=== PATIENT | female | born 1945 | race Caucasian/White ===

== ENCOUNTER 2017-03-11 09:15 | Outpatient (RCR) | payer MEDICARE, SELFPAY ==
[2017-02-09 00:32] VITALS: BP 136/64; BP 156/70
--- NOTE | 2017-03-11 11:23 | PCM.CR.ITP ---
Exercise - Initial Assessment - Stages of Change Stages of Change:: Action - Exercise Prescription Mode:: Treadmill, Biodyne, Airdyne, NuStep Angina with exercise?: No Target Heart Rate:: 105-112 - Hypertension Do any of the following apply?: Yes - Intervention Home Exercise/Activity Goal:: Moderate Exercise 30 min/day x 5 days/wk - Education Goals:: Warm-up, RPE JES Scale, S/S, Safe Exercise, Self-Monitoring - Exercise Program Goals Exercise Program Goals: Aerobic Activity >30 min, B/P <140/90 Exercise - 30-day Assessment - Stages of Change Stages of Change:: Action - Exercise Prescription Mode:: NuStep, Arm Ergometer Frequency (x/week): 3 Duration:: 35 METs - Progression: 0.5-1 MET as tolerated: 4.0 Target Heart Rate:: 105-112 - Intervention Home Exercise/Activity Goal:: Moderate Exercise 30 min/day x 5 days/wk - Education Goals:: Warm-up, RPE JES Scale, S/S, Safe Exercise, Self-Monitoring - Exercise Program Goals Exercise Program Goals: Aerobic Activity >30 min Exercise - 60-Day Assessment - Visit Date of Eval: 05/09/16 - Stages of Change Stages of Change:: Action - Exercise Prescription Mode:: NuStep, Arm Ergometer Frequency (x/week): 3 Duration:: METs: Target Heart Rate:: - Hypertension Medication Changes:: No - Intervention Home Exercise/Activity Goal:: Moderate Exercise 30 min/day x 5 days/wk - Education Goals:: Warm-up, RPE JES Scale, S/S, Safe Exercise, Self-Monitoring - Exercise Program Goals Exercise Program Goals: Aerobic Activity >30 min Exercise - 90-Day Assessment - Visit Date of Eval: 03/11/17 Session #:: 32 - Stages of Change Stages of Change:: Action - Exercise Prescription Mode:: NuStep, Arm Ergometer Frequency (x/week): 3 Duration:: 30 METs: 5.5 Target Heart Rate:: 105-112 max HR 83 - Hypertension Resting Blood Pressure:: 116/48 Peak Exercise Blood Pressure:: 136/52 Medication Changes:: No - Intervention Home Exercise/Activity Goal:: Moderate Exercise 30 min/day x 5 days/wk - Education Goals:: Warm-up, RPE JES Scale, S/S, Safe Exercise, Self-Monitoring - Exercise Program Goals Exercise Program Goals: Aerobic Activity >30 min Exercise - Final/Discharge - Stages of Change Stages of Change:: Action - Exercise Prescription Mode:: NuStep Frequency (x/week): 3 Duration:: 35 METs: 3.6 Target Heart Rate:: 105-112 - Hypertension Do any of the following apply?: Yes - Intervention Home Exercise/Activity Goal:: Moderate Exercise 30 min/day x 5 days/wk - Education Goal Progress: Goal Met - Exercise Program Goals Exercise Program Goals: Aerobic Activity >30 min Nutrition - Initial Assessment - Program Goals Nutrition Program Goals: LDL <70. Total Cholesterol <200. HDL >45. Triglycerides <150. HgbA1C <7%. BMI <25 - Stages of Change Stages of Change:: Action - Lipids HDL Cholesterol (mg/dL) Goal = less than 45 mg/dL: 39 LDL Cholesterol (mg/dL) Goal = less than 70 mg/dL: 78 - Diabetes Diabetes:: Yes Hgb A1C: 7.1 Non-Insulin Dependent?: No Do you monitor your blood sugar at home?: Yes - Weight Management Weight Goal (kg):: 68.039 kg Total Score:: 4 - Intervention Referral to dietitian:: No - declines Referral to Diabetic Clinic:: No - declines Will attend diet classes:: Yes - Education Gave educational materials for:: Signs & symptoms of hypoglycemia, Signs & symptoms of hyperglycemia, Relate diabetes to coronary artery disease, Healthy eating Nutrition - 30-Day Assessment - Program Goals Nutrition Program Goals: LDL <70. Total Cholesterol <200. HDL >45. Triglycerides <150. HgbA1C <7%. BMI <25 - Stages of Change Stages of Change:: Action - Lipids Has the patient seen the dietitian?: No - Diabetes Diabetes:: Yes Hgb A1C: 7.1 Non-Insulin Dependent?: No - Weight Management Weight Goal (kg):: 68.039 kg - Intervention Referral to dietitian:: No - declines Referral to Diabetic Clinic:: No - declines Will attend diet classes:: Yes - Education Attended class for:: Signs & symptoms of hypoglycemia, Signs & symptoms of hyperglycemia, Relate diabetes to coronary artery disease, Healthy eating Nutrition - 60-Day Assessment - Program Goals Nutrition Program Goals: LDL <70. Total Cholesterol <200. HDL >45. Triglycerides <150. HgbA1C <7%. BMI <25 - Visit Date of Eval: 05/09/16 - Stages of Change Stages of Change:: Action - Lipids Has the patient seen the dietitian?: No - Diabetes Diabetes:: Yes Hgb A1C: 7.1 Non-Insulin Dependent?: No Random Blood Glucose:: 222 - Weight Management Weight Goal (kg):: 68.039 kg - Intervention Referral to dietitian:: No - declines Referral to Diabetic Clinic:: No - declines Will attend diet classes:: Yes - Education Attended class for:: Signs & symptoms of hypoglycemia, Signs & symptoms of hyperglycemia, Relate diabetes to coronary artery disease, Healthy eating Nutrition - 90-Day Assessment - Program Goals Nutrition Program Goals: LDL <70. Total Cholesterol <200. HDL >45. Triglycerides <150. HgbA1C <7%. BMI <25 - Visit Date of Eval: 03/11/17 - Stages of Change Stages of Change:: Action - Lipids Has the patient seen the dietitian?: No - Diabetes Diabetes:: Yes Hgb A1C: 7.1 Non-Insulin Dependent?: No Random Blood Glucose:: 222 - 145-250 - Weight Management Weight:: 106.141 kg Weight Goal (kg):: 68.039 kg - Intervention Referral to dietitian:: No - declines Referral to Diabetic Clinic:: No - declines Will attend diet classes:: Yes - Education Attended class for:: Signs & symptoms of hypoglycemia, Signs & symptoms of hyperglycemia, Relate diabetes to coronary artery disease, Healthy eating Nutrition - Final Assessment - Program Goals Nutrition Program Goals: LDL <70. Total Cholesterol <200. HDL >45. Triglycerides <150. HgbA1C <7%. BMI <25 - Stages of Change Stages of Change:: Action - Diabetes Diabetes:: Yes Hgb A1C: 7.1 Non-Insulin Dependent?: No - Weight Management Weight Goal (kg):: 68.039 kg Total Score:: 4 - Intervention Referral to dietitian:: No - declines Referral to Diabetic Clinic:: No - declines Will attend diet classes:: Yes - Education Education Goal Reached?: Yes Tobacco - Initial Assessment - Program Goals Tobacco Program Goals: Complete smoking cessation. Attend education classes. Improve Knowledge Test score - Stage of Change Stages of Change:: Action - Learning Barriers Learning Barriers: Ready to Learn Total Score:: 0 - Family Support Do you have family support?: Yes - Tobacco Use Tobacco Use: Non-smoker How long ago did you quit using tobacco products?: Greater than or equal to 6 months ago Do you use smokeless tobacco?: No - Intervention Smoking Cessation Referral:: No Individual Education/Counseling:: No Education Schedule Given:: Yes - Education Gave educational material for:: Tobacco triggers, Coronary artery disease, Risk factors, Sexuality, Medical compliance, Cardiac A&P, Angina signs & symptoms Tobacco - 30-Day Assessment - Program Goals Tobacco Program Goals: Complete smoking cessation. Attend education classes. Improve Knowledge Test score - Stage of Change Stages of Change:: Action - Learning Barriers Learning Barriers: Participates in education - Family Support Do you have family support?: Yes - Tobacco Use Tobacco Use: Non-smoker Do you use smokeless tobacco?: No - Intervention Smoking Cessation Referral:: No Individual Education/Counseling:: No Education Schedule Given:: Yes - Education Attended class for:: Tobacco triggers, Coronary artery disease, Risk factors, Sexuality, Medical compliance, Cardiac A&P, Angina signs & symptoms Tobacco - 60-Day Assessment - Program Goals Tobacco Program Goals: Complete smoking cessation. Attend education classes. Improve Knowledge Test score - Stage of Change Stages of Change:: Action - Learning Barriers Learning Barriers: Participates in education - Family Support Do you have family support?: Yes - Tobacco Use Tobacco Use: Non-smoker Do you use smokeless tobacco?: No - Intervention Smoking Cessation Referral:: No Individual Education/Counseling:: No Education Schedule Given:: Yes - Education Attended class for:: Tobacco triggers, Coronary artery disease, Risk factors, Sexuality, Medical compliance, Cardiac A&P, Angina signs & symptoms Tobacco - 90-Day Assessment - Program Goals Tobacco Program Goals: Complete smoking cessation. Attend education classes. Improve Knowledge Test score - Stage of Change Stages of Change:: Action - Learning Barriers Learning Barriers: Participates in education - Family Support Do you have family support?: Yes - Tobacco Use Tobacco Use: Non-smoker Do you use smokeless tobacco?: No - Intervention Smoking Cessation Referral:: No Individual Education/Counseling:: No Education Schedule Given:: Yes - Education Attended class for:: Tobacco triggers, Coronary artery disease, Risk factors, Sexuality, Medical compliance, Cardiac A&P, Angina signs & symptoms Tobacco - Final Assessment - Program Goals Tobacco Program Goals: Complete smoking cessation. Attend education classes. Improve Knowledge Test score - Stage of Change Stages of Change:: Action - Learning Barriers Cardiac Knowledge Test Score:: 0 - Family Support Do you have family support?: Yes - Tobacco Use Tobacco Use: Non-smoker Do you use smokeless tobacco?: No - Intervention Smoking Cessation Referral:: No Individual Education/Counseling:: No Education Schedule Given:: Yes - Education Education Goal Reached?: Yes Psychosocial - Initial Assess - Target Goals Target Goals: Assess presence or absence of depression. Using a valid screening tool, maximizes coping skills. Positive support system - Stages of Change Stages of Change:: Action - Psychosocial Test Tool Used:: HANDS Depression Questionnaire Self-reported stress:: no Tests Completed: SF - 36 survey completed, Mood Scale Test Total Mood Screening Score:: 1 Self-Efficacy Score:: 2 - Patient/Program Goal Preventative Medication(s):: Aspirin, STEVE inhibitor, Clopidogrel, Beta rahat, Statin/lipid - Assistive Devices Assistive Devices:: None Fall Risk Assessed:: Yes Psychosocial - 30-Day Assess - Target Goals Target Goals: Assess presence or absence of depression. Using a valid screening tool, maximizes coping skills. Positive support system - Stages of Change Stages of Change:: Action - Psychosocial Test Tool Used:: HANDS Depression Questionnaire Self-reported stress:: None Total Mood Screening Score:: 1 Self-Efficacy Score:: 2 - Patient/Program Goal Preventative Medication(s):: Aspirin, STEVE inhibitor, Clopidogrel, Beta rahat, Statin/lipid - Assistive Devices Assistive Devices:: None Fall Risk Assessed:: Yes Psychosocial - 60-Day Assess - Target Goals Target Goals: Assess presence or absence of depression. Using a valid screening tool, maximizes coping skills. Positive support system - Stages of Change Stages of Change:: Action - Psychosocial Test Tool Used:: HANDS Depression Questionnaire Total Mood Screening Score:: 1 Self-Efficacy Score:: 2 - Patient/Program Goal Preventative Medication(s):: Aspirin, STEVE inhibitor, Clopidogrel, Beta rahat, Statin/lipid - Assistive Devices Assistive Devices:: None Fall Risk Assessed:: Yes Psychosocial - 90-Day Assess - Target Goals Target Goals: Assess presence or absence of depression. Using a valid screening tool, maximizes coping skills. Positive support system - Stages of Change Stages of Change:: Action - Psychosocial Test Tool Used:: HANDS Depression Questionnaire Total Mood Screening Score:: 1 Self-Efficacy Score:: 9 - Patient/Program Goal Preventative Medication(s):: Aspirin, STEVE inhibitor, Clopidogrel, Beta rahat, Statin/lipid - Assistive Devices Assistive Devices:: None Fall Risk Assessed:: Yes Psychosocial - Final Assessmen - Target Goals Target Goals: Assess presence or absence of depression. Using a valid screening tool, maximizes coping skills. Positive support system - Stages of Change Stages of Change:: Action - Psychosocial Test Tool Used:: HANDS Depression Questionnaire Self-reported stress:: none Tests Completed: SF - 36 survey completed, Mood Scale Test Total Mood Screening Score:: 1 Self-Efficacy Score:: 2 - Education Education Goal Reached?: Yes - Patient/Program Goal Preventative Medication(s):: Aspirin, STEVE inhibitor, Clopidogrel, Beta rahat, Statin/lipid - Assistive Devices Assistive Devices:: None Fall Risk Assessed:: Yes Patient Health Questionnaire 90-Day Re-eval Assessment 1. Little interest or pleasure in doing things: Not at all 2. Feeling down, depressed, or hopeless: Not at all 3. Trouble falling or staying asleep, or sleeping too much: Not at all 4. Feeling tired or having little energy: Not at all 5. Poor appetite or overeating: Not at all 6. Feeling bad about yourself -- or that you are a failure or have let yourself or your family down: Not at all 7. Trouble concentrating on things, such as reading the newspaper or watching television: Not at all 8. Moving or speaking so slowly that other people could have noticed. Or the opposite - being so fidgety or restless that you have been moving around a lot more than usual: Not at all 9. Thoughts that you would be better off , or of hurting yourself in some way: Not at all Total Score: 0 Self-Efficacy 90-Day Re-eval Assessment We would like to know how confident you are in doing certain activities. Please select your confidence level for:: Select your confidence level for the following using the scale 1-10 where 1 is not at all confident and 10 is totally confident. Your score is the average of all 6 responses. Fatigue: How confident are you that you can keep the fatigue caused by your disease from interfering with the things you want to do? Select Number: 9 Physical Discomfort or Pain: How confident are you that you can keep the physical discomfort or pain of your disease from interfering with the things you want to do? Select Number: 10 Emotional Distress: How confident are you that you can keep the emotional distress caused by your disease from interfering with the things you want to do? Select Number: 10 Other Symptoms or Health Problems: How confident are you that you can keep other symptoms or health problems from interfering with the things you want to do? Select Number: 10 Different Tasks and Activities: How confident are you that you can do the different tasks and activities needed to manage your health condition so as to reduce your need to see a doctor? Select Number: 10 Medication: How confident are you that you can do things other than just taking medication to reduce how much your illness affects your everyday life? Select Number: 10 Total Score:: 9 Cardiac Rehabilitation Goals - Cardiac Rehab Goals Cardiac Rehabilitation Goals: 1. Maintain the individual as the primary focus of care. 2. To improve the patient's quality of life. 3. Identification of cardiac risk factors and provide cardiac risk factor management. 4. Enhance the psychosocial status of the patient. 5. Reconditioning enough to allow the patient to resume customary activities. 6. Control symptoms of cardiac disease - Scale Scale for measuring improvement of personal goals: Enter appropriate number in Comments. 2 = Unchanged. 3 = Slightly Better. 4 = Moderate Improvement. 5 = Met my Goal 90-Day Re-eval Assessment Personal Goals: 60-day Re-assessment: Improve energy level - goal met., Get back to work, or to resume activities faster - goal met., Improve muscle strength and endurance - goal met.
[2017-03-11 11:27] VITALS: BP 116/48; BP 136/52
== END 2017-03-11 23:59 ==
LOC: CR 09:15
PROVIDERS: Family Provider Family Medicine; PCP Family Medicine; Visit Provider Internal Medicine Cardiovascular Disease
DX: Z95.5 Presence of coronary angioplasty implant and graft (principal); I25.118 Atherosclerotic heart disease of native coronary artery with other forms of angina pectoris; I35.0 Nonrheumatic aortic (valve) stenosis; E11.9 Type 2 diabetes mellitus without complications; I10 Essential (primary) hypertension; E78.5 Hyperlipidemia, unspecified; R07.9 Chest pain, unspecified; Z79.01 Long term (current) use of anticoagulants; Z79.899 Other long term (current) drug therapy; Z95.1 Presence of aortocoronary bypass graft
CPT/HCPCS: 93798

== ENCOUNTER 2017-03-20 09:15 | Outpatient (RCR) | payer MEDICARE, SELFPAY ==
[2017-03-12 00:31] VITALS: BP 116/48; BP 136/52
== END 2017-04-08 23:59 ==
LOC: CR 09:15
PROVIDERS: Family Provider Family Medicine; PCP Family Medicine; Visit Provider Internal Medicine Cardiovascular Disease
DX: Z95.5 Presence of coronary angioplasty implant and graft (principal); I25.118 Atherosclerotic heart disease of native coronary artery with other forms of angina pectoris; I35.0 Nonrheumatic aortic (valve) stenosis; E11.9 Type 2 diabetes mellitus without complications; I10 Essential (primary) hypertension; E78.5 Hyperlipidemia, unspecified; R07.9 Chest pain, unspecified; Z79.01 Long term (current) use of anticoagulants; Z79.899 Other long term (current) drug therapy; Z95.1 Presence of aortocoronary bypass graft
CPT/HCPCS: 36415; 80076; 82565; 82728; 83540; 83550; 85025; 85610; 93798

== ENCOUNTER → 2017-03-20 09:54 | Outpatient (CLI) | payer MEDICARE, SELFPAY ==
[2017-03-20 10:17] LABS: Absolute Lymphocyte Count 0.95 X10^3/ul (0.83-4.51); Absolute Neutrophil Count 1.8 X10^3/uL (2.0-7.7); Basophil# 0.01 X10^3/uL; Basophil% 0.3 % (0-1); Eosinophil# 0.07 X10^3/uL; Eosinophils% 2.3 % (0-5); Hematocrit 35.5 % (37-47); Hemoglobin 10.9 g/dl (12.0-15.0); Lymphocyte # 0.95 X10^3/ul (4.0); Lymphocyte % 30.7 % (19-41); Mean Corp Hgb Conc 30.7 g/gl (32-36); Mean Corpuscular Hgb 26.7 pg (27.0-32.0); Mean Corpuscular Volume 86.8 fL (81-99); Mean Platelet Vol. 12.3 fl (6.2-12.0); Monocyte# 0.29 X10^3/uL; Monocyte% 9.4 % (0-10); Neutrophil # 1.77 X10^3/uL (2.7-7.7); Neutrophil % 57.3 % (47-70); Platelet Count 111 K/mm3 (150-450); RBC Distribution Width CV 15.6 % (11.6-14.6); RBC Distribution Width SD 49.2 fl (35.1-43.9); Red Blood Count 4.09 M/mm3 (4.2-5.4); White Blood Count 3.1 K/mm3 (4.4-11.0)
[2017-03-20 10:18] LABS: POSITIVE COUNT NO; POSITIVE DIFFERENTIAL NO; POSITIVE MORPHOLOGY NO
[2017-03-20 10:35] LABS: International Normalized Ratio 2.6; Prothrombin Time (Protime)PT. 26.9 SECONDS (11.7-14.9)
[2017-03-20 10:56] LABS: AST(SGOT) 28 U/L (15-37); Alanine Aminotransfer ALT/SGPT 27 U/L (13-56); Albumin, Serum 3.3 g/dL (3.2-5.0); Alkaline Phosphatase 140 U/L (45-117); Bilirubin, Direct 0.36 mg/dL (0.00-0.30); Creatinine, Serum 1.05 mg/dL (0.55-1.02); EST Glomerular Filtration Rate 55 mL/min (>60); Est Glom Filt Rate - Afr Amer 66 mL/min (>60); Ferritin 15 ng/mL (8-252); Globulin 3.8 g/dL (2.2-4.2); Iron 39 ug/dL (50-170); Iron Binding Capacity,Total 375 ug/dL (250-450); Protein, Total 7.1 g/dL (6.4-8.2)
== END ==
PROVIDERS: Family Provider Family Medicine; PCP Family Medicine
DX: I63.9 Cerebral infarction, unspecified (principal); M05.79 Rheumatoid arthritis with rheumatoid factor of multiple sites without organ or systems involvement; Z79.899 Other long term (current) drug therapy; D64.9 Anemia, unspecified
CPT/HCPCS: 36415; 80076; 82565; 82728; 83540; 83550; 85025; 85610

== ENCOUNTER → 2017-04-22 16:12 | Outpatient (CLI) | payer MEDICARE, SELFPAY ==
[2017-04-22 17:56] LABS: International Normalized Ratio 3.1; Prothrombin Time (Protime)PT. 31.9 SECONDS (11.7-14.9)
== END ==
PROVIDERS: Family Provider Family Medicine; PCP Family Medicine; Visit Provider Family Medicine
DX: E11.9 Type 2 diabetes mellitus without complications (principal); Z86.73 Personal history of transient ischemic attack (TIA), and cerebral infarction without residual deficits
CPT/HCPCS: 36415; 83036; 85610

== ENCOUNTER → 2017-04-27 15:42 | Outpatient (CLI) | payer MEDICARE, SELFPAY ==
--- NOTE | 2017-04-27 16:00 | RAD_ITS ---
STUDY: X-RAY CHEST REASON FOR EXAM: Female, 72 years old. Coronary artery stent. Pre heart catheter. TECHNIQUE: Frontal and lateral views of the chest. COMPARISON: 11/19/2016. FINDINGS: The lungs are clear and expanded. There is no demonstrated pleural abnormality. Sternal cerclage wires and vascular clips are present from a prior sternotomy and coronary artery bypass graft procedure (CABG). Normal mediastinum and fidelina. Normal visualized pulmonary arteries. Normal visualized aortic arch and descending thoracic aorta. There are diffuse degenerative changes of the visualized thoracic spine. Normal visualized ribs, clavicles, and shoulders. There is no demonstrated abnormality of the visualized soft tissue structures of the upper abdomen. RAD/Chest PA and Lateral IMPRESSION: No definite acute chest disease. Electronically Signed: Reinaldo Oglesby MD at 9:47 EDT , Service support ,
[2017-04-27 17:28] LABS: Absolute Lymphocyte Count 2.12 X10^3/ul (0.83-4.51); Absolute Neutrophil Count 2.1 X10^3/uL (2.0-7.7); Basophil# 0.01 X10^3/uL; Basophil% 0.2 % (0-1); Eosinophil# 0.07 X10^3/uL; Eosinophils% 1.5 % (0-5); Hematocrit 37.3 % (37-47); Hemoglobin 11.3 g/dl (12.0-15.0); Lymphocyte # 2.12 X10^3/ul (4.0); Mean Corp Hgb Conc 30.3 g/gl (32-36); Mean Corpuscular Hgb 26.7 pg (27.0-32.0); Mean Corpuscular Volume 88.2 fL (81-99); Monocyte# 0.42 X10^3/uL; Monocyte% 8.9 % (0-10); Neutrophil # 2.09 X10^3/uL (2.7-7.7); Neutrophil % 44.4 % (47-70); Platelet Count 150 K/mm3 (150-450); RBC Distribution Width SD 51.3 fl (35.1-43.9); Red Blood Count 4.23 M/mm3 (4.2-5.4); White Blood Count 4.7 K/mm3 (4.4-11.0)
[2017-04-27 17:33] LABS: Prothrombin Time (Protime)PT. 31.7 SECONDS (11.7-14.9)
[2017-04-27 17:43] LABS: POSITIVE COUNT NO; POSITIVE DIFFERENTIAL NO; POSITIVE MORPHOLOGY NO
[2017-04-27 18:07] LABS: Anion Gap 9 (5-15); BUN 22 mg/dL (7-18); BUN/Creat Ratio 17.3 RATIO (10-20); Calcium,Total 9.3 mg/dL (8.5-10.1); Chloride 108 mmol/L (98-107); Creatinine, Serum 1.27 mg/dL (0.55-1.02); EST Glomerular Filtration Rate 44 mL/min (>60); Est Glom Filt Rate - Afr Amer 53 mL/min (>60); Glucose 187 mg/dL (74-106); Potassium 4.3 mmol/L (3.5-5.1); Sodium Level 141 mmol/L (136-145)
== END ==
PROVIDERS: Family Provider Family Medicine; PCP Family Medicine; Visit Provider Internal Medicine Cardiovascular Disease
DX: I63.9 Cerebral infarction, unspecified (principal); I25.10 Atherosclerotic heart disease of native coronary artery without angina pectoris; E78.5 Hyperlipidemia, unspecified; I25.798 Atherosclerosis of other coronary artery bypass graft(s) with other forms of angina pectoris; Z95.5 Presence of coronary angioplasty implant and graft
CPT/HCPCS: 36415; 71046; 80048; 85025; 85610; 85730

== ENCOUNTER 2017-05-13 07:53 | Day surgery (SDC) | payer MEDICARE, SELFPAY ==
[2017-05-12 11:45] VITALS: BMI 38.2
[2017-05-13] VITALS (36 sets, daily range): BP systolic 103–175; BP diastolic 42–143; PULSE 57–74; RESP 13–21; TEMP 36–36.9; O2SAT 94–100; BMI 39.4
[2017-05-13 08:06] LABS: Prothrombin Time Fingerstick 12.2 SEC (11.9-14.4)
[2017-05-13 08:21] LABS: Bedside Glucose 101 mg/dL (70-110)
--- NOTE | 2017-05-13 10:45 | CL.I_ITS ---
Patient Name: BEN DE JESUS Study Date: 05/13/2017 Performing: Jim Liu MD Ht: 65 inches 165 cm : 1945 Wt: 229.6 lbs 104 kg Age: 72 Gender: female BSA: 2.1 PROCEDURE(S) PERFORMED LP43-FFV/COR/LV/CABG [id number], SINGLE CORONARY ARTERY CLINICAL PROFILE AND CO-MORBIDITIES Indications: New Onset Angina <= 2 months Heart Failure: None Stress/Imaging Stress/Image Study Performed: No Angina Classification Anginal Classification w/in 2 Weeks: CCS IV CAD Presentations: Unstable angina. 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 Successful PCI with PTCA to the Angiosculpt to ISR of mid RCA. RECOMMENDATIONS Referred for immediate PCI Highly recommend quitting all tobacco products Follow up with primary street inspector Risk factor modification ASA Indefinitley Plavix for at least 12 months Routine post interventional care Refer for Outpatient Cardiac Rehab Manual sheath removal per protocol Pt had no anginal symptoms with balloon inflation x 2. Would consider other sources of chest pain. DESCRIPTION OF PROCEDURE The patient arrived to the procedure lab. The risks and benefits of the procedure as well as a full d escription of our services here and lack of surgical backup were fully explained to the patient and/o r their significant other prior to the catheterization. The Timeout was completed, verifying the arnie ect patient and procedure. The patient's procedural site was prepped and draped in the usual fashion. Local anesthetic was given subcutaneously to left groin region with Lidocaine 2%. Using a modified S eldinger technique, arterial access was obtained via the left femoral artery, a 4Fr sheath was insert ed. Left Coronary Artery selective angiography was performed in multiple views using a 4 Fr. JL5 cat heter. Right Coronary Artery selective angiography was then performed in multiple views using a 4 Fr. 3DRC catheter. Saphenous Vein graft to the OM 1 selective angiography was performed in multiple view s using a 4 Fr. 3DRC catheter. Left internal mammary artery graft to the LAD selective angiography wa s performed in multiple views using a 4 Fr. AR MOD 2 catheter. Left Ventriculography was performed in ZAPATA projection using a 4 Fr. Pigtail catheter. LV to AO pullback pressures were then recorded Arterial sheath was exchanged for a 6 Fr Sheath hs II SH Guide catheter was inserted and engaged into the RCA. BMW Cuddy Guide wire was advanced to the RCA. 2.0 by 10 angiosculpt Balloon catheter wa s advanced across lesion in the right coronary, mid. Angiogram performed post balloon dilatation.. . The arterial sheath was sutured in place and capped. CORONARY ANGIOGRAPHY DOMINANCE: Left Dominant LEFT HEART ASSESSMENT Left Ventricular Ejection Fraction: by LV Gram 65 % Normal Left Ventricular systolic function Normal LV wall motion LEFT MAIN: Moderate calcification LEFT ANTERIOR DECENDING ARTERY: OSTIAL LAD: is occluded CIRCUMFLEX ARTERY: Mild luminal irregularities less than 30% RIGHT CORONARY ARTERY: MID RCA: Instent restenosis 75 % GRAFTS: KRISHNAMURTHY graft to the LAD is patent Saphenous Vein graft to the 1st OM is patent INTERVENTION INFORMATION LESION SITE: RCA (Mid) Lesion Complexity: Non-High/Non-C, lesion at bifurcation: No, lesion length: 10 mm, culprit lesion: Y es, In-stent restenosis: Yes Pre Stenosis: 75 % Pre intervention JESSE flow: 3 PROCEDURE: Cutting Balloon Angioplasty Post Stenosis: 0 % Post intervention JESSE flow: 3 Lesion Devices: Memoir 6 Fr HSII SH 100cm Guide Catheter Corley .014 BMW Cuddy Straight 190cm [employer] Angiosculpt RX 2.0x10 Scoring Balloon COMPLICATIONS No Complications PROCEDURE MEDICATIONS Oxygen: 2 L/min via nasal cannula Heparin 6000 unit(s) IV 05/13/2017 10:05:34 Nitro 200 mcg IC 05/13/2017 10:14:58 IV Fluids: .9 NaCl increased to open ml/hr 05/13/2017 10:09:51 SUMMARY OF HEMODYNAMIC DATA Time AIR REST ECG 08:31:48 ECG 09:31:53 AO 130/68 (96) SA 09:51:50 LV 167/-19, 18 10:02:55 LV 169/-19, 18 10:03:02 LVp 172/-18, 12 10:03:21 AOp 163/59 (99) 10:03:26 Signed By Jim Liu MD On 05/13/2017 10:48:41 Signed By Jim Liu MD On 05/13/2017 10:44:46 Jim Liu MD
--- NOTE | 2017-05-13 10:53 | EKG12_ITS ---
Test Reason : CHEST PAIN Blood Pressure : / mmHG Vent. Rate : 064 BPM Atrial Rate : 064 BPM P-R Int : 160 ms QRS Dur : 082 ms QT Int : 428 ms P-R-T Axes : 034 -36 083 degrees QTc Int : 441 ms Normal sinus rhythm Left axis deviation Septal infarct , age undetermined Abnormal ECG When compared with ECG of 13-MAY-2017 11:07, MANUAL COMPARISON REQUIRED, DATA IS UNCONFIRMED Confirmed by ANA BURTON, MINA ([id number]), loan expeditor AJAY SERRANO ([id number]) on 05/19/2017 9:24:54 AM Referred By: Jim Liu Confirmed By:MINA PEREZ MD
[2017-05-13] MEDS: 0.9% Normal Saline 1,000 ML 150 ML IV (11:00)
[2017-05-13 11:42] LABS: Hematocrit 32.4 % (37-47); Mean Corp Hgb Conc 30.9 g/gl (32-36); Mean Corpuscular Volume 87.6 fL (81-99); Mean Platelet Vol. 11.8 fl (6.2-12.0); Platelet Count 85 K/mm3 (150-450); RBC Distribution Width CV 17.7 % (11.6-14.6); Scan Indicated on CBC? Y/N YES- FLAGS NOTED; White Blood Count 3.3 K/mm3 (4.4-11.0)
[2017-05-13 11:51] LABS: CPK Total, Creatine Kinase 70 U/L (26-192)
--- NOTE | 2017-05-13 12:02 | CRPHASE1 ---
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 Reason Not Completed:: Patient was just seen status post PCI/coronary stent on 11/25/2016 and participated in cardiac rehab phase II for 36 visits/12-weeks. Risk Factors/Lifestyle Family History: Family History (Last Reviewed 04/27/17 @ 14:51 by Diana Penaloza) Grandmother Myocardial infarction CVA (cerebral vascular accident) Mother Myocardial infarction Father Diabetes Arthritis
--- NOTE | 2017-05-13 12:05 | CRPH1.INSTRU ---
General Education CAD and cardiac anatomy and function:: Patient communicates acknowledgment Explanation of diagnoses and procedures:: Patient communicates acknowledgment Sign/Symptoms of NE:: Patient communicates acknowledgment Antiplatelet therapy: Patient communicates acknowledgment Emergency procedures and activation of EMS: Patient communicates acknowledgment Compliance of all prescribed medications: Patient communicates acknowledgment - Patient seen status post coronary stent 11/25/2016. Participated in [facility] follwoing for 36 visits/12 weeks.
[2017-05-13 12:08] LABS: Differential Comment SCANNED
[2017-05-13 13:03] LABS: M R Staph aureus DNA By PCR Negative (Negative); Probe Check PASS; Specimen Processing Control PASS
[2017-05-13 13:11] LABS: ACT Activated Clotting Time 147 sec (74-137)
[2017-05-13 14:06] LABS: Bedside Glucose 58 mg/dL (70-110)
[2017-05-13 14:06] LABS: ACT Activated Clotting Time 197 sec (74-137)
[2017-05-13 14:50] LABS: Bedside Glucose 76 mg/dL (70-110)
[2017-05-13 17:55] LABS: Bedside Glucose 109 mg/dL (70-110)
[2017-05-13 18:03] LABS: Hematocrit 32.9 % (37-47); Hemoglobin 10.2 g/dl (12.0-15.0); Mean Corpuscular Hgb 27.2 pg (27.0-32.0); Mean Corpuscular Volume 87.7 fL (81-99); Platelet Count 88 K/mm3 (150-450); RBC Distribution Width CV 17.7 % (11.6-14.6); RBC Distribution Width SD 55.3 fl (35.1-43.9); Red Blood Count 3.75 M/mm3 (4.2-5.4); White Blood Count 3.5 K/mm3 (4.4-11.0)
[2017-05-13 18:11] LABS: CPK Total, Creatine Kinase 65 U/L (26-192); Scan Indicated on CBC? Y/N YES- FLAGS NOTED
[2017-05-13 18:29] LABS: Differential Comment SCANNED
[2017-05-13 18:30] LABS: Bedside Glucose 135 mg/dL (70-110)
[2017-05-13] MEDS: Atorvastatin Calcium 40 MG Tablet PO (21:46)
[2017-05-13] MEDS: Topiramate 50 MG Tablet PO (21:47)
[2017-05-13] MEDS: Gabapentin 300 MG Capsule PO (21:47)
[2017-05-13 22:01] LABS: Bedside Glucose 149 mg/dL (70-110)
[2017-05-13 23:03] LABS: Hematocrit 31.3 % (37-47); Hemoglobin 9.8 g/dl (12.0-15.0); Mean Corp Hgb Conc 31.3 g/gl (32-36); Mean Corpuscular Hgb 27.8 pg (27.0-32.0); Mean Corpuscular Volume 88.7 fL (81-99); Mean Platelet Vol. 12.2 fl (6.2-12.0); Platelet Count 100 K/mm3 (150-450); RBC Distribution Width CV 17.8 % (11.6-14.6); Red Blood Count 3.53 M/mm3 (4.2-5.4); Scan Indicated on CBC? Y/N NO; White Blood Count 3.5 K/mm3 (4.4-11.0)
[2017-05-13 23:14] LABS: CPK Total, Creatine Kinase 64 U/L (26-192)
[2017-05-13] MEDS: traMADol 50 MG Tablet PO (23:22)
[2017-05-14] VITALS (23 sets, daily range): BP systolic 104–210; BP diastolic 41–94; PULSE 57–85; RESP 8–22; TEMP 36.6–37.2; O2SAT 92–98
[2017-05-14 02:16] LABS: Bedside Glucose 127 mg/dL (70-110)
[2017-05-14 05:36] LABS: Hematocrit 32.7 % (37-47); Hemoglobin 10.2 g/dl (12.0-15.0); Mean Corp Hgb Conc 31.2 g/gl (32-36); Mean Corpuscular Hgb 27.7 pg (27.0-32.0); Mean Corpuscular Volume 88.9 fL (81-99); Mean Platelet Vol. 11.4 fl (6.2-12.0); Platelet Count 92 K/mm3 (150-450); RBC Distribution Width CV 17.9 % (11.6-14.6); RBC Distribution Width SD 54.2 fl (35.1-43.9); Red Blood Count 3.68 M/mm3 (4.2-5.4); White Blood Count 3.4 K/mm3 (4.4-11.0)
[2017-05-14 05:38] LABS: Scan Indicated on CBC? Y/N NO
--- NOTE | 2017-05-14 05:55 | EKG12_ITS ---
Test Reason : POST CATH Blood Pressure : / mmHG Vent. Rate : 062 BPM Atrial Rate : 062 BPM P-R Int : 170 ms QRS Dur : 082 ms QT Int : 438 ms P-R-T Axes : 026 -35 089 degrees QTc Int : 444 ms Normal sinus rhythm Left axis deviation Septal infarct (cited on or before 20-NOV-2016) Abnormal ECG When compared with ECG of 22-NOV-2016 05:33, Questionable change in initial forces of Septal leads Confirmed by ANA BURTON, MINA ([id number]), editor [employer] AJAY SERRANO ([id number]) on 05/19/2017 9:25:52 AM Referred By: Jim Liu Confirmed By:MINA PEREZ MD
[2017-05-14 06:02] LABS: Anion Gap 9 (5-15); BUN 17 mg/dL (7-18); BUN/Creat Ratio 21.7 RATIO (10-20); Calcium,Total 8.6 mg/dL (8.5-10.1); Chloride 114 mmol/L (98-107); Cholesterol 122 mg/dL (200); Creatinine, Serum 0.78 mg/dL (0.55-1.02); EST Glomerular Filtration Rate 77 mL/min (>60); Est Glom Filt Rate - Afr Amer 93 mL/min (>60); Estimated Creatinine Clearance 44.56 ml/min; Glucose 108 mg/dL (74-106); High Density Lipoprotein 36 mg/dL; Potassium 3.7 mmol/L (3.5-5.1); Sodium Level 145 mmol/L (136-145); Triglycerides 118 mg/dL; Very Low Density Lipoprotein 24 mg/dL (5-40)
[2017-05-14] MEDS: diazePAM 5 MG Tablet PO (06:27)
[2017-05-14 06:40] LABS: Bedside Glucose 105 mg/dL (70-110)
[2017-05-14] MEDS: Metoprolol(XL)Succ 50 MG Tablet PO (07:54)
[2017-05-14] MEDS: Losartan Potassium 100 MG Tablet PO (07:54)
[2017-05-14] MEDS: Aspirin E.C. 81 MG Tablet PO (07:55)
[2017-05-14] MEDS: Isosorbide Mononitrate 60 MG Tablet PO (08:05)
[2017-05-14 08:25] LABS: Bedside Glucose 143 mg/dL (70-110)
--- NOTE | 2017-05-14 08:43 | PCM.DC.CCA ---
Discharge Diet: Low fat/ Low Cholesterol Discharge Activity: Return to Normal Activity, May Take a Tub Bath - after 5 days, - - Do not lift anything greater than 10 lbs for 3 days May shower in (days): 1 Lifting Restrictions: 10 pounds and also avoid any pushing or pulling for 3 days after your test. Call your doctor if your incision/area has: Continuous Slow Oozing, Sudden Increased Bleeding, Increased Pain/ Swelling, Increased Redness, Foul Smelling Discharge, Swelling at the incision site Call your doctor if you observe: Fever of 101 or Higher, Shortness of breath, Chest pain Remove Dressing in (days):: 1 Cleanse incision/area with: Soap & Water Additional Dressing/Incision Instructions:: Keep the dressing (bandage) on until the next morning. You may then shower, but do not take a tub bath for 5 days after your test. It is normal to have some tenderness and discomfort at the puncture site. Sometimes bruising also occurs. However, if pain, numbness, or coldness occurs below the puncture site (in your leg, toes, arms or fingers) call your doctor at once. You may have a small, marble sized knot at the puncture site. This is normal. Do not rub it. It will go away in 4-6 weeks. Bleeding can occur from the area where the puncture was done. Blood may spurt or drip from the site. If blood spurts, apply pressure right away to stop bleeding and call 911. Although rare, bleeding into the tissue (hematoma) can also occur. If this happens, a large, firm area goose egg under the skin will appear. If any of these occur, lie down as flat as you can and have someone apply firm pressure to the cath site with a gauze pad or a clean washcloth for 10-15 minutes. Call 911 or go to the Emergency Department. Additional Instructions: You will need to stay on you plavix for at least one year before it can be stopped. You will need to stay on ASA. At your next visit we will talk more about cardiac rehab. Resume your coumadin tomorrow, have your INR done in one week. Allergies/Adverse Reactions: Allergies No Known Allergies Allergy (Verified 04/27/17 14:51) Medications to take at Discharge Omeprazole [Prilosec] 40 mg PO DAILY 08/19/13 Topiramate [Topamax] 50 mg PO QHS 08/19/13 Insulin Aspart [Novolog Flexpen] 14 units SC TIDCM 06/15/14 Aspirin E.C. [Ecotrin] 81 mg PO DAILY@0800 11/20/15 Clopidogrel Bisulfate [Plavix] 75 mg PO DAILY #30 tab 11/22/16 Isosorbide Mononitrate [Imdur] 30 mg PO DAILY #30 tab 11/22/16 Losartan Potassium [Cozaar] 100 mg PO DAILY 11/27/16 atorvastatin 40 mg tablet 40 mg PO DAILY #90 tab 04/22/17 gabapentin 300 mg capsule 300 mg PO QHS #90 cap 04/22/17 insulin glargine (U-100) 100 unit/mL subcutaneous solution 70 unit SC QHS #90 ml 04/22/17 nitroglycerin 0.4 mg sublingual tablet 0.4 mg SUBLINGUAL Q5M PRN 04/22/17 tramadol 50 mg tablet 50 mg PO Q8H PRN #90 tab 04/22/17 warfarin 5 mg tablet 5 mg PO MOTH 04/22/17 warfarin 5 mg tablet 5 mg PO SUTUWEFR #90 tab 04/22/17 leflunomide 20 mg tablet 20 mg PO QDAY 04/27/17 metoprolol succinate ER 50 mg tablet,extended release 24 hr 50 mg PO QDAY tab 04/27/17 tofacitinib ER 11 mg tablet,extended release 24 hr 11 mg PO QDAY 04/27/17 Aspirin E.C. [Ecotrin] 81 mg PO DAILY@0800 tablet 05/14/17 Primary Care Physician: Malik Bang DO [Primary Care Provider] - Please follow up with your Primary Care Physician in: 2-4 weeks Please Follow Up With: Holly Rankin PA When: 05/27/2017 at 0900 Cardiac Rehabilitation Info Cardiac Rehabilitation Program Information: Cardiac Rehabilitation is important for patients like you who are recovering from a heart problem. Cardiac rehabilitation programs are recognized as integral to the continued care of the patient with coronary heart disease. The cardiac rehabilitation program is designed to optimize a patient's physical, psychological, and social functioning. Health health care law specialist work in cardiac rehabilitation programs and assist you with getting the treatments you need to get stronger and healthier - like exercise, healthy eating habits, and medications. Cardiac rehabilitation has been show to help people with heart problems live longer and have better life enjoyment than people who do not go to cardiac rehabilitation. Please contact the Cardiac Rehabilitation Program at [facility] at in two weeks if you have not heard from them.
[2017-05-14] MEDS: Pantoprazole Sodium 40 MG Tablet PO (09:47)
[2017-05-14] MEDS: Clopidogrel Bisulfate 75 MG Tablet PO (09:47)
[2017-05-14] MEDS: Leflunomide 10 MG TABLET 20 MG PO (09:49)
--- NOTE | 2017-05-14 10:53 | EKG12_ITS ---
Test Reason : AM EKG Blood Pressure : / mmHG Vent. Rate : 065 BPM Atrial Rate : 065 BPM P-R Int : 160 ms QRS Dur : 078 ms QT Int : 420 ms P-R-T Axes : 028 -34 090 degrees QTc Int : 436 ms Normal sinus rhythm Left axis deviation Septal infarct , age undetermined Abnormal ECG When compared with ECG of 13-MAY-2017 11:07, MANUAL COMPARISON REQUIRED, DATA IS UNCONFIRMED Confirmed by ANA BURTON, MINA ([id number]), map editor AJAY SERRANO ([id number]) on 05/19/2017 9:23:12 AM Referred By: Jim Liu Confirmed By:MINA PEREZ MD
--- NOTE | 2017-05-14 13:14 | PN.CARD_ITS ---
Subjectve: Patient doing very well, no 24 hour events. Telemetry negative. groin is clean /dry/intact, no evidence of thrills, bruits. Hemoglobin and creatinine within nominal limits. CKs negative. Patient did have an episode of chest pain with severe hypertension last evening which responded well to nitroglycerin. Nitroglycerin drip was started with an excellent result. No further chest pain and blood pressure is been improved. Objective: Vital Signs Temp Pulse Resp BP Pulse Ox 97.8 F 62 22 H 121/45 H 98 05/14/17 10:36 05/14/17 10:36 05/14/17 10:36 05/14/17 10:36 05/14/17 10:36 Oxygen Delivery Method Room Air Weight: 227 lb 15.327 oz Body Mass Index (BMI) 39.4 Finger Stick Blood Glucose 61 Intake and Output for Last 24 Hours 05/12/17 05/13/17 05/14/17 23:59 23:59 23:59 Intake Total 1661 / 1661 289 / 289 Output Total 700 / 700 Balance 961 / 961 289 / 289 General: Awake, Alert, Oriented x 3 HEENT: PERRL, EOMI, Sclera Non Icteric Neck: Supple, Good ROM, No Lymph Node Enlargement Lungs: Clear to auscultation Cardiovascular: Regular Rhythm, Normal S1, Normal S2, No Murmurs, No Rubs, No Gallops Vascular: No Carotid Bruits, Normal Femoral Pulses, Normal Radial Pulses, Normal Dorsalis Pedal Pulse, Normal Posterior Tibial Pulses Abdomen: Bowel Sounds Present, Soft, Non Tender, No HSM, No Organomegaly Extremities: No Cyanosis, No Clubbing, No edema Neurological: No Focal Motor or Sensory Deficit 05/13/17 17:47: WBC 3.5 L, RBC 3.75 L, Hgb 10.2 L, Hct 32.9 L, MCV 87.7, MCH 27.2, MCHC 31.0 L, RDW 17.7 H, RDW Differential 55.3 H, Plt Count 88 L, MPV 12.0 05/13/17 22:50: WBC 3.5 L, RBC 3.53 L, Hgb 9.8 L, Hct 31.3 L, MCV 88.7, MCH 27.8 , MCHC 31.3 L, RDW 17.8 H, RDW Differential 54.0 H, Plt Count 100 L, MPV 12.2 H 05/14/17 05:30: WBC 3.4 L, RBC 3.68 L, Hgb 10.2 L, Hct 32.7 L, MCV 88.9, MCH 27.7, MCHC 31.2 L, RDW 17.9 H, RDW Differential 54.2 H, Plt Count 92 L, MPV 11.4 05/14/17 05:30: Sodium 145, Potassium 3.7, Chloride 114 H, Carbon Dioxide 22.0, Anion Gap 9, BUN 17, Creatinine 0.78, Est GFR (MDRD) Af Amer 93, Est GFR (MDRD) Non-Af 77, BUN/Creatinine Ratio 21.7 H, Glucose 108 H, Calcium 8.6, Triglycerides 118, Cholesterol 122, LDL Cholesterol 62, VLDL Cholesterol 24, HDL Cholesterol 36 L Rhythm: EKG: ECHO: Stress Test: Cardiac Cath: PCI: CT Surgery: Holter monitor: EPS: PPM: CXR: Chest CT Scan: Medical Necessity - Tobacco Use Smoking Status: Former smoker Assessment/Plan 1. Coronary artery disease: Status post angioscope angioplasty to the in-stent restenosis of the right coronary artery. No further intervention recommended at this time. Recommend continuing baby aspirin, Plavix, and arrangements will be made for cardiac rehab. Patient had significant hypertension last evening with concomitant pain, responding well to nitroglycerin and nitroglycerin drip. We will increase her Imdur to 60 mg p.o. daily and continue her other antihypertensive medications. 2. Patient will be discharged home. Code Visit Inpatient E&M: 54581 Subs Hosp L2
== END 2017-05-14 11:30 | disposition home or self-care (01) ==
LOC: CLSP 07:55 → ICU 10:47
PROVIDERS: Family Provider Family Medicine; PCP Family Medicine; Visit Provider Internal Medicine Cardiovascular Disease
DX: I25.10 Atherosclerotic heart disease of native coronary artery without angina pectoris (principal); T82.858A Stenosis of other vascular prosthetic devices, implants and grafts, initial encounter; E66.01 Morbid (severe) obesity due to excess calories; I10 Essential (primary) hypertension; E78.00 Pure hypercholesterolemia, unspecified; Z86.73 Personal history of transient ischemic attack (TIA), and cerebral infarction without residual deficits; E11.9 Type 2 diabetes mellitus without complications; Z79.4 Long term (current) use of insulin; Z87.891 Personal history of nicotine dependence; Z95.5 Presence of coronary angioplasty implant and graft; Z68.39 Body mass index [BMI] 39.0-39.9, adult
CPT/HCPCS: 36416; 80048; 80061; 82550; 82962; 85027; 85347; 85610; 87641; 92920; 93005; 93459; J7030; J7040; C1725; C1769; C1887; C1894; Q9967

== ENCOUNTER → 2017-05-22 11:43 | Outpatient (CLI) | payer MEDICARE, SELFPAY ==
[2017-05-22 12:37] LABS: Absolute Lymphocyte Count 1.02 X10^3/ul (0.83-4.51); Absolute Neutrophil Count 1.6 X10^3/uL (2.0-7.7); Basophil# 0.01 X10^3/uL; Basophil% 0.3 % (0-1); Eosinophil# 0.04 X10^3/uL; Eosinophils% 1.3 % (0-5); Hemoglobin 10.4 g/dl (12.0-15.0); Lymphocyte # 1.02 X10^3/ul (4.0); Mean Corp Hgb Conc 30.6 g/gl (32-36); Mean Corpuscular Hgb 27.4 pg (27.0-32.0); Mean Corpuscular Volume 89.5 fL (81-99); Mean Platelet Vol. 12.3 fl (6.2-12.0); Monocyte# 0.38 X10^3/uL; Monocyte% 12.3 % (0-10); Neutrophil # 1.63 X10^3/uL (2.7-7.7); Neutrophil % 52.8 % (47-70); Platelet Count 142 K/mm3 (150-450); RBC Distribution Width CV 18.5 % (11.6-14.6); RBC Distribution Width SD 58.4 fl (35.1-43.9); White Blood Count 3.1 K/mm3 (4.4-11.0)
[2017-05-22 12:38] LABS: POSITIVE COUNT NO; POSITIVE DIFFERENTIAL NO; POSITIVE MORPHOLOGY NO
[2017-05-22 12:42] LABS: International Normalized Ratio 2.1; Prothrombin Time (Protime)PT. 23.9 SECONDS (11.7-14.9)
[2017-05-22 12:51] LABS: Hemoglobin A1c 9.1 % (4.2-6.3)
[2017-05-22 13:29] LABS: AST(SGOT) 30 U/L (15-37); Alanine Aminotransfer ALT/SGPT 17 U/L (13-56); Albumin, Serum 3.1 g/dL (3.2-5.0); Alkaline Phosphatase 148 U/L (45-117); Bilirubin, Direct 0.57 mg/dL (0.00-0.30); Cholesterol 138 mg/dL (200); Globulin 3.8 g/dL (2.2-4.2); High Density Lipoprotein 39 mg/dL; Protein, Total 6.9 g/dL (6.4-8.2); Triglycerides 143 mg/dL; Very Low Density Lipoprotein 29 mg/dL (5-40)
== END ==
PROVIDERS: Internal Medicine Cardiovascular Disease; Family Provider Family Medicine; PCP Family Medicine; Visit Provider Internal Medicine Rheumatology
DX: Z79.899 Other long term (current) drug therapy (principal); Z95.5 Presence of coronary angioplasty implant and graft; E78.5 Hyperlipidemia, unspecified
CPT/HCPCS: 80061; 80076; 83036; 85025; 85610

== ENCOUNTER → 2017-06-29 10:55 | Outpatient (CLI) | payer MEDICARE, SELFPAY ==
[2017-06-29 11:21] LABS: Prothrombin Time Fingerstick 37.2 SEC (11.9-14.4)
== END ==
PROVIDERS: Family Provider Family Medicine; PCP Family Medicine; Visit Provider Internal Medicine Rheumatology
DX: Z79.899 Other long term (current) drug therapy (principal); Z95.5 Presence of coronary angioplasty implant and graft; Z98.891 History of uterine scar from previous surgery
CPT/HCPCS: 36416; 85610

== ENCOUNTER → 2017-07-27 15:31 | Outpatient (CLI) | payer MEDICARE, SELFPAY ==
[2017-07-27 16:38] LABS: Hemoglobin A1c 8.8 % (4.2-6.3)
[2017-07-27 16:41] LABS: Prothrombin Time (Protime)PT. 30.9 SECONDS (11.7-14.9)
== END ==
PROVIDERS: Family Provider Family Medicine; PCP Family Medicine; Visit Provider Family Medicine
DX: E11.9 Type 2 diabetes mellitus without complications (principal); Z95.5 Presence of coronary angioplasty implant and graft
CPT/HCPCS: 36415; 83036; 85610

== ENCOUNTER 2017-08-26 16:22 | Outpatient (RCR) | payer MEDICARE, SELFPAY ==
[2017-08-26 17:10] LABS: International Normalized Ratio 2.5; Prothrombin Time (Protime)PT. 26.8 SECONDS (11.7-14.9)
[2017-08-26 17:50] LABS: Absolute Lymphocyte Count 1.44 X10^3/ul (0.83-4.51); Absolute Neutrophil Count 1.6 X10^3/uL (2.0-7.7); Basophil# 0.01 X10^3/uL; Basophil% 0.3 % (0-1); Eosinophil# 0.09 X10^3/uL; Eosinophils% 2.6 % (0-5); Hematocrit 33.2 % (37-47); Hemoglobin 9.8 g/dl (12.0-15.0); Lymphocyte # 1.44 X10^3/ul (4.0); Lymphocyte % 41.1 % (19-41); Mean Corp Hgb Conc 29.5 g/gl (32-36); Mean Corpuscular Hgb 26.1 pg (27.0-32.0); Mean Corpuscular Volume 88.5 fL (81-99); Monocyte# 0.33 X10^3/uL; Monocyte% 9.4 % (0-10); Neutrophil # 1.63 X10^3/uL (2.7-7.7); Neutrophil % 46.6 % (47-70); Platelet Count 112 K/mm3 (150-450); RBC Distribution Width CV 17.9 % (11.6-14.6); RBC Distribution Width SD 57.8 fl (35.1-43.9); Red Blood Count 3.75 M/mm3 (4.2-5.4); White Blood Count 3.5 K/mm3 (4.4-11.0)
[2017-08-26 17:52] LABS: Differential Indicated SCAN CRITERIA MET; POSITIVE COUNT NO; POSITIVE DIFFERENTIAL NO; POSITIVE MORPHOLOGY YES
[2017-08-26 18:24] LABS: Anisocytosis 1+; Differential Comment SCANNED; Platelet Estimate SLT DEC (ADEQ)
[2017-08-26 18:25] LABS: Erythrocyte Sedimentation Rate 62 mm/hr (0-30)
[2017-08-26 18:42] LABS: AST(SGOT) 39 U/L (15-37); Alanine Aminotransfer ALT/SGPT 23 U/L (13-56); Alkaline Phosphatase 178 U/L (45-117); Bilirubin, Direct 0.61 mg/dL (0.00-0.30); CRP 7.02 mg/L (0.0-3.0); Creatinine, Serum 1.05 mg/dL (0.55-1.02); EST Glomerular Filtration Rate 55 mL/min (>60); Est Glom Filt Rate - Afr Amer 66 mL/min (>60); Globulin 3.9 g/dL (2.2-4.2); Protein, Total 6.9 g/dL (6.4-8.2)
== END 2017-08-26 17:00 | disposition home or self-care (01) ==
LOC: LAB 16:22
PROVIDERS: Family Provider Family Medicine; PCP Family Medicine
DX: Z79.899 Other long term (current) drug therapy (principal); Z86.73 Personal history of transient ischemic attack (TIA), and cerebral infarction without residual deficits
CPT/HCPCS: 36415; 80076; 82565; 85025; 85610; 85652; 86140

== ENCOUNTER 2017-08-31 12:39 | Emergency (ER) | payer MEDICARE, SELFPAY ==
[2017-08-31 12:40] VITALS: BP 120/55; PULSE 64; RESP 18; TEMP 37.2; O2SAT 98; BMI 38.6
--- NOTE | 2017-08-31 13:12 | RAD_ITS ---
STUDY: X-RAY - LEFT TIBIA AND FIBULA REASON FOR EXAM: Female, 72 years old. Trauma. Pain TECHNIQUE: 2 view(s) of the tibia and fibula were obtained. COMPARISON: None. FINDINGS: Nondisplaced fractures are seen in the distal diaphyseal metaphyseal junction of the fibula and the tibia. The soft tissue structures are unremarkable. RAD/Tibia & Fibula 2 Views IMPRESSION: Nondisplaced fractures are seen in the distal diaphyseal metaphyseal junction of the fibula and the tibia. Electronically Signed: Hector Duran MD at 15:29 EDT Tel , Service support ,
--- NOTE | 2017-08-31 13:12 | RAD_ITS ---
STUDY: X-RAY - LEFT KNEE REASON FOR EXAM: Female, 72 years old. Fall. Left knee pain TECHNIQUE: 2 view(s) of the knee. COMPARISON: None. FINDINGS: Left knee arthroplasty is seen in good alignment. There is no fracture. There is a small joint effusion. There is demineralization of the osseous structures suggesting osteopenia. The soft tissue structures are unremarkable. RAD/Knee 1 or 2 Views IMPRESSION: There is a small joint effusion. There is demineralization of the osseous structures suggesting osteopenia. Electronically Signed: Hector Duran MD at 15:28 EDT Tel , Service support ,
[2017-08-31] MEDS: oxyCODONE 5 MG Tablet 10 MG PO ×2 (14:09→17:32)
--- NOTE | 2017-08-31 14:10 | RAD_ITS ---
STUDY: X-RAY - LEFT ANKLE REASON FOR EXAM: Female, 72 years old. FALL, PAIN, LATERAL ANKLE SWELLING TECHNIQUE: 3 view(s) of the ankle. COMPARISON: None. FINDINGS: Nondisplaced fractures are seen in the distal diaphyseal metaphyseal junction of the fibula and the tibia. Degenerative changes in the tibiotalar articulation and ankle mortise. Demineralization of the talus and calcaneus. The visualized subtalar, talonavicular, calcaneocuboid and tarsal articulations are normal. The soft tissue structures are unremarkable. RAD/Ankle min 3 Views IMPRESSION: Nondisplaced fractures are seen in the distal diaphyseal metaphyseal junction of the fibula and the tibia. Electronically Signed: Hector Duran MD at 15:12 EDT Tel , Service support ,
[2017-08-31 14:26] LABS: Bedside Glucose 244 mg/dL (70-110)
--- NOTE | 2017-08-31 15:15 | ED.VISSUMM ---
- ER Visit Summary Date of Service: 08/31/17 Chief Complaint: Left leg injury History of Present Illness: The patient is a 72 F who states that she slipped on a wet floor today at restaurant. She landed awkwardly on the left leg and now notes pain by her ankle. She has seen Dr. Lui locally for a left knee replacement. She is on aspirin Plavix and Coumadin for stroke and coronary artery disease with CABG and stent. Physical Examination: Afebrile vital signs are stable There is deformity above the ankle joint. There is swelling. Neurovascularly intact distally. The injury is closed Test Results: X-rays revealed a distal tibial shaft and fibular fracture with mild displacement. Emergency Department Course and Treatment: Patient refused IV. She did not wish to have blood drawn unless it was by one specific person in the lab. That person is currently on the floor and the patient will have to wait to have her blood drawn. Patient wants only p.o. medication. She was given OxyIR patient was placed in a posterior stirrup splint by this physician. It was well-padded. The patient was discussed with her orthopedic surgeon Dr. Lui. Because of her multiple core morbidities he recommends transfer to tertiary care center. Patient has [facility] and requested transfer to [facility]. They were contacted and we are pending acceptance at this time. Impression: 1. Left tibial and fibular fracture 2. Splint by physician 3. Coumadin coagulopathy This note was generated with [employer] dictation software. It may contain incorrect words, spelling, and punctuation that were not noted in review of the chart prior to signing ED Disposition - Plan for ED Patient: Chief Complaint: Lower Extremity Injury Referrals: Malik Bang DO [Primary Care Provider] -
--- NOTE | 2017-08-31 15:18 | ED.DCSUM_ITS ---
- ER Visit Summary Date of Service: 08/31/17 Chief Complaint: Left leg injury History of Present Illness: The patient is a 72 F who states that she slipped on a wet floor today at restaurant. She landed awkwardly on the left leg and now notes pain by her ankle. She has seen Dr. Lui locally for a left knee replacement. She is on aspirin Plavix and Coumadin for stroke and coronary artery disease with CABG and stent. Physical Examination: Afebrile vital signs are stable There is deformity above the ankle joint. There is swelling. Neurovascularly intact distally. The injury is closed Test Results: X-rays revealed a distal tibial shaft and fibular fracture with mild displacement. Emergency Department Course and Treatment: Patient refused IV. She did not wish to have blood drawn unless it was by one specific person in the lab. That person is currently on the floor and the patient will have to wait to have her blood drawn. Patient wants only p.o. medication. She was given OxyIR patient was placed in a posterior stirrup splint by this physician. It was well- padded. The patient was discussed with her orthopedic surgeon Dr. Lui. Because of her multiple core morbidities he recommends transfer to tertiary care center. Patient has [facility] and requested transfer to [facility]. They were contacted and we are pending acceptance at this time. Impression: 1. Left tibial and fibular fracture 2. Splint by physician 3. Coumadin coagulopathy This note was generated with [employer] dictation software. It may contain incorrect words, spelling, and punctuation that were not noted in review of the chart prior to signing ED Disposition - Plan for ED Patient: Chief Complaint: Lower Extremity Injury Referrals: Malik Bang DO [Primary Care Provider] -
[2017-08-31 17:36] LABS: ALB/GLOB Ratio 0.7 RATIO (0.9-2.4); AST(SGOT) 39 U/L (15-37); Alanine Aminotransfer ALT/SGPT 20 U/L (13-56); Albumin, Serum 2.9 g/dL (3.2-5.0); Alkaline Phosphatase 186 U/L (45-117); Anion Gap 6 (5-15); BUN 20 mg/dL (7-18); Calcium,Total 9.3 mg/dL (8.5-10.1); Chloride 111 mmol/L (98-107); EST Glomerular Filtration Rate 58 mL/min (>60); Est Glom Filt Rate - Afr Amer 70 mL/min (>60); Estimated Creatinine Clearance 44.56 ml/min; Globulin 4.1 g/dL (2.2-4.2); Glucose 165 mg/dL (74-106); Potassium 4.5 mmol/L (3.5-5.1); Sodium Level 141 mmol/L (136-145)
[2017-08-31 18:02] LABS: Partial Thromboplast Time 46.9 Seconds (24.1-36.2); Prothrombin Time (Protime)PT. 31.4 SECONDS (11.7-14.9)
[2017-08-31 18:28] LABS: Absolute Lymphocyte Count 1.18 X10^3/ul (0.83-4.51); Absolute Neutrophil Count 1.5 X10^3/uL (2.0-7.7); Basophil# 0.01 X10^3/uL; Basophil% 0.3 % (0-1); Eosinophil# 0.04 X10^3/uL; Eosinophils% 1.3 % (0-5); Hemoglobin 9.7 g/dl (12.0-15.0); Lymphocyte # 1.18 X10^3/ul (4.0); Lymphocyte % 39.1 % (19-41); Mean Corp Hgb Conc 29.4 g/gl (32-36); Mean Corpuscular Volume 88.5 fL (81-99); Monocyte# 0.31 X10^3/uL; Monocyte% 10.3 % (0-10); Neutrophil # 1.48 X10^3/uL (2.7-7.7); RBC Distribution Width SD 58.5 fl (35.1-43.9); Red Blood Count 3.73 M/mm3 (4.2-5.4)
[2017-08-31 18:31] LABS: Differential Indicated SCAN CRITERIA MET; POSITIVE COUNT NO; POSITIVE DIFFERENTIAL NO; POSITIVE MORPHOLOGY YES
[2017-08-31 19:17] LABS: Platelet Estimate ADEQUATE (ADEQ)
== END 2017-08-31 18:20 | disposition short-term general hospital (02) ==
PROVIDERS: Emergency Provider Emergency Medicine; Family Provider Family Medicine; PCP Family Medicine
DX: E03.9 Hypothyroidism, unspecified (principal); I10 Essential (primary) hypertension; I25.10 Atherosclerotic heart disease of native coronary artery without angina pectoris; M25.473 Effusion, unspecified ankle; M25.562 Pain in left knee
CPT/HCPCS: 36415; 73560; 73590; 73610; 80053; 82962; 85025; 85610; 85730; 99283; J2405

== ENCOUNTER 2017-10-19 15:24 | Outpatient (RCR) | payer MEDICARE, SELFPAY ==
[2017-10-20 07:27] LABS: Prothrombin Time Fingerstick 13.6 SEC (11.9-14.4)
== END 2017-10-19 17:00 | disposition home or self-care (01) ==
LOC: LAB 15:24
PROVIDERS: Family Provider Family Medicine; PCP Family Medicine
DX: Z86.73 Personal history of transient ischemic attack (TIA), and cerebral infarction without residual deficits (principal); Z79.899 Other long term (current) drug therapy
CPT/HCPCS: 36415; 36416; 85610

== ENCOUNTER → 2017-10-23 13:16 | Outpatient (CLI) | payer MEDICARE, SELFPAY ==
[2017-10-23 15:36] LABS: Hemoglobin A1c 6.5 % (4.2-6.3)
== END ==
PROVIDERS: Family Provider Family Medicine; PCP Family Medicine; Visit Provider Family Medicine
DX: E11.9 Type 2 diabetes mellitus without complications (principal)
CPT/HCPCS: 36415; 83036

== ENCOUNTER → 2017-11-16 15:30 | Outpatient (CLI) | payer MEDICARE, SELFPAY ==
[2017-11-16 17:34] LABS: Absolute Lymphocyte Count 1.04 X10^3/ul (0.83-4.51); Absolute Neutrophil Count 2.6 X10^3/uL (2.0-7.7); Basophil# 0.01 X10^3/uL; Basophil% 0.2 % (0-1); Eosinophil# 0.08 X10^3/uL; Hematocrit 32.1 % (37-47); Hemoglobin 9.4 g/dl (12.0-15.0); Lymphocyte # 1.04 X10^3/ul (4.0); Lymphocyte % 25.7 % (19-41); Mean Corp Hgb Conc 29.3 g/gl (32-36); Mean Corpuscular Volume 85.4 fL (81-99); Monocyte# 0.35 X10^3/uL; Monocyte% 8.7 % (0-10); Neutrophil # 2.56 X10^3/uL (2.7-7.7); Neutrophil % 63.4 % (47-70); Platelet Count 108 K/mm3 (150-450); RBC Distribution Width CV 18.3 % (11.6-14.6); Red Blood Count 3.76 M/mm3 (4.2-5.4)
[2017-11-16 17:37] LABS: Differential Indicated SCAN CRITERIA MET; POSITIVE COUNT NO; POSITIVE DIFFERENTIAL NO; POSITIVE MORPHOLOGY YES
[2017-11-16 18:14] LABS: Red Cell Morphology NORM C+C NORMAL (NORM C&C)
== END ==
PROVIDERS: Family Provider Family Medicine; PCP Family Medicine; Referring Provider Internal Medicine Rheumatology; Visit Provider Internal Medicine Rheumatology
DX: D64.9 Anemia, unspecified (principal)
CPT/HCPCS: 36415; 85025

== ENCOUNTER → 2017-12-09 10:27 | Outpatient (CLI) | payer MEDICARE, SELFPAY ==
--- NOTE | 2017-12-09 10:29 | STE_ITS ---
Reason For Study: CAD/ASHD Stress Results Protocol: Dobutamine Stress Echocardiogram Maximum Predicted HR: 149 bpm Target HR: 127 bpm % Maximum Predicted HR: 95 % Heart Stage Duration Rate BP Dose Comment (mm:ss) (bpm) BASELINE 61 131/67 DSE- 10 MCG 3:08 64 134/6610.00 DSE- 20 MCG 3:09 83 138/6220.00 DSE- 30 MCG 3:14 94 128/5430.00 ATROPINE 0.25 MG GIVEN @ 1120. ATROPINE 0.25 MG GIVEN @ DSE- 40 MCG 4:22 141 [id number] RECOVERY 91 108/60 Stress Duration: 13:53 mm:ss Maximum Stress HR: 141 bpm Baseline Echocardiogram Findings The estimated ejection fraction is 65 %. Stress Echo Wall motion Data Resting WM Intermediate WM Stress WM Resting Wall Motion No regional wall motion abnormalities noted. EKG Data Normal intervals are noted. The patient was titrated from 10 mcg to a maximum of 40 mcg of dobutamine during the stress. The maximum heart rate attained was 141 beats per minute. This was 94% of maximum predicted heart rate. During dobutamine infusion, there were no ST or T wave changes noted to suggest ischemia. No clinical angina was noted. No arrhythmias noted. Interpretation Summary The estimated ejection fraction is 65 %. Normal, adequate, dobutamine echocardiogram. Negative for ischemia by EKG and echocardiographic criteria. No anginal symptoms noted. No arrhythmias noted. Test terminated due to attainment of target heart rate. Final LVEF is 75%. No aortic valve gradients noted at peak infusion. Ordering Physician: Jmi Liu Referring Physician: Jim Liu Performed By: Whitley Monae, ARVINDCS, RVT
== END ==
PROVIDERS: Family Provider Family Medicine; PCP Family Medicine; Referring Provider Internal Medicine Cardiovascular Disease; Visit Provider Internal Medicine Cardiovascular Disease
DX: I25.10 Atherosclerotic heart disease of native coronary artery without angina pectoris (principal); M12.811 Other specific arthropathies, not elsewhere classified, right shoulder
CPT/HCPCS: 93017; 93350; J7030; A4216

== ENCOUNTER → 2017-12-10 09:47 | Outpatient (CLI) | payer MEDICARE, SELFPAY ==
--- NOTE | 2017-12-10 09:49 | VDLE_ITS ---
Reason For Study: LLEswelling RIGHT LEFT CFV is compressible, spontaneous, phasic, GSV is normal. competent and demonstrates normal CFV is compressible, spontaneous, phasic, augmentation. competent, and demonstrates normal Procedure augmentation. Exam performed in department. FV is compressible, spontaneous, phasic, A preliminary report was called and/or faxed competent and demonstrates normal to Dr. Liu. augmentation. POP V is compressible, spontaneous, phasic, competent and demonstrates normal augmentation. T/P Trunk is compressible. PTV is compressible. LT PerV is compressible. <> Interpretation Summary There is no evidence of left lower extremity deep vein thrombosis. Left greater saphenous vein appears patent and compressible segmentally. Normal flow pattern right common femoral vein Ordering Physician: Jim Liu Referring Physician: Niko Bang M.D. Performed By: Wanda Marc RVT and Student
== END ==
PROVIDERS: Family Provider Family Medicine; PCP Family Medicine; Referring Provider Internal Medicine Cardiovascular Disease; Visit Provider Internal Medicine Cardiovascular Disease
DX: M12.811 Other specific arthropathies, not elsewhere classified, right shoulder (principal); M79.89 Other specified soft tissue disorders
CPT/HCPCS: 93971

== ENCOUNTER → 2017-12-30 10:36 | Outpatient (CLI) | payer MEDICARE, SELFPAY ==
[2017-12-30 17:05] LABS: Hemoglobin A1c 8.7 % (4.2-6.3)
[2017-12-30 17:28] LABS: Anion Gap 8 (5-15); BUN 14 mg/dL (7-18); BUN/Creat Ratio 14.9 RATIO (10-20); Calcium,Total 8.5 mg/dL (8.5-10.1); Chloride 113 mmol/L (98-107); Creatinine, Serum 0.94 mg/dL (0.55-1.02); EST Glomerular Filtration Rate 62 mL/min (>60); Est Glom Filt Rate - Afr Amer 75 mL/min (>60); Glucose 220 mg/dL (74-106); Potassium 4.1 mmol/L (3.5-5.1); Sodium Level 143 mmol/L (136-145)
[2017-12-30 18:07] LABS: Hematocrit 29.8 % (37-47); Hemoglobin 8.6 g/dl (12.0-15.0); Mean Corp Hgb Conc 28.9 g/gl (32-36); Mean Corpuscular Volume 86.6 fL (81-99); Platelet Count 97 K/mm3 (150-450); RBC Distribution Width CV 18.7 % (11.6-14.6); RBC Distribution Width SD 59.4 fl (35.1-43.9); Red Blood Count 3.44 M/mm3 (4.2-5.4); White Blood Count 3.3 K/mm3 (4.4-11.0)
[2017-12-30 18:08] LABS: Scan Indicated on CBC? Y/N YES- FLAGS NOTED
== END ==
PROVIDERS: Family Provider Family Medicine; PCP Family Medicine; Referring Provider Orthopaedic Surgery; Visit Provider Orthopaedic Surgery
DX: Z01.818 Encounter for other preprocedural examination (principal); E11.9 Type 2 diabetes mellitus without complications
CPT/HCPCS: 36415; 80048; 83036; 85027

== ENCOUNTER → 2018-02-25 13:17 | Outpatient (CLI) | payer MEDICARE, SELFPAY ==
[2018-02-11 13:23] VITALS: BMI 36.5
== END ==
PROVIDERS: Family Provider Family Medicine; PCP Family Medicine; Referring Provider Orthopaedic Surgery; Visit Provider Orthopaedic Surgery
DX: Z01.812 Encounter for preprocedural laboratory examination (principal)

== ENCOUNTER → 2018-03-05 13:50 | Outpatient (CLI) | payer MEDICARE, SELFPAY ==
[2018-02-11 13:23] VITALS: BMI 36.5
[2018-03-05 14:59] LABS: Erythrocyte Sedimentation Rate 21 mm/hr (0-30)
[2018-03-05 15:07] LABS: Absolute Lymphocyte Count 1.23 X10^3/ul (0.83-4.51); Absolute Neutrophil Count 2.6 X10^3/uL (2.0-7.7); Basophil# 0.01 X10^3/uL; Basophil% 0.2 % (0-1); Eosinophils% 2.3 % (0-5); Hematocrit 41.2 % (37-47); Hemoglobin 12.5 g/dl (12.0-15.0); Lymphocyte # 1.23 X10^3/ul (4.0); Lymphocyte % 28.7 % (19-41); Mean Corp Hgb Conc 30.3 g/gl (32-36); Mean Corpuscular Volume 95.6 fL (81-99); Monocyte# 0.33 X10^3/uL; Monocyte% 7.7 % (0-10); Neutrophil % 60.9 % (47-70); Platelet Count 130 K/mm3 (150-450); RBC Distribution Width CV 19.4 % (11.6-14.6); RBC Distribution Width SD 68.6 fl (35.1-43.9); Red Blood Count 4.31 M/mm3 (4.2-5.4); White Blood Count 4.3 K/mm3 (4.4-11.0)
[2018-03-05 15:08] LABS: Differential Indicated SCAN CRITERIA MET; POSITIVE COUNT NO; POSITIVE DIFFERENTIAL NO; POSITIVE MORPHOLOGY YES
[2018-03-05 15:40] LABS: Vitamin D,25 Hydroxy 16.8 ng/mL (29.95-100.01)
[2018-03-05 15:54] LABS: Anisocytosis 1+
[2018-03-05 15:55] LABS: Differential Comment SCANNED
== END ==
PROVIDERS: Family Provider Family Medicine; PCP Family Medicine
DX: S82.202A Unspecified fracture of shaft of left tibia, initial encounter for closed fracture (principal); S82.402A Unspecified fracture of shaft of left fibula, initial encounter for closed fracture
CPT/HCPCS: 36415; 82306; 82330; 85025; 85652; 86140

== ENCOUNTER → 2018-03-30 08:49 | Outpatient (CLI) | payer MEDICARE, SELFPAY ==
[2018-02-11 13:23] VITALS: BMI 36.5
--- NOTE | 2018-03-05 11:24 | EKG12_ITS ---
Test Reason : PRE OP Blood Pressure : / mmHG Vent. Rate : 069 BPM Atrial Rate : 069 BPM P-R Int : 148 ms QRS Dur : 078 ms QT Int : 394 ms P-R-T Axes : 043 -44 050 degrees QTc Int : 422 ms Normal sinus rhythm Left axis deviation Septal infarct , age undetermined Abnormal ECG Confirmed by JUANITA BURTON, JOE ([id number]), book editor AJAY SERRANO ([id number]) on 03/09/2018 3:06:29 PM Referred By: Lev Lui Confirmed By:JOE GRANT MD
[2018-03-05 12:34] LABS: Anion Gap 6 (5-15); BUN 17 mg/dL (7-18); Calcium,Total 8.7 mg/dL (8.5-10.1); Chloride 110 mmol/L (98-107); EST Glomerular Filtration Rate 66 mL/min (>60); Est Glom Filt Rate - Afr Amer 80 mL/min (>60); Glucose 246 mg/dL (74-106); Potassium 4.2 mmol/L (3.5-5.1); Sodium Level 140 mmol/L (136-145)
[2018-03-05 13:02] LABS: Hemoglobin A1c 8.2 % (4.2-6.3)
== END ==
PROVIDERS: Family Provider Family Medicine; PCP Family Medicine; Referring Provider Orthopaedic Surgery; Visit Provider Orthopaedic Surgery
DX: R94.31 Abnormal electrocardiogram [ECG] [EKG] (principal); Z53.9 Procedure and treatment not carried out, unspecified reason; Z01.810 Encounter for preprocedural cardiovascular examination; Z01.818 Encounter for other preprocedural examination; Z79.899 Other long term (current) drug therapy
CPT/HCPCS: 36415; 80048; 83036; 93005

== ENCOUNTER → 2018-05-27 15:40 | Outpatient (CLI) | payer MEDICARE, SELFPAY ==
[2018-05-27 14:21] VITALS: BMI 35.4
[2018-05-27 17:19] LABS: Absolute Neutrophil Count 2.2 X10^3/uL (2.0-7.7); Basophil# 0.01 X10^3/uL; Basophil% 0.3 % (0-1); Eosinophil# 0.09 X10^3/uL; Eosinophils% 2.4 % (0-5); Hematocrit 39.3 % (37-47); Hemoglobin 12.5 g/dl (12.0-15.0); Lymphocyte % 31.4 % (19-41); Mean Corp Hgb Conc 31.8 g/gl (32-36); Mean Corpuscular Volume 100.5 fL (81-99); Mean Platelet Vol. 12.5 fl (6.2-12.0); Monocyte# 0.36 X10^3/uL; Monocyte% 9.4 % (0-10); Neutrophil # 2.15 X10^3/uL (2.7-7.7); Neutrophil % 56.2 % (47-70); Platelet Count 104 K/mm3 (150-450); RBC Distribution Width CV 14.6 % (11.6-14.6); RBC Distribution Width SD 52.3 fl (35.1-43.9); Red Blood Count 3.91 M/mm3 (4.2-5.4); White Blood Count 3.8 K/mm3 (4.4-11.0)
[2018-05-27 17:24] LABS: POSITIVE COUNT NO; POSITIVE DIFFERENTIAL NO; POSITIVE MORPHOLOGY NO
[2018-05-27 17:31] LABS: International Normalized Ratio 1.2; Prothrombin Time (Protime)PT. 14.7 SECONDS (11.7-14.9)
[2018-05-27 17:34] LABS: Anion Gap 6 (5-15); BUN 19 mg/dL (7-18); BUN/Creat Ratio 20.1 RATIO (10-20); Calcium,Total 9.2 mg/dL (8.5-10.1); Chloride 112 mmol/L (98-107); Creatinine, Serum 0.95 mg/dL (0.55-1.02); EST Glomerular Filtration Rate 62 mL/min (>60); Est Glom Filt Rate - Afr Amer 75 mL/min (>60); Glucose 90 mg/dL (74-106); Sodium Level 145 mmol/L (136-145)
== END ==
PROVIDERS: Family Provider Family Medicine; PCP Family Medicine; Referring Provider Internal Medicine Cardiovascular Disease; Visit Provider Internal Medicine Cardiovascular Disease
DX: E78.00 Pure hypercholesterolemia, unspecified (principal); I25.10 Atherosclerotic heart disease of native coronary artery without angina pectoris
CPT/HCPCS: 36415; 80048; 85025; 85610

== ENCOUNTER → 2018-05-28 13:34 | Outpatient (CLI) | payer MEDICARE, SELFPAY ==
[2018-05-27 14:21] VITALS: BMI 35.4
--- NOTE | 2018-05-28 13:36 | RAD_ITS ---
STUDY: X-RAY CHEST REASON FOR EXAM: Female, 73 years old. Chest pain. TECHNIQUE: PA and lateral views of the chest. COMPARISON: April 27, 2017. FINDINGS: The lungs are clear and expanded. There is no demonstrated pleural abnormality. Sternal cerclage wires are present from a prior sternotomy. The heart is normal in size. Normal mediastinum and fidelina. Normal visualized pulmonary arteries. Normal visualized aortic arch and descending thoracic aorta. There are diffuse degenerative changes of the visualized thoracic spine. There is degenerative osteoarthritis of the bilateral shoulders. There is no demonstrated abnormality of the visualized soft tissue structures of the upper abdomen. RAD/Chest PA and Lateral IMPRESSION: No acute cardiopulmonary disease or interval change. Electronically Signed: Caleb Rangel DO at 10:18 EDT Tel [phone], Service support ,
== END ==
PROVIDERS: Family Provider Family Medicine; PCP Family Medicine; Referring Provider Internal Medicine Cardiovascular Disease; Visit Provider Internal Medicine Cardiovascular Disease
DX: R07.9 Chest pain, unspecified (principal); I25.10 Atherosclerotic heart disease of native coronary artery without angina pectoris
CPT/HCPCS: 71046

== ENCOUNTER 2018-06-04 06:58 | Day surgery (SDC) | payer MEDICARE, SELFPAY ==
[2018-05-27 14:21] VITALS: BMI 35.4
--- NOTE | 2018-05-27 15:00 | HP_ITS ---
HPI HPI Surgical H&P: No Details: Chief Complaint: Routine f/u Details: Referring physician: Dr. Malik Bang/Dr. Neno Ferrer Mrs. Brennan is a very pleasant 73-year-old morbidly obese diabetic female with a history of hypertension, hypercholesterolemia, migraine headaches, status post CVA in 2012 affecting her right side, and CAD s/p CABG KRISHNAMURTHY to the LAD and saphenous vein graft to the OM #1 (11/28/15). She quit smoking around 40 years ago after a [id number] smoking history. Nuclear stress test which was performed on 10/29/15 which was negative for inducible ischemia. Echocardiogram dated 11/08/15 showed an EF of 65%, and mild aortic stenosis. Left heart catheterization (prior to her CABG) by md on 11/28/15 demonstrated distal left main of 40%, ostial 80% stenosis of the LAD and diffuse 60-70% stenosis in the proximal LAD, patient also had a diffuse 80% long stenosis in her mid right coronary artery which was codominant. Her EF was normal at that time. She requested transfer to [facility] where she underwent two- vessel bypass surgery with Dr. Hernandez on 11/28/15. That time she received a KRISHNAMURTHY to the LAD, and a saphenous vein graft to the OM #1. Patient was subsequently discharged home. Prior to several visits ago, the patient developed repeat recurrent substernal chest pain which was somewhat atypical. Nonetheless she underwent stress echocardiogram which was negative for inducible ischemia however her symptoms persisted. She underwent repeat catheterization on 11/20/16 which demonstrated critical lesion in her mid RCA. She underwent successful drug-eluting stent receiving a 2.25X 38 Promus energy, postdilated with a 2.25 mm noncompliant balloon. At that time we found her [place] LAD to be occluded and her circumflex to be nonobstructive. Her KRISHNAMURTHY to the mid LAD was patent. Patient did well initially, but was unable to participate fully in cardiac rehab due to her degenerative joint history. Most recently she has developed both exertional and nonexertional substernal chest pain, lasting between 5 and 15 minutes with associated shortness of breath and dyspnea. This is similar to her symptoms that she had prior to her stenting in November 2016. Patient underwent repeat debridement echocardiogram on 12/09/17 which was negative for inducible ischemia. No additional catheterization has been performed since then. She is compliant with her medications including her aspirin, Plavix, Imdur, losartan, and warfarin. Patient reports back today complaining of similar chest pressure that she had prior to her angioplasty and stenting in November 2016. She has had several surgeries on her left foot, and now again requires preoperative stratification for right rotator cuff surgery. Her symptoms appear to be atypical and nonexertional although she does not mobilize very well given her plastic cast since August 2017. In our office today her blood pressure is 140/60 and pulse is 60 and regular. Her physical exam is as below. Her lipids as of 11/06/15 so an LDL of 78 and HDL 39. Her lipids as of 11/20/16 showed LDL of 83 and an HDL of 51. lipids as of 05/22/17 show an LDL of 70 and HDL 39. Intake Vital Signs 05/27/18 Height 5 ft 5 in 05/27/18 Weight: 213 lb 05/27/18 Body Mass Index (BMI) 35.4 05/27/18 Blood Pressure 140/60 H 05/27/18 Blood Pressure Location Lt brachial 05/27/18 Blood Pressure Position Sitting 05/27/18 Respiratory Rate 20 H 05/27/18 Pulse Rate 60 05/27/18 Pulse Source Auscultation Intake Visit Reasons: 6 M FU Allergies oxycodone Allergy (Verified 05/20/18 08:51) Other environemental Allergy (Uncoded 03/03/18 09:17) dry cough Medications Aspirin E.C. [Ecotrin] 81 mg PO DAILY@0800 08/31/17 [History Confirmed 03/03/18] losartan 100 mg tablet 100 mg PO DAILY #90 tab 10/19/17 [Rx Confirmed 03/03/18] atorvastatin 40 mg tablet 40 mg PO DAILY #90 tab 11/17/17 [Rx Confirmed 03/03/18] clopidogrel 75 mg tablet 75 mg PO DAILY #90 tab 11/30/17 [Rx Confirmed 03/03/18] insulin glargine (U- 100) 100 unit/mL subcutaneous solution 65 unit SUBCUT QHS ml 11/30/17 [History Confirmed 03/03/18] alprazolam 0.25 mg tablet 0.25 mg PO TID PRN PRN #60 tab 12/10/17 [Rx Confirmed 03/03/18] isosorbide mononitrate ER 60 mg tablet,extended release 24 hr 60 mg PO DAILY #30 tab 01/11/18 [Rx Confirmed 03/03/18] topiramate 50 mg tablet 50 mg PO QHS #90 tab 02/22/18 [Rx Confirmed 03/03/18] Hydrocodone/Acetaminophen [[place] 5-325 Tablet] 1 ea PO Q6H PRN 03/03/18 [History Confirmed 03/03/18] Insulin Aspart [Novolog Flexpen] 14 unit SUBCUT TIDCM 03/03/18 [History Confirmed 03/03/18] Metoprolol Succinate [Toprol Xl] 100 mg PO DAILY 03/03/18 [History Confirmed 03/03/18] gabapentin 300 mg capsule 300 mg PO .COMPLEX #150 cap 03/19/18 [Rx] tramadol 50 mg tablet 50 mg PO Q6H #90 tab 04/13/18 [Rx] nystatin 100,000 unit/gram topical cream 1 applic TOPICAL BID #30 g 04/22/18 [Rx] ciprofloxacin 0.2 %-hydrocortisone 1 % ear drops,suspension 3 drp OTIC Q12H #10 ml 04/28/18 [Rx Confirmed 04/28/18] lroaqnyx-scjkmuasf-rqwdjrjeb 3.5 mg/mL-10,000 unit/mL-1 % ear solution 4 drp OTIC TID #10 ml 04/29/18 [Rx] omeprazole 40 mg capsule,delayed release 40 mg PO DAILY #90 cap 05/24/18 [Rx] nitroglycerin 0.4 mg sublingual tablet 0.4 mg SUBLINGUAL Q5M PRN #25 tab 05/27/18 [Rx Confirmed 05/27/18] PFSH Medical History Atherosclerosis of coronary artery of [place] heart without angina pectoris (Chronic) Anemia (Resolved) Hyperlipemia (Chronic) Hypertension (Chronic) Type 2 diabetes mellitus (Chronic) Rheumatic fever (Chronic) CVA (cerebral vascular accident) (Chronic ~2010) Rheumatoid arthritis (Chronic) Surgical History H/O section (Resolved) History of carpal tunnel surgery (Resolved) History of coronary artery stent placement (Chronic 11/20/16) H/O coronary artery bypass surgery (Chronic 11/30/15) History of arthroscopy (Chronic) History of heart artery stent (Chronic) History of left knee replacement (Chronic) History of open reduction and internal fixation (ORIF) procedure (Chronic ~08/2017) History of partial hysterectomy (Chronic) History of right hip replacement (Chronic) History of tonsillectomy (Chronic) history of partial right knee replacement (Chronic) history of total foot reconstruction (Chronic) Family History Grandmother Myocardial infarction CVA (cerebral vascular accident) Mother , Age 42 Myocardial infarction Father Diabetes Arthritis Social History Smoking Status: Former smoker how long ago did patient quit smokin alcohol intake: never substance use type: does not use diet: diabetic caffeine: Yes Type: tea Number of servings: 1 what type of physical activity do you participate in: none seatbelt use: always do you feel safe at home: Yes ROS Const Const: Positive for other (Had ankle surgery Mar 22.); negative for fatigue, weakness, body ache, fever(s), headache(s), chills, frequent falls, night sweats, daytime sleepiness, difficulty sleeping, excessive sweating, weight gain, weight loss, increased appetite, poor appetite or anorexia Eyes Eyes: Negative for blind spots, loss of peripheral vision, transient loss of vision, blurry vision, change in vision, double vision, floaters, tunnel vision or other ENT ENT: Negative for headache(s), dizziness, hearing loss, tinnitus, Nosebleed/epistaxis, balance problems, post nasal drip, lip swelling, tongue swelling, bleeding gums, hoarseness, neck pain, dry mouth or other Cardio Chest Pain: Yes (has had in past month: pt stressShe had surgery, passed out) Frequency: weekly Onset: at rest Location: mid sternal Resp Respiratory: Negative for SOB with activity, SOB at rest, SOB orthopnea\SOB lying down, Coughing up blood/hemoptysis, chest congestion, pain on inspiration, snoring, stridor, wheezing, crackles, paroxysmal nocturnal dyspnea or other GI GI: Negative nausea, vomiting, heartburn, constipation, belching, bloating, cramping, vomiting blood/hematemesis, bright, red blood in stools, black,tarry stools, loose stools, Difficulty Swallowing or other : Negative for hematuria, frequent nighttime urination/ nocturia, erectile dysfunction or abnormal vaginal bleeding Musc Musc: Negative for muscle aches/ myalgia, muscle weakness, joint pain or balance problems Skin Skin: Negative redness, non-healing lesions, rash, unusual bruising, skin ulcer, wounds, jaundice or other Neuro Neuro: Negative for dizziness, lightheadedness, near syncope, syncope, orthostatic symptoms, frequent falls, headache(s), weakness, confusion, memory loss, restless legs, blurry vision, double vision, vertigo, seizures, lack of coordination or other [place] Hematologic/Lymphatic: Negative for easy bleeding, easy bruising, enlarged lymph nodes or other Endo Endo: Negative for fatigue, cold intolerance, heat intolerance, excessive sweating, flushing, increased thirst/drinking, increased hunger, hair loss, hair growth or other Psych Psych: Negative for anxiety, depression, thoughts of harming anyone, thoughts of harming yourself, visual hallucinations, panic attacks or audible hallucinations Allergy Allergy/Immunology: Negative for throat swelling, Negative for tongue swelling, Negative for hives, Negative for rash, Negative for lip swelling Cardiology Exam Const Appearance: cooperative, healthy appearing and no acute distress Nutritional Appearance: well nourished Orientation: alert, oriented x3 and oriented to person Head Head: normal to inspection, normocephalic and atraumatic Nose: external nose normal Face and Sinus: face symmetric Mouth: oral mucosae normal Eyes General: appearance normal, both eyes and all related structures Eyelids: eyelids normal Conjunctivae: conjunctivae normal Pupils: PERRL and normal by confrontation EOM: EOM intact bilaterally Neck Neck: normal visual inspection and full ROM Carotids: normal carotid upstroke Chest Chest inspection: normal inspection of the chest Auscultation: Bilateral: Clear to Auscultation Cardio Palpation: normal PMI Rate: regular rate Rhythm: regular rhythm Heart sounds: S1 normal and S2 normal GI GI: normal to inspection, no hepatosplenomegaly and bowel sounds present Neuro General: alert, awake, oriented x3, CN's II-XI intact bilaterally and moves all extremities Skin Skin: no rashes or lesions noted Extremities Pulses: Normal: Right Femoral Pulse, Left Femoral Pulse, Right Dorsalis Pedis Pulse, Left Dorsalis Pedis Pulse, Right Posterior Tibial Pulse, Left Posterior Tibial Pulse, Right Radial Pulse, Left Radial Pulse Lower Extremity Edema: None: Bilateral Psych Psychological: normal affect Assessment & Plan 1. Atherosclerosis of [place] coronary artery of [place] heart without angina pectoris I25.10 PCI-[place]-Mid RCA 2.25 x 38 mm Promus Synergy 11/20/16 CABG x 2 KRISHNAMURTHY-LAD, SVG-Om1 11/30/15 @ [facility], PTCA to mid RCA 05/13/2017 Plan 1. Coronary artery disease: Although the patient does not have exertional chest pain, she does have chest discomfort similar to her symptoms prior to her stenting and bypass surgery. These appear to be at rest but not with exertion however she is very limited due to her left ankle and her plastic cast. She does require upcoming right rotator cuff surgery, and an attempt to make sure that she is at low risk for noncardiac surgery I recommended that she undergo a repeat left heart catheterization with graft angiography. She will continue on baby aspirin and Plavix going forward should she require additional stenting. The meantime she will continue baby aspirin, Plavix, losartan, metoprolol. Orders Orders: Basic Metabolic Profile (BMP) Today Prothrombin Time w/INR Today CBC W/Diff, Automated Today Left Heart Cath w/Grafts 6 Days 2. Pure hypercholesterolemia E78.00 Plan 2. Hyperlipidemia: Her LDL and HDL cholesterol are at goal. Continue Lipitor. 3. Return office in 6 months. This note was generated using a voice recognition system and there may be incorrect words, spelling or punctuation that were not noted when reviewing the office note prior to saving. Orders Orders: Basic Metabolic Profile (BMP) Today Prothrombin Time w/INR Today CBC W/Diff, Automated Today Left Heart Cath w/Grafts 6 Days Plan Detail Other Orders Orders: 12 Lead EKG performed by [facility] Today R07.9, Z95.5 Other Medications New: nitroglycerin (Nitrostat) 0.4 mg sublingual Q5M PRN 25 tabs 3RF chest pain Follow Up +6M (Liu) Coding Level of Care Code Off vis,est,level 3 Diagnoses Atherosclerosis of [place] coronary artery of [place] heart without angina pectoris I25.10 ??Coronary Disease-Associated Artery/Lesion type: [place] artery Pure hypercholesterolemia E78.00 ??Hyperlipidemia type: pure hypercholesterolemia Coding Level of Care Code Off vis,est,level 3 Diagnoses Atherosclerosis of [place] coronary artery of [place] heart without angina pectoris I25.10 ??Coronary Disease-Associated Artery/Lesion type: [place] artery Pure hypercholesterolemia E78.00 ??Hyperlipidemia type: pure hypercholesterolemia Supplemental Info Supplemental Information Labs LDL Cholesterol 70 mg/dL (0-130) 05/22/17 HDL Cholesterol 39 mg/dL (40-) L 05/22/17 Triglycerides 143 mg/dL (-199) 05/22/17 VLDL Cholesterol 29 mg/dL (5-40) 05/22/17 Diagnostics Electrocardiogram 03/05/18 Stress Echocardiogram 12/09/17 Stress Test Nuclear Medicine 10/29/15 Cardiac Catheterization 11/28/15 Chest X-Ray 04/27/17 Venous Doppler Study 12/10/17
[2018-06-02 10:23] VITALS: BMI 35.4
--- NOTE | 2018-06-04 09:14 | CL.D_ITS ---
Patient Name: BEN DE JESUS Study Date: 06/04/2018 Performing: Jim Liu MD Ht: 64.96 inches 165 cm : 1945 Wt: 213.85 lbs 97 kg Age: 73 Gender: female BSA: 2.03 PROCEDURE(S) PERFORMED [id number]/COR/LV/CABG CLINICAL PROFILE AND INDICATIONS Indications: New Onset Angina <= 2 months, Stable Known CAD, Other Heart Failure: None Stress/Imaging Date: 12/09/2017Stress Echocardiogram: Negative Angina Classification Anginal Classification w/in 2 Weeks: CCS IV CAD Presentations: Symptom unlikely to be ischemic. Comorbidities/Risk Factors: Hypertension Dyslipidemia Prior PCI Prior CABG Diabetes Mellitus: Diabetes Therapy: Insulin CONCLUSIONS Perserved Left Ventricular systolic function with normal EDP Double vessel CAD of the LAD and OM Widely patent SVG to OM Widely patent KRISHNAMURTHY to LAD Widely patent RCA stent. RECOMMENDATIONS Risk factor modification Management as per referring Technical Services Librarian Will medically manage chest wall pain. DESCRIPTION OF PROCEDURE The patient arrived to the procedure lab. The risks and benefits of the procedure as well as a full d escription of our services here and current unavailability of surgical backup were fully explained to the patient and/or their significant other prior to the catheterization. The Timeout was completed, verifying the correct patient and procedure. The patient's procedural site was prepped and draped in the usual fashion. Local anesthetic was given subcutaneously to left groin region with Lidocaine 2%. Using a modified Seldinger technique, arterial access was obtained via the left femoral artery, a 4Fr sheath was inserted Left Coronary Artery selective angiography was performed in multiple views usin g a 4 Fr. JL5 catheter. Right Coronary Artery selective angiography was then performed in multiple vi ews using a 4 Fr. 3DRC catheter. Saphenous Vein graft to the OM 1 selective angiography was performed in multiple views using a 4 Fr. 3DRC catheter. Left internal mammary artery graft to the LAD selective angiography was performed in multiple views using a 4 Fr. 3DRC catheter. Left Ventricul ography was performed in ZAPATA projection using a 4 Fr. Pigtail catheter. LV to AO pullback pressures w ere then recorded.The arterial sheath was pulled and manual compression applied until hemostasis is a chieved. CORONARY ANGIOGRAPHY DOMINANCE: Left Dominant LEFT HEART ASSESSMENT Left Ventricular Ejection Fraction: by LV Gram 65 % Normal LV wall motion Normal Left Ventricular systolic function LEFT MAIN: Mild calcification LEFT ANTERIOR DECENDING ARTERY: is occluded CIRCUMFLEX ARTERY: MID CIRC: 50 % Stenosis OM 1: Proximal - 90 % Stenosis RIGHT CORONARY ARTERY: MID RCA: Previously placed stent is patent GRAFTS: KRISHNAMURTHY graft to the LAD is patent Saphenous Vein graft to the 1st OM is patent COMPLICATIONS No Complications PROCEDURE MEDICATIONS Oxygen: 2 L/min via nasal cannula Plavix 75 mg PO 06/04/2018 07:27:11 SUMMARY OF HEMODYNAMIC DATA Time AIR REST ECG 07:32:05 AO 149/64 (93) SA 08:55:10 LV 147/-18, 9 09:04:19 LV 158/-21, 12 09:04:26 LVp 151/-19, 10 09:04:30 AOp 142/55 (87) 09:04:35 Signed By Jim Liu MD On 06/04/2018 9:13:22 AM Jim Liu MD
== END 2018-06-04 13:45 | disposition home or self-care (01) ==
PROVIDERS: Family Provider Family Medicine; PCP Family Medicine; Referring Provider Internal Medicine Cardiovascular Disease; Visit Provider Internal Medicine Cardiovascular Disease
DX: I25.10 Atherosclerotic heart disease of native coronary artery without angina pectoris (principal); E66.01 Morbid (severe) obesity due to excess calories; E11.9 Type 2 diabetes mellitus without complications; I10 Essential (primary) hypertension; E78.00 Pure hypercholesterolemia, unspecified; Z86.73 Personal history of transient ischemic attack (TIA), and cerebral infarction without residual deficits; Z87.891 Personal history of nicotine dependence; Z95.1 Presence of aortocoronary bypass graft; Z79.82 Long term (current) use of aspirin; M06.9 Rheumatoid arthritis, unspecified
CPT/HCPCS: 93459; J7040; C1769; C1894; Q9967

== ENCOUNTER → 2018-11-29 16:36 | Outpatient (CLI) | payer MEDICARE, SELFPAY ==
[2018-10-28 14:36] VITALS: BMI 35.4
[2018-11-29 17:50] LABS: Vitamin D,25 Hydroxy 33.6 ng/mL (29.95-100.01)
== END ==
PROVIDERS: Family Provider Family Medicine; PCP Family Medicine; Referring Provider Podiatrist; Visit Provider Podiatrist
DX: E55.9 Vitamin D deficiency, unspecified (principal)
CPT/HCPCS: 36415; 82306

== ENCOUNTER → 2018-12-23 12:59 | Outpatient (CLI) | payer MEDICARE, SELFPAY ==
[2018-12-20 14:59] VITALS: BMI 36.6
[2018-12-23 14:05] LABS: AST(SGOT) 46 U/L (15-37); Alanine Aminotransfer ALT/SGPT 26 U/L (13-56); Albumin, Serum 2.8 g/dL (3.2-5.0); Alkaline Phosphatase 239 U/L (45-117); Bilirubin, Direct 1.13 mg/dL (0.00-0.30); Cholesterol 114 mg/dL (200); Globulin 3.8 g/dL (2.2-4.2); High Density Lipoprotein 29 mg/dL; Protein, Total 6.6 g/dL (6.4-8.2); Triglycerides 102 mg/dL; Very Low Density Lipoprotein 20 mg/dL (5-40)
== END ==
PROVIDERS: Family Provider Family Medicine; PCP Family Medicine; Referring Provider Internal Medicine Cardiovascular Disease; Visit Provider Internal Medicine Cardiovascular Disease
DX: E78.5 Hyperlipidemia, unspecified (principal); I25.10 Atherosclerotic heart disease of native coronary artery without angina pectoris
CPT/HCPCS: 36415; 80061; 80076

== ENCOUNTER 2019-02-07 11:26 | Emergency (ER) | payer MEDICARE, SELFPAY ==
[2019-01-26 14:47] VITALS: BMI 36.6
[2019-02-07 11:27] VITALS: BP 131/93; PULSE 54; RESP 17; TEMP 36.2; O2SAT 99; BMI 37.8
--- NOTE | 2019-02-07 11:55 | RAD_ITS ---
STUDY: X-RAY - RIGHT SHOULDER REASON FOR EXAM: Female, 74 years old. Fall one week ago. Pain. TECHNIQUE: 2 view(s) of the shoulder on 4 images. COMPARISON: Chest x-ray dated November 19, 2015 showing proximal right humerus. FINDINGS: Generalized osteopenia. Moderate arthrosis of the glenohumeral joint. Arthrosis of the acromioclavicular joint. Normal acromion. Chondroid matrix in the proximal humerus which was also seen on the chest x-ray dated 2015. The lesion is most compatible with an enchondroma. A bone infarct could have a similar appearance. No aggressive features are associated with this lesion at this time. The soft tissue structures are unremarkable. Normal visualized pulmonary apex. RAD/Shoulder min 2 Views IMPRESSION: Osteopenia with osteoarthrosis of the glenohumeral and acromioclavicular joints. Chondroid matrix and proximal right humerus compatible with enchondroma. Differential includes bone infarct, although less likely. No aggressive features associated with this lesion at this time. The patient continues to have pain associated with trauma, a CT study to look for cortical disruption or an MR study to look for aggressive features could be performed. Electronically Signed: Matheus Reddy MD at 13:09 EST , Service support ,
--- NOTE | 2019-02-07 11:55 | RAD_ITS ---
STUDY: X-RAY - LUMBAR SPINE REASON FOR EXAM: Female, 74 years old. Follow-up 1 week ago. Pain. TECHNIQUE: 3 view(s) of the lumbar spine were obtained. COMPARISON: None FINDINGS: Mild generalized osteopenia. Normal lumbar lordosis. There is no substantial scoliosis. There is a normal alignment of the vertebrae. Normal vertebral bodies and endplates. Diffuse intervertebral disc space narrowing with osteophyte formation most marked at L3-4. Vacuum phenomenon at multiple levels. Diffuse facet sclerosis. Phleboliths and vascular calcifications. RAD/Lumbar Spine 2 or 3 Views IMPRESSION: Osteopenia with moderate lumbar spondylosis. No acute finding. Electronically Signed: Matheus Reddy MD at 13:03 EST , Service support ,
--- NOTE | 2019-02-07 11:57 | ED.VIS.GEN ---
History of Present Illness Chief Complaint: Back Detail of Chief Complaint: Fall Informant: Patient Onset: Weeks - 1 week Context: Gradual Onset Current Severity: Moderate Maximum Severity: Moderate Narrative: Patient presents with back, right hip, right shoulder pain after fall 1 week ago. She states that she had let go with a countertop in her kitchen and slipped on the hardwood floor. She landed on her right side. Her left foot is already in a walking boot and needing an additional surgery. Patient states she thought she was just bruised so she waited a week. Pain has not been improving. She is been taking Excedrin, but did take a tramadol early this morning for pain. - Past Medical History (1) Dupuytren's contracture of left hand Status: Chronic (2) Rotator cuff arthropathy of right shoulder Status: Chronic (3) H/O section Status: Resolved (4) History of carpal tunnel surgery Status: Resolved Comment: bilateral (5) History of coronary artery stent placement Status: Chronic Comment: PCI-[place]-Mid RCA 2.25 x 38 mm Promus Synergy (6) Atherosclerosis of coronary artery of [place] heart without angina pectoris Status: Chronic Comment: PCI-[place]-Mid RCA 2.25 x 38 mm Promus Synergy 11/20/16 CABG x 2 KRISHNAMURTHY-LAD, SVG-Om1 11/30/15 @ [facility], PTCA to mid RCA 05/13/2017 (7) Anemia Status: Resolved (8) Hyperlipemia Status: Chronic (9) Hypertension Status: Chronic (10) Type 2 diabetes mellitus Status: Chronic (11) Rheumatic fever Status: Chronic (12) CVA (cerebral vascular accident) Status: Chronic Comment: Ischemic: residual is just occasional speech problems (13) H/O coronary artery bypass surgery Status: Chronic Comment: CABG x 2 KRISHNAMURTHY-LAD, SVG-Om1 11/30/15 @ [facility] Past Medical History - Allergies and Home Meds Allergies/Adverse Reactions: Allergies oxycodone Allergy (Verified 01/26/19 14:43) Other UNABLE TO TAKE MAKES EXCITED AND UNABLE TO SLEEP environemental Allergy (Uncoded 01/26/19 14:43) dry cough Primary Care Physician: Malik Bang DO [Primary Care Provider] - Prior records reviewed: Yes Surgical History: arthroscopy, knee, coronary bypass surgery, total hip arthroplasty, - - foot surgery. Lives: Spouse/ Significant Other Smoking Status: Former smoker - Family History Maternal Family History: Family History (Last Reviewed 01/26/19 @ 15:53 by Malik Bang DO) Grandmother Myocardial infarction CVA (cerebral vascular accident) Mother Myocardial infarction Father Diabetes Arthritis Family History: Reports: Heart Disease Paternal Family History: Family History (Last Reviewed 01/26/19 @ 15:53 by Malik Bang DO) Grandmother Myocardial infarction CVA (cerebral vascular accident) Mother Myocardial infarction Father Diabetes Arthritis Family History: Reports: Diabetes, Heart Disease Review of Systems General: Denies: Chills, Fever Eyes: Denies: Visual changes - bilaterally ENT: Denies: Bilateral ear pain Cardiovascular: Denies: Chest pain Respiratory: Denies: Dyspnea, Cough Gastrointestinal: Denies: Abdominal pain, Nausea, Vomiting, Diarrhea Musculoskeletal: Reports: Back pain, Extremity Pain Skin: Denies: Rash Neurological: Denies: Headache Allergy: Denies: Uticaria Physical Exam Vital Signs/Narrative: Vital Signs Temp Pulse Resp BP Pulse Ox 02/07/19 11:27 97.2 F L 54 L 17 131/93 H 99 Inital Vital Signs reviewed: Yes General: Well nourished, Well developed Head: Normocephalic ENT: Moist mucous membranes Neck: Supple Cardiovascular: Regular rate, Regular rhythm Respiratory: No distress, CTA bilaterally Abdomen: Soft, Nontender Back: - - Tenderness throughout the lumbar midline and paraspinal muscle region bilaterally. Extremities: - - Mild tenderness location proximal lateral right hip. No tenderness over the knee or lower leg. Mild tenderness over the right shoulder. Good range of motion. Left lower extremity is in a walking boot. Neurological: Alert, Oriented x3 Psychological: Normal affect Diagnostic/Tx/Re-eval Impressions Lumbar Spine X-Ray 02/07/19 11:55 IMPRESSION: Osteopenia with moderate lumbar spondylosis. No acute finding. Electronically Signed: Matheus Reddy MD at 13:03 EST , Service support , Shoulder X-Ray 02/07/19 11:55 IMPRESSION: Osteopenia with osteoarthrosis of the glenohumeral and acromioclavicular joints. Chondroid matrix and proximal right humerus compatible with enchondroma. Differential includes bone infarct, although less likely. No aggressive features associated with this lesion at this time. The patient continues to have pain associated with trauma, a CT study to look for cortical disruption or an MR study to look for aggressive features could be performed. Electronically Signed: Matheus Reddy MD at 13:09 EST , Service support , Hip/Pelvis X-Ray 02/07/19 12:06 IMPRESSION: Osteopenia with mild arthrosis of the left hip and uncomplicated right total hip arthroplasty. No acute finding. Electronically Signed: Matheus Reddy MD at 13:10 EST , Service support , 02/07/19 11:55 Shoulder min 2 Views [RAD] Stat Xray Lumbar [Lumbar Spine 2 or 3 Views] [RAD] Stat 02/07/19 12:06 HIP, UNI W/ Pelvis 2-3 Views [RAD] Stat - Medical Decision Making She was given 1 tab of [place] here. On repeat evaluation she is resting comfortably. Test results discussed with her. We will write her a short course of [place] and Flexeril which she can use to help her symptoms. She will follow-up with her orthopedic physician. ED Disposition - Plan for ED Patient: Disposition: Home or Assisted Living Diagnosis: Fall, Shoulder contusion, Contusion, hip, Lumbar paraspinal muscle spasm Instructions: BACK PAIN (Acute or Chronic) Prescriptions: cycloBENZAPRine HCl [Flexeril] 10 mg PO TID PRN #20 tablet PRN Reason: Muscle Spasm Hydrocodone Bitart/Apap 5-325 [[place] 5MG-325MG] 1 tablet PO Q6H PRN PRN 3 Days #10 tablet PRN Reason: Pain Referrals: Malik Bang DO [Primary Care Provider] -
[2019-02-07] MEDS: HYDROcodone Bitartrate/Apap 5/325 Tablet PO (12:05)
--- NOTE | 2019-02-07 12:06 | RAD_ITS ---
STUDY: X-RAY - PELVIS AND RIGHT HIP REASON FOR EXAM: Female, 74 years old. Fall one week ago. Pain. TECHNIQUE: 3 views of the pelvis and hip on 4 images. COMPARISON: None. FINDINGS: There is a non-specific bowel gas pattern. Soft tissue ossification adjacent to the arthroplasty. Generalized osteopenia. Normal bilateral iliac wings, sacroiliac joints and visualized sacrum. Normal bilateral superior and inferior pubic rami. Postsurgical changes at the symphysis pubis. Normal bilateral ischial tuberosities. Mild arthrosis of the left hip. Uncomplicated right total hip arthroplasty. RAD/HIP, UNI W/ Pelvis 2-3 Views IMPRESSION: Osteopenia with mild arthrosis of the left hip and uncomplicated right total hip arthroplasty. No acute finding. Electronically Signed: Matheus Reddy MD at 13:10 EST , Service support ,
[2019-02-07 13:28] VITALS: BP 142/73; PULSE 63; RESP 16
== END 2019-02-07 13:30 | disposition home or self-care (01) ==
PROVIDERS: Emergency Provider Emergency Medicine; Family Provider Family Medicine; PCP Family Medicine
DX: M62.830 Muscle spasm of back (principal); S70.01XA Contusion of right hip, initial encounter; S40.011A Contusion of right shoulder, initial encounter; I25.10 Atherosclerotic heart disease of native coronary artery without angina pectoris; E78.5 Hyperlipidemia, unspecified; I10 Essential (primary) hypertension; E11.9 Type 2 diabetes mellitus without complications; Z86.73 Personal history of transient ischemic attack (TIA), and cerebral infarction without residual deficits; Z95.5 Presence of coronary angioplasty implant and graft; Z95.1 Presence of aortocoronary bypass graft; Z79.4 Long term (current) use of insulin; Z79.82 Long term (current) use of aspirin; Z79.899 Other long term (current) drug therapy; Z87.891 Personal history of nicotine dependence; W01.0XXA Fall on same level from slipping, tripping and stumbling without subsequent striking against object, initial encounter; Y93.01 Activity, walking, marching and hiking; Y92.000 Kitchen of unspecified non-institutional (private) residence as the place of occurrence of the external cause; Y99.8 Other external cause status
CPT/HCPCS: 72100; 73030; 73502; 99282

== ENCOUNTER → 2019-02-25 10:45 | Outpatient (CLI) | payer MEDICARE, SELFPAY ==
[2019-02-15 15:08] VITALS: BMI 37.8
--- NOTE | 2019-02-25 10:46 | MRI_ITS ---
STUDY: MRI LUMBAR SPINE WITH AND WITHOUT CONTRAST REASON FOR EXAM: Female, 74 years old. Severe pain with sneezing and coughing, fall 3 weeks ago, severe low back pain and RIGHT hip pain TECHNIQUE: Standardized fat and water weighted pulse sequences were obtained in the sagittal and axial planes. Pt received 20ml Dotarem via IV was administered for the contrast portion of the examination. COMPARISON: X-ray 02/07/2019. FINDINGS: Acute to early subacute compression fracture of the L1 vertebral body with mild loss of vertebral body height. Linear hypointense fracture line parallels the superior endplate. T12-L1: Disc dehydration. Disruption of the superior L1 endplate consistent with compression fracture. Normal central canal. Normal bilateral intervertebral neural foramina. Normal lumbar lordosis. There is no substantial scoliosis. Normal conus medullaris that terminates at the L1 level. L1-2: Normal endplates. Normal disc height, hydration and morphology. Normal bilateral facet joints. Normal central canal and bilateral lateral recesses. Normal bilateral intervertebral neural foramina. L2-3: Disc dehydration and mild disc space narrowing. Small Schmorl''s nodes. Mild spondylotic bar. Mild concentric canal stenosis due to spondylosis, mild facet and ligamentous hypertrophy. Mild inferior foraminal encroachment due to spurring. L3-4: Marked disc space narrowing. L4 Schmorl''s node. Mild spondylotic bar. Mild canal stenosis due to spondylosis, mild facet and ligamentous hypertrophy. Foraminal stenosis is mild on the right and severe on the left due to spurring. Normal bilateral facet joints. Normal central canal and bilateral lateral recesses. Normal bilateral intervertebral neural foramina. L4-5: Disc dehydration and moderate disc space narrowing. Mild, noncompressive spondylotic bar. Moderate facet hypertrophy. No canal stenosis. Foraminal stenosis is mild on the left and moderate on the right due to spurring and facet hypertrophy. L5-S1: Disc dehydration. Small, central, noncompressive disc protrusion. No canal stenosis. Mild facet hypertrophy. Mild right foraminal encroachment due to spurring. There is enhancement of the L1 vertebral body consistent with hyperemia. There is otherwise no abnormal contrast enhancement. Normal visualized sacral ala. Normal visualized paraspinous soft tissue structures. 3.9 cm right renal cyst, partially imaged. MRI/Spine Lumbar W/WO Contrast IMPRESSION: 1. Acute L1 compression fracture. 2. Mild canal stenosis at L2-3 and L3-4. 3. Multilevel foraminal encroachment, greatest at L3-4 and L4-5. 4. Additional degenerative changes are detailed above. 5. Right renal cyst. Electronically Signed: Hannah Cedeno MD at 16:57 EST Tel , Service support ,
[2019-02-25 11:30] LABS: CREATININE FINGERSTICK 1.1 mg/dL (0.55-1.02)
== END ==
PROVIDERS: Family Provider Family Medicine; PCP Family Medicine; Referring Provider Family Medicine; Visit Provider Family Medicine
DX: M54.5 Low back pain (principal)
CPT/HCPCS: 72158; A9575

== ENCOUNTER 2019-04-27 22:07 | Inpatient (IN) | payer MEDICARE, SELFPAY ==
[2019-04-04 11:19] VITALS: BMI 37.8
[2019-04-27 22:08] VITALS: BP 147/72; PULSE 84; RESP 14; TEMP 38.1; O2SAT 96; BMI 40.4
[2019-04-27 22:13] VITALS: BP 147/72; PULSE 84; RESP 14; TEMP 38.1; O2SAT 96
--- NOTE | 2019-04-27 22:21 | ED.DCSUM_ITS ---
- ER Visit Summary Date of Service: 04/27/19 Chief Complaint: Fever History of Present Illness: The patient is a 74 F who presents with fever that began today. Temperature at home was up to 102. Patient did not take any Tylenol or ibuprofen prior to arrival. Patient denies any shortness of breath or cough. Patient denies any sore throat or rhinorrhea. Patient admits to nausea but denies any vomiting. Patient denies any dysuria or hematuria. Patient denies any rashes or abscesses. Physical Examination: Vital signs are stable. Patient is febrile here with a temperature of 100.6. Patient is in no acute distress. Neck is supple. Trachea is midline. There is no JVD. Heart was regular rate and rhythm. Lungs are clear and equal bilateral. There is adequate respiratory effort noted. Abdomen is soft. Bowel sounds are normal. There is no tenderness. Extremities are intact. There is no calf tenderness or edema. Test Results: CBC shows mild thrombocytopenia of 92. Comprehensive metabolic profile showed a elevated bilirubin of 3.7 and a slightly elevated alk phos of 237. INR was normal at 1.3. Lactate was elevated 2.2. Urinalysis showed positive nitrates and 4+ bacteria. Leukocyte esterase was 25 but there were 0-5 white blood cells. Portable chest x-ray was obtained. There is no acute cardiopulmonary process. This was interpreted by the radiologist and reviewed by myself. EKG showed normal sinus rhythm with a rate of 77. There are no acute ST or T wave changes. Emergency Department Course and Treatment: Patient was given IV fluids and Tylenol initially. Patient was started on Zosyn and vancomycin. Blood and urine cultures were obtained. Patient was feeling somewhat anxious and normally takes alprazolam at home. Patient was given a small dose of Ativan here. Case was discussed with the hospitalist. He will admit the patient to his service to the intensive care unit. Patient and family understood and were agreeable with the plan. All questions were answered. Disposition: Admit to hospital Impression: 1. Severe sepsis 2. Urinary tract infection This note was generated with [employer] software. It may contain incorrect words, spelling, and punctuation that were not noted in review of the chart prior to signing ED Disposition - Plan for ED Patient: Disposition: Acute Care Hospital [facility] Diagnosis: Severe sepsis, Urinary tract infection Referrals: Malik Bang DO [Primary Care Provider] -
--- NOTE | 2019-04-27 22:22 | EKG12_ITS ---
Test Reason : FEVER Blood Pressure : / mmHG Vent. Rate : 077 BPM Atrial Rate : 077 BPM P-R Int : 156 ms QRS Dur : 082 ms QT Int : 376 ms P-R-T Axes : 029 -37 039 degrees QTc Int : 425 ms Normal sinus rhythm Left axis deviation Septal infarct (cited on or before 20-NOV-2016) Abnormal ECG Confirmed by LUIS A BURTON, MARY ([id number]), editorial specialist OPAL SAUER ([id number]) on 05/02/2019 11:26:46 AM Referred By: VARGHESE Confirmed By:DEION GUNN MD
[2019-04-27 22:30] VITALS: PULSE 82; RESP 22; O2SAT 97
--- NOTE | 2019-04-27 22:30 | RAD_ITS ---
STUDY: X-RAY CHEST REASON FOR EXAM: Female, 74 years old. fever, nausea, ALT LOC, patient unable to follow breathing instructions TECHNIQUE: Frontal view COMPARISON: May 28, 2018 FINDINGS: Stable sternotomy wires. The lungs are not fully expanded. There is no demonstrated pleural abnormality. Normal size heart. Normal mediastinum and fidelina. Normal visualized pulmonary arteries. Normal visualized aortic arch and descending thoracic aorta. Degenerative changes of the thoracic spine. Probable focal bone infarct of the right humerus. Normal visualized ribs, clavicles, and shoulders. There is no demonstrated abnormality of the visualized soft tissue structures of the upper abdomen. RAD/Chest 1 View (Portable) IMPRESSION: No acute pulmonary pathology of the chest. Electronically Signed: Hans Greco DO at 22:42 EDT Tel [phone], Service support ,
[2019-04-27 22:33] LABS: Absolute Lymphocyte Count 0.89 X10^3/uL (0.83-4.51); Absolute Neutrophil Count 7.8 X10^3/uL (2.0-7.7); Basophil# 0.01 X10^3/uL; Basophil% 0.1 % (0-1); Eosinophil# 0.05 X10^3/uL; Eosinophils% 0.5 % (0-5); Hematocrit 38.4 % (37-47); Hemoglobin 12.6 g/dL (12.0-15.0); Lymphocyte # 0.89 X10^3/ul (4.0); Lymphocyte % 9.6 % (19-41); Mean Corp Hgb Conc 32.8 g/dL (32-36); Mean Corpuscular Hgb 33.2 pg (27.0-32.0); Mean Corpuscular Volume 101.3 fL (81-99); Mean Platelet Vol. 12.7 fl (6.2-12.0); Monocyte# 0.46 X10^3/uL; NRBC Flagged by Analyzer 0 % (0-5); Neutrophil # 7.79 X10^3/uL (2.7-7.7); Neutrophil % 84.3 % (47-70); POSITIVE COUNT YES; Platelet Count 92 K/mm3 (150-450); RBC Distribution Width CV 16.3 % (11.6-14.6); Red Blood Count 3.79 M/mm3 (4.2-5.4); White Blood Count 9.3 K/mm3 (4.4-11.0)
[2019-04-27] MEDS: 0.9% Normal Saline 1,000 ML 999 ML IV (22:34)
[2019-04-27] MEDS: Acetaminophen 500 MG Tablet 1000 MG PO (22:35)
[2019-04-27 22:39] LABS: International Normalized Ratio 1.3; Prothrombin Time (Protime)PT. 16.4 SECONDS (11.7-14.9)
[2019-04-27 22:41] LABS: Partial Thromboplast Time 38.7 Seconds (24.1-36.2)
[2019-04-27 22:52] LABS: Mucous, Urine 0 SEEN /hpf (<or=2+); Squamous Epithelial Cells - UA 0 SEEN /hpf (5-10)
[2019-04-27 22:53] LABS: Differential Indicated SCAN CRITERIA MET
[2019-04-27 23:05] LABS: ALB/GLOB Ratio 0.6 RATIO (0.9-2.4); AST(SGOT) 67 U/L (15-37); Alanine Aminotransfer ALT/SGPT 35 U/L (13-56); Albumin, Serum 2.5 g/dL (3.2-5.0); Alkaline Phosphatase 237 U/L (45-117); Anion Gap 7 (5-15); BUN 16 mg/dL (7-18); BUN/Creat Ratio 13.7 RATIO (10-20); Calcium,Total 8.8 mg/dL (8.5-10.1); Chloride 113 mmol/L (98-107); Creatinine, Serum 1.17 mg/dL (0.55-1.02); EST Glomerular Filtration Rate 48 mL/min (>60); Est Glom Filt Rate - Afr Amer 58 mL/min (>60); Estimated Creatinine Clearance 38.53 ml/min; Glucose 237 mg/dL (74-106); Potassium 3.6 mmol/L (3.5-5.1); Protein, Total 6.5 g/dL (6.4-8.2); Sodium Level 143 mmol/L (136-145)
[2019-04-27 23:12] LABS: Differential Comment SCANNED
[2019-04-27 23:13] LABS: Platelet Estimate MOD DEC (ADEQ)
[2019-04-27 23:18] LABS: Lactic Acid 2.2 mmol/L (0.4-1.9)
[2019-04-27 23:19] LABS: Color, Urine Amber (Yellow); Glucose, Dipstick Normal (Normal); Ketone-Dipstick Negative (Negative); Leukocyte Esterase-Dipstick 25 /ul (Negative); Nitrite-Dipstick Positive (Negative); Occult Blood-Urine 10 /ul (Negative); Protein-Dipstick 30 mg/dl (Negative); Urine Clarity Clear (Clear); Urine Urobilinogen 8 mg/dl (Normal)
[2019-04-27 23:41] LABS: Urine Bilirubin Dipstick 1 mg/dL (Negative)
[2019-04-27 23:42] VITALS: BP 145/65; PULSE 78; RESP 22; TEMP 38; O2SAT 99
[2019-04-27 23:45] LABS: Bacteria 4+ /hpf (None Seen); Red Blood Cells-Urine 0-5 SEEN /hpf (0-5); White Blood Cells 0-5 SEEN /hpf (0-5)
--- NOTE | 2019-04-27 23:52 | HP.PCM_ITS ---
Problem List (1) Acute encephalopathy Status: Acute (2) Severe sepsis Status: Acute (3) Urinary tract infection Status: Acute (4) Compression fracture of L1 vertebra Status: Chronic Qualifiers: Encounter type: subsequent encounter Comment: I had a discussion on compression fractures and the fact that it takes 12 weeks to heal. Basically especially with her problem with her left foot she really cannot go through physical therapy as she is having too much trouble getting in and out of the house. I told her nonsteroidals for the pain rest as much as possible but continue to be active in the upper body. I told her that kyphoplasty is a rarely done procedure and I did not think she would benefit enough to assume the risk of that procedure. (5) Non-union of fracture Status: Chronic Comment: Left foot. 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 (DJN @ [facility]) (8) Dupuytren's contracture of left hand Status: Chronic (9) Rotator cuff arthropathy of right shoulder Status: Chronic (10) History of coronary artery stent placement Status: Chronic Comment: PCI-HALEIGH-Mid RCA 2.25 x 38 mm Promus Synergy (11) Atherosclerosis of coronary artery of [place] heart without angina pectoris Status: Chronic Qualifiers: Coronary Disease-Associated Artery/Lesion type: [place] artery Qualified Code(s): I25.10 - Atherosclerotic heart disease of [place] coronary artery without angina pectoris Comment: PCI-HALEIGH-Mid RCA 2.25 x 38 mm Promus Synergy 11/20/16 CABG x 2 KRISHNAMURTHY-LAD, SVG-Om1 11/30/15 @ [facility], PTCA to mid RCA 05/13/2017 (12) Hyperlipemia Status: Chronic Qualifiers: Hyperlipidemia type: pure hypercholesterolemia Qualified Code(s): E78.00 - Pure hypercholesterolemia, unspecified; E78.0 - Pure hypercholesterolemia (13) Hypertension Status: Chronic Qualifiers: Hypertension type: essential hypertension Qualified Code(s): I10 - Essential (primary) hypertension (14) Type 2 diabetes mellitus Status: Chronic Qualifiers: Diabetes mellitus [facility] insulin use: without [facility] use Diabetes mellitus complication status: without complication Qualified Code(s): E11.9 - Type 2 diabetes mellitus without complications (15) Rheumatic fever Status: Chronic (16) CVA (cerebral vascular accident) Status: Chronic Qualifiers: CVA mechanism: unspecified Qualified Code(s): I63.9 - Cerebral infarction, unspecified Comment: Ischemic: residual is just occasional speech problems (17) H/O coronary artery bypass surgery Status: Chronic Comment: CABG x 2 KRISHNAMURTHY-LAD, SVG-Om1 11/30/15 @ [facility] History of Present Illness Date of Admission: 04/27/19 Chief Complaint: altered mental status The patient is a 74 year old F with a significant history of CVA; hypertension; Rheumatic fever; Rheumatoid arthritis; and type 2 diabetes who presents at the emergency department with altered mental status that started few hours before presentation. Associated with symptoms is chills; rigors and poor appetite. Patient had temperature of 102.9 Fahrenheit at home. At the emergency department patient was found to have a T-max of 100.6F. She had tachypnea. Lactic acid was 2.2. Bilirubin was elevated at 3.7 and her urinalysis was abnormal. Past Medical History Past Medical History (Chronic Problems): Chronic Problems (Last Reviewed 04/28/19 @ 02:[address] Xander Becker MD) Compression fracture of L1 vertebra (Chronic) I had a discussion on compression fractures and the fact that it takes 12 weeks to heal. Basically especially with her problem with her left foot she really cannot go through physical therapy as she is having too much trouble getting in and out of the house. I told her nonsteroidals for the pain rest as much as possible but continue to be active in the upper body. I told her that kyphoplasty is a rarely done procedure and I did not think she would benefit enough to assume the risk of that procedure. Non-union of fracture (Chronic) Left foot. 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 (DJN @ [facility]) Dupuytren's contracture of left hand (Chronic) Rotator cuff arthropathy of right shoulder (Chronic) History of coronary artery stent placement (Chronic 11/20/16) PCI-HALEIGH-Mid RCA 2.25 x 38 mm Promus Synergy Atherosclerosis of coronary artery of [place] heart without angina pectoris (Chronic) PCI-HALEIGH-Mid RCA 2.25 x 38 mm Promus Synergy 11/20/16 CABG x 2 KRISHNAMURTHY-LAD, SVG-Om1 11/30/15 @ [facility], PTCA to mid RCA 05/13/2017 Hyperlipemia (Chronic) Hypertension (Chronic) Type 2 diabetes mellitus (Chronic) Rheumatic fever (Chronic) CVA (cerebral vascular accident) (Chronic ~2010) Ischemic: residual is just occasional speech problems H/O coronary artery bypass surgery (Chronic 11/30/15) CABG x 2 KRISHNAMURTHY-LAD, SVG-Om1 11/30/15 @ [facility] Medical History: Medical History (Last Reviewed 04/28/19 @ 06:[address] Xander Becker MD) Chest pain (Inactive) R07.9 Atherosclerosis of coronary artery of [place] heart without angina pectoris (Chronic) I25.10 PCI-HALEIGH-Mid RCA 2.25 x 38 mm Promus Synergy 11/20/16 CABG x 2 KRISHNAMURTHY-LAD, SVG-Om1 11/30/15 @ [facility], PTCA to mid RCA 05/13/2017 Anemia (Resolved) D64.9 Hyperlipemia (Chronic) E78.5 Hypertension (Chronic) I10 Type 2 diabetes mellitus (Chronic) E11.9 Rheumatic fever (Chronic) I00 CVA (cerebral vascular accident) (Chronic) Onset Date: ~2010 I63.9 Ischemic: residual is just occasional speech problems Rheumatoid arthritis M06.9 Allergies oxycodone Allergy (Verified 04/27/19 22:13) Other UNABLE TO TAKE, MAKES EXCITED AND UNABLE TO SLEEP environemental Allergy (Uncoded 03/02/19 11:36) dry cough Home Medications: Ambulatory Orders Medication Instructions Recorded Aspirin E.C. [Ecotrin] 81 mg PO DAILY 08/31/17 tramadol 50 mg tablet 50 mg PO Q6H #90 tab 04/13/18 omeprazole 40 mg capsule,delayed 40 mg PO DAILY #90 cap 05/24/18 release nitroglycerin 0.4 mg sublingual 0.4 mg SUBLINGUAL Q5M PRN #25 tab 05/27/18 tablet topiramate 50 mg tablet 50 mg PO QHS #90 tab 11/20/18 atorvastatin 40 mg tablet 40 mg PO DAILY #90 tab 12/20/18 clopidogrel 75 mg tablet 75 mg PO DAILY #90 tab 12/20/18 isosorbide mononitrate 60 mg 60 mg PO DAILY #90 tab 12/20/18 tablet,extended release 24 hr losartan 100 mg tablet 100 mg PO DAILY #90 tab 12/20/18 metoprolol succinate 100 mg 100 mg PO DAILY #90 tab 12/20/18 tablet,extended release 24 hr nystatin 100,000 unit/gram topical 1 applic TOPICAL BID #30 g 01/01/19 cream insulin aspart U-100 100 unit/mL 14 unit SUBCUT TIDCM #15 ml 01/17/19 (3 mL) subcutaneous pen gabapentin 300 mg capsule 300 mg PO .COMPLEX #150 cap 01/26/19 insulin glargine 100 unit/mL 65 unit SUBCUT DAILY ml 01/26/19 subcutaneous solution hydrocodone 5 mg-acetaminophen 325 1 tab PO Q6H PRN #12 tab 03/29/19 mg tablet Alprazolam [Xanax] 0.25 mg PO TID PRN PRN 04/27/19 Surgical History: Surgical History (Last Reviewed 04/28/19 @ 06:[address] 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 (DJN @ [facility]) H/O section (Resolved) Z98.891 History of carpal tunnel surgery (Resolved) Z92.89 bilateral History of coronary artery stent placement (Chronic) Onset Date: 11/20/16 Z95.5 PCI-HALEIGH-Mid RCA 2.25 x 38 mm Promus Synergy H/O coronary artery bypass surgery (Chronic) Onset Date: 11/30/15 CABG x 2 KRISHNAMURTHY-LAD, SVG-Om1 11/30/15 @ [facility] Status post left foot surgery Z98.890 07/2018 History of arthroscopy Z98.890 right knee History of heart artery stent Z95.5 11/2016 History of left knee replacement Z96.652 History of open reduction and internal fixation (ORIF) procedure Onset Date: ~08/2017 Z98.890 Insertion of nicolás into left lower leg after fracture History of partial hysterectomy Z90.711 History of right hip replacement Z96.641 History of tonsillectomy Z90.89 history of partial right knee replacement followed by a full replacement the following year history of total foot reconstruction Surgical History: arthroscopy, knee, coronary bypass surgery, total hip arthr oplasty, - - foot surgery. Smoking Status: Former smoker - *Family History Maternal Family History: Family History (Last Reviewed 04/28/19 @ 06:[address] Xander Becker MD) Grandmother Myocardial infarction CVA (cerebral vascular accident) Mother Myocardial infarction Father Diabetes Arthritis History Items: Heart Disease Paternal Family History: Family History (Last Reviewed 04/28/19 @ 06:[address] Xander Becker MD) Grandmother Myocardial infarction CVA (cerebral vascular accident) Mother Myocardial infarction Father Diabetes Arthritis History Items: Diabetes, Heart Disease Review of Systems Constitutional: Reports: Anorexia, Chills. Denies: Fever, Weight Change HEENT: Denies: Head Aches, Sinus Congestion, Sinus Drainage Cardiovascular: Denies: Chest Pain, Palpitations Respiratory: Denies: Cough, Shortness of breath at rest, Sputum production Gastrointestinal: Denies: Abdominal Pain, Nausea, Vomiting Genitourinary: Denies: Dysuria Musculoskeletal: Denies: Joint Pain, Joint Tenderness Skin: Denies: Rash, Wounds Neurological: Reports: Confusion. Denies: Focal weakness, Numbness, Tingling Psychiatric: Reports: Anxiety. Denies: Depression, Homicidal Ideations, Suicidal Ideations Hematologic/ Lymphatic: Denies: Easy Bruising, Easy Bleeding VTE Information - Inpt Only VTE Present on Admission: No VTE Mechan Device Prophylaxis: None VTE Pharm Prophylaxis ordered?: Yes Patient Problems: Active and Suspected Problems (Last Reviewed 04/28/19 @ 02:[address] Xander Becker MD) Severe sepsis (Acute) Urinary tract infection (Acute) Acute encephalopathy (Acute) - Physical Exam Vitals/I&O's: Vital Signs Temp Pulse Resp BP Pulse Ox 100.4 F H 78 22 H 145/65 H 99 04/27/19 23:42 04/27/19 23:42 04/27/19 23:42 04/27/19 23:42 04/27/19 23:42 Oxygen Delivery Method Room Air Weight: 110.2 kg Body Mass Index (BMI) 40.4 Finger Stick Blood Glucose 61 General: Cooperative, Confused, Lethargic HEENT: Atraumatic, PERRLA, EOMI, Normocephalic Neck: Supple, Trachea Midline Lungs: Clear to auscultation, Normal air movement Cardiovascular: Regular rate, Normal S1, Normal S2, No murmurs Abdomen: Bowel Sounds Present, Soft, Non Tender Extremities: Capillary Refill Less than 3 Seconds, Edema - Left leg, Tenderness - Left leg Skin: No rashes, No breakdown Musculoskeletal: No Tenderness to Palpation of Joints or Extremities Neurological: Cranial nerves II-XII grossly intact Psych/Mental Status: Normal Affect Laboratory Results 04/27/19 22:20: WBC 9.3, RBC 3.79 L, Hgb 12.6, Hct 38.4, MCV 101.3 H, MCH 33.2 H , MCHC 32.8, RDW Std Deviation 60.0 H, RDW Coeff of Henry 16.3 H, Plt Count 92 L, MPV 12.7 H, Immature Gran % (Auto) 0.500, Neut % (Auto) 84.3 H, Lymph % (Auto) 9.6 L, [place] % (Auto) 5.0, Eos % (Auto) 0.5, Baso % (Auto) 0.1, Absolute Neuts (auto) 7.8 H, Absolute Lymphs (auto) 0.89, Nucleated RBC % 0, Differential Comment SCANNED, Platelet Estimate MOD 04/27/19 22:20: PT 16.4 H, INR 1.3, APTT 38.7 H 04/27/19 22:20: Sodium 143, Potassium 3.6, Chloride 113 H, Carbon Dioxide 23.0, Anion Gap 7, BUN 16, Creatinine 1.17 H, Estim Creat Clear Calc 38.53, Est GFR (MDRD) Af Amer 58 L, Est GFR (MDRD) Non-Af 48 L, BUN/Creatinine Ratio 13.7, Glucose 237 H, Calcium 8.8, Total Bilirubin 3.70 H, AST 67 H, ALT 35, Alkaline Phosphatase 237 H, Total Protein 6.5, Albumin 2.5 L, Globulin 4.0, Albumin/Globulin Ratio 0.6 L 04/27/19 22:20: Lactic Acid 2.2 H* 04/27/19 22:45: Urine Color Adrianne, Urine Clarity Clear, Urine pH 7.0, Ur Specific Sasser 1.010, Urine Protein 30 H, Urine Glucose (UA) Normal, Urine Ketones Negative, Urine Occult Blood 10 H, Urine Nitrite Positive H, Urine Bilirubin 1 H, Urine Urobilinogen 8 H, Ur Leukocyte Esterase 25 H, Urine RBC 0-5 SEEN, Urine WBC 0-5 SEEN, Ur Squamous Epith Cells 0 SEEN, Urine Bacteria 4+, Urine Mucus 0 SEEN Current Medications Piperacillin Sod/Tazobactam (Sod 4.5 gm/ Sodium Chloride) 100 mls @ 200 mls/hr IV X1 ONE Stop: 04/28/19 00:14 Vancomycin HCl (Vancomycin Hcl) 1,000 mg IV X1 ONE Stop: 04/27/19 23:46 Assessment/Plan All Active Problems (Last Reviewed 04/28/19 @ 02:[address] Xander Becker MD) Severe sepsis (Acute) Urinary tract infection (Acute) Acute encephalopathy (Acute) H/O section (Resolved) History of carpal tunnel surgery (Resolved) Anemia (Resolved) Chest pain (Resolved) Chest pressure (Resolved) The patient is a 74 year old F with a significant history of CVA; hypertension; rheumatic fever; rheumatoid arthritis; type 2 diabetes who presents to the emergency department with altered mental status; chills; rigors; poor appetite; and fever and found to have tachypnea; elevated lactic acid and elevated bilirubin consistent with severe sepsis secondary to probable UTI. Acute encephalopathy likely secondary to severe sepsis from UTI. Lactic acid: 2.2 RR: Highest of 22 T-max of 100.6 Fahrenheit at the hospital and 102.9 at home. Blood culture ?2 is pending; follow. Urine culture is pending; follow Impression of chest x-ray: No acute pulmonary pathology of the chest. Chest x- ray was independently reviewed. I agree with radiology interpretation. Patient with abnormal urinalysis. Antibiotics: Received vancomycin and Zosyn in the emergency department. Start patient on scheduled ceftriaxone. IV hydration: Received 1 L bolus normal saline at the emergency department. Continue patient on gentle IV hydration 75 mL's per hour for 1 L. Get TSH and vitamin B12. On home prescribed tramadol and [place]. Patient's report that patient does not typically take [place]. Last time that she took tramadol was about 4 days ago. Also patient is on home Xanax. Last time patient took Xanax was about 2 days ago. At the emergency department patient was given Ativan for anxiety. Hold all narcotics and anxiolytics at this time. At home Neurontin. Hold home Imdur and metoprolol for now. CKD stage III Creatinine is within baseline. Stable. CKD likely secondary to hypertensive nephrosclerosis and diabetes mellitus. Diabetes mellitus with nephropathy Patient with CKD stage III. Blood glucose was elevated on presentation. Adjust home basal and prandial insulin. Add correction scale insulin. CAD s/p stent Aspirin and Plavix continued. Lipitor continued. Morbid Obesity: BMI: 39.8. Complicates care. Lifestyle modification recommended. DVT Prophylaxis Subcutaneous Lovenox Inpatient E&M: 49280 Init Hosp L3
[2019-04-28] VITALS (36 sets, daily range): BP systolic 99–149; BP diastolic 47–96; PULSE 60–86; RESP 13–22; TEMP 36.6–38.1; O2SAT 95–100; BMI 39.8
[2019-04-28] MEDS: LORazepam 0.5 MG Tablet PO (00:32)
[2019-04-28] MEDS: 0.9% Normal Saline 1,000 ML 75 ML IV (01:23)
[2019-04-28 02:25] LABS: Reflex Lactate? Y
[2019-04-28 03:00] LABS: Thyroid Stim Hormone (TSH) 1.68 uIU/mL (0.358-3.74)
[2019-04-28 03:12] LABS: Absolute Lymphocyte Count 1.39 X10^3/uL (0.83-4.51); Absolute Neutrophil Count 6.3 X10^3/uL (2.0-7.7); Basophil# 0.02 X10^3/uL; Basophil% 0.2 % (0-1); Eosinophil# 0.04 X10^3/uL; Eosinophils% 0.5 % (0-5); Hematocrit 34.5 % (37-47); Hemoglobin 11.1 g/dL (12.0-15.0); Lymphocyte # 1.39 X10^3/ul (4.0); Lymphocyte % 16.5 % (19-41); Mean Corp Hgb Conc 32.2 g/dL (32-36); Mean Corpuscular Hgb 32.6 pg (27.0-32.0); Mean Corpuscular Volume 101.2 fL (81-99); Mean Platelet Vol. 12.8 fl (6.2-12.0); Monocyte% 7.1 % (0-10); NRBC Flagged by Analyzer 0 % (0-5); Neutrophil # 6.33 X10^3/uL (2.7-7.7); Neutrophil % 75.2 % (47-70); POSITIVE COUNT YES; Platelet Count 76 K/mm3 (150-450); RBC Distribution Width CV 16.3 % (11.6-14.6); RBC Distribution Width SD 61.2 fl (35.1-43.9); Red Blood Count 3.41 M/mm3 (4.2-5.4); White Blood Count 8.4 K/mm3 (4.4-11.0)
[2019-04-28 03:16] LABS: Differential Indicated SCAN CRITERIA MET
[2019-04-28 03:26] LABS: ALB/GLOB Ratio 0.6 RATIO (0.9-2.4); AST(SGOT) 54 U/L (15-37); Alanine Aminotransfer ALT/SGPT 29 U/L (13-56); Albumin, Serum 2.1 g/dL (3.2-5.0); Alkaline Phosphatase 191 U/L (45-117); Anion Gap 7 (5-15); BUN 16 mg/dL (7-18); BUN/Creat Ratio 14.2 RATIO (10-20); Calcium,Total 8.2 mg/dL (8.5-10.1); Chloride 115 mmol/L (98-107); Creatinine, Serum 1.13 mg/dL (0.55-1.02); EST Glomerular Filtration Rate 50 mL/min (>60); Est Glom Filt Rate - Afr Amer 61 mL/min (>60); Globulin 3.5 g/dL (2.2-4.2); Glucose 160 mg/dL (74-106); Potassium 3.1 mmol/L (3.5-5.1); Protein, Total 5.6 g/dL (6.4-8.2); Sodium Level 143 mmol/L (136-145)
[2019-04-28 03:39] LABS: Lactic Acid 1.4 mmol/L (0.4-1.9)
[2019-04-28 04:27] LABS: Hypochromasia RARE; Macrocytosis 1+; Platelet Estimate MOD DEC (ADEQ)
[2019-04-28 04:40] LABS: Vitamin B12 483 pg/mL (211-911)
[2019-04-28 06:56] LABS: Bedside Glucose 102 mg/dL (70-110)
--- NOTE | 2019-04-28 07:23 | CON.PCM_ITS ---
Problem List (1) Severe sepsis Status: Acute (2) Urinary tract infection Status: Acute Qualifiers: Urinary tract infection type: acute pyelonephritis Qualified Code(s): N10 - Acute pyelonephritis (3) Acute encephalopathy Status: Acute (4) Trochanteric bursitis of right hip Status: Inactive (5) Compression fracture of L1 vertebra Status: Chronic Qualifiers: Encounter type: subsequent encounter Comment: I had a discussion on compression fractures and the fact that it takes 12 weeks to heal. Basically especially with her problem with her left foot she really cannot go through physical therapy as she is having too much trouble getting in and out of the house. I told her nonsteroidals for the pain rest as much as possible but continue to be active in the upper body. I told her that kyphoplasty is a rarely done procedure and I did not think she would benefit enough to assume the risk of that procedure. 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 without angina pectoris Status: Chronic Qualifiers: Coronary Disease-Associated Artery/Lesion type: resighini artery Qualified Code(s): I25.10 - Atherosclerotic heart disease of resighini coronary artery without angina pectoris Comment: PCI-HALEIGH-Mid RCA 2.25 x 38 mm Promus Synergy 11/20/16 CABG x 2 KRISHNAMURTHY-LAD, SVG-Om1 11/30/15 @ [facility], PTCA to mid RCA 05/13/2017 (12) Anemia Status: Resolved Qualifiers: Anemia type: iron deficiency (13) Hyperlipemia Status: Chronic Qualifiers: Hyperlipidemia type: pure hypercholesterolemia Qualified Code(s): E78.00 - Pure hypercholesterolemia, unspecified; E78.0 - Pure hypercholesterolemia (14) Hypertension Status: Chronic Qualifiers: Hypertension type: essential hypertension Qualified Code(s): I10 - Essential (primary) hypertension (15) Type 2 diabetes mellitus Status: Chronic Qualifiers: Diabetes mellitus chcf insulin use: without chcf use Diabetes mellitus complication status: without complication Qualified Code(s): E11.9 - Type 2 diabetes mellitus without complications (16) Rheumatic fever Status: Chronic (17) H/O coronary artery bypass surgery Status: Chronic Comment: CABG x 2 KRISHNAMURTHY-LAD, SVG-Om1 11/30/15 @ [facility] Reason for Consult Date of Consultation: 04/28/19 Reason for Consultation: Severe sepsis History of Present Illness: The patient is a 74 year old F, with past medical history listed below, who presented to [facility] on 04/27/2019 secondary to fever. Patient reportedly had a temperature up to 102 ?F, but denied any shortness of breath or cough. Patient had not had any sore throat, rhinorrhea or rashes. Patient did admit to some nausea, but no vomiting. Patient reportedly had been confused initially and this was also concern. In the ER, patient was noted to be febrile, but in no acute distress. Patient had a mild thrombocytopenia at 92 with an elevated bilirubin at 3.7 and lactate of 2.2. Urinalysis was suggestive of UTI. Portable chest x-ray was unremarkable, along with EKG. Patient was given Zosyn, vancomycin, 1 L of IV fluids and admitted to the intensive care unit for further evaluation. Since being in the intensive care unit, patient has done okay. Patient reportedly is non-weightbearing secondary to back and ankle fracture. Patient reports subjective improvement in overall condition, but is having some nausea this morning. Patient was given 60 mEq p.o. of potassium before my evaluation. Patient has had some intermittent lower blood pressures, but has not required any significant pressor therapy or other interventions. Patient denies any history of resistant organisms. Patient has had some UTIs in the past, but never enough to go in the hospital. Patient denies any respiratory symptoms. Patient does believe that she is going to try to eat this morning. Review of systems otherwise negative from a constitutional, HEENT, respiratory, cardiovascular, GI, genitourinary, musculoskeletal, skin, neurologic, psychiatric and hematologic system unless stated above. Past Medical History Past Medical History (Chronic Problems): Chronic Problems (Last Reviewed 04/28/19 @ 06:[address] Xander Becker MD) Compression fracture of L1 vertebra (Chronic) I had a discussion on compression fractures and the fact that it takes 12 weeks to heal. Basically especially with her problem with her left foot she really cannot go through physical therapy as she is having too much trouble getting in and out of the house. I told her nonsteroidals for the pain rest as much as possible but continue to be active in the upper body. I told her that kyphoplasty is a rarely done procedure and I did not think she would benefit enough to assume the risk of that procedure. Non-union of fracture (Chronic) Left foot. 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 (JOSEPH @ [facility]) Dupuytren's contracture of left hand (Chronic) Rotator cuff arthropathy of right shoulder (Chronic) History of coronary artery stent placement (Chronic 11/20/16) PCI-HALEIGH-Mid RCA 2.25 x 38 mm Promus Synergy Atherosclerosis of coronary artery of resighini heart without angina pectoris (Chronic) PCI-HALEIGH-Mid RCA 2.25 x 38 mm Promus Synergy 11/20/16 CABG x 2 KRISHNAMURTHY-LAD, SVG-Om1 11/30/15 @ [facility], PTCA to mid RCA 05/13/2017 Hyperlipemia (Chronic) Hypertension (Chronic) Type 2 diabetes mellitus (Chronic) Rheumatic fever (Chronic) CVA (cerebral vascular accident) (Chronic ~2010) Ischemic: residual is just occasional speech problems H/O coronary artery bypass surgery (Chronic 11/30/15) CABG x 2 KRISHNAMURTHY-LAD, SVG-Om1 11/30/15 @ [facility] Medical History: Medical History (Last Reviewed 04/28/19 @ 06:[address] Xander Becker MD) Chest pain (Inactive) R07.9 Atherosclerosis of coronary artery of resighini heart without angina pectoris (Chronic) I25.10 PCI-HALEIGH-Mid RCA 2.25 x 38 mm Promus Synergy 11/20/16 CABG x 2 KRISHNAMURTHY-LAD, SVG-Om1 11/30/15 @ [facility], PTCA to mid RCA 05/13/2017 Anemia (Resolved) D64.9 Hyperlipemia (Chronic) E78.5 Hypertension (Chronic) I10 Type 2 diabetes mellitus (Chronic) E11.9 Rheumatic fever (Chronic) I00 CVA (cerebral vascular accident) (Chronic) Onset Date: ~2010 I63.9 Ischemic: residual is just occasional speech problems Rheumatoid arthritis M06.9 Allergies oxycodone Allergy (Verified 04/27/19 22:13) Other UNABLE TO TAKE, MAKES EXCITED AND UNABLE TO SLEEP environemental Allergy (Uncoded 03/02/19 11:36) dry cough Home Medications: Ambulatory Orders Medication Instructions Recorded Aspirin E.C. [Ecotrin] 81 mg PO DAILY 08/31/17 tramadol 50 mg tablet 50 mg PO Q6H #90 tab 04/13/18 omeprazole 40 mg capsule,delayed 40 mg PO DAILY #90 cap 05/24/18 release nitroglycerin 0.4 mg sublingual 0.4 mg SUBLINGUAL Q5M PRN #25 tab 05/27/18 tablet topiramate 50 mg tablet 50 mg PO QHS #90 tab 11/20/18 atorvastatin 40 mg tablet 40 mg PO DAILY #90 tab 12/20/18 clopidogrel 75 mg tablet 75 mg PO DAILY #90 tab 12/20/18 isosorbide mononitrate 60 mg 60 mg PO DAILY #90 tab 12/20/18 tablet,extended release 24 hr losartan 100 mg tablet 100 mg PO DAILY #90 tab 12/20/18 metoprolol succinate 100 mg 100 mg PO DAILY #90 tab 12/20/18 tablet,extended release 24 hr nystatin 100,000 unit/gram topical 1 applic TOPICAL BID #30 g 01/01/19 cream insulin aspart U-100 100 unit/mL 14 unit SUBCUT TIDCM #15 ml 01/17/19 (3 mL) subcutaneous pen gabapentin 300 mg capsule 300 mg PO .COMPLEX #150 cap 01/26/19 insulin glargine 100 unit/mL 65 unit SUBCUT DAILY ml 01/26/19 subcutaneous solution hydrocodone 5 mg-acetaminophen 325 1 tab PO Q6H PRN #12 tab 03/29/19 mg tablet Alprazolam [Xanax] 0.25 mg PO TID PRN PRN 04/27/19 Surgical History: Surgical History (Last Reviewed 04/28/19 @ 06:[address] 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 (DJN @ [facility]) H/O section (Resolved) Z98.891 History of carpal tunnel surgery (Resolved) Z92.89 bilateral History of coronary artery stent placement (Chronic) Onset Date: 11/20/16 Z95.5 PCI-HALEIGH-Mid RCA 2.25 x 38 mm Promus Synergy H/O coronary artery bypass surgery (Chronic) Onset Date: 11/30/15 CABG x 2 KRISHNAMURTHY-LAD, SVG-Om1 11/30/15 @ [facility] Status post left foot surgery Z98.890 07/2018 History of arthroscopy Z98.890 right knee History of heart artery stent Z95.5 11/2016 History of left knee replacement Z96.652 History of open reduction and internal fixation (ORIF) procedure Onset Date: ~08/2017 Z98.890 Insertion of nicolás into left lower leg after fracture History of partial hysterectomy Z90.711 History of right hip replacement Z96.641 History of tonsillectomy Z90.89 history of partial right knee replacement followed by a full replacement the following year history of total foot reconstruction Surgical History: arthroscopy, knee, coronary bypass surgery, total hip arthroplasty, - - foot surgery. Smoking Status: Former smoker - *Family History Maternal Family History: Family History (Last Reviewed 04/28/19 @ 06:[address] Xander Becker MD) Grandmother Myocardial infarction CVA (cerebral vascular accident) Mother Myocardial infarction Father Diabetes Arthritis History Items: Heart Disease Paternal Family History: Family History (Last Reviewed 04/28/19 @ 06:[address] Xander Becker MD) Grandmother Myocardial infarction CVA (cerebral vascular accident) Mother Myocardial infarction Father Diabetes Arthritis History Items: Diabetes, Heart Disease Review of Systems Comment: See HPI Patient Problems: Active and Suspected Problems (Last Reviewed 04/28/19 @ 06:[address] Xander Becker MD) Severe sepsis (Acute) Urinary tract infection (Acute) Acute encephalopathy (Acute) Objective: Chest x-ray was personally reviewed and does not show any acute infiltrates. Patient did have a heart catheterization in May 2018 showing preserved ejection fraction and widely patent bypass grafts. - Physical Exam Vitals/I&O's: Vital Signs Temp Pulse Resp BP Pulse Ox 37.7 C H 68 15 116/53 L 98 04/28/19 01:30 04/28/19 07:00 04/28/19 07:00 04/28/19 07:00 04/28/19 07:00 Oxygen Delivery Method Room Air Weight: 108.6 kg Body Mass Index (BMI) 39.8 Finger Stick Blood Glucose 61 Intake and Output for Last 24 Hours 04/26/19 04/27/19 04/28/19 23:59 23:59 23:59 Intake Total 2755.00 / 2755.00 Output Total 650 / 650 Balance 2105.00 / 2105.00 General: Alert, Oriented x3, Cooperative, No apparent distress, Well developed, Well nourished, - - Morbidly obese. Speaking in full sentences. HEENT: Atraumatic, PERRLA, EOMI, Normocephalic, - - No scleral icterus or injection noted Oral: Moist Mucosa, No Gingival or Mucosal Lesions/ Ulcerations Neck: Supple, No JVD, No Nodes, Trachea Midline Lungs: Clear to auscultation, No rhonchi, No wheeze, No rales, - - Symmetric expansion. No dullness to percussion. Cardiovascular: Regular rate, Regular Rhythm, Normal S1, Normal S2, No murmurs, No rub noted, No Gallop Abdomen: Bowel Sounds Present, Soft, Non Tender, Non-Distended, Obese Extremities: No clubbing, No cyanosis, Edema - Trace anasarca Skin: No rashes, No breakdown Musculoskeletal: No Tenderness to Palpation of Joints or Extremities Lymphatic: No Cervical, Supraclavicular, or Inguinal Adenopathy Neurological: Cranial nerves II-XII grossly intact, Neuro grossly intact, Motor Exam 5/5 strength throughout Psych/Mental Status: Alert and oriented to time, place, person, mood and affect Laboratory Results 04/27/19 22:20: WBC 9.3, RBC 3.79 L, Hgb 12.6, Hct 38.4, MCV 101.3 H, MCH 33.2 H , MCHC 32.8, RDW Std Deviation 60.0 H, RDW Coeff of Henry 16.3 H, Plt Count 92 L, MPV 12.7 H, Immature Gran % (Auto) 0.500, Neut % (Auto) 84.3 H, Lymph % (Auto) 9.6 L, Boone % (Auto) 5.0, Eos % (Auto) 0.5, Baso % (Auto) 0.1, Absolute Neuts (auto) 7.8 H, Absolute Lymphs (auto) 0.89, Nucleated RBC % 0, Differential Comment SCANNED, Platelet Estimate MOD 04/27/19 22:20: PT 16.4 H, INR 1.3, APTT 38.7 H 04/27/19 22:20: Sodium 143, Potassium 3.6, Chloride 113 H, Carbon Dioxide 23.0, Anion Gap 7, BUN 16, Creatinine 1.17 H, Estim Creat Clear Calc 38.53, Est GFR (MDRD) Af Amer 58 L, Est GFR (MDRD) Non-Af 48 L, BUN/Creatinine Ratio 13.7, Glucose 237 H, Calcium 8.8, Total Bilirubin 3.70 H, AST 67 H, ALT 35, Alkaline Phosphatase 237 H, Total Protein 6.5, Albumin 2.5 L, Globulin 4.0, Albumin/Globulin Ratio 0.6 L 04/27/19 22:20: Lactic Acid 2.2 H* 04/27/19 22:20: TSH 1.68 04/27/19 22:45: Urine Color Adrianne, Urine Clarity Clear, Urine pH 7.0, Ur Specific Alto 1.010, Urine Protein 30 H, Urine Glucose (UA) Normal, Urine Ketones Negative, Urine Occult Blood 10 H, Urine Nitrite Positive H, Urine Bilirubin 1 H, Urine Urobilinogen 8 H, Ur Leukocyte Esterase 25 H, Urine RBC 0-5 SEEN, Urine WBC 0-5 SEEN, Ur Squamous Epith Cells 0 SEEN, Urine Bacteria 4+, Urine Mucus 0 SEEN 04/28/19 02:55: WBC 8.4, RBC 3.41 L, Hgb 11.1 L, Hct 34.5 L, MCV 101.2 H, MCH 32.6 H, MCHC 32.2, RDW Std Deviation 61.2 H, RDW Coeff of Henry 16.3 H, Plt Count 76 L, MPV 12.8 H, Immature Gran % (Auto) 0.500, Neut % (Auto) 75.2 H, Lymph % (Auto) 16.5 L, Boone % (Auto) 7.1, Eos % (Auto) 0.5, Baso % (Auto) 0.2, Absolute Neuts (auto) 6.3, Absolute Lymphs (auto) 1.39, Nucleated RBC % 0, Platelet Estimate MOD DEC, Hypochromasia RARE, Macrocytosis 1+ 04/28/19 02:55: Sodium 143, Potassium 3.1 L, Chloride 115 H, Carbon Dioxide 21.0, Anion Gap 7, BUN 16, Creatinine 1.13 H, Estim Creat Clear Calc 39.90, Est GFR (MDRD) Af Amer 61, Est GFR (MDRD) Non-Af 50 L, BUN/Creatinine Ratio 14.2, Glucose 160 H, Calcium 8.2 L, Total Bilirubin 3.30 H, AST 54 H, ALT 29, Alkaline Phosphatase 191 H, Total Protein 5.6 L, Albumin 2.1 L, Globulin 3.5, Albumin/Globulin Ratio 0.6 L 04/28/19 02:55: Lactic Acid 1.4 04/28/19 03:45: Vitamin B12 483 04/28/19 06:50: POC Glucose 102 Current Medications Acetaminophen (Tylenol) 650 mg PO Q6H PRN PRN PRN Reason: Pain Score 1-10/Temp > 100.7 F Aspirin (Ecotrin) 81 mg PO DAILYCM [facility] Atorvastatin Calcium (Lipitor) 40 mg PO DAILY@2200 [facility] Clopidogrel Bisulfate (Plavix) 75 mg PO DAILY [facility] Glucagon () 1 mg IM .X1 PRN PRN Reason: Hypoglycemia Ceftriaxone Sodium 2 gm/ (Sodium Chloride) 50 mls @ 100 mls/hr IV Q24 [facility] Dextrose (Dextrose 10%-Water) 250 mls @ 999 mls/hr IV .Q16M PRN; Protocol PRN Reason: HYPOGLYCEMIA Sodium Chloride () 250 mls @ 15 mls/hr IV .[id number] PRN PRN Reason: Saline Flush Sodium Chloride () 250 mls @ 15 mls/hr IV .[id number] PRN PRN Reason: Additional IVPB Infusion Insulin Glargine (Lantus ([facility])) 60 units SC DAILY [facility] Insulin Human Lispro (Humalog Kwikpen ([facility])) 0 unit SC ACHS KAYCE; Protocol Insulin Human Lispro (Humalog Kwikpen ([facility])) 10 unit SC TIDAC KAYCE Nystatin (Mycostatin) 1 applic TOPICAL BID KAYCE Ondansetron HCl (Zofran) 4 mg IV Q8H PRN PRN PRN Reason: NAUSEA/VOMITING Pantoprazole Sodium (Protonix) 40 mg PO DAILY KAYCE Sodium Chloride () 10 - 40 ml IV UD PRN PRN Reason: SALINE FLUSH Clinical Impression(s) from Imaging Studies Chest X-Ray 04/27/19 22:30 IMPRESSION: No acute pulmonary pathology of the chest. Electronically Signed: Hans Greco DO at 22:42 EDT Tel [phone], Service support , Assessment/Plan Active and Suspected Problems (Last Reviewed 04/28/19 @ 06:[address] Xander Becker MD) Severe sepsis (Acute) Urinary tract infection (Acute) Acute encephalopathy (Acute) RECOMMENDATIONS: 1. Give fluid bolus this morning 2. Continue empiric antibiotics 3. Consult PT/OT given fracture history 4. Symptomatic therapy for fever 5. Okay to leave the intensive care unit from my perspective IMPRESSIONS: 1. Severe sepsis secondary to UTI with pyelonephritis Patient's urine is suggestive of a urinary tract infection. Patient does not have any history of resistant organisms in the past, so ceftriaxone is likely appropriate. Patient has had good response to antibiotic therapy. Creatinine is slightly elevated patient did have some delirium on presentation, but this appears to have resolved with improvement in hemodynamics. Antihypertensives are on hold. 2. CKD stage III Patient's creatinine is slightly elevated compared to previous. Clinical suspicion for hypertension nephrosclerosis versus diabetes as an etiology. We will continue to support blood pressure and anticipate improvement in the next 24 to 48 hours. 3. Insulin-dependent diabetes mellitus/chronic pain syndrome/morbid obesity/coronary artery disease/limited mobility Complicates care, management, recovery and prognosis. Antihypertensives should be held for the next 24 hours given borderline blood pressures. Would also hold narcotics if possible given delirium on presentation. Coronary artery grafts were widely patent 1 year ago. Okay to continue with baseline medicatio ns. Patient may benefit from outpatient evaluation for obstructive sleep apnea given obesity, narcotics and benzodiazepines. Inpatient E&M: 06310 Init Hosp L3
[2019-04-28] MEDS: 0.9% Saline Lock 10 ML Syringe IV (08:31)
--- NOTE | 2019-04-28 09:22 | PN_ITS ---
Patient Problems: Active and Suspected Problems (Last Reviewed 04/28/19 @ 06:[address] Xander Becker MD) Severe sepsis (Acute) Urinary tract infection (Acute) Acute encephalopathy (Acute) Reason for Visit: Follow-up on acute metabolic encephalopathy/severe sepsis Subjective: Patient was seen and examined. She feels much improved. Still has chills, but no fevers Objective: Physical exam: General: Cooperative, Slightly lethargic HEENT: Atraumatic, PERRLA, EOMI, Normocephalic Neck: Supple, Trachea Midline Lungs: Clear to auscultation, Normal air movement Cardiovascular: Regular rate, Normal S1, Normal S2, No murmurs Abdomen: Bowel Sounds Present, Soft, Non Tender Extremities: Capillary Refill Less than 3 Seconds, trace bilateral edema Skin: No rashes, No breakdown Musculoskeletal: No Tenderness to Palpation of Joints or Extremities Neurological: Cranial nerves II-XII grossly intact Psych/Mental Status: Normal Affect Vitals/I&O's: Vital Signs Temp Pulse Resp BP Pulse Ox 99.9 F H 68 15 116/53 L 98 04/28/19 01:30 04/28/19 07:00 04/28/19 07:00 04/28/19 07:00 04/28/19 07:00 Oxygen Delivery Method Room Air Weight: 108.6 kg Body Mass Index (BMI) 39.8 Finger Stick Blood Glucose 61 Intake and Output for Last 24 Hours 04/26/19 04/27/19 04/28/19 23:59 23:59 23:59 Intake Total 2755.75 / 2755.75 Output Total 650 / 650 Balance 2105.75 / 2105.75 Laboratory Results 04/27/19 22:20: WBC 9.3, RBC 3.79 L, Hgb 12.6, Hct 38.4, MCV 101.3 H, MCH 33.2 H , MCHC 32.8, RDW Std Deviation 60.0 H, RDW Coeff of Henry 16.3 H, Plt Count 92 L, MPV 12.7 H, Immature Gran % (Auto) 0.500, Neut % (Auto) 84.3 H, Lymph % (Auto) 9.6 L, [place] % (Auto) 5.0, Eos % (Auto) 0.5, Baso % (Auto) 0.1, Absolute Neuts (auto) 7.8 H, Absolute Lymphs (auto) 0.89, Nucleated RBC % 0, Differential Comment SCANNED, Platelet Estimate MOD DEC 04/27/19 22:20: PT 16.4 H, INR 1.3, APTT 38.7 H 04/27/19 22:20: Sodium 143, Potassium 3.6, Chloride 113 H, Carbon Dioxide 23.0, Anion Gap 7, BUN 16, Creatinine 1.17 H, Estim Creat Clear Calc 38.53, Est GFR (MDRD) Af Amer 58 L, Est GFR (MDRD) Non-Af 48 L, BUN/Creatinine Ratio 13.7, Glucose 237 H, Calcium 8.8, Total Bilirubin 3.70 H, AST 67 H, ALT 35, Alkaline Phosphatase 237 H, Total Protein 6.5, Albumin 2.5 L, Globulin 4.0, Albumin/Globulin Ratio 0.6 L 04/27/19 22:20: Lactic Acid 2.2 H* 04/27/19 22:20: TSH 1.68 04/27/19 22:45: Urine Color Adrianne, Urine Clarity Clear, Urine pH 7.0, Ur Specific [place] 1.010, Urine Protein 30 H, Urine Glucose (UA) Normal, Urine Ketones Negative, Urine Occult Blood 10 H, Urine Nitrite Positive H, Urine Bilirubin 1 H, Urine Urobilinogen 8 H, Ur Leukocyte Esterase 25 H, Urine RBC 0-5 SEEN, Urine WBC 0-5 SEEN, Ur Squamous Epith Cells 0 SEEN, Urine Bacteria 4+, Urine Mucus 0 SEEN 04/28/19 02:55: WBC 8.4, RBC 3.41 L, Hgb 11.1 L, Hct 34.5 L, MCV 101.2 H, MCH 32.6 H, MCHC 32.2, RDW Std Deviation 61.2 H, RDW Coeff of Henry 16.3 H, Plt Count 76 L, MPV 12.8 H, Immature Gran % (Auto) 0.500, Neut % (Auto) 75.2 H, Lymph % (Auto) 16.5 L, [place] % (Auto) 7.1, Eos % (Auto) 0.5, Baso % (Auto) 0.2, Absolute Neuts (auto) 6.3, Absolute Lymphs (auto) 1.39, Nucleated RBC % 0, Platelet Estimate MOD JAN, Hypochromasia RARE, Macrocytosis 1+ 04/28/19 02:55: Sodium 143, Potassium 3.1 L, Chloride 115 H, Carbon Dioxide 21.0, Anion Gap 7, BUN 16, Creatinine 1.13 H, Estim Creat Clear Calc 39.90, Est GFR (MDRD) Af Amer 61, Est GFR (MDRD) Non-Af 50 L, BUN/Creatinine Ratio 14.2, Glucose 160 H, Calcium 8.2 L, Total Bilirubin 3.30 H, AST 54 H, ALT 29, Alkaline Phosphatase 191 H, Total Protein 5.6 L, Albumin 2.1 L, Globulin 3.5, Albumin/Globulin Ratio 0.6 L 04/28/19 02:55: Lactic Acid 1.4 04/28/19 03:45: Vitamin B12 483 04/28/19 06:50: POC Glucose 102 Current Medications Acetaminophen (Tylenol) 650 mg PO Q6H PRN PRN PRN Reason: Pain Score 1-10/Temp > 100.7 F Aspirin (Ecotrin) 81 mg PO DAILYCM [facility] Atorvastatin Calcium (Lipitor) 40 mg PO DAILY@2200 [facility] Clopidogrel Bisulfate (Plavix) 75 mg PO DAILY [facility] Glucagon () 1 mg IM .X1 PRN PRN Reason: Hypoglycemia Ceftriaxone Sodium 2 gm/ (Sodium Chloride) 50 mls @ 100 mls/hr IV Q24 [facility] Last Admin: 04/28/19 08:34 Dose: 100 mls/hr Documented by: Dextrose (Dextrose 10%-Water) 250 mls @ 999 mls/hr IV .Q16M PRN; Protocol PRN Reason: HYPOGLYCEMIA Sodium Chloride () 250 mls @ 15 mls/hr IV .[id number] PRN PRN Reason: Saline Flush Last Infusion: 04/28/19 08:34 Dose: 0 mls/hr Documented by: Sodium Chloride () 250 mls @ 15 mls/hr IV .[id number] PRN PRN Reason: Additional IVPB Infusion Insulin Glargine (Lantus (Bkc)) 60 units SC DAILY [facility] Insulin Human Lispro (Humalog Kwikpen (Bkc)) 0 unit SC ACHS [facility]; Protocol Last Admin: 04/28/19 08:02 Dose: Not Given Documented by: Insulin Human Lispro (Humalog Kwikpen (Bkc)) 10 unit SC TIDAC [facility] Last Admin: 04/28/19 08:35 Dose: Not Given Documented by: Nystatin (Mycostatin) 1 applic TOPICAL BID KAYCE Ondansetron HCl (Zofran) 4 mg IV Q8H PRN PRN PRN Reason: NAUSEA/VOMITING Pantoprazole Sodium (Protonix) 40 mg PO DAILY [facility] Sodium Chloride () 10 - 40 ml IV UD PRN PRN Reason: SALINE FLUSH Last Admin: 04/28/19 08:31 Dose: 10 ml Documented by: STROKE Vital Signs/Narrative: Vital Signs Pulse Resp BP Pulse Ox 04/28/19 07:00 68 15 116/53 L 98 04/28/19 06:00 63 15 100/53 L 95 Medical Necessity - Tobacco Use Smoking Status: Former smoker Assessment/Plan All Active Problems (Last Reviewed 04/28/19 @ 06:[address] Xander Becker MD) Severe sepsis (Acute) Urinary tract infection (Acute) Acute encephalopathy (Acute) H/O section (Resolved) History of carpal tunnel surgery (Resolved) Anemia (Resolved) Chest pain (Resolved) Chest pressure (Resolved) 1. Acute metabolic phlebitis secondary to severe sepsis from UTI, improving 2. Severe Sepsis secondary to UTI, improving, continue on IV ceftriaxone 3. Hypokalemia, potassium 3.1, replace, recheck in a.m. 4. Type II DM complicated with nephropathy/CKD stage III, continue on Lantus with insulin sliding scale 5. CAD s/p stent, continue on aspirin, statinb, Plavix, 6. Morbid obesity, BMI 39.8, lifestyle modification recommended 7. DVT PPx- Lovenox Inpatient E&M: 23070 Subs Hosp L2
[2019-04-28] MEDS: Aspirin E.C. 81 MG Tablet PO (10:45)
[2019-04-28] MEDS: Clopidogrel Bisulfate 75 MG Tablet PO (10:45)
[2019-04-28] MEDS: Pantoprazole Sodium 40 MG Tablet PO (10:45)
[2019-04-28] MEDS: Nystatin Ointment 1 APPLIC TOPICAL ×2 (10:50→21:21)
[2019-04-28 10:56] LABS: Bedside Glucose 77 mg/dL (70-110)
--- NOTE | 2019-04-28 11:04 | CASEMGMT ---
SW let pt and know that LW/POA not on file. SW asked them to bring in the forms as able. Pt and state understanding. LISSY Carroll
--- NOTE | 2019-04-28 11:07 | CASEMGMT ---
RN CM Assessment Note Presentation: Sepsis, UTI Intro role of CM and purpose of RN CM assessment to patient and her hsuband. Demographics, PCP and Pharmacy verified. Per patient she has had more difficulty at home due to ankle fracture of L foot and compression fracture of L1. Pt is living @ home with her . Reported in chart pt having difficulty going to Outpt therapy as she can not get in and out of house. Will review PT/OT evals when completed and assess for home PT/OT need. PCP: Dr Malik Bang Specialists: Dr. Orlando Cárdenas, [place] ortho surgeon; Dr. Liu, cardiology Preferred Pharmacy: [facility] Insurance: Virtual DBS Prescription Benefit: yes LNOK : Matheus Brennan Living Arrangements: Lives in one story home with 3 steps in to home, and ramp for front door. Pt states she is improving with independence for ADL, however still assists if needed. Transportation: drives DME: walker, wheelchair, raised toilet seat, shower chair. HHC: none Patient DC goals: home DC PLAN: anticipate home. PT/OT pending, will need evaluated. RN CM advised to contact cm for any concerns/needs that may arise. Gauri SILVEIRA RN ACM
[2019-04-28 17:51] LABS: Bedside Glucose 175 mg/dL (70-110)
[2019-04-28] MEDS: Insulin Lispro 100 UNIT/ML INSULN.PEN SC ×2 (18:11→21:22)
[2019-04-28] MEDS: Insulin Lispro 100 UNIT/ML INSULN.PEN 10 UNIT SC (18:11)
[2019-04-28] MEDS: Atorvastatin Calcium 40 MG Tablet PO (21:21)
[2019-04-28 21:31] LABS: Bedside Glucose 172 mg/dL (70-110)
[2019-04-29] VITALS (14 sets, daily range): BP systolic 112–160; BP diastolic 49–89; PULSE 74–86; RESP 18–22; TEMP 36.6–36.9; O2SAT 97–100
[2019-04-29 05:51] LABS: Absolute Lymphocyte Count 1.29 X10^3/uL (0.83-4.51); Absolute Neutrophil Count 2.5 X10^3/uL (2.0-7.7); Basophil# 0.01 X10^3/uL; Basophil% 0.2 % (0-1); Eosinophil# 0.08 X10^3/uL; Eosinophils% 1.9 % (0-5); Hematocrit 33.8 % (37-47); Hemoglobin 10.8 g/dL (12.0-15.0); Lymphocyte # 1.29 X10^3/ul (4.0); Lymphocyte % 30.8 % (19-41); Mean Corpuscular Hgb 32.9 pg (27.0-32.0); Mean Platelet Vol. 12.7 fl (6.2-12.0); Monocyte# 0.26 X10^3/uL; Monocyte% 6.2 % (0-10); NRBC Flagged by Analyzer 0 % (0-5); Neutrophil # 2.54 X10^3/uL (2.7-7.7); Neutrophil % 60.7 % (47-70); POSITIVE COUNT YES; Platelet Count 67 K/mm3 (150-450); RBC Distribution Width CV 16.3 % (11.6-14.6); RBC Distribution Width SD 62.6 fl (35.1-43.9); Red Blood Count 3.28 M/mm3 (4.2-5.4); White Blood Count 4.2 K/mm3 (4.4-11.0)
[2019-04-29 06:18] LABS: Anion Gap 5 (5-15); BUN 19 mg/dL (7-18); Chloride 119 mmol/L (98-107); Creatinine, Serum 0.95 mg/dL (0.55-1.02); EST Glomerular Filtration Rate 61 mL/min (>60); Est Glom Filt Rate - Afr Amer 74 mL/min (>60); Estimated Creatinine Clearance 47.46 ml/min; Glucose 225 mg/dL (74-106); Potassium 3.8 mmol/L (3.5-5.1); Sodium Level 139 mmol/L (136-145)
[2019-04-29 06:56] LABS: Anisocytosis 1+; Differential Indicated SCAN CRITERIA MET
[2019-04-29 06:57] LABS: Macrocytosis 1+; Platelet Estimate MOD DEC (ADEQ)
--- NOTE | 2019-04-29 07:10 | PCM.PN.INT ---
Subjective: Patient did well overnight. Patient states she feels back to her baseline at this time. Patient is saturating well on room air and has been noted to have an adequate blood pressure throughout the evening. Patient is currently asking to go home because it is my 's birthday. General: Alert, Oriented x3, Cooperative, No apparent distress, Well developed, Well nourished, - - Obese. Speaking in full sentences. HEENT: Atraumatic, PERRLA, EOMI, Normocephalic, - - No scleral icterus or injection noted Oral: Moist Mucosa, No Gingival or Mucosal Lesions/ Ulcerations Neck: Supple, No JVD, No Nodes, Trachea Midline Lungs: Clear to auscultation, Normal air movement, No rhonchi, No wheeze, No rales Cardiovascular: Regular rate, Regular Rhythm, Normal S1, Normal S2, No murmurs, No rub noted, No Gallop Abdomen: Bowel Sounds Present, Soft, Non Tender, Non-Distended, Obese Extremities: No clubbing, No cyanosis, Edema - Trace Skin: No rashes, No breakdown Musculoskeletal: No Tenderness to Palpation of Joints or Extremities Lymphatic: No Cervical, Supraclavicular, or Inguinal Adenopathy Neurological: Cranial nerves II-XII grossly intact, Neuro grossly intact, Motor Exam 5/5 strength throughout Psych/Mental Status: Alert and oriented to time, place, person, mood and affect Vital Signs Temp Pulse Resp BP Pulse Ox 36.7 C 77 21 H 145/67 H 98 04/29/19 06:00 04/29/19 06:00 04/29/19 06:00 04/29/19 06:00 04/29/19 06:00 Oxygen Flow Rate (L/min) 98 Oxygen Delivery Method Room Air Weight: 108.6 kg Body Mass Index (BMI) 39.8 Finger Stick Blood Glucose 61 Intake and Output for Last 24 Hours 04/27/19 04/28/19 04/29/19 23:59 23:59 23:59 Intake Total 3789.50 / 3789.50 240 / 240 Output Total 1650 / 1650 400 / 400 Balance 2139.50 / 2139.50 -160 / -160 Labs (Last 48 Hours) 04/27/19 04/27/19 04/27/19 22:20 22:20 22:20 WBC 9.3 RBC 3.79 L Hgb 12.6 Hct 38.4 MCV 101.3 H MCH 33.2 H MCHC 32.8 RDW Std Deviation 60.0 H RDW Coeff of Henry 16.3 H Plt Count 92 L MPV 12.7 H Immature Gran % (Auto) 0.500 Neut % (Auto) 84.3 H Lymph % (Auto) 9.6 L [place] % (Auto) 5.0 Eos % (Auto) 0.5 Baso % (Auto) 0.1 Absolute Neuts (auto) 7.8 H Absolute Lymphs (auto) 0.89 Nucleated RBC % 0 Differential Comment SCANNED Platelet Estimate MOD DEC Hypochromasia Anisocytosis Macrocytosis PT 16.4 H INR 1.3 APTT 38.7 H Sodium 143 Potassium 3.6 Chloride 113 H Carbon Dioxide 23.0 Anion Gap 7 BUN 16 Creatinine 1.17 H Estim Creat Clear Calc 38.53 Est GFR (MDRD) Af Amer 58 L Est GFR (MDRD) Non-Af 48 L BUN/Creatinine Ratio 13.7 Glucose 237 H Lactic Acid Calcium 8.8 Total Bilirubin 3.70 H AST 67 H ALT 35 Alkaline Phosphatase 237 H Total Protein 6.5 Albumin 2.5 L Globulin 4.0 Albumin/Globulin Ratio 0.6 L Vitamin B12 TSH Urine Color Urine Clarity Urine pH Ur Specific [place] Urine Protein Urine Glucose (UA) Urine Ketones Urine Occult Blood Urine Nitrite Urine Bilirubin Urine Urobilinogen Ur Leukocyte Esterase Urine RBC Urine WBC Ur Squamous Epith Cells Urine Bacteria Urine Mucus POC Glucose 04/27/19 04/27/19 04/27/19 22:20 22:20 22:45 WBC RBC Hgb Hct MCV MCH MCHC RDW Std Deviation RDW Coeff of Henry Plt Count MPV Immature Gran % (Auto) Neut % (Auto) Lymph % (Auto) [place] % (Auto) Eos % (Auto) Baso % (Auto) Absolute Neuts (auto) Absolute Lymphs (auto) Nucleated RBC % Differential Comment Platelet Estimate Hypochromasia Anisocytosis Macrocytosis PT INR APTT Sodium Potassium Chloride Carbon Dioxide Anion Gap BUN Creatinine Estim Creat Clear Calc Est GFR (MDRD) Af Amer Est GFR (MDRD) Non-Af BUN/Creatinine Ratio Glucose Lactic Acid 2.2 H* Calcium Total Bilirubin AST ALT Alkaline Phosphatase Total Protein Albumin Globulin Albumin/Globulin Ratio Vitamin B12 TSH 1.68 Urine Color Adrianne Urine Clarity Clear Urine pH 7.0 Ur Specific [place] 1.010 Urine Protein 30 H Urine Glucose (UA) Normal Urine Ketones Negative Urine Occult Blood 10 H Urine Nitrite Positive H Urine Bilirubin 1 H Urine Urobilinogen 8 H Ur Leukocyte Esterase 25 H Urine RBC 0-5 SEEN Urine WBC 0-5 SEEN Ur Squamous Epith Cells 0 SEEN Urine Bacteria 4+ Urine Mucus 0 SEEN POC Glucose 04/28/19 04/28/19 04/28/19 02:55 02:55 02:55 WBC 8.4 RBC 3.41 L Hgb 11.1 L Hct 34.5 L MCV 101.2 H MCH 32.6 H MCHC 32.2 RDW Std Deviation 61.2 H RDW Coeff of Henry 16.3 H Plt Count 76 L MPV 12.8 H Immature Gran % (Auto) 0.500 Neut % (Auto) 75.2 H Lymph % (Auto) 16.5 L [place] % (Auto) 7.1 Eos % (Auto) 0.5 Baso % (Auto) 0.2 Absolute Neuts (auto) 6.3 Absolute Lymphs (auto) 1.39 Nucleated RBC % 0 Differential Comment Platelet Estimate MOD DEC Hypochromasia RARE Anisocytosis Macrocytosis 1+ PT INR APTT Sodium 143 Potassium 3.1 L Chloride 115 H Carbon Dioxide 21.0 Anion Gap 7 BUN 16 Creatinine 1.13 H Estim Creat Clear Calc 39.90 Est GFR (MDRD) Af Amer 61 Est GFR (MDRD) Non-Af 50 L BUN/Creatinine Ratio 14.2 Glucose 160 H Lactic Acid 1.4 Calcium 8.2 L Total Bilirubin 3.30 H AST 54 H ALT 29 Alkaline Phosphatase 191 H Total Protein 5.6 L Albumin 2.1 L Globulin 3.5 Albumin/Globulin Ratio 0.6 L Vitamin B12 TSH Urine Color Urine Clarity Urine pH Ur Specific [place] Urine Protein Urine Glucose (UA) Urine Ketones Urine Occult Blood Urine Nitrite Urine Bilirubin Urine Urobilinogen Ur Leukocyte Esterase Urine RBC Urine WBC Ur Squamous Epith Cells Urine Bacteria Urine Mucus POC Glucose 04/28/19 04/28/19 04/28/19 03:45 06:50 10:42 WBC RBC Hgb Hct MCV MCH MCHC RDW Std Deviation RDW Coeff of Henry Plt Count MPV Immature Gran % (Auto) Neut % (Auto) Lymph % (Auto) [place] % (Auto) Eos % (Auto) Baso % (Auto) Absolute Neuts (auto) Absolute Lymphs (auto) Nucleated RBC % Differential Comment Platelet Estimate Hypochromasia Anisocytosis Macrocytosis PT INR APTT Sodium Potassium Chloride Carbon Dioxide Anion Gap BUN Creatinine Estim Creat Clear Calc Est GFR (MDRD) Af Amer Est GFR (MDRD) Non-Af BUN/Creatinine Ratio Glucose Lactic Acid Calcium Total Bilirubin AST ALT Alkaline Phosphatase Total Protein Albumin Globulin Albumin/Globulin Ratio Vitamin B12 483 TSH Urine Color Urine Clarity Urine pH Ur Specific [place] Urine Protein Urine Glucose (UA) Urine Ketones Urine Occult Blood Urine Nitrite Urine Bilirubin Urine Urobilinogen Ur Leukocyte Esterase Urine RBC Urine WBC Ur Squamous Epith Cells Urine Bacteria Urine Mucus POC Glucose 102 77 04/28/19 04/28/19 04/28/19 14:40 17:45 21:18 WBC RBC Hgb Hct MCV MCH MCHC RDW Std Deviation RDW Coeff of Henry Plt Count MPV Immature Gran % (Auto) Neut % (Auto) Lymph % (Auto) [place] % (Auto) Eos % (Auto) Baso % (Auto) Absolute Neuts (auto) Absolute Lymphs (auto) Nucleated RBC % Differential Comment Platelet Estimate Hypochromasia Anisocytosis Macrocytosis PT INR APTT Sodium Potassium Cancelled Chloride Carbon Dioxide Anion Gap BUN Creatinine Estim Creat Clear Calc Est GFR (MDRD) Af Amer Est GFR (MDRD) Non-Af BUN/Creatinine Ratio Glucose Lactic Acid Calcium Total Bilirubin AST ALT Alkaline Phosphatase Total Protein Albumin Globulin Albumin/Globulin Ratio Vitamin B12 TSH Urine Color Urine Clarity Urine pH Ur Specific [place] Urine Protein Urine Glucose (UA) Urine Ketones Urine Occult Blood Urine Nitrite Urine Bilirubin Urine Urobilinogen Ur Leukocyte Esterase Urine RBC Urine WBC Ur Squamous Epith Cells Urine Bacteria Urine Mucus POC Glucose 175 H 172 H 04/29/19 04/29/19 05:42 05:42 WBC 4.2 L RBC 3.28 L Hgb 10.8 L Hct 33.8 L MCV 103.0 H MCH 32.9 H MCHC 32.0 RDW Std Deviation 62.6 H RDW Coeff of Henry 16.3 H Plt Count 67 L MPV 12.7 H Immature Gran % (Auto) 0.200 Neut % (Auto) 60.7 Lymph % (Auto) 30.8 [place] % (Auto) 6.2 Eos % (Auto) 1.9 Baso % (Auto) 0.2 Absolute Neuts (auto) 2.5 Absolute Lymphs (auto) 1.29 Nucleated RBC % 0 Differential Comment Platelet Estimate MOD DEC Hypochromasia Anisocytosis 1+ Macrocytosis 1+ PT INR APTT Sodium 139 Potassium 3.8 Chloride 119 H Carbon Dioxide 15.0 L Anion Gap 5 BUN 19 H Creatinine 0.95 Estim Creat Clear Calc 47.46 Est GFR (MDRD) Af Amer 74 Est GFR (MDRD) Non-Af 61 BUN/Creatinine Ratio 20.0 Glucose 225 H Lactic Acid Calcium 8.0 L Total Bilirubin AST ALT Alkaline Phosphatase Total Protein Albumin Globulin Albumin/Globulin Ratio Vitamin B12 TSH Urine Color Urine Clarity Urine pH Ur Specific [place] Urine Protein Urine Glucose (UA) Urine Ketones Urine Occult Blood Urine Nitrite Urine Bilirubin Urine Urobilinogen Ur Leukocyte Esterase Urine RBC Urine WBC Ur Squamous Epith Cells Urine Bacteria Urine Mucus POC Glucose Microbiology 04/27/19 22:45 Urine, Catheterized Urine Culture - Preliminary Gram negative nicolás Medical Necessity - Tobacco Use Smoking Status: Former smoker Assessment/Plan All Active Problems (Last Reviewed 04/28/19 @ 06:[address] Xander Becker MD) Severe sepsis (Acute) Urinary tract infection (Acute) Acute encephalopathy (Acute) H/O section (Resolved) History of carpal tunnel surgery (Resolved) Anemia (Resolved) Chest pain (Resolved) Chest pressure (Resolved) RECOMMENDATIONS: 1. Give ceftriaxone this morning to complete 48 hours of IV antibiotics 2. Potential addition to p.o. antibiotics 3. Consult PT/OT given fracture history 4. Symptomatic therapy for fever 5. Defer to hospitalist, but may be able to be discharged on p.o. antibiotics to complete a 10-day course IMPRESSIONS: 1. Severe sepsis secondary to UTI with pyelonephritis Patient's urine is suggestive of a urinary tract infection and gram-negative organism is currently growing in the urine. Patient does not have any history of resistant organisms in the past, so ceftriaxone is likely appropriate. Patient has had good response to antibiotic therapy. Creatinine is back to baseline. Antihypertensives can be reinitiated in a stepwise fashion 2. CKD stage III Patient's creatinine is slightly elevated compared to previous. Clinical suspicion for hypertension nephrosclerosis versus diabetes as an etiology. Resolved. 3. Insulin-dependent diabetes mellitus/chronic pain syndrome/morbid obesity/coronary artery disease/limited mobility Complicates care, management, recovery and prognosis. Antihypertensives should be held for the next 24 hours given borderline blood pressures. Would also hold narcotics if possible given delirium on presentation. Coronary artery grafts were widely patent 1 year ago. Okay to continue with baseline medications. Patient may benefit from outpatient evaluation for obstructive sleep apnea given obesity, narcotics and benzodiazepines. Inpatient E&M: 09090 Subs Hosp L2
[2019-04-29] MEDS: Aspirin E.C. 81 MG Tablet PO (08:27)
[2019-04-29] MEDS: Pantoprazole Sodium 40 MG Tablet PO (08:27)
[2019-04-29] MEDS: Clopidogrel Bisulfate 75 MG Tablet PO (08:27)
[2019-04-29] MEDS: Insulin Lispro 100 UNIT/ML INSULN.PEN SC (08:27)
[2019-04-29] MEDS: Insulin Lispro 100 UNIT/ML INSULN.PEN 10 UNIT SC (08:28)
[2019-04-29 08:36] LABS: Bedside Glucose 182 mg/dL (70-110)
--- NOTE | 2019-04-29 08:53 | DCINST_ITS ---
- Discharge Diagnoses Current Active Problems: Current Active and Chronic Problems (Last Reviewed 04/28/19 @ 06:[address] Xander Becker MD) Severe sepsis (Acute) Urinary tract infection (Acute) Acute encephalopathy (Acute) Reason(s) for Visit for Discharge Instructions: Altered mental status You will use the following diet at home:: Calorie/Carbohydrate Controlled (specify 1200, 1400, etc), Cardiac Your food should be the consistency of: Regular Your liquids should be the consistency of: Regular/Thin Discharge Activity: Return to Normal Activity Additional Instructions: Complete your antibiotics as prescribed. Continue to take your blood sugars as previous. Follow-up with your primary care doctor within 1-2 weeks. Allergies/Adverse Reactions: Allergies oxycodone Allergy (Verified 04/27/19 22:13) Other UNABLE TO TAKE, MAKES EXCITED AND UNABLE TO SLEEP environemental Allergy (Uncoded 03/02/19 11:36) dry cough Medications to take at Discharge Aspirin E.C. [Ecotrin] 81 mg PO DAILY 08/31/17 tramadol 50 mg tablet 50 mg PO Q6H #90 tab 04/13/18 omeprazole 40 mg capsule,delayed release 40 mg PO DAILY #90 cap 05/24/18 nitroglycerin 0.4 mg sublingual tablet 0.4 mg SUBLINGUAL Q5M PRN #25 tab 05/27/18 topiramate 50 mg tablet 50 mg PO QHS #90 tab 11/20/18 atorvastatin 40 mg tablet 40 mg PO DAILY #90 tab 12/20/18 clopidogrel 75 mg tablet 75 mg PO DAILY #90 tab 12/20/18 isosorbide mononitrate 60 mg tablet,extended release 24 hr 60 mg PO DAILY #90 tab 12/20/18 losartan 100 mg tablet 100 mg PO DAILY #90 tab 12/20/18 metoprolol succinate 100 mg tablet,extended release 24 hr 100 mg PO DAILY #90 tab 12/20/18 nystatin 100,000 unit/gram topical cream 1 applic TOPICAL BID #30 g 01/01/19 gabapentin 300 mg capsule 300 mg PO .COMPLEX #150 cap 01/26/19 insulin glargine 100 unit/mL subcutaneous solution 75 unit SUBCUT DAILY ml 01/26/19 Alprazolam [Xanax] 0.25 mg PO TID PRN PRN 04/27/19 Insulin Aspart [Novolog Flexpen] 14 units SUBCUT BIDCM 04/28/19 Amoxicillin/Potassium Clav [Augmentin 875-125 Tablet] 1 each PO BID 5 Days #10 tablet 04/29/19 The following prescriptions were given: Amoxicillin/Potassium Clav [Augmentin 875-125 Tablet] 1 each PO BID 5 Days #10 tablet Primary Care Physician: Malik Bang DO [Primary Care Provider] - Please follow up with your Primary Care Physician in: within 1-2 weeks Test Results: Test results from this visit will be discussed in further detail at your follow- up appointment, if applicable. Proposed Discharge Date: 04/29/19
--- NOTE | 2019-04-29 08:56 | CASEMGMT ---
SW spoke w/pt and , confirmed that they are agreeable to go home from here. They are, pt states she is moving the same as she has been at home, prior to hospitalization. They declined a home health referral at this time. Pt states has been dealing with this for two years(the ankle fx and non vs partial weight bearing). states he is taking care of pt. No further needs anticipated, SW/CM available should any needs arise. LISSY Carroll
--- NOTE | 2019-04-29 09:10 | DS.PCM_ITS ---
Discharge Date and Diagnosis Date of Admission: 04/27/19 Date of Discharge: 04/29/19 - Primary Discharge Diagnosis Active and Suspected Problems (Last Reviewed 04/28/19 @ 06:[address] Xander Becker MD) Acute metabolic encephalopathy severe sepsis (Acute) Acute Klebsiella UTI Acute kidney injury, prerenal secondary to dehydration, present on admission - Secondary Discharge Diagnosis Chronic Problems (Last Reviewed 04/28/19 @ 06:[address] Xander Becker MD) Compression fracture of L1 vertebra (Chronic) I had a discussion on compression fractures and the fact that it takes 12 weeks to heal. Basically especially with her problem with her left foot she really cannot go through physical therapy as she is having too much trouble getting in and out of the house. I told her nonsteroidals for the pain rest as much as possible but continue to be active in the upper body. I told her that kyphoplasty is a rarely done procedure and I did not think she would benefit enough to assume the risk of that procedure. Non-union of fracture (Chronic) Left foot. 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 (JOSEPH @ [facility]) Dupuytren's contracture of left hand (Chronic) Rotator cuff arthropathy of right shoulder (Chronic) History of coronary artery stent placement (Chronic 11/20/16) PCI-[place]-Mid RCA 2.25 x 38 mm Promus Synergy Atherosclerosis of coronary artery of [place] heart without angina pectoris (Chronic) PCI-[place]IGH-Mid RCA 2.25 x 38 mm Promus Synergy 11/20/16 CABG x 2 KRISHNAMURTHY-LAD, SVG-Om1 11/30/[address] [facility], PTCA to mid RCA 05/13/2017 Hyperlipemia (Chronic) Hypertension (Chronic) Type 2 diabetes mellitus (Chronic) Rheumatic fever (Chronic) CVA (cerebral vascular accident) (Chronic ~2010) Ischemic: residual is just occasional speech problems H/O coronary artery bypass surgery (Chronic 11/30/15) CABG x 2 KRISHNAMURTHY-LAD, SVG-Om1 11/30/[address] [facility] Hospital Course and Treatment Imaging Results: Clinical Impression(s) from Imaging Studies Chest X-Ray 04/27/19 22:30 IMPRESSION: No acute pulmonary pathology of the chest. Electronically Signed: Hans Greco DO at 22:42 EDT Tel [phone], Service support , None Operations: None Procedures: None Summary of Care Provided: The patient is a 74 year old F with multiple comorbidities including type II DM, CVA, hypertension who presented with confusion noted hours before admission. This was associated with chills. Patient was noted to be febrile in the ED with temperature 102.9F. Her lactic acid was elevated at 2.2. Her UA was abnormal. She was managed as acute metabolic encephalopathy secondary to severe sepsis secondary to UTI. She was managed in the ICU on IV fluids and started on IV ceftriaxone. Urine cultures were positive for Klebsiella pneumoniae, pansensitive. Patient continued to improve and was discharged on Augmentin. She will follow-up with her primary care doctor within 1 to 2 weeks. She also had evidence of acute kidney injury secondary to dehydration that improved with IV fluids. Subjective: On the day of discharge, patient was seen and examined. Denied any new complaints. She was awake and alert. Objective: Physical exam: General: Cooperative, awake, alert, oriented x3 HEENT: Atraumatic, PERRLA, EOMI, Normocephalic Neck: Supple, Trachea Midline Lungs: Clear to auscultation, Normal air movement Cardiovascular: Regular rate, Normal S1, Normal S2, No murmurs Abdomen: Bowel Sounds Present, Soft, Non Tender Extremities: Capillary Refill Less than 3 Seconds, trace bilateral edema Skin: No rashes, No breakdown Musculoskeletal: No Tenderness to Palpation of Joints or Extremities Neurological: Cranial nerves II-XII grossly intact Psych/Mental Status: Normal Affect - Physical Exam Vitals/I&O's: Vital Signs Temp Pulse Resp BP Pulse Ox 98.1 F 75 21 H 145/67 H 98 04/29/19 06:00 04/29/19 08:00 04/29/19 06:00 04/29/19 06:00 04/29/19 06:00 Oxygen Flow Rate (L/min) 98 Oxygen Delivery Method Room Air Weight: 109.7 kg Body Mass Index (BMI) 39.8 Finger Stick Blood Glucose 61 Intake and Output for Last 24 Hours 04/27/19 04/28/19 04/29/19 23:59 23:59 23:59 Intake Total 3789.50 / 3789.50 240 / 240 Output Total 1650 / 1650 400 / 400 Balance 2139.50 / 2139.50 -160 / -160 Microbiology Past 72 Hours 04/27/19 22:45 Urine, Catheterized Urine Culture - Final Klebsiella pneumoniae sp pneum Laboratory Results 04/28/19 10:42: POC Glucose 77 04/28/19 14:40: Potassium Cancelled 04/28/19 17:45: POC Glucose 175 H 04/28/19 21:18: POC Glucose 172 H 04/29/19 05:42: WBC 4.2 L, RBC 3.28 L, Hgb 10.8 L, Hct 33.8 L, MCV 103.0 H, MCH 32.9 H, MCHC 32.0, RDW Std Deviation 62.6 H, RDW Coeff of Henry 16.3 H, Plt Count 67 L, MPV 12.7 H, Immature Gran % (Auto) 0.200, Neut % (Auto) 60.7, Lymph % (Auto) 30.8, [place] % (Auto) 6.2, Eos % (Auto) 1.9, Baso % (Auto) 0.2, Absolute Neuts (auto) 2.5, Absolute Lymphs (auto) 1.29, Nucleated RBC % 0, Platelet Estimate MOD DEC, Anisocytosis 1+, Macrocytosis 1+ 04/29/19 05:42: Sodium 139, Potassium 3.8, Chloride 119 H, Carbon Dioxide 15.0 L , Anion Gap 5, BUN 19 H, Creatinine 0.95, Estim Creat Clear Calc 47.46, Est GFR (MDRD) Af Amer 74, Est GFR (MDRD) Non-Af 61, BUN/Creatinine Ratio 20.0, Glucose 225 H, Calcium 8.0 L 04/29/19 08:25: POC Glucose 182 H Current Medications Acetaminophen (Tylenol) 650 mg PO Q6H PRN PRN PRN Reason: Pain Score 1-10/Temp > 100.7 F Hydrocodone Bitart/Acetaminophen ([place] 5mg-325mg) tablet PO Q6H PRN PRN Reason: pain Aspirin (Ecotrin) 81 mg PO DAILYCM KAYCE Last Admin: 04/29/19 08:27 Dose: 81 mg Documented by: Atorvastatin Calcium (Lipitor) 40 mg PO DAILY@2200 [facility] Last Admin: 04/28/19 21:21 Dose: 40 mg Documented by: Clopidogrel Bisulfate (Plavix) 75 mg PO DAILY [facility] Last Admin: 04/29/19 08:27 Dose: 75 mg Documented by: Glucagon () 1 mg IM .X1 PRN PRN Reason: Hypoglycemia Ceftriaxone Sodium 2 gm/ (Sodium Chloride) 50 mls @ 100 mls/hr IV Q24 [facility] Last Infusion: 04/28/19 09:04 Dose: Infused Documented by: Dextrose (Dextrose 10%-Water) 250 mls @ 999 mls/hr IV .Q16M PRN; Protocol PRN Reason: HYPOGLYCEMIA Sodium Chloride () 250 mls @ 15 mls/hr IV .[id number] PRN PRN Reason: Saline Flush Last Infusion: 04/28/19 10:39 Dose: 0 mls/hr Documented by: Sodium Chloride () 250 mls @ 15 mls/hr IV .[id number] PRN PRN Reason: Additional IVPB Infusion Insulin Glargine (Lantus (Bkc)) 60 units SC DAILY [facility] Last Admin: 04/29/19 08:28 Dose: 60 u Documented by: Insulin Human Lispro (Humalog Kwikpen (Bkc)) 0 unit SC ACHS [facility]; Protocol Last Admin: 04/29/19 08:27 Dose: 2 u Documented by: Insulin Human Lispro (Humalog Kwikpen (Bkc)) 10 unit SC TIDAC [facility] Last Admin: 04/29/19 08:28 Dose: 10 u Documented by: Insulin Human Lispro (Humalog Kwikpen (Bkc)) [facility] Losartan Potassium (Cozaar) 100 mg PO DAILY [facility] Metoprolol Succinate (Toprol Xl (Beta Ngoc)) 100 mg PO DAILY [facility] Nystatin (Mycostatin) 1 applic TOPICAL BID [facility] Last Admin: 04/28/19 21:21 Dose: 1 applicatio Documented by: Ondansetron HCl (Zofran) 4 mg IV Q8H PRN PRN PRN Reason: NAUSEA/VOMITING Pantoprazole Sodium (Protonix) 40 mg PO DAILY [facility] Last Admin: 03/20/20 08:27 Dose: 40 mg Documented by: Sodium Chloride () 10 - 40 ml IV UD PRN PRN Reason: SALINE FLUSH Last Admin: 04/28/19 08:31 Dose: 10 ml Documented by: Topiramate (Topamax) 50 mg PO QHS KAYCE Discharge Diet: Low fat/ Low Cholesterol, 2000 mg Sodium Diet Discharge Activity: Return to Normal Activity Home Medications: Medications to take at Discharge Aspirin E.C. [Ecotrin] 81 mg PO DAILY 08/31/17 tramadol 50 mg tablet 50 mg PO Q6H #90 tab 04/13/18 omeprazole 40 mg capsule,delayed release 40 mg PO DAILY #90 cap 05/24/18 nitroglycerin 0.4 mg sublingual tablet 0.4 mg SUBLINGUAL Q5M PRN #25 tab 05/27/18 topiramate 50 mg tablet 50 mg PO QHS #90 tab 11/20/18 atorvastatin 40 mg tablet 40 mg PO DAILY #90 tab 12/20/18 clopidogrel 75 mg tablet 75 mg PO DAILY #90 tab 12/20/18 isosorbide mononitrate 60 mg tablet,extended release 24 hr 60 mg PO DAILY #90 tab 12/20/18 losartan 100 mg tablet 100 mg PO DAILY #90 tab 12/20/18 metoprolol succinate 100 mg tablet,extended release 24 hr 100 mg PO DAILY #90 tab 12/20/18 nystatin 100,000 unit/gram topical cream 1 applic TOPICAL BID #30 g 01/01/19 gabapentin 300 mg capsule 300 mg PO .COMPLEX #150 cap 01/26/19 insulin glargine 100 unit/mL subcutaneous solution 75 unit SUBCUT DAILY ml 01/26/19 Alprazolam [Xanax] 0.25 mg PO TID PRN PRN 04/27/19 Insulin Aspart [Novolog Flexpen] 14 units SUBCUT BIDCM 04/28/19 Amoxicillin/Potassium Clav [Augmentin 875-125 Tablet] 1 ea PO BID 5 Days #10 tab 04/29/19 Following Prescrptions Were Given to Patient: Amoxicillin/Potassium Clav [Augmentin 875-125 Tablet] 1 ea PO BID 5 Days #10 tab Transmission Status: Received by [id number] Primary Care Physician: Malik Bang DO [Primary Care Provider] - Please follow up with your Primary Care Physician in: within 1-2 weeks Disposition: Home Minutes spent on discharge:: 40 Patient Condition:: Stable Medical Necessity - Tobacco Use Smoking Status: Former smoker Tobacco Use: Non-smoker Meaningful Use Info Meaningful Use Diagnoses (Choose all that apply): None applicable Inpatient E&M: 08002 Disch Hosp
[2019-04-29] MEDS: Nystatin Ointment 1 APPLIC TOPICAL (09:55)
[2019-04-29] MEDS: Metoprolol(XL)Succ 100 MG Tablet PO (09:55)
[2019-04-29] MEDS: Losartan Potassium 100 MG Tablet PO (09:55)
--- NOTE | 2019-05-02 16:08 | CASEMGMT ---
KRYSTA HOFF Discharge Follow-up Phone Call: LAYLA: Debby Strata: 3 Call Date: 05/02/19 Discharge Date: 04/29/19 Time of Call: 1610 Duration: 1 min Admitting Diagnosis: Severe Sepsis RN LUIS EDUARDO attempted to complete follow-up phone call after recent hospitalization. No answer, voice message left with return contact information.
== END 2019-04-29 12:05 | disposition home or self-care (01) | DRG 871 ==
LOC: ED 04-28 00:13 → ICU 04-28 00:24
PROVIDERS: Internal Medicine Critical Care Medicine; Admitting Provider Hospitalist; Emergency Provider Emergency Medicine; PCP Family Medicine; Visit Provider Internal Medicine
DX: A41.9 Sepsis, unspecified organism (principal); G93.41 Metabolic encephalopathy; N17.9 Acute kidney failure, unspecified; M48.56XA Collapsed vertebra, not elsewhere classified, lumbar region, initial encounter for fracture; R65.20 Severe sepsis without septic shock; I25.10 Atherosclerotic heart disease of native coronary artery without angina pectoris; E66.01 Morbid (severe) obesity due to excess calories; I10 Essential (primary) hypertension; E87.6 Hypokalemia; E11.9 Type 2 diabetes mellitus without complications; B96.1 Klebsiella pneumoniae [K. pneumoniae] as the cause of diseases classified elsewhere; E78.5 Hyperlipidemia, unspecified; I69.328 Other speech and language deficits following cerebral infarction; Z95.5 Presence of coronary angioplasty implant and graft; Z95.1 Presence of aortocoronary bypass graft; Z79.4 Long term (current) use of insulin; Z68.39 Body mass index [BMI] 39.0-39.9, adult; Z87.891 Personal history of nicotine dependence; Z79.82 Long term (current) use of aspirin; Z79.02 Long term (current) use of antithrombotics/antiplatelets
CPT/HCPCS: 36415; 71045; 80048; 80053; 81001; 82607; 82962; 83605; 84443; 85025; 85610; 85730; 87040; 87077; 87086; 87088; 87186; 93005; 97163; 97167; 97802; 99285; J7030; J7040; J7050; A4216; J0696

== ENCOUNTER → 2019-05-11 14:28 | Outpatient (CLI) | payer MEDICARE, SELFPAY ==
[2019-05-11 13:46] VITALS: BMI 39.8
--- NOTE | 2019-05-11 14:50 | RAD_ITS ---
STUDY: X-RAY CHEST REASON FOR EXAM: Female, 74 years old. Patient complains of constant shortness of breath TECHNIQUE: PA and lateral views of the chest. COMPARISON: Comparison is made with prior study dated April 27, 2019. FINDINGS: EKG electrodes are seen. Elevation of the right hemidiaphragm with a small right pleural effusion and right basilar atelectasis. Sternal cerclage wires and vascular clips are present from a prior sternotomy and coronary artery bypass graft procedure (CABG). Normal mediastinum and fidelina. Normal visualized pulmonary arteries. There is atherosclerotic calcification of the aortic arch with tortuosity. There are diffuse degenerative changes of the visualized thoracic spine. There is degenerative osteoarthritis of the bilateral shoulders. 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 There is no demonstrated abnormality of the visualized soft tissue structures of the upper abdomen. RAD/Chest PA and Lateral IMPRESSION: Right basilar infiltrate with a small right pleural effusion. Electronically Signed: Dany Roblero, at 15:23 EDT , Service support ,
== END ==
PROVIDERS: PCP Family Medicine; Referring Provider Family Medicine; Visit Provider Family Medicine
DX: R06.02 Shortness of breath (principal)
CPT/HCPCS: 71046

== ENCOUNTER → 2019-05-19 08:30 | Outpatient (CLI) | payer MEDICARE, SELFPAY ==
[2019-05-18 14:44] VITALS: BMI 39.8
[2019-05-19 10:17] LABS: BNP,B-Type NATRIURETIC PEPTIDE 70.2 pg/mL (0-100)
--- NOTE | 2019-05-19 16:46 | RAD_ITS ---
STUDY: X-RAY CHEST REASON FOR EXAM: Female, 74 years old. DYSPNEA TECHNIQUE: PA and lateral views of the chest. COMPARISON: May 11, 2019 FINDINGS: There is worsening opacification in the right mid and lower chest with airspace consolidation and moderately large pleural effusion . Left lung is clear. Sternal cerclage wires are present from a prior sternotomy. Normal mediastinum and fidelina. Normal visualized pulmonary arteries. There is atherosclerotic calcification of the aortic arch with tortuosity. There are diffuse degenerative changes of the visualized thoracic spine. Normal visualized ribs, clavicles, and shoulders. There is no demonstrated abnormality of the visualized soft tissue structures of the upper abdomen. RAD/Chest PA and Lateral IMPRESSION: Worsening right-sided infiltrate and effusion. Electronically Signed: Sudhir Grider MD at 17:05 EDT , Service support ,
[2019-05-19 17:15] LABS: Mucous, Urine 0 SEEN /hpf (<or=2+); Red Blood Cells-Urine 0 SEEN /hpf (0-5); White Blood Cells 0 SEEN /hpf (0-5)
[2019-05-19 17:29] LABS: Absolute Lymphocyte Count 1.58 X10^3/uL (0.83-4.51); Basophil# 0.01 X10^3/uL; Basophil% 0.2 % (0-1); Eosinophil# 0.11 X10^3/uL; Eosinophils% 2.7 % (0-5); Hematocrit 39.5 % (37-47); Hemoglobin 12.3 g/dL (12.0-15.0); Lymphocyte # 1.58 X10^3/ul (4.0); Lymphocyte % 38.9 % (19-41); Mean Corp Hgb Conc 31.1 g/dL (32-36); Mean Corpuscular Hgb 32.5 pg (27.0-32.0); Mean Corpuscular Volume 104.5 fL (81-99); Mean Platelet Vol. 12.9 fl (6.2-12.0); Monocyte# 0.33 X10^3/uL; Monocyte% 8.1 % (0-10); NRBC Flagged by Analyzer 0 % (0-5); Neutrophil # 2.02 X10^3/uL (2.7-7.7); Neutrophil % 49.9 % (47-70); POSITIVE COUNT YES; Platelet Count 95 K/mm3 (150-450); RBC Distribution Width CV 15.2 % (11.6-14.6); RBC Distribution Width SD 58.5 fl (35.1-43.9); Red Blood Count 3.78 M/mm3 (4.2-5.4); White Blood Count 4.1 K/mm3 (4.4-11.0)
[2019-05-19 17:45] LABS: Color, Urine Yellow (Yellow); Glucose, Dipstick Normal (Normal); Ketone-Dipstick Negative (Negative); Leukocyte Esterase-Dipstick Negative /ul (Negative); Nitrite-Dipstick Negative (Negative); Occult Blood-Urine Negative /ul (Negative); Protein-Dipstick Negative (Negative); Urine Bilirubin Dipstick Negative (Negative); Urine Clarity Sl. Cloudy (Clear); Urine Urobilinogen Normal (Normal)
[2019-05-19 17:47] LABS: ALB/GLOB Ratio 0.7 RATIO (0.9-2.4); AST(SGOT) 57 U/L (15-37); Alanine Aminotransfer ALT/SGPT 25 U/L (13-56); Albumin, Serum 2.5 g/dL (3.2-5.0); Alkaline Phosphatase 219 U/L (45-117); Anion Gap 4 (5-15); BUN 26 mg/dL (7-18); BUN/Creat Ratio 19.4 RATIO (10-20); Chloride 107 mmol/L (98-107); Creatinine, Serum 1.34 mg/dL (0.55-1.02); EST Glomerular Filtration Rate 41 mL/min (>60); Est Glom Filt Rate - Afr Amer 50 mL/min (>60); Globulin 3.8 g/dL (2.2-4.2); Glucose 217 mg/dL (74-106); Potassium 3.8 mmol/L (3.5-5.1); Protein, Total 6.3 g/dL (6.4-8.2); Sodium Level 142 mmol/L (136-145)
[2019-05-19 18:12] LABS: Differential Indicated SCAN CRITERIA MET
[2019-05-19 18:16] LABS: Differential Comment SCANNED; Platelet Estimate MOD DEC (ADEQ)
[2019-05-19 19:13] LABS: Squamous Epithelial Cells - UA 0-5 SEEN /hpf (5-10)
[2019-05-19 19:15] LABS: Bacteria 1+ /hpf (None Seen); Hyaline Cast 0-5 SEEN /lpf (0-5)
== END ==
PROVIDERS: Nurse Practitioner Family; PCP Family Medicine; Referring Provider Family Medicine; Visit Provider Family Medicine
DX: J18.9 Pneumonia, unspecified organism (principal); Y95 Nosocomial condition
CPT/HCPCS: 36415; 71046; 80053; 81001; 83880; 85025; 87086

== ENCOUNTER 2019-05-19 19:33 | Inpatient (IN) | payer MEDICARE, SELFPAY ==
[2019-05-18 14:44] VITALS: BMI 39.8
[2019-05-19] VITALS (7 sets, daily range): BP systolic 107–141; BP diastolic 46–84; PULSE 56–87; RESP 14–20; TEMP 36.7–36.9; O2SAT 95–98; BMI 38.2
--- NOTE | 2019-05-19 19:58 | EKG12_ITS ---
Test Reason : SOB Blood Pressure : / mmHG Vent. Rate : 056 BPM Atrial Rate : 056 BPM P-R Int : 162 ms QRS Dur : 084 ms QT Int : 438 ms P-R-T Axes : 005 -27 021 degrees QTc Int : 422 ms Sinus bradycardia Septal infarct , age undetermined Abnormal ECG Confirmed by ANA BURTON, MINA ([id number]), fan mail editor AJAY SERRANO ([id number]) on 05/23/2019 8:33:04 AM Referred By: SARIKA Confirmed By:MINA PEREZ MD
[2019-05-19 20:15] LABS: Absolute Lymphocyte Count 1.76 X10^3/uL (0.83-4.51); Absolute Neutrophil Count 2.3 X10^3/uL (2.0-7.7); Basophil# 0.02 X10^3/uL; Basophil% 0.4 % (0-1); Eosinophil# 0.12 X10^3/uL; Eosinophils% 2.6 % (0-5); Hematocrit 40.6 % (37-47); Hemoglobin 12.8 g/dL (12.0-15.0); Lymphocyte # 1.76 X10^3/ul (4.0); Lymphocyte % 38.5 % (19-41); Mean Corp Hgb Conc 31.5 g/dL (32-36); Mean Corpuscular Hgb 32.4 pg (27.0-32.0); Mean Corpuscular Volume 102.8 fL (81-99); Mean Platelet Vol. 12.9 fl (6.2-12.0); Monocyte# 0.38 X10^3/uL; Monocyte% 8.3 % (0-10); NRBC Flagged by Analyzer 0 % (0-5); Neutrophil # 2.28 X10^3/uL (2.7-7.7); Platelet Count 103 K/mm3 (150-450); RBC Distribution Width SD 57.8 fl (35.1-43.9); Red Blood Count 3.95 M/mm3 (4.2-5.4); White Blood Count 4.6 K/mm3 (4.4-11.0)
[2019-05-19 20:36] LABS: Lactic Acid 1.2 mmol/L (0.4-1.9)
--- NOTE | 2019-05-19 20:36 | ED.VISSUMM ---
- ER Visit Summary Date of Service: 05/19/19 Chief Complaint: Shortness of breath History of Present Illness: The patient is a 74 F presenting with shortness of breath and cough. Patient states this has been ongoing for the past 1.5 weeks. She had an x-ray last week which showed pneumonia. She finished her antibiotics, azithromycin. She had a repeat x-ray today which showed worsening pneumonia. She was also admitted in April for a UTI. She was on Augmentin following her UTI. She denies fever or chills. Denies chest pain. She has cough and dyspnea. She states with any type of exertion, she is very short of breath. Denies abdominal pain, nausea, vomiting, diarrhea. She has an Ortho boot on her left lower extremity that she states she has been wearing for the past 2 years. No history of blood clot. Denies leg pain. Physical Examination: Vitals are stable. Patient is afebrile. Alert no acute distress. HEENT exam is unremarkable. Neck is supple. Lungs are clear and equal bilaterally. Heart is regular rate and rhythm. Abdomen is soft nontender nondistended. Extremities are unremarkable. No calf tenderness. Skin is warm and dry. No focal neurologic deficit. Remainder of exam is unremarkable. Emergency Department Course and Treatment: EKG is sinus bradycardia rate of 56 with no acute ischemic changes. Chest x-ray shows worsening right-sided infiltrate and effusion. Blood cultures were sent. CBC normal except platelet 103. Chemistries normal except for BUN 24, creatinine 1.37, previous creatinine 0.95. Troponin is negative. Respiratory panel was sent. Influenza negative. She was given Zosyn and Vancomycin. Discussed with the hospitalist for admission. Disposition: Admission Impression: HCAP This note was generated with [employer] dictation software. It may contain incorrect words, spelling, and punctuation that were not noted in review of the chart prior to signing ED Disposition - Plan for ED Patient: Referrals: Malik Bang, [Primary Care Provider] -
[2019-05-19 20:37] LABS: Anion Gap 3 (5-15); BUN 24 mg/dL (7-18); BUN/Creat Ratio 17.5 RATIO (10-20); Calcium,Total 9.3 mg/dL (8.5-10.1); Chloride 111 mmol/L (98-107); Creatinine, Serum 1.37 mg/dL (0.55-1.02); EST Glomerular Filtration Rate 40 mL/min (>60); Est Glom Filt Rate - Afr Amer 49 mL/min (>60); Estimated Creatinine Clearance 32.91 ml/min; Glucose 159 mg/dL (74-106); Potassium 4.2 mmol/L (3.5-5.1); Sodium Level 143 mmol/L (136-145)
[2019-05-19 21:37] LABS: Color, Urine Yellow (Yellow); Glucose, Dipstick Normal (Normal); Ketone-Dipstick Negative (Negative); Leukocyte Esterase-Dipstick Negative /ul (Negative); Mucous, Urine 0 SEEN /hpf (<or=2+); Nitrite-Dipstick Negative (Negative); Occult Blood-Urine Negative /ul (Negative); Protein-Dipstick Negative (Negative); Red Blood Cells-Urine 0 SEEN /hpf (0-5); Urine Bilirubin Dipstick Negative (Negative); Urine Clarity Sl. Cloudy (Clear); Urine Urobilinogen 1 mg/dl (Normal)
[2019-05-19 21:44] LABS: Squamous Epithelial Cells - UA 0-5 SEEN /hpf (5-10)
[2019-05-19 21:46] LABS: Bacteria RARE /hpf (None Seen); White Blood Cells 0-5 SEEN /hpf (0-5)
--- NOTE | 2019-05-19 22:47 | HP.PCM_ITS ---
Problem List (1) Pneumonia Status: Acute Qualifiers: Pneumonia type: due to unspecified organism Laterality: right Lung location: unspecified part of lung Qualified Code(s): J18.9 - Pneumonia, unspecified organism (2) Atherosclerosis of coronary artery of [place] heart without angina pectoris Status: Chronic Qualifiers: Coronary Disease-Associated Artery/Lesion type: [place] artery Qualified Code(s): I25.10 - Atherosclerotic heart disease of [place] coronary artery without angina pectoris Comment: PCI-HALEIGH-Mid RCA 2.25 x 38 mm Promus Synergy 11/20/16 CABG x 2 KRISHNAMURTHY-LAD, SVG-Om1 11/30/15 @ [facility], PTCA to mid RCA 05/13/2017 (3) Anemia Status: Resolved Qualifiers: Anemia type: iron deficiency (4) Hyperlipemia Status: Chronic Qualifiers: Hyperlipidemia type: pure hypercholesterolemia Qualified Code(s): E78.00 - Pure hypercholesterolemia, unspecified; E78.0 - Pure hypercholesterolemia (5) Hypertension Status: Chronic Qualifiers: Hypertension type: essential hypertension Qualified Code(s): I10 - Essential (primary) hypertension (6) Type 2 diabetes mellitus Status: Chronic Qualifiers: 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 insulin use: with [facility] use Diabetes mellitus complication status: with other specified complication Qualified Code(s): E11.69 - Type 2 diabetes mellitus with other specified complication; 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.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 (7) CVA (cerebral vascular accident) Status: Chronic Qualifiers: CVA mechanism: unspecified Qualified Code(s): I63.9 - Cerebral infarction, unspecified Comment: Ischemic: residual is just occasional speech problems (8) H/O coronary artery bypass surgery Status: Chronic Comment: CABG x 2 KRISHNAMURTHY-LAD, SVG-Om1 11/30/15 @ [facility] History of Present Illness Date of Admission: 05/19/19 Chief Complaint: Mild cough, dyspnea The patient is a 74 y/o F w/ PMHx: CKD stage III, Chronic thrombocytopenia, Hx CVA with occasional dysarthria, CAD s/p PCI and CABG x 2, HTN, HLD, Rheumatoid Arthritis, Diabetes mellitus type II, Obesity who presents to the [facility] ED on 05/19/19 with history of recent admission 04/27/19-04/29/19 with treatment severe sepsis, encephalopathy, PADMA secondary to acute Klebsiella UTI noting onset approximately 1.5 weeks later mild cough, non-productive with dyspnea, worse with exertion without fever, chills, nausea, emesis, abdominal pain, diarrhea, headache, loss of sense of smell/taste, body aches with PCP evaluation with treatment of course of azithromycin without marked improvement prompting repeat evaluation with repeat CXR on day of ED presentation, noting worsening R sided infiltrates therefore patient referred to the ED. Work-up in the ED included T 98.4, heart rate 58, BP 107/46, respiratory rate 20, 95% on room air, CBC with WC 4.6, hemoglobin 12.8, platelet 103 without market shift and no evidence of lymphopenia, BMP with chloride 111, BUN/creatinine 24/1.37, glucose 159, lactic acid 1.2, urinalysis unremarkable, blood culture x2 pending per ED, get a respiratory viral panel, recent outpatient chest x-ray on day of ED presentation with worsening right side infiltrates and effusion with noted worsening opacification in the right mid and lower chest with airspace consolidation and moderately large pleural effusion with a clear left lung. 1. Dyspnea, Cough secondary to Worsening pneumonia, Failed outpatient Antibiotics with recent Admission, Possible GN/GP Organism and Right Sided Pleural Effusion: Will admit to MS, maintain on oxygen with wean as tolerated to room air, continue ATC duonebs, PRN albuterol, maintained on IV Zosyn and Vancomycin with pending MRSA screen and de-escalation off as appropriate, HOB, IS parameters w/ pending sputum cultures and urine antigens. Bld cx x 2 obtained in the ED and pending. Although lower suspicion, given recent admission and exposure potential, will obtain procalcitonin, CRP, CPK, Ferritin, LDH, Alk phos/AST/ALT, to be cautious. Will defer placing patient in COVID precautions at this time as current markers and history low suspicion. Given size of pleural effusions may need to consider thoracentesis however patient is on aspirin and Plavix therefore these items would need to be held. 2. CAD: Status post PCI and CABG x2, continue home aspirin, Plavix however may need to be held for thoracentesis, statin, metoprolol, losartan regimen. 3. Hypertension: Continue home regimen including metoprolol, losartan, isosorbide, Lasix, PRN hydralazine. 4. Hyperlipidemia: Continue home statin regimen. 5. Chronic Kidney Disease Stage III: Admission BUN/Cr 24/1.37, only mildly increased from baseline, baseline renal function 0.9-1.2, repeat BMP in AM. 6. Chronic Thrombocytopenia: Admission platelets 103, baseline appears 60s to 90s, stable, trend. 7. History of CVA: We will continue patient on home aspirin, Plavix however may need to be held for thoracentesis, statin, hypertensive and diabetic regimens. 8. Diabetes mellitus type II: Hold oral home regimen, continue home insulin regimen, ADA diet, accu checks w/ ISS. 9. Obesity: Weight loss and lifestyle changes encouraged. 10. Rheumatoid arthritis: From review of current list not on regimen, encourage continued outpatient follow-up, will continue PRN tramadol regimen for pain associated. 11. Anxiety and depression: We will continue patient home Xanax regimen, would benefit from consideration of SSRI versus SNRI. 12. DVT prophylaxis: SCDs, Lovenox. 13. CODE status: Patient RAFA is her and living will is currently in place. Discussed CODE status at length including difference between FULL code, DNR-CCA and DNR-CC status. Following discussions about the differences in these status, requested DNR CCA, no intubation status. Advanced Care Planning Face to Face Time: 16 minutes. Past Medical History Past Medical History (Chronic Problems): Chronic Problems (Last Reviewed 05/11/19 @ 14:[address] Malik Bang, DO) Compression fracture of L1 vertebra (Chronic) I had a discussion on compression fractures and the fact that it takes 12 weeks to heal. Basically especially with her problem with her left foot she really cannot go through physical therapy as she is having too much trouble getting in and out of the house. I told her nonsteroidals for the pain rest as much as possible but continue to be active in the upper body. I told her that kyphoplasty is a rarely done procedure and I did not think she would benefit enough to assume the risk of that procedure. Non-union of fracture (Chronic) Left foot. 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 (JOSEPH @ [facility]) Dupuytren's contracture of left hand (Chronic) Rotator cuff arthropathy of right shoulder (Chronic) History of coronary artery stent placement (Chronic 11/20/16) PCI-HALEIGH-Mid RCA 2.25 x 38 mm Promus Synergy Atherosclerosis of coronary artery of [place] heart without angina pectoris (Chronic) PCI-HALEIGH-Mid RCA 2.25 x 38 mm Promus Synergy 11/20/16 CABG x 2 KRISHNAMURTHY-LAD, SVG-Om1 11/30/15 @ [facility], PTCA to mid RCA 05/13/2017 Hyperlipemia (Chronic) Hypertension (Chronic) Type 2 diabetes mellitus (Chronic) Rheumatic fever (Chronic) CVA (cerebral vascular accident) (Chronic ~2010) Ischemic: residual is just occasional speech problems H/O coronary artery bypass surgery (Chronic 11/30/15) CABG x 2 KRISHNAMURTHY-LAD, SVG-Om1 11/30/15 @ [facility] Medical History: Medical History (Last Reviewed 05/11/19 @ 14:[address] Malik Bang, DO) Chest pain (Inactive) R07.9 Atherosclerosis of coronary artery of [place] heart without angina pectoris (Chronic) I25.10 PCI-HALEIGH-Mid RCA 2.25 x 38 mm Promus Synergy 11/20/16 CABG x 2 KRISHNAMURTHY-LAD, SVG-Om1 11/30/15 @ [facility], PTCA to mid RCA 05/13/2017 Anemia (Resolved) D64.9 Hyperlipemia (Chronic) E78.5 Hypertension (Chronic) I10 Type 2 diabetes mellitus (Chronic) E11.9 Rheumatic fever (Chronic) I00 CVA (cerebral vascular accident) (Chronic) Onset Date: ~2010 I63.9 Ischemic: residual is just occasional speech problems Rheumatoid arthritis M06.9 Allergies oxycodone Allergy (Verified 05/11/19 13:39) Other UNABLE TO TAKE, MAKES EXCITED AND UNABLE TO SLEEP environemental Allergy (Uncoded 05/11/19 13:39) dry cough Home Medications: Ambulatory Orders Medication Instructions Recorded Aspirin E.C. [Ecotrin] 81 mg PO DAILY 08/31/17 tramadol 50 mg tablet 50 mg PO Q6H #90 tab 04/13/18 omeprazole 40 mg capsule,delayed 40 mg PO DAILY #90 cap 05/24/18 release nitroglycerin 0.4 mg sublingual 0.4 mg SUBLINGUAL Q5M PRN #25 tab 05/27/18 tablet topiramate 50 mg tablet 50 mg PO QHS #90 tab 11/20/18 atorvastatin 40 mg tablet 40 mg PO DAILY #90 tab 12/20/18 clopidogrel 75 mg tablet 75 mg PO DAILY #90 tab 12/20/18 isosorbide mononitrate 60 mg 60 mg PO DAILY #90 tab 12/20/18 tablet,extended release 24 hr metoprolol succinate 100 mg 100 mg PO DAILY #90 tab 12/20/18 tablet,extended release 24 hr nystatin 100,000 unit/gram topical 1 applic TOPICAL BID #30 g 01/01/19 cream insulin glargine 100 unit/mL 75 unit SUBCUT DAILY ml 01/26/19 subcutaneous solution Alprazolam [Xanax] 0.25 mg PO TID PRN PRN 04/27/19 Insulin Aspart [Novolog Flexpen] 14 units SUBCUT BIDCM 04/28/19 losartan 100 mg tablet 100 mg PO DAILY #90 tab 05/05/19 gabapentin 300 mg capsule 300 mg PO .COMPLEX #450 cap 05/06/19 furosemide 40 mg tablet 40 mg PO DAILY #30 tab 05/11/19 levofloxacin 750 mg tablet 750 mg PO DAILY #7 tab 05/19/19 Surgical History: Surgical History (Last Reviewed 05/11/19 @ 14:[address] Malik Bang, DO) History of left heart catheterization (Chronic) Onset Date: 06/04/18 Z98.890 Perserved Left Ventricular systolic function with normal EDP; Double vessel CAD of the LAD and OM Widely patent SVG to OM; Widely patent KRISHNAMURTHY to LAD; Widely patent RCA stent.; RECOMMENDATIONS Risk factor modification,Will medically manage chest wall pain. (DJN @ [facility]) H/O section (Resolved) Z98.891 History of carpal tunnel surgery (Resolved) Z92.89 bilateral History of coronary artery stent placement (Chronic) Onset Date: 11/20/16 Z95.5 PCI-HALEIGH-Mid RCA 2.25 x 38 mm Promus Synergy H/O coronary artery bypass surgery (Chronic) Onset Date: 11/30/15 CABG x 2 KRISHNAMURTHY-LAD, SVG-Om1 11/30/15 @ [facility] Status post left foot surgery Z98.890 07/2018 History of arthroscopy Z98.890 right knee History of heart artery stent Z95.5 11/2016 History of left knee replacement Z96.652 History of open reduction and internal fixation (ORIF) procedure Onset Date: ~08/2017 Z98.890 Insertion of nicolás into left lower leg after fracture History of partial hysterectomy Z90.711 History of right hip replacement Z96.641 History of tonsillectomy Z90.89 history of partial right knee replacement followed by a full replacement the following year history of total foot reconstruction Surgical History: arthroscopy, knee, coronary bypass surgery, total hip arthroplasty, - - Bilateral cataract surgery, tonsillectomy, hysterectomy, bladder suspension surgery, left elbow surgery, right foot complete reconstructive surgery, right total knee replacement x1, right partial knee replacement x1, right knee arthroscopic surgery, left knee total replacement, right total hip replacement, left ankle surgery x3. 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 Tobacco Use: Non-smoker Alcohol: None Drugs: None - *Family History Maternal Family History: Family History (Last Reviewed 05/11/19 @ 14:[address] Malik Bang DO) Grandmother Myocardial infarction CVA (cerebral vascular accident) Mother Myocardial infarction Father Diabetes Arthritis History Items: Diabetes, High Cholesterol, Heart Disease, Hypertension Paternal Family History: Family History (Last Reviewed 05/11/19 @ 14:[address] Malik Bang DO) Grandmother Myocardial infarction CVA (cerebral vascular accident) Mother Myocardial infarction Father Diabetes Arthritis History Items: Diabetes, High Cholesterol, Heart Disease, Hypertension Review of Systems Constitutional: Reports: Malaise, Weakness, Fatigue. Denies: Anorexia, Chills, Fever, Weight Change HEENT: Denies: Head Aches, Nasal Congestion, Post Nasal Drip, Sinus Congestion, Sinus Drainage, Sore Throat Cardiovascular: Denies: Chest Pain, Palpitations Respiratory: Reports: Cough, Shortness of Breath, Shortness of breath at rest, Shortness of breath upon exertion. Denies: Sputum production, Wheezing Gastrointestinal: Denies: Abdominal Pain, Nausea, Vomiting Genitourinary: Denies: Dysuria Musculoskeletal: Reports: Joint Pain, Leg Pain. Denies: Joint Tenderness Skin: Denies: Rash, Wounds Neurological: Denies: Numbness, Tingling, Focal weakness Psychiatric: Reports: Anxiety, Depression. Denies: Homicidal Ideations, Suicidal Ideations Hematologic/ Lymphatic: Reports: Anemia, Easy Bruising, Easy Bleeding VTE Information - Inpt Only VTE Present on Admission: No VTE Mechan Device Prophylaxis: SCD's VTE Pharm Prophylaxis ordered?: Yes Patient Problems: Active and Suspected Problems (Last Reviewed 05/11/19 @ 14:[address] Malik Bang, DO) Pneumonia (Acute) Subjective: Seated upright in the ED bed, no acute distress, non-significantly ill appearing. Objective: Physical Examination: General: awake, alert, oriented x 3 and cooperative, seated upright in the ED bed, no acute distress. Skin: normal color, turgor, no icterus, cyanosis. HEENT: AT/NC, EOMI, PERRLA, facemask in place, no carotid bruits or JVD noted. Lungs: Diminished breath sounds, greater bilateral bases, mild rales at the right base but not severe, no obvious rhonchi or wheezing and no evidence of increased work of breathing. Heart: Mildly bradycardic with regular rhythm; no gallop, rub audible. Abdomen: soft, obese, NTTP, ND, normal BS, no HSM. Extremities: no cyanosis, clubbing, bilateral lower extremity ankle to distal west 2+ edema. Neurological: patient awake, alert, oriented x 3; cognitive function intact; pupils equally reactive to light and accomodation; cranial nerves II-XII grossly normal, moving all 4 extremities, no focal deficits, strength moderately global decrease secondary to acute presentation. Psychiatric: affect appears fatigued otherwise normal, no acute evidence of depressive or anxiety feelings. - Physical Exam Vitals/I&O's: Vital Signs Temp Pulse Resp BP Pulse Ox 98.1 F 64 15 136/61 H 97 05/19/19 22:46 05/19/19 22:46 05/19/19 22:46 05/19/19 22:46 05/19/19 22:46 Oxygen Delivery Method Room Air Weight: 230 lb Body Mass Index (BMI) 38.2 Finger Stick Blood Glucose 61 Intake and Output for Last 24 Hours 05/17/19 05/18/19 05/19/19 23:59 23:59 23:59 Intake Total 50 / 50 Balance 50 / 50 Microbiology Past 72 Hours 05/19/19 20:20 Mucosa - Nasopharyngeal Influenza Types A,B Direct FA (DINA) - Final Laboratory Results 05/19/19 20:00: WBC 4.6, RBC 3.95 L, Hgb 12.8, Hct 40.6, MCV 102.8 H, MCH 32.4 H , MCHC 31.5 L, RDW Std Deviation 57.8 H, RDW Coeff of Henry 15.0 H, Plt Count 103 L, MPV 12.9 H, Immature Gran % (Auto) 0.200, Neut % (Auto) 50.0, Lymph % (Auto) 38.5, [place] % (Auto) 8.3, Eos % (Auto) 2.6, Baso % (Auto) 0.4, Absolute Neuts (auto) 2.3, Absolute Lymphs (auto) 1.76, Nucleated RBC % 0 05/19/19 20:00: Sodium 143, Potassium 4.2, Chloride 111 H, Carbon Dioxide 29.0, Anion Gap 3 L, BUN 24 H, Creatinine 1.37 H, Estim Creat Clear Calc 32.91, Est GFR (MDRD) Af Amer 49 L, Est GFR (MDRD) Non-Af 40 L, BUN/Creatinine Ratio 17.5, Glucose 159 H, Calcium 9.3, Troponin I < 0.015 05/19/19 20:00: Lactic Acid 1.2 05/19/19 21:31: Urine Color Yellow, Urine Clarity Sl. Cloudy, Urine pH 7.0, Ur Specific [place] 1.010, Urine Protein Negative, Urine Glucose (UA) Normal, Urine Ketones Negative, Urine Occult Blood Negative, Urine Nitrite Negative, Urine Bilirubin Negative, Urine Urobilinogen 1 H, Ur Leukocyte Esterase Negative, Urine RBC 0 SEEN, Urine WBC 0-5 SEEN, Ur Squamous Epith Cells 0-5 SEEN, Other Crystals COMMENT, Urine Bacteria RARE, Urine Mucus 0 SEEN Current Medications Vancomycin HCl 1,500 mg/ (Sodium Chloride) 530 mls @ 265 mls/hr IV X1 ONE Stop: 05/19/19 23:04 Last Admin: 05/19/19 22:40 Dose: 265 mls/hr Documented by: Assessment/Plan All Active Problems (Last Reviewed 05/11/19 @ 14:[address] Malik Bang, DO) Severe sepsis (Acute) Urinary tract infection (Acute) Acute encephalopathy (Acute) Pneumonia (Acute) H/O section (Resolved) History of carpal tunnel surgery (Resolved) Anemia (Resolved) Chest pain (Resolved) Chest pressure (Resolved) The patient is a 74 y/o F w/ PMHx: CKD stage III, Chronic thrombocytopenia, Hx CVA with occasional dysarthria, CAD s/p PCI and CABG x 2, HTN, HLD, Rheumatoid A rthritis, Diabetes mellitus type II, Obesity who presents to the [facility] ED on 05/19/19 with history of recent admission 04/27/19-04/29/19 with treatment severe sepsis, encephalopathy, PADMA secondary to acute Klebsiella UTI noting onset approximately 1.5 weeks later mild cough, non-productive with dyspnea, worse with exertion without fever, chills, nausea, emesis, abdominal pain, diarrhea, headache, loss of sense of smell/taste, body aches with PCP evaluation with treatment of course of azithromycin without marked improvement prompting repeat evaluation with repeat CXR on day of ED presentation, noting worsening R sided infiltrates. 1. Dyspnea, Cough secondary to Worsening pneumonia, Failed outpatient Antibiotics with recent Admission, Possible GN/GP Organism and Right Sided Pleural Effusion: Will admit to MS, maintain on oxygen with wean as tolerated to room air, continue ATC duonebs, PRN albuterol, maintained on IV Zosyn and Vancomycin with pending MRSA screen and de-escalation off as appropriate, HOB, IS parameters w/ pending sputum cultures and urine antigens. Bld cx x 2 obtained in the ED and pending. Although lower suspicion, given recent admission and exposure potential, will obtain procalcitonin, CRP, CPK, Ferritin, LDH, Alk phos/AST/ALT, to be cautious. Will defer placing patient in COVID precautions at this time as current markers and history low suspicion. Given size of pleural effusions may need to consider thoracentesis however patient is on aspirin and Plavix therefore these items would need to be held. 2. CAD: Status post PCI and CABG x2, continue home aspirin, Plavix however may need to be held for thoracentesis, statin, metoprolol, losartan regimen. 3. Hypertension: Continue home regimen including metoprolol, losartan, isosorbide, Lasix, PRN hydralazine. 4. Hyperlipidemia: Continue home statin regimen. 5. Chronic Kidney Disease Stage III: Admission BUN/Cr 24/1.37, only mildly increased from baseline, baseline renal function 0.9-1.2, repeat BMP in AM. 6. Chronic Thrombocytopenia: Admission platelets 103, baseline appears 60s to 90s, stable, trend. 7. History of CVA: We will continue patient on home aspirin, Plavix however may need to be held for thoracentesis, statin, hypertensive and diabetic regimens. 8. Diabetes mellitus type II: Hold oral home regimen, continue home insulin regimen, ADA diet, accu checks w/ ISS. 9. Obesity: Weight loss and lifestyle changes encouraged. 10. Rheumatoid arthritis: From review of current list not on regimen, encourage continued outpatient follow-up, will continue PRN tramadol regimen for pain associated. 11. Anxiety and depression: We will continue patient home Xanax regimen, would benefit from consideration of SSRI versus SNRI. 12. DVT prophylaxis: SCDs, Lovenox. 13. CODE status: Patient RAFA is her and living will is currently in place. Discussed CODE status at length including difference between FULL code, DNR-CCA and DNR-CC status. Following discussions about the differences in these status, requested DNR CCA, no intubation status. Advanced Care Planning Face to Face Time: 16 minutes. Inpatient E&M: 54851 Init Hosp L3 Procedures: 85692 Advncd Care Plan 30 Min
[2019-05-20] VITALS (10 sets, daily range): BP systolic 104–127; BP diastolic 54–75; PULSE 69–82; RESP 14–20; TEMP 36.3–36.9; O2SAT 94–98; BMI 38.2
[2019-05-20 00:15] LABS: AST(SGOT) 69 U/L (15-37); Alanine Aminotransfer ALT/SGPT 26 U/L (13-56); Albumin, Serum 2.7 g/dL (3.2-5.0); Alkaline Phosphatase 238 U/L (45-117); Bilirubin, Direct 1.69 mg/dL (0.00-0.30); Ferritin 38 ng/mL (8-252); Globulin 4.1 g/dL (2.2-4.2); LDH 300 U/L (84-246); Magnesium 1.8 mg/dL (1.6-2.6); Protein, Total 6.8 g/dL (6.4-8.2)
--- NOTE | 2019-05-20 01:01 | PCM.RX.CS ---
Consult Pharmacy has been consulted to manage selected antiobiotic: Vancomycin Type of Consult: New start Suspected Infection: Pneumonia Labs: Sodium 143 mmol/L (136-145) 05/19/19 20:00 Potassium 4.2 mmol/L (3.5-5.1) 05/19/19 20:00 Chloride 111 mmol/L (98-107) H 05/19/19 20:00 Carbon Dioxide 29.0 mmol/L (21.0-32.0) 05/19/19 20:00 Anion Gap 3 (5-15) L 05/19/19 20:00 BUN 24 mg/dL (7-18) H 05/19/19 20:00 Creatinine 1.37 mg/dL (0.55-1.02) H 05/19/19 20:00 Est GFR (MDRD) Af Amer 49 mL/min (>60) L 05/19/19 20:00 Est GFR (MDRD) Non-Af 40 mL/min (>60) L 05/19/19 20:00 BUN/Creatinine Ratio 17.5 RATIO (10-20) 05/19/19 20:00 Glucose 159 mg/dL (74-106) H 05/19/19 20:00 Microbiology: Microbiology 05/19/19 20:20 Mucosa - Nasopharyngeal Respiratory Panel (PCR) - Final 05/19/19 20:20 Mucosa - Nasopharyngeal Influenza Types A,B Direct FA (DINA) - Final Weight used for dosin kg Estimated Creatinine Clearance: 43.76 Goal Trough: 15-20 mcg/mL Pharmacy Plan for Drug Dosing: Pharmacy Service will continue to monitor and adjust dosing as required. Medications Vancomycin HCl 750 mg/ Sodium (Chloride) 265 mls @ 250 mls/hr IV Q12H KAYCE Discontinued Medications Vancomycin HCl 1,500 mg/ (Sodium Chloride) 530 mls @ 265 mls/hr IV X1 ONE Stop: 05/19/19 23:04 Last Admin: 05/19/19 22:40 Dose: 265 mls/hr Documented by: Follow-Up Labs: Trough Vancomycin Labs to be done on [date and time ordered]: 05/20 @ [id number]
[2019-05-20] MEDS: 0.9% Saline Lock 10 ML Syringe IV ×2 (01:08→05:24)
[2019-05-20] MEDS: Furosemide 40 MG/4 ML Vial IV ×2 (01:08→10:07)
--- NOTE | 2019-05-20 04:59 | NURSING ---
Blood glucose assessed per request. BGT: 71. Pt given Yuko Doones and 240 mL orange juice.
--- NOTE | 2019-05-20 05:00 | RAD_ITS ---
STUDY: X-RAY CHEST REASON FOR EXAM: Female, 74 years old. dyspnea, cough TECHNIQUE: Single AP portable view of the chest. COMPARISON: May 19, 2019 FINDINGS: Continued worsening opacification of the right chest with airspace consolidation and large pleural effusion . Left lung is clear. Sternal cerclage wires are present from a prior sternotomy. Normal mediastinum and fidelina. Normal visualized pulmonary arteries. There is atherosclerotic calcification of the aortic arch with tortuosity. There are diffuse degenerative changes of the visualized thoracic spine. Normal visualized ribs, clavicles, and shoulders. There is no demonstrated abnormality of the visualized soft tissue structures of the upper abdomen. RAD/Chest 1 View (Portable) IMPRESSION: Worsening right-sided infiltrate and effusion. Electronically Signed: Sudhir Grider MD at 8:25 EDT , Service support ,
[2019-05-20 06:01] LABS: Bedside Glucose 71 mg/dL (70-110)
[2019-05-20] MEDS: Ipratropium/Albuterol Sulfate 3 ML AMPUL.NEB INHALATION (06:55)
[2019-05-20 07:02] LABS: Absolute Lymphocyte Count 1.02 X10^3/uL (0.83-4.51); Absolute Neutrophil Count 2.3 X10^3/uL (2.0-7.7); Basophil# 0.01 X10^3/uL; Basophil% 0.3 % (0-1); Eosinophils% 2.6 % (0-5); Hemoglobin 11.7 g/dL (12.0-15.0); Lymphocyte # 1.02 X10^3/ul (4.0); Lymphocyte % 26.4 % (19-41); Mean Corp Hgb Conc 32.5 g/dL (32-36); Mean Corpuscular Hgb 33.1 pg (27.0-32.0); Mean Platelet Vol. 13.4 fl (6.2-12.0); Monocyte# 0.42 X10^3/uL; Monocyte% 10.9 % (0-10); NRBC Flagged by Analyzer 0 % (0-5); Neutrophil # 2.31 X10^3/uL (2.7-7.7); Neutrophil % 59.5 % (47-70); POSITIVE COUNT YES; Platelet Count 75 K/mm3 (150-450); RBC Distribution Width SD 56.2 fl (35.1-43.9); Red Blood Count 3.53 M/mm3 (4.2-5.4); White Blood Count 3.9 K/mm3 (4.4-11.0)
[2019-05-20 07:05] LABS: M R Staph aureus DNA By PCR Negative (Negative); Probe Check PASS; Specimen Processing Control PASS
[2019-05-20 07:29] LABS: ALB/GLOB Ratio 0.7 RATIO (0.9-2.4); AST(SGOT) 54 U/L (15-37); Alanine Aminotransfer ALT/SGPT 22 U/L (13-56); Albumin, Serum 2.3 g/dL (3.2-5.0); Alkaline Phosphatase 202 U/L (45-117); Anion Gap 7 (5-15); BUN 23 mg/dL (7-18); BUN/Creat Ratio 19.5 RATIO (10-20); Calcium,Total 8.9 mg/dL (8.5-10.1); Chloride 110 mmol/L (98-107); Creatinine, Serum 1.18 mg/dL (0.55-1.02); EST Glomerular Filtration Rate 48 mL/min (>60); Est Glom Filt Rate - Afr Amer 58 mL/min (>60); Estimated Creatinine Clearance 38.21 ml/min; Globulin 3.5 g/dL (2.2-4.2); Glucose 153 mg/dL (74-106); Potassium 3.5 mmol/L (3.5-5.1); Protein, Total 5.8 g/dL (6.4-8.2); Sodium Level 143 mmol/L (136-145)
[2019-05-20 07:48] LABS: ALB/GLOB Ratio 0.7 RATIO (0.9-2.4); Globulin 3.5 g/dL (2.2-4.2); LDH 226 U/L (84-246); Protein, Total 5.8 g/dL (6.4-8.2)
--- NOTE | 2019-05-20 08:00 | PN_ITS ---
Patient Problems: Active and Suspected Problems (Last Reviewed 05/11/19 @ 14:[address] Malik Bang, DO) Pneumonia (Acute) Reason for Visit: Right large pleural effusion with pneumonia possible parapneumonic effusion Objective: The patient is admitted with progressive worsening of shortness of breath for more than 10 days. She was recently discharged from ICU after admission from 04/26 to 05/02 severe sepsis secondary to UTI and then she got short of breath after 1 week at home. She completed 1 week of Zithromax at home by PCP after chest x-ray shows pneumonia but her shortness of breath continued to get worsened. Denies fever or chills. 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 She also has significant cardiac history including two-vessel CABG in 2015 and PCI in November 2016, history of rheumatic heart disease as a childhood but no valve replacement, and CVA . No fever or chills. Blood pressure 111/54, respiratory 16 to 20/min pulse ox 94% on room air. Vitals/I&O's: Vital Signs Temp Pulse Resp BP Pulse Ox 97.9 F 73 20 H 111/54 L 94 05/20/19 05:27 05/20/19 06:56 05/20/19 06:56 05/20/19 05:27 05/20/19 06:56 Oxygen Delivery Method Room Air Weight: 229 lb 8.019 oz Body Mass Index (BMI) 38.2 Finger Stick Blood Glucose 61 Intake and Output for Last 24 Hours 05/18/19 05/19/19 05/20/19 23:59 23:59 23:59 Intake Total 50 / 50 660 / 660 Output Total 1400 / 1400 Balance 50 / 50 -740 / -740 General: Alert, Oriented x3, Cooperative HEENT: Atraumatic, PERRLA, EOMI, Normocephalic Neck: Supple, No JVD, Negative Carotid Bruits Lungs: No rhonchi, No wheeze, No rales, Diminished - Air entry severely diminished on right posterior half of chest. Stony dullness on percussion., Short of Breath - On supine position Cardiovascular: Regular rate, Regular Rhythm, Normal S1, Normal S2, Murmur - Systolic murmur present over left lower sternal border. Abdomen: Bowel Sounds Present, Soft, Non Tender, Non-Distended Extremities: Capillary Refill Less than 3 Seconds, Edema Skin: No rashes, No breakdown Musculoskeletal: No Tenderness to Palpation of Joints or Extremities, Arthritic Changes, - - Bilateral knee surgeries and ankle surgery the scar present. Patient mobilizes on wheelchair. Neurological: Cranial nerves II-XII grossly intact, Deep Tendon Reflexes 2+/4 and Symmetrical Psych/Mental Status: Normal Affect, Appropriate Microbiology Past 72 Hours 05/19/19 21:31 Interface Orders Legionella Antigen - Final 05/19/19 21:31 Interface Orders Streptococcus pneumoniae Antigen (M - Final 05/19/19 20:20 Mucosa - Nasopharyngeal Respiratory Panel (PCR) - Final 05/19/19 20:20 Mucosa - Nasopharyngeal Influenza Types A,B Direct FA (DINA) - Final Laboratory Results 05/19/19 20:00: WBC 4.6, RBC 3.95 L, Hgb 12.8, Hct 40.6, MCV 102.8 H, MCH 32.4 H , MCHC 31.5 L, RDW Std Deviation 57.8 H, RDW Coeff of Henry 15.0 H, Plt Count 103 L, MPV 12.9 H, Immature Gran % (Auto) 0.200, Neut % (Auto) 50.0, Lymph % (Auto) 38.5, Norton % (Auto) 8.3, Eos % (Auto) 2.6, Baso % (Auto) 0.4, Absolute Neuts (au to) 2.3, Absolute Lymphs (auto) 1.76, Nucleated RBC % 0 05/19/19 20:00: Sodium 143, Potassium 4.2, Chloride 111 H, Carbon Dioxide 29.0, Anion Gap 3 L, BUN 24 H, Creatinine 1.37 H, Estim Creat Clear Calc 32.91, Est GFR (MDRD) Af Amer 49 L, Est GFR (MDRD) Non-Af 40 L, BUN/Creatinine Ratio 17.5, Glucose 159 H, Calcium 9.3, Troponin I < 0.015 05/19/19 20:00: Lactic Acid 1.2 05/19/19 20:00: Magnesium 1.8, Ferritin 38, Total Bilirubin 2.30 H, Direct Bilirubin 1.69 H, AST 69 H, ALT 26, Alkaline Phosphatase 238 H, Lactate Dehydrogenase 300 H, C-React Prot Ext Range 19.70 H, Total Protein 6.8, Albumin 2.7 L, Globulin 4.1 05/19/19 20:00: Procalcitonin 0.40 H 05/19/19 21:31: Urine Color Yellow, Urine Clarity Sl. Cloudy, Urine pH 7.0, Ur Specific Grant 1.010, Urine Protein Negative, Urine Glucose (UA) Normal, Urine Ketones Negative, Urine Occult Blood Negative, Urine Nitrite Negative, Urine Bilirubin Negative, Urine Urobilinogen 1 H, Ur Leukocyte Esterase Negative, Urine RBC 0 SEEN, Urine WBC 0-5 SEEN, Ur Squamous Epith Cells 0-5 SEEN, Other Crystals COMMENT, Urine Bacteria RARE, Urine Mucus 0 SEEN 05/20/19 04:55: POC Glucose 71 05/20/19 05:35: MRSA (PCR) Negative 05/20/19 06:18: WBC 3.9 L, RBC 3.53 L, Hgb 11.7 L, Hct 36.0 L, MCV 102.0 H, MCH 33.1 H, MCHC 32.5, RDW Std Deviation 56.2 H, RDW Coeff of Henry 15.0 H, Plt Count 75 L, MPV 13.4 H, Immature Gran % (Auto) 0.300, Neut % (Auto) 59.5, Lymph % (Auto) 26.4, Norton % (Auto) 10.9 H, Eos % (Auto) 2.6, Baso % (Auto) 0.3, Absolute Neuts (auto) 2.3, Absolute Lymphs (auto) 1.02, Nucleated RBC % 0 05/20/19 06:18: Sodium 143, Potassium 3.5, Chloride 110 H, Carbon Dioxide 26.0, Anion Gap 7, BUN 23 H, Creatinine 1.18 H, Estim Creat Clear Calc 38.21, Est GFR (MDRD) Af Amer 58 L, Est GFR (MDRD) Non-Af 48 L, BUN/Creatinine Ratio 19.5, Glucose 153 H, Calcium 8.9, Total Bilirubin 2.40 H, AST 54 H, ALT 22, Alkaline Phosphatase 202 H, Total Protein 5.8 L, Albumin 2.3 L, Globulin 3.5, Albumin/Globulin Ratio 0.7 L 05/20/19 06:18: Lactate Dehydrogenase 226, Total Protein 5.8 L, Globulin 3.5, Albumin/Globulin Ratio 0.7 L Current Medications Acetaminophen (Tylenol) 650 mg PO Q6H PRN PRN PRN Reason: Pain Score 1-10/Temp > 100.7 F Al Hydroxide/Mg Hydroxide (Mylanta Ii) 30 ml PO Q6H PRN PRN PRN Reason: Gastric Burning Albuterol Sulfate (Ventolin Aerosols) 2.5 mg INHALATION Q2H PRN PRN PRN Reason: Dyspnea, wheezing Albuterol/Ipratropium (Duoneb) 3 ml INHALATION Q4HWA.RT ON LICENSE OF [facility] Last Admin: 05/20/19 06:55 Dose: 3 ml Documented by: Alprazolam (Xanax) 0.25 mg PO TID PRN PRN PRN Reason: anxiety Atorvastatin Calcium (Lipitor) 40 mg PO QHS ON LICENSE OF [facility] Dextrose (D50w Syringe) 0 gm IV X1 PRN; Protocol PRN Reason: Hypoglycemia Enoxaparin Sodium (Lovenox) 30 mg SC DAILY ON LICENSE OF [facility] Furosemide (Lasix) 40 mg PO DAILY ON LICENSE OF [facility] Gabapentin (Neurontin) 300 mg PO DAILY@0800,1200 KAYCE Gabapentin (Neurontin) 900 mg PO QHS ON LICENSE OF [facility] Glucagon () 1 mg IM .X1 PRN PRN Reason: Hypoglycemia Guaifenesin (Robitussin) 20 ml PO Q4H PRN PRN PRN Reason: COUGH Hydralazine HCl (Apresoline Iv) 10 mg IV Q4H PRN PRN PRN Reason: SBP > 160 Vancomycin IV Pharmacy to Dose (1 ea/ Sodium Chloride) 500 mls @ 250 mls/hr IV X1 PRN; Protocol PRN Reason: Rx to Dose Piperacillin Sod/Tazobactam (Sod 3.375 gm/ Sodium Chloride) 50 mls @ 12.5 mls/hr IV Q8 ON LICENSE OF [facility] Last Admin: 05/20/19 05:27 Dose: 12.5 mls/hr Documented by: Sodium Chloride () 250 mls @ 15 mls/hr IV .[id number] PRN PRN Reason: Saline Flush Sodium Chloride () 250 mls @ 15 mls/hr IV .[id number] PRN PRN Reason: Additional IVPB Infusion Vancomycin HCl 750 mg/ Sodium (Chloride) 265 mls @ 250 mls/hr IV Q12H ON LICENSE OF [facility] Insulin Glargine (Lantus (Bk)) 75 units SC DAILY ON LICENSE OF [facility] Insulin Human Lispro (Humalog Kwikpen (Bkc)) 14 unit SC BIDCM KAYCE Insulin Human Lispro (Humalog Kwikpen (Bkc)) 0 unit SC ACHS KAYCE; Protocol Isosorbide Mononitrate (Imdur) 60 mg PO DAILY ON LICENSE OF [facility] Losartan Potassium (Cozaar) 100 mg PO DAILY ON LICENSE OF [facility] Magnesium Hydroxide (Milk Of Magnesia) 30 ml PO DAILY PRN PRN PRN Reason: Constipation Melatonin (Melatonin) 3 mg PO QHS PRN PRN PRN Reason: INSOMNIA Metoprolol Succinate (Toprol Xl (Beta Ngoc)) 100 mg PO DAILY ON LICENSE OF [facility] Morphine Sulfate () 2 mg IV Q3H PRN PRN PRN Reason: Pain Score 6-10/10 Nitroglycerin (Nitrostat) 0.4 mg SUBLINGUAL Q5M PRN PRN Reason: CARDIAC/CHEST PAIN Nystatin (Mycostatin) 1 applic TOPICAL BID ON LICENSE OF [facility] Ondansetron HCl (Zofran) 4 mg IV Q8H PRN PRN PRN Reason: NAUSEA/VOMITING Oxycodone HCl (Oxyir) 5 mg PO Q4H PRN PRN PRN Reason: Pain Score 4-5/10 Pantoprazole Sodium (Protonix) 40 mg PO DAILY ON LICENSE OF [facility] Prochlorperazine Edisylate (Compazine Iv) 5 mg IV Q4H PRN PRN PRN Reason: Breakthrough nausea/vomiting Psyllium Hydrophilic Mucilloid (Metamucil) 1 packet PO DAILY PRN PRN PRN Reason: Constipation Senna/Docusate Sodium (Senokot-S, Alicia-Colace) 2 tablet PO BID PRN PRN PRN Reason: Constipation Sodium Chloride () 10 - 40 ml IV UD PRN PRN Reason: SALINE FLUSH Last Admin: 05/20/19 05:24 Dose: 10 ml Documented by: Throat Lozenges (Cepacol Sore Throat Lozenge) 1 lozenge MUCOUS MEM Q2H PRN PRN PRN Reason: SORE THROAT Topiramate (Topamax) 50 mg PO QHS ON LICENSE OF [facility] Tramadol HCl (Ultram) 50 mg PO Q6 KAYCE Last Admin: 05/20/19 04:59 Dose: Not Given Documented by: STROKE Vital Signs/Narrative: Vital Signs Temp Pulse Resp BP Pulse Ox 05/20/19 06:56 73 20 H 94 05/20/19 05:27 97.9 F 72 16 111/54 L 95 Medical Necessity - Tobacco Use Smoking Status: Former smoker Tobacco Use: Non-smoker Assessment/Plan All Active Problems (Last Reviewed 05/11/19 @ 14:[address] Malik Bang, DO) Severe sepsis (Acute) Urinary tract infection (Acute) Acute encephalopathy (Acute) Pneumonia (Acute) H/O section (Resolved) History of carpal tunnel surgery (Resolved) Anemia (Resolved) Chest pain (Resolved) Chest pressure (Resolved) The patient is a 74 y/o F with multiple comorbidities as listed above including coronary artery status post two-vessel CABG and PCI with recent admission for severe sepsis secondary to UTI from 04/26 to 04/28 in ICU is being admitted for progressive worsening of shortness of breath for about 10 days. Chest x-ray independently reviewed and shows moderately large right-sided pleural effusion with underlying atelectasis and infiltrate with significant elevation of right hemidiaphragm. 1. Right lower HCAP with moderate to large pleural effusion and underlying atelectasis most probably parapneumonic effusion: Patient is admitted in PCU on vancomycin and Zosyn. Mild leukopenia 3.9 thousand with chronic thrombocytopenia, platelet count 75,000. Pneumonia work-up until now shows urinary antigens, respiratory panel are negative. Blood cultures are pending. MRSA nasal screen negative. UA is negative. Discussed with storeroom supervisor and we agreed for thoracocentesis. I talked to and he wants to be off for aspirin Plavix for at least 3 days therefore will not be until Thursday. BNP done is normal. 2. CAD and stage I diastolic dysfunction/chronic HFpEF: Status post PCI and CABG x2: Patient is on statin, metoprolol, losartan regimen. Aspirin Plavix held as mentioned above. BNP ordered. Started on the Lasix 40 mg IV twice daily with monitoring of intake/output/electrolyte and kidney function monitoring and titrate accordingly. Echo in October 2015 shows EF 65% with stage I diastolic function, left atrium moderately enlarged. Stress echo in November 2017 reported EF 65%, negative for ischemia by EKG and echocardiographic criteria. Patient further had cardiac cath in May 2018 which showed patent grafts. 3. Hypertension: On antihypertensive medication as mentioned above. PRN IV hydralazine 4. Hyperlipidemia: Continue home statin regimen. 5. Chronic Kidney Disease Stage III: Admission BUN/Cr 24/1.37, only mildly increased from baseline, baseline renal function 0.9-1.2. Follow-up kidney function and urine output. 6. Chronic Thrombocytopenia etiology unclear possible secondary to antiplatelet agent: Admission platelets 103, baseline appears 60s to 90s, stable. 7. History of CVA: On statin. Aspirin and Plavix held. 8. Diabetes mellitus type II: Hold oral hypoglycemic agent, continue home insulin regimen, ADA diet, accu checks with Humalog sliding scale insulin. 9. Obesity: Weight loss and lifestyle changes encouraged. 10. Rheumatoid arthritis: From review of current list not on regimen, encourage continued outpatient follow-up, will continue PRN tramadol regimen for pain associated. 11. Anxiety and depression: continue patient home Xanax regimen, would benefit from consideration of SSRI versus SNRI. 12. DVT prophylaxis: On Lovenox and SCDs. Discontinue if platelet count drops less than 50,000 or hemoglobin less than 8 g% 13. CODE status: DNR CC arrest with no intubation patient healthcare power of graphic production artist is her . Has living will. Total time of the visit including total time spent in counseling or coordination of care, (more than 50% of the total time, spent in obtaining medical information from nurses and other ancillary care providers), discussion with storage management consultant and radiologist, review of labs and imaging is 30 minutes Inpatient E&M: [id number] Init Hosp L3
[2019-05-20 08:11] LABS: Bedside Glucose 150 mg/dL (70-110)
[2019-05-20] MEDS: Insulin Lispro 100 UNIT/ML INSULN.PEN SC ×2 (08:33→12:09)
[2019-05-20] MEDS: Insulin Lispro 100 UNIT/ML INSULN.PEN 14 UNIT SC (08:34)
[2019-05-20] MEDS: Gabapentin 300 MG Capsule PO ×2 (08:35→12:11)
[2019-05-20 08:41] LABS: BNP,B-Type NATRIURETIC PEPTIDE 35.5 pg/mL (0-100)
--- NOTE | 2019-05-20 09:25 | CASEMGMT ---
RN CM Face to Face with patient for initial transition planning/care coordination assessment. RN CM introduced self and role at [facility]. Patient lying in bed, alert and oriented. Patient willing to participate in assessment and is able to answer all questions appropriately. Care providers, pharmacy, and demographics verified. Patient wishes to discharge home, denies need for home health at this time. Patient states she has no further needs or concerns at this time. CM to follow for discharge planning needs that may arise. PCP: Malik Bang Specialists: [facility]le surgeon in [place]; [facility] Preferred Pharmacy: [email or web address] Insurance: [employer] [facility] Prescription Benefit: yes Living Will/HPOA: yes, Matheus Brennan LNOK: , son Living Arrangements: Patient lives with in 1 story home, patient states she is independent at home. Transportation: self/ DME/HHC: Patient states that she has shower chair, walker, raised toilet, lift chair, and wheelchair at home. [facility]. Disposition Plan: Patient to discharge home with family support and follow-up plans in place. Susie SILVEIRA, RN, CM
[2019-05-20] MEDS: Losartan Potassium 50 MG Tablet PO (10:07)
[2019-05-20] MEDS: Metoprolol(XL)Succ 100 MG Tablet PO (10:13)
[2019-05-20] MEDS: Pantoprazole Sodium 40 MG Tablet PO (10:14)
[2019-05-20] MEDS: Isosorbide Mononitrate 60 MG Tablet PO (10:14)
[2019-05-20] MEDS: Nystatin Ointment 1 APPLIC TOPICAL (10:17)
[2019-05-20] MEDS: Enoxaparin 30 MG/0.3 ML Syringe SC (12:12)
[2019-05-20 12:21] LABS: Bedside Glucose 165 mg/dL (70-110)
--- NOTE | 2019-05-20 13:53 | CON.PCM_ITS ---
Reason for Consult Date of Consultation: 05/20/19 Reason for Consultation: Parapneumonic effusion History of Present Illness: The patient is a 74-year-old female, with a history as outlined below, who presented to the emergency department on May 18 with complaints of shortness of breath and cough. The patient was recently admitted to the hospital April 26 with severe sepsis secondary to UTI with pyelonephritis. The patient has a known history of coronary artery disease status post CABG. She is followed by Dr. Liu in the cardiology clinic. The patient was just recently treated with antimicrobials by her primary care provider over concerns for pneumonia. However, the patient failed to respond symptomatically to the aforementioned therapy. On presentation to the emergency department, the patient was noted to be afebrile and hemodynamically stable. She was maintaining appropriate oxygen saturations on room air. Laboratory evaluation revealed no evidence of a leukocytosis. Chemistry profile revealed an elevated creatinine of 1.37. Plain film chest x-ray revealed a right lower lobe airspace opacity and pleural effusion. The patient was placed on broad-spectrum antimicrobials and admitted to the progressive care unit for further management. Past Medical History Past Medical History (Chronic Problems): Chronic Problems (Last Reviewed 05/11/19 @ 14:[address] Malik Bang, DO) Compression fracture of L1 vertebra (Chronic) I had a discussion on compression fractures and the fact that it takes 12 weeks to heal. Basically especially with her problem with her left foot she really cannot go through physical therapy as she is having too much trouble getting in and out of the house. I told her nonsteroidals for the pain rest as much as possible but continue to be active in the upper body. I told her that kyphoplasty is a rarely done procedure and I did not think she would benefit enough to assume the risk of that procedure. Non-union of fracture (Chronic) Left foot. 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 (JUAN DANIELN @ [facility]) Dupuytren's contracture of left hand (Chronic) Rotator cuff arthropathy of right shoulder (Chronic) History of coronary artery stent placement (Chronic 11/20/16) PCI-HALEIGH-Mid RCA 2.25 x 38 mm Promus Synergy Atherosclerosis of coronary artery of [place] heart without angina pectoris (Chronic) PCI-HALEIGH-Mid RCA 2.25 x 38 mm Promus Synergy 11/20/16 CABG x 2 KRISHNAMURTHY-LAD, SVG-Om1 11/30/15 @ [facility], PTCA to mid RCA 05/13/2017 Hyperlipemia (Chronic) Hypertension (Chronic) Type 2 diabetes mellitus (Chronic) Rheumatic fever (Chronic) CVA (cerebral vascular accident) (Chronic ~2010) Ischemic: residual is just occasional speech problems H/O coronary artery bypass surgery (Chronic 11/30/15) CABG x 2 KRISHNAMURTHY-LAD, SVG-Om1 11/30/15 @ [facility] Medical History: Medical History (Last Reviewed 05/11/19 @ 14:[address] Malik Bang, DO) Chest pain (Inactive) R07.9 Atherosclerosis of coronary artery of [place] heart without angina pectoris (Chronic) I25.10 PCI-HALEIGH-Mid RCA 2.25 x 38 mm Promus Synergy 11/20/16 CABG x 2 KRISHNAMURTHY-LAD, SVG-Om1 11/30/15 @ [facility], PTCA to mid RCA 05/13/2017 Anemia (Resolved) D64.9 Hyperlipemia (Chronic) E78.5 Hypertension (Chronic) I10 Type 2 diabetes mellitus (Chronic) E11.9 Rheumatic fever (Chronic) I00 CVA (cerebral vascular accident) (Chronic) Onset Date: ~2010 I63.9 Ischemic: residual is just occasional speech problems Rheumatoid arthritis M06.9 Allergies oxycodone Allergy (Verified 05/11/19 13:39) Other UNABLE TO TAKE, MAKES EXCITED AND UNABLE TO SLEEP environemental Allergy (Uncoded 05/11/19 13:39) dry cough Home Medications: Ambulatory Orders Medication Instructions Recorded Aspirin E.C. [Ecotrin] 81 mg PO DAILY 08/31/17 tramadol 50 mg tablet 50 mg PO Q6H #90 tab 04/13/18 omeprazole 40 mg capsule,delayed 40 mg PO DAILY #90 cap 05/24/18 release nitroglycerin 0.4 mg sublingual 0.4 mg SUBLINGUAL Q5M PRN #25 tab 05/27/18 tablet topiramate 50 mg tablet 50 mg PO QHS #90 tab 11/20/18 atorvastatin 40 mg tablet 40 mg PO DAILY #90 tab 12/20/18 clopidogrel 75 mg tablet 75 mg PO DAILY #90 tab 12/20/18 isosorbide mononitrate 60 mg 60 mg PO DAILY #90 tab 12/20/18 tablet,extended release 24 hr metoprolol succinate 100 mg 100 mg PO DAILY #90 tab 12/20/18 tablet,extended release 24 hr nystatin 100,000 unit/gram topical 1 applic TOPICAL BID #30 g 01/01/19 cream insulin glargine 100 unit/mL 75 unit SUBCUT DAILY ml 01/26/19 subcutaneous solution Alprazolam [Xanax] 0.25 mg PO TID PRN PRN 04/27/19 Insulin Aspart [Novolog Flexpen] 14 units SUBCUT BIDCM 04/28/19 losartan 100 mg tablet 100 mg PO DAILY #90 tab 05/05/19 gabapentin 300 mg capsule 300 mg PO .COMPLEX #450 cap 05/06/19 furosemide 40 mg tablet 40 mg PO DAILY #30 tab 05/11/19 levofloxacin 750 mg tablet 750 mg PO DAILY #7 tab 05/19/19 Surgical History: Surgical History (Last Reviewed 05/11/19 @ 14:[address] Malik Bang, DO) History of left heart catheterization (Chronic) Onset Date: 06/04/18 Z98.890 Perserved Left Ventricular systolic function with normal EDP; Double vessel CAD of the LAD and OM Widely patent SVG to OM; Widely patent KRISHNAMURTHY to LAD; Widely patent RCA stent.; RECOMMENDATIONS Risk factor modification,Will medically manage chest wall pain. (DJN @ [facility]) H/O section (Resolved) Z98.891 History of carpal tunnel surgery (Resolved) Z92.89 bilateral History of coronary artery stent placement (Chronic) Onset Date: 11/20/16 Z95.5 PCI-HALEIGH-Mid RCA 2.25 x 38 mm Promus Synergy H/O coronary artery bypass surgery (Chronic) Onset Date: 11/30/15 CABG x 2 KRISHNAMURTHY-LAD, SVG-Om1 11/30/15 @ [facility] Status post left foot surgery Z98.890 07/2018 History of arthroscopy Z98.890 right knee History of heart artery stent Z95.5 11/2016 History of left knee replacement Z96.652 History of open reduction and internal fixation (ORIF) procedure Onset Date: ~08/2017 Z98.890 Insertion of nicolás into left lower leg after fracture History of partial hysterectomy Z90.711 History of right hip replacement Z96.641 History of tonsillectomy Z90.89 history of partial right knee replacement followed by a full replacement the following year history of total foot reconstruction Surgical History: arthroscopy, knee, coronary bypass surgery, total hip arthroplasty, - - Bilateral cataract surgery, tonsillectomy, hysterectomy, bladder suspension surgery, left elbow surgery, right foot complete reconstructive surgery, right total knee replacement x1, right partial knee replacement x1, right knee arthroscopic surgery, left knee total replacement, right total hip replacement, left ankle surgery x3. 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 Malik Bang DO) Grandmother Myocardial infarction CVA (cerebral vascular accident) Mother Myocardial infarction Father Diabetes Arthritis History Items: Diabetes, High Cholesterol, Heart Disease, Hypertension Paternal Family History: Family History (Last Reviewed 05/11/19 @ 14:[address] Malik Bang DO) Grandmother Myocardial infarction CVA (cerebral vascular accident) Mother Myocardial infarction Father Diabetes Arthritis History Items: Diabetes, High Cholesterol, Heart Disease, Hypertension Review of Systems Constitutional: Denies: Chills, Fever Eyes: Denies: Blurred vision, Double vision HEENT: Denies: Head Aches, Sinus Congestion, Sinus Drainage Cardiovascular: Denies: Chest Pain, Palpitations Respiratory: Reports: Cough, Shortness of Breath Gastrointestinal: Denies: Abdominal Pain, Nausea, Vomiting Genitourinary: Denies: Dysuria Musculoskeletal: Denies: Joint Pain, Joint Tenderness Skin: Denies: Rash, Wounds Neurological: Denies: Numbness, Tingling, Focal weakness Psychiatric: Denies: Anxiety, Depression, Homicidal Ideations, Suicidal Ideations Hematologic/ Lymphatic: Denies: Easy Bruising, Easy Bleeding Patient Problems: Active and Suspected Problems (Last Reviewed 05/11/19 @ 14:[address] Malik Bang DO) Pneumonia (Acute) Objective: The patient's most recent lab work, culture data and imaging studies have all been personally reviewed. Strep and urine Legionella antigens were negative. Respiratory viral panel was negative. - Physical Exam Vitals/I&O's: Vital Signs Temp Pulse Resp BP Pulse Ox 97.3 F L 78 18 127/64 H 97 05/20/19 10:00 05/20/19 10:13 05/20/19 10:00 05/20/19 10:00 05/20/19 10:00 Oxygen Delivery Method Room Air Weight: 229 lb 8.019 oz Body Mass Index (BMI) 38.2 Finger Stick Blood Glucose 61 Intake and Output for Last 24 Hours 05/18/19 05/19/19 05/20/19 23:59 23:59 23:59 Intake Total 50 / 50 975 / 975 Output Total 1400 / 1400 Balance 50 / 50 -425 / -425 General: Alert, Oriented x3, Cooperative, No apparent distress HEENT: Atraumatic, Normocephalic Oral: Moist Mucosa, No Gingival or Mucosal Lesions/ Ulcerations Neck: Supple, No Nodes, Trachea Midline Lungs: No rhonchi, No wheeze, No rales, Diminished Cardiovascular: Regular rate, Regular Rhythm, Normal S1, Normal S2, Murmur Abdomen: Bowel Sounds Present, Soft, Non Tender, Obese Extremities: No clubbing, No cyanosis Skin: No breakdown Musculoskeletal: No Tenderness to Palpation of Joints or Extremities Lymphatic: No Cervical, Supraclavicular, or Inguinal Adenopathy Neurological: Cranial nerves II-XII grossly intact, Neuro grossly intact Psych/Mental Status: Alert and oriented to time, place, person, mood and affect Labs (Last 48 Hours) 05/19/19 05/19/19 05/19/19 20:00 20:00 20:00 WBC 4.6 RBC 3.95 L Hgb 12.8 Hct 40.6 MCV 102.8 H MCH 32.4 H MCHC 31.5 L RDW Std Deviation 57.8 H RDW Coeff of Henry 15.0 H Plt Count 103 L MPV 12.9 H Immature Gran % (Auto) 0.200 Neut % (Auto) 50.0 Lymph % (Auto) 38.5 [place] % (Auto) 8.3 Eos % (Auto) 2.6 Baso % (Auto) 0.4 Absolute Neuts (auto) 2.3 Absolute Lymphs (auto) 1.76 Nucleated RBC % 0 Sodium 143 Potassium 4.2 Chloride 111 H Carbon Dioxide 29.0 Anion Gap 3 L BUN 24 H Creatinine 1.37 H Estim Creat Clear Calc 32.91 Est GFR (MDRD) Af Amer 49 L Est GFR (MDRD) Non-Af 40 L BUN/Creatinine Ratio 17.5 Glucose 159 H Lactic Acid 1.2 Calcium 9.3 Magnesium Ferritin Total Bilirubin Direct Bilirubin AST ALT Alkaline Phosphatase Lactate Dehydrogenase Troponin I < 0.015 C-React Prot Ext Range B-Natriuretic Peptide Total Protein Albumin Globulin Albumin/Globulin Ratio Procalcitonin Urine Color Urine Clarity Urine pH Ur Specific [place] Urine Protein Urine Glucose (UA) Urine Ketones Urine Occult Blood Urine Nitrite Urine Bilirubin Urine Urobilinogen Ur Leukocyte Esterase Urine RBC Urine WBC Ur Squamous Epith Cells Other Crystals Urine Bacteria Urine Mucus MRSA (PCR) POC Glucose 05/19/19 05/19/19 05/19/19 20:00 20:00 21:31 WBC RBC Hgb Hct MCV MCH MCHC RDW Std Deviation RDW Coeff of Henry Plt Count MPV Immature Gran % (Auto) Neut % (Auto) Lymph % (Auto) [place] % (Auto) Eos % (Auto) Baso % (Auto) Absolute Neuts (auto) Absolute Lymphs (auto) Nucleated RBC % Sodium Potassium Chloride Carbon Dioxide Anion Gap BUN Creatinine Estim Creat Clear Calc Est GFR (MDRD) Af Amer Est GFR (MDRD) Non-Af BUN/Creatinine Ratio Glucose Lactic Acid Calcium Magnesium 1.8 Ferritin 38 Total Bilirubin 2.30 H Direct Bilirubin 1.69 H AST 69 H ALT 26 Alkaline Phosphatase 238 H Lactate Dehydrogenase 300 H Troponin I C-React Prot Ext Range 19.70 H B-Natriuretic Peptide Total Protein 6.8 Albumin 2.7 L Globulin 4.1 Albumin/Globulin Ratio Procalcitonin 0.40 H Urine Color Yellow Urine Clarity Sl. Cloudy Urine pH 7.0 Ur Specific [place] 1.010 Urine Protein Negative Urine Glucose (UA) Normal Urine Ketones Negative Urine Occult Blood Negative Urine Nitrite Negative Urine Bilirubin Negative Urine Urobilinogen 1 H Ur Leukocyte Esterase Negative Urine RBC 0 SEEN Urine WBC 0-5 SEEN Ur Squamous Epith Cells 0-5 SEEN Other Crystals COMMENT Urine Bacteria RARE Urine Mucus 0 SEEN MRSA (PCR) POC Glucose 05/20/19 05/20/19 05/20/19 04:55 05:35 06:18 WBC 3.9 L RBC 3.53 L Hgb 11.7 L Hct 36.0 L MCV 102.0 H MCH 33.1 H MCHC 32.5 RDW Std Deviation 56.2 H RDW Coeff of Henry 15.0 H Plt Count 75 L MPV 13.4 H Immature Gran % (Auto) 0.300 Neut % (Auto) 59.5 Lymph % (Auto) 26.4 [place] % (Auto) 10.9 H Eos % (Auto) 2.6 Baso % (Auto) 0.3 Absolute Neuts (auto) 2.3 Absolute Lymphs (auto) 1.02 Nucleated RBC % 0 Sodium Potassium Chloride Carbon Dioxide Anion Gap BUN Creatinine Estim Creat Clear Calc Est GFR (MDRD) Af Amer Est GFR (MDRD) Non-Af BUN/Creatinine Ratio Glucose Lactic Acid Calcium Magnesium Ferritin Total Bilirubin Direct Bilirubin AST ALT Alkaline Phosphatase Lactate Dehydrogenase Troponin I C-React Prot Ext Range B-Natriuretic Peptide Total Protein Albumin Globulin Albumin/Globulin Ratio Procalcitonin Urine Color Urine Clarity Urine pH Ur Specific [place] Urine Protein Urine Glucose (UA) Urine Ketones Urine Occult Blood Urine Nitrite Urine Bilirubin Urine Urobilinogen Ur Leukocyte Esterase Urine RBC Urine WBC Ur Squamous Epith Cells Other Crystals Urine Bacteria Urine Mucus MRSA (PCR) Negative POC Glucose 71 05/20/19 05/20/19 05/20/19 06:18 06:18 06:18 WBC RBC Hgb Hct MCV MCH MCHC RDW Std Deviation RDW Coeff of Henry Plt Count MPV Immature Gran % (Auto) Neut % (Auto) Lymph % (Auto) [place] % (Auto) Eos % (Auto) Baso % (Auto) Absolute Neuts (auto) Absolute Lymphs (auto) Nucleated RBC % Sodium 143 Potassium 3.5 Chloride 110 H Carbon Dioxide 26.0 Anion Gap 7 BUN 23 H Creatinine 1.18 H Estim Creat Clear Calc 38.21 Est GFR (MDRD) Af Amer 58 L Est GFR (MDRD) Non-Af 48 L BUN/Creatinine Ratio 19.5 Glucose 153 H Lactic Acid Calcium 8.9 Magnesium Ferritin Total Bilirubin 2.40 H Direct Bilirubin AST 54 H ALT 22 Alkaline Phosphatase 202 H Lactate Dehydrogenase 226 Troponin I C-React Prot Ext Range B-Natriuretic Peptide 35.5 Total Protein 5.8 L 5.8 L Albumin 2.3 L Globulin 3.5 3.5 Albumin/Globulin Ratio 0.7 L 0.7 L Procalcitonin Urine Color Urine Clarity Urine pH Ur Specific [place] Urine Protein Urine Glucose (UA) Urine Ketones Urine Occult Blood Urine Nitrite Urine Bilirubin Urine Urobilinogen Ur Leukocyte Esterase Urine RBC Urine WBC Ur Squamous Epith Cells Other Crystals Urine Bacteria Urine Mucus MRSA (PCR) POC Glucose 05/20/19 05/20/19 07:57 12:05 WBC RBC Hgb Hct MCV MCH MCHC RDW Std Deviation RDW Coeff of Ehnry Plt Count MPV Immature Gran % (Auto) Neut % (Auto) Lymph % (Auto) [place] % (Auto) Eos % (Auto) Baso % (Auto) Absolute Neuts (auto) Absolute Lymphs (auto) Nucleated RBC % Sodium Potassium Chloride Carbon Dioxide Anion Gap BUN Creatinine Estim Creat Clear Calc Est GFR (MDRD) Af Amer Est GFR (MDRD) Non-Af BUN/Creatinine Ratio Glucose Lactic Acid Calcium Magnesium Ferritin Total Bilirubin Direct Bilirubin AST ALT Alkaline Phosphatase Lactate Dehydrogenase Troponin I C-React Prot Ext Range B-Natriuretic Peptide Total Protein Albumin Globulin Albumin/Globulin Ratio Procalcitonin Urine Color Urine Clarity Urine pH Ur Specific [place] Urine Protein Urine Glucose (UA) Urine Ketones Urine Occult Blood Urine Nitrite Urine Bilirubin Urine Urobilinogen Ur Leukocyte Esterase Urine RBC Urine WBC Ur Squamous Epith Cells Other Crystals Urine Bacteria Urine Mucus MRSA (PCR) POC Glucose 150 H 165 H Microbiology 05/19/19 21:31 Interface Orders Legionella Antigen - Final 05/19/19 21:31 Interface Orders Streptococcus pneumoniae Antigen (M - Final 05/19/19 20:20 Mucosa - Nasopharyngeal Respiratory Panel (PCR) - Final 05/19/19 20:20 Mucosa - Nasopharyngeal Influenza Types A,B Direct FA (DINA) - Final Clinical Impression(s) from Imaging Studies Chest X-Ray 05/20/19 05:00 IMPRESSION: Worsening right-sided infiltrate and effusion. Electronically Signed: Sudhir Grider MD at 8:25 EDT , Service support , Current Medications Acetaminophen (Tylenol) 650 mg PO Q6H PRN PRN PRN Reason: Pain Score 1-10/Temp > 100.7 F Albuterol Sulfate (Ventolin Aerosols) 2.5 mg INHALATION Q2H PRN PRN PRN Reason: Dyspnea, wheezing Alprazolam (Xanax) 0.25 mg PO TID PRN PRN PRN Reason: anxiety Atorvastatin Calcium (Lipitor) 40 mg PO QHS KAYCE Dextrose (D50w Syringe) 0 gm IV X1 PRN; Protocol PRN Reason: Hypoglycemia Enoxaparin Sodium (Lovenox) 30 mg SC DAILY [facility] Last Admin: 05/20/19 12:12 Dose: 30 mg Documented by: Furosemide (Lasix) 40 mg IV DAILY [facility] Last Admin: 05/20/19 10:07 Dose: 40 mg Documented by: Gabapentin (Neurontin) 300 mg PO DAILY@0800,1200 [facility] Last Admin: 05/20/19 12:11 Dose: 300 mg Documented by: Gabapentin (Neurontin) 900 mg PO QHS KAYCE Glucagon () 1 mg IM .X1 PRN PRN Reason: Hypoglycemia Guaifenesin (Robitussin) 20 ml PO Q4H PRN PRN PRN Reason: COUGH Hydralazine HCl (Apresoline Iv) 10 mg IV Q4H PRN PRN PRN Reason: SBP > 180 Vancomycin IV Pharmacy to Dose (1 ea/ Sodium Chloride) 500 mls @ 250 mls/hr IV X1 PRN; Protocol PRN Reason: Rx to Dose Piperacillin Sod/Tazobactam (Sod 3.375 gm/ Sodium Chloride) 50 mls @ 12.5 mls/hr IV Q8 [facility] Last Infusion: 05/20/19 09:30 Dose: Infused Documented by: Sodium Chloride () 250 mls @ 15 mls/hr IV .[id number] PRN PRN Reason: Saline Flush Sodium Chloride () 250 mls @ 15 mls/hr IV .[id number] PRN PRN Reason: Additional IVPB Infusion Vancomycin HCl 750 mg/ Sodium (Chloride) 265 mls @ 250 mls/hr IV Q12H [facility] Last Infusion: 05/20/19 11:15 Dose: Infused Documented by: Insulin Glargine (Lantus (Bkc)) 75 units SC DAILY [facility] Last Admin: 05/20/19 10:13 Dose: 75 u Documented by: Insulin Human Lispro (Humalog Kwikpen (Bk)) 14 unit SC BIDCM [facility] Last Admin: 05/20/19 08:34 Dose: 14 u Documented by: Insulin Human Lispro (Humalog Kwikpen (Bk)) 0 unit SC ACHS [facility]; Protocol Last Admin: 05/20/19 12:09 Dose: 1 u Documented by: Isosorbide Mononitrate (Imdur) 60 mg PO DAILY [facility] Last Admin: 05/20/19 10:14 Dose: 60 mg Documented by: Lactobacillus Acidophilus (Acidophilus) 1 tablet PO TID [facility] Losartan Potassium (Cozaar) 50 mg PO DAILY [facility] Last Admin: 05/20/19 10:07 Dose: 50 mg Documented by: Melatonin (Melatonin) 3 mg PO QHS PRN PRN PRN Reason: INSOMNIA Metoprolol Succinate (Toprol Xl (Beta Ngoc)) 100 mg PO DAILY [facility] Last Admin: 05/20/19 10:13 Dose: 100 mg Documented by: Morphine Sulfate () 2 mg IV Q3H PRN PRN PRN Reason: Pain Score 6-10/10 Nitroglycerin (Nitrostat) 0.4 mg SUBLINGUAL Q5M PRN PRN Reason: CARDIAC/CHEST PAIN Nystatin (Mycostatin) 1 applic TOPICAL BID [facility] Last Admin: 05/20/19 10:17 Dose: 1 applicatio Documented by: Ondansetron HCl (Zofran) 4 mg IV Q8H PRN PRN PRN Reason: NAUSEA/VOMITING Oxycodone HCl (Oxyir) 5 mg PO Q4H PRN PRN PRN Reason: Pain Score 4-5/10 Pantoprazole Sodium (Protonix) 40 mg PO DAILY [facility] Last Admin: 05/20/19 10:14 Dose: 40 mg Documented by: Prochlorperazine Edisylate (Compazine Iv) 5 mg IV Q4H PRN PRN PRN Reason: Breakthrough nausea/vomiting Psyllium Hydrophilic Mucilloid (Metamucil) 1 packet PO DAILY PRN PRN PRN Reason: Constipation Senna/Docusate Sodium (Senokot-S, Alicia-Colace) 2 tablet PO BID PRN PRN PRN Reason: Constipation Sodium Chloride () 10 - 40 ml IV UD PRN PRN Reason: SALINE FLUSH Last Admin: 05/20/19 05:24 Dose: 10 ml Documented by: Throat Lozenges (Cepacol Sore Throat Lozenge) 1 lozenge MUCOUS MEM Q2H PRN PRN PRN Reason: SORE THROAT Topiramate (Topamax) 50 mg PO QHS [facility] Tramadol HCl (Ultram) 50 mg PO Q6 [facility] Last Admin: 05/20/19 12:13 Dose: Not Given Documented by: Assessment/Plan All Active Problems (Last Reviewed 05/11/19 @ 14:[address] Malik Bang, DO) Severe sepsis (Acute) Urinary tract infection (Acute) Acute encephalopathy (Acute) Pneumonia (Acute) H/O section (Resolved) History of carpal tunnel surgery (Resolved) Anemia (Resolved) Chest pain (Resolved) Chest pressure (Resolved) RECOMMENDATIONS: 1. Continue empiric broad-spectrum antimicrobials, pending infectious work-up. 2. Agree with holding aspirin and Plavix in order to facilitate thoracentesis next week. 3. Please send pleural fluid for LDH, total protein, cell count and cultures. IMPRESSIONS: 1. Pleural effusion The patient has radiographic evidence of an underlying infiltrate at the right lung base along with an associated effusion, which could be parapneumonic in etiology. While the patient does have shortness of breath and cough, she does not currently have a supplemental oxygen requirement. She is stable otherwise clinically. I would plan to continue empiric broad-spectrum antimicrobials to cover for potential healthcare associated pneumonia. Unfortunately, the patient was on aspirin and Plavix both, which will need to be held in order to facilitate completing a thoracentesis next week. When completed, please send pleural fluid for cell count and cultures along with LDH and total protein levels. 2. History of coronary artery disease status post CABG/hypertension/hyperlipidemia/diabetes mellitus/obesity/rheumatoid arthritis Complicates care, management, recovery and prognosis. Continue home medications as indicated. This note was generated with [employer] dictation software. It may contain incorrect words, spelling, and punctuation that were not noted in checking the note before signing. Inpatient E&M: 34307 Init Hosp L3
--- NOTE | 2019-05-20 14:34 | CHAPLAIN ---
Type of Pastoral Visit _x__ Initial Visit ___ Follow-up Visit ___ On-call Visit ___ General Patient Visit ___ Spiritual Assessment ___ Family Conference ___ Bereavement ___ Rapid Response ___ Code Blue ___ Other (describe below) Pastoral Care Referral From _x__ Patient ___ Family ___ Nurse ___ Physician ___ Government Relations Analyst ___ Rn Supplemental ___ Other (describe below) Sacrament/Intervention _x__ Active listening ___ Anointing ___ Roman Catholic ___ Bereavement ___ Communion _x__ Taryn exploration ___ ___ Life review _x__ Prayer ___ Reconciliation ___ Sacrament of Sick _x__ Supportive presence ___ Wedding ___ Other (describe below) Pastoral Comments patient 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
[2019-05-20 16:05] LABS: Bedside Glucose 138 mg/dL (70-110)
[2019-05-20] MEDS: Gabapentin 300 MG Capsule 900 MG PO (21:34)
[2019-05-20] MEDS: Atorvastatin Calcium 40 MG Tablet PO (21:34)
[2019-05-20] MEDS: Topiramate 50 MG Tablet PO (21:41)
[2019-05-20 23:00] LABS: Bedside Glucose 188 mg/dL (70-110)
[2019-05-21] VITALS (9 sets, daily range): BP systolic 106–121; BP diastolic 45–56; PULSE 62–72; RESP 16–20; TEMP 36.6–36.9; O2SAT 93–97
--- NOTE | 2019-05-21 07:58 | PCM.PN.HOSP ---
Patient Problems: Active and Suspected Problems (Last Reviewed 05/11/19 @ 14:[address] Malik Bang, DO) Pneumonia (Acute) Reason for Visit: Shortness of breath, right moderate to large pleural effusion, possible parapneumonic effusion Subjective: Little improvement in shortness of breath. Patient can lay down without getting short of breath. 95% on room air. No tachycardia. Blood pressure systolic in 100s. Objective: General: Alert, Oriented x3, Cooperative HEENT: Atraumatic, PERRLA, EOMI, Normocephalic Neck: Supple, No JVD, Negative Carotid Bruits Lungs: No rhonchi, No wheeze, No rales, Air entry severely diminished on right posterior half of chest. Stony dullness on percussion. Some mild decrease in right pleural effusion Cardiovascular: Regular rate, Regular Rhythm, Normal S1, Normal S2, Murmur - Systolic murmur present over left lower sternal border. Abdomen: Bowel Sounds Present, Soft, Non Tender, Non-Distended Extremities: Capillary Refill Less than 3 Seconds, Edema Skin: No rashes, No breakdown Musculoskeletal: No Tenderness to Palpation of Joints or Extremities, Arthritic Changes, Bilateral knee surgeries and ankle surgery the scar present. on wheelchair. Neurological: Cranial nerves II-XII grossly intact, Deep Tendon Reflexes 2+/4 and Symmetrical Vitals/I&O's: Vital Signs Temp Pulse Resp BP Pulse Ox 97.9 F 69 18 120/51 L 95 05/21/19 05:44 05/21/19 05:44 05/21/19 05:44 05/21/19 05:44 05/21/19 05:44 Oxygen Delivery Method Room Air Weight: 229 lb 8.019 oz Body Mass Index (BMI) 38.2 Finger Stick Blood Glucose 61 Intake and Output for Last 24 Hours 05/19/19 05/20/19 05/21/19 23:59 23:59 23:59 Intake Total 50 / 50 2590 / 2890 650 / 650 Output Total 2500 / 2900 575 / 575 Balance 50 / 50 90 / -10 75 / 75 Microbiology Past 72 Hours 05/19/19 21:31 Interface Orders Legionella Antigen - Final 05/19/19 21:31 Interface Orders Streptococcus pneumoniae Antigen (M - Final 05/19/19 20:20 Mucosa - Nasopharyngeal Respiratory Panel (PCR) - Final 05/19/19 20:20 Mucosa - Nasopharyngeal Influenza Types A,B Direct FA ([facility]) - Final Laboratory Results 05/20/19 06:18: B-Natriuretic Peptide 35.5 05/20/19 07:57: POC Glucose 150 H 05/20/19 12:05: POC Glucose 165 H 05/20/19 15:51: POC Glucose 138 H 05/20/19 21:48: POC Glucose 188 H Current Medications Acetaminophen (Tylenol) 650 mg PO Q6H PRN PRN PRN Reason: Pain Score 1-10/Temp > 100.7 F Albuterol Sulfate (Ventolin Aerosols) 2.5 mg INHALATION Q2H PRN PRN PRN Reason: Dyspnea, wheezing Alprazolam (Xanax) 0.25 mg PO TID PRN PRN PRN Reason: anxiety Atorvastatin Calcium (Lipitor) 40 mg PO QHS [facility] Last Admin: 05/20/19 21:34 Dose: 40 mg Documented by: Dextrose (D50w Syringe) 0 gm IV X1 PRN; Protocol PRN Reason: Hypoglycemia Enoxaparin Sodium (Lovenox) 30 mg SC DAILY [facility] Last Admin: 05/20/19 12:12 Dose: 30 mg Documented by: Furosemide (Lasix) 40 mg IV DAILY [facility] Last Admin: 05/20/19 10:07 Dose: 40 mg Documented by: Gabapentin (Neurontin) 300 mg PO DAILY@0800,1200 [facility] Last Admin: 05/20/19 12:11 Dose: 300 mg Documented by: Gabapentin (Neurontin) 900 mg PO QHS [facility] Last Admin: 05/20/19 21:34 Dose: 900 mg Documented by: Glucagon () 1 mg IM .X1 PRN PRN Reason: Hypoglycemia Guaifenesin (Robitussin) 20 ml PO Q4H PRN PRN PRN Reason: COUGH Hydralazine HCl (Apresoline Iv) 10 mg IV Q4H PRN PRN PRN Reason: SBP > 180 Vancomycin IV Pharmacy to Dose (1 ea/ Sodium Chloride) 500 mls @ 250 mls/hr IV X1 PRN; Protocol PRN Reason: Rx to Dose Piperacillin Sod/Tazobactam (Sod 3.375 gm/ Sodium Chloride) 50 mls @ 12.5 mls/hr IV Q8 [facility] Last Admin: 05/21/19 05:27 Dose: 12.5 mls/hr Documented by: Sodium Chloride () 250 mls @ 15 mls/hr IV .[id number] PRN PRN Reason: Saline Flush Sodium Chloride () 250 mls @ 15 mls/hr IV .[id number] PRN PRN Reason: Additional IVPB Infusion Vancomycin HCl 750 mg/ Sodium (Chloride) 265 mls @ 250 mls/hr IV Q12H [facility] Last Infusion: 05/20/19 23:05 Dose: Infused Documented by: Insulin Glargine (Lantus (Bk)) 75 units SC DAILY [facility] Last Admin: 05/20/19 10:13 Dose: 75 u Documented by: Insulin Human Lispro (Humalog Kwikpen ([facility])) 14 unit SC BIDCM [facility] Last Admin: 05/20/19 17:29 Dose: Not Given Documented by: Insulin Human Lispro (Humalog Kwikpen ([facility])) 0 unit SC ACHS [facility]; Protocol Last Admin: 05/20/19 21:49 Dose: Not Given Documented by: Isosorbide Mononitrate (Imdur) 60 mg PO DAILY [facility] Last Admin: 05/20/19 10:14 Dose: 60 mg Documented by: Lactobacillus Acidophilus (Acidophilus) 1 tablet PO TID [facility] Last Admin: 05/21/19 05:27 Dose: 1 tablet Documented by: Losartan Potassium (Cozaar) 50 mg PO DAILY [facility] Last Admin: 05/20/19 10:07 Dose: 50 mg Documented by: Melatonin (Melatonin) 3 mg PO QHS PRN PRN PRN Reason: INSOMNIA Metoprolol Succinate (Toprol Xl (Beta Ngoc)) 100 mg PO DAILY [facility] Last Admin: 05/20/19 10:13 Dose: 100 mg Documented by: Morphine Sulfate () 2 mg IV Q3H PRN PRN PRN Reason: Pain Score 6-10/10 Nitroglycerin (Nitrostat) 0.4 mg SUBLINGUAL Q5M PRN PRN Reason: CARDIAC/CHEST PAIN Nystatin (Mycostatin) 1 applic TOPICAL BID [facility] Last Admin: 05/20/19 21:53 Dose: Not Given Documented by: Ondansetron HCl (Zofran) 4 mg IV Q8H PRN PRN PRN Reason: NAUSEA/VOMITING Oxycodone HCl (Oxyir) 5 mg PO Q4H PRN PRN PRN Reason: Pain Score 4-5/10 Pantoprazole Sodium (Protonix) 40 mg PO DAILY [facility] Last Admin: 05/20/19 10:14 Dose: 40 mg Documented by: Prochlorperazine Edisylate (Compazine Iv) 5 mg IV Q4H PRN PRN PRN Reason: Breakthrough nausea/vomiting Psyllium Hydrophilic Mucilloid (Metamucil) 1 packet PO DAILY PRN PRN PRN Reason: Constipation Senna/Docusate Sodium (Senokot-S, Alicia-Colace) 2 tablet PO BID PRN PRN PRN Reason: Constipation Sodium Chloride () 10 - 40 ml IV UD PRN PRN Reason: SALINE FLUSH Last Admin: 05/20/19 05:24 Dose: 10 ml Documented by: Throat Lozenges (Cepacol Sore Throat Lozenge) 1 lozenge MUCOUS MEM Q2H PRN PRN PRN Reason: SORE THROAT Topiramate (Topamax) 50 mg PO QHS [facility] Last Admin: 05/20/19 21:41 Dose: 50 mg Documented by: Tramadol HCl (Ultram) 50 mg PO Q6 [facility] Last Admin: 05/21/19 05:14 Dose: Not Given Documented by: STROKE Vital Signs/Narrative: Vital Signs Temp Pulse Resp BP Pulse Ox 05/21/19 05:44 97.9 F 69 18 120/51 L 95 05/21/19 05:40 18 Medical Necessity - Tobacco Use Smoking Status: Former smoker Tobacco Use: Non-smoker Assessment/Plan All Active Problems (Last Reviewed 05/11/19 @ 14:[address] Malik Bang, DO) Severe sepsis (Acute) Urinary tract infection (Acute) Acute encephalopathy (Acute) Pneumonia (Acute) H/O section (Resolved) History of carpal tunnel surgery (Resolved) Anemia (Resolved) Chest pain (Resolved) Chest pressure (Resolved) The patient is a 74 y/o F with multiple comorbidities as listed above including coronary artery status post two-vessel CABG and PCI with recent admission for severe sepsis secondary to UTI from 04/26 to 04/28 in ICU is being admitted for progressive worsening of shortness of breath for about 10 days. Chest x-ray independently reviewed and shows moderately large right-sided pleural effusion with underlying atelectasis and infiltrate with significant elevation of right hemidiaphragm. 1. Right lower HCAP with moderate to large pleural effusion and underlying atelectasis most probably parapneumonic effusion: Patient is admitted in PCU on vancomycin and Zosyn. Mild leukopenia 3.9 thousand with chronic thrombocytopenia, platelet count 75,000. Pneumonia work-up until now shows urinary antigens, respiratory panel are negative. Blood cultures are pending. MRSA nasal screen negative. UA is negative. Discussed with raspberry checker and we agreed for thoracocentesis. I talked to and he wants to be off for aspirin Plavix for at least 3 days therefore will not be until Thursday. BNP done is normal. 05/20: Maintain diuresis Lasix 40 mg daily. Supplemental potassium ordered. Blood pressure is currently systolic in 100s therefore adjust the timing of Lasix and is spread out antihypertensive medications including losartan and Toprol. Patient is on Imdur, losartan and Toprol-XL 2. CAD and stage I diastolic dysfunction/chronic HFpEF: Status post PCI and CABG x2: Patient is on statin, metoprolol, losartan regimen. Aspirin Plavix held as mentioned above. Echo in October 2015 shows EF 65% with stage I diastolic function, left atrium moderately enlarged. Stress echo in November 2017 reported EF 65%, negative for ischemia by EKG and echocardiographic criteria. Patient further had cardiac cath in May 2018 which showed patent grafts. 3. Hypertension: On antihypertensive medication as mentioned above. PRN IV hydralazine 4. Hyperlipidemia: Continue home statin regimen. 5. Chronic Kidney Disease Stage III: Admission BUN/Cr 24/1.37, only mildly increased from baseline, baseline renal function 0.9-1.2. Follow-up kidney function and urine output. 6. Chronic Thrombocytopenia etiology unclear possible secondary to antiplatelet agent: Admission platelets 103, baseline appears 60s to 90s, stable. 7. History of CVA: On statin. Aspirin and Plavix held. 8. Diabetes mellitus type II: Hold oral hypoglycemic agent, continue home insulin regimen, ADA diet, accu checks with Humalog sliding scale insulin. 9. Obesity: Weight loss and lifestyle changes encouraged. 10. Rheumatoid arthritis: From review of current list not on regimen, encourage continued outpatient follow-up, will continue PRN tramadol regimen for pain associated. 11. Anxiety and depression: continue patient home Xanax regimen, would benefit from consideration of SSRI versus SNRI. 12. DVT prophylaxis: On Lovenox and SCDs. Discontinue if platelet count drops less than 50,000 or hemoglobin less than 8 g% 13. CODE status: DNR CC arrest with no intubation patient healthcare power of assistant city attorney is her . Has living will. Total time of the visit including total time spent in counseling or coordination of care, (more than 50% of the total time, spent in obtaining medical information from nurses and other ancillary care providers), discussion with as400 consultant and radiologist, review of labs and imaging is 30 minutes Inpatient E&M: [id number] Subs Hosp L2
[2019-05-21 08:21] LABS: Bedside Glucose 66 mg/dL (70-110)
[2019-05-21 09:11] LABS: Bedside Glucose 97 mg/dL (70-110)
[2019-05-21 10:10] LABS: Vancomycin, Trough Level 20.9 ug/mL (5.0-15.0)
[2019-05-21] MEDS: Enoxaparin 30 MG/0.3 ML Syringe SC (10:20)
[2019-05-21] MEDS: Pantoprazole Sodium 40 MG Tablet PO (10:20)
[2019-05-21] MEDS: Nystatin Ointment 1 APPLIC TOPICAL ×2 (10:20→22:18)
[2019-05-21 10:59] LABS: Anion Gap 7 (5-15); BUN 25 mg/dL (7-18); BUN/Creat Ratio 17.6 RATIO (10-20); Calcium,Total 8.8 mg/dL (8.5-10.1); Chloride 112 mmol/L (98-107); Creatinine, Serum 1.42 mg/dL (0.55-1.02); EST Glomerular Filtration Rate 39 mL/min (>60); Est Glom Filt Rate - Afr Amer 47 mL/min (>60); Estimated Creatinine Clearance 31.75 ml/min; Glucose 100 mg/dL (74-106); Magnesium 1.7 mg/dL (1.6-2.6); Potassium 3.5 mmol/L (3.5-5.1); Sodium Level 145 mmol/L (136-145)
--- NOTE | 2019-05-21 11:54 | PCM.RX.CS ---
Consult Pharmacy has been consulted to manage selected antiobiotic: Vancomycin Type of Consult: Follow-up Suspected Infection: Pneumonia Prior Doses of Antibiotics Received/Current Regimen: Vancomycin 750mg q12h Labs: Sodium 145 mmol/L (136-145) 05/21/19 09:14 Potassium 3.5 mmol/L (3.5-5.1) 05/21/19 09:14 Chloride 112 mmol/L (98-107) H 05/21/19 09:14 Carbon Dioxide 26.0 mmol/L (21.0-32.0) 05/21/19 09:14 Anion Gap 7 (5-15) 05/21/19 09:14 BUN 25 mg/dL (7-18) H 05/21/19 09:14 Creatinine 1.42 mg/dL (0.55-1.02) H 05/21/19 09:14 Est GFR (MDRD) Af Amer 47 mL/min (>60) L 05/21/19 09:14 Est GFR (MDRD) Non-Af 39 mL/min (>60) L 05/21/19 09:14 BUN/Creatinine Ratio 17.6 RATIO (10-20) 05/21/19 09:14 Glucose 100 mg/dL (74-106) 05/21/19 09:14 Vancomycin Trough 20.9 ug/mL (5.0-15.0) H 05/21/19 09:14 Microbiology: Microbiology 05/19/19 21:31 Interface Orders Legionella Antigen - Final 05/19/19 21:31 Interface Orders Streptococcus pneumoniae Antigen (M - Final 05/19/19 20:20 Mucosa - Nasopharyngeal Respiratory Panel (PCR) - Final 05/19/19 20:20 Mucosa - Nasopharyngeal Influenza Types A,B Direct FA ([facility]) - Final Weight used for dosin kg Goal Trough: 15-20 mcg/mL Pharmacy Plan for Drug Dosing: Pt has received a dose of Vancomycin 1500mg IV x1 on 05/18 in the ER, and 3 doses of Vancomycin 750mg IV q12h. Trough resulted at 20.9. SrCr increased to 1.42. Recommend holding 2200 dose of Vancomycin to allow pt to clear. Will change dose to 1250mg IV q24h starting 05/21 at 1000 and draw another level 05/22 at 0930. Pharmacy Service will continue to monitor and adjust dosing as required. Follow-Up Labs: Trough Vancomycin - 05/23/19 at 0930
[2019-05-21 12:01] LABS: Bedside Glucose 148 mg/dL (70-110)
[2019-05-21] MEDS: Metoprolol(XL)Succ 50 MG Tablet PO (12:38)
[2019-05-21] MEDS: Gabapentin 300 MG Capsule PO (12:38)
[2019-05-21 16:35] LABS: Bedside Glucose 212 mg/dL (70-110)
[2019-05-21] MEDS: Insulin Lispro 100 UNIT/ML INSULN.PEN SC (17:25)
[2019-05-21] MEDS: Insulin Lispro 100 UNIT/ML INSULN.PEN 14 UNIT SC (17:25)
[2019-05-21] MEDS: Atorvastatin Calcium 40 MG Tablet PO (22:16)
[2019-05-21] MEDS: Gabapentin 300 MG Capsule 900 MG PO (22:16)
[2019-05-21] MEDS: Topiramate 50 MG Tablet PO (22:18)
[2019-05-21 22:56] LABS: Bedside Glucose 180 mg/dL (70-110)
[2019-05-22] VITALS (7 sets, daily range): BP systolic 112–129; BP diastolic 53–84; PULSE 61–72; RESP 16–18; TEMP 36.4–36.9; O2SAT 93–96
[2019-05-22 02:36] LABS: Bedside Glucose 203 mg/dL (70-110)
[2019-05-22 06:52] LABS: Absolute Lymphocyte Count 1.46 X10^3/uL (0.83-4.51); Absolute Neutrophil Count 1.7 X10^3/uL (2.0-7.7); Basophil# 0.01 X10^3/uL; Basophil% 0.3 % (0-1); Eosinophil# 0.12 X10^3/uL; Eosinophils% 3.3 % (0-5); Hematocrit 34.8 % (37-47); Hemoglobin 11.1 g/dL (12.0-15.0); Lymphocyte # 1.46 X10^3/ul (4.0); Lymphocyte % 39.9 % (19-41); Mean Corp Hgb Conc 31.9 g/dL (32-36); Mean Corpuscular Hgb 32.1 pg (27.0-32.0); Mean Corpuscular Volume 100.6 fL (81-99); Mean Platelet Vol. 12.7 fl (6.2-12.0); Monocyte# 0.35 X10^3/uL; Monocyte% 9.6 % (0-10); NRBC Flagged by Analyzer 0 % (0-5); Neutrophil # 1.71 X10^3/uL (2.7-7.7); Neutrophil % 46.6 % (47-70); POSITIVE COUNT YES; Platelet Count 67 K/mm3 (150-450); RBC Distribution Width CV 14.8 % (11.6-14.6); RBC Distribution Width SD 54.4 fl (35.1-43.9); Red Blood Count 3.46 M/mm3 (4.2-5.4); White Blood Count 3.7 K/mm3 (4.4-11.0)
[2019-05-22 07:08] LABS: Anion Gap 6 (5-15); BUN 16 mg/dL (7-18); BUN/Creat Ratio 14.8 RATIO (10-20); Calcium,Total 8.8 mg/dL (8.5-10.1); Chloride 111 mmol/L (98-107); Creatinine, Serum 1.08 mg/dL (0.55-1.02); EST Glomerular Filtration Rate 53 mL/min (>60); Est Glom Filt Rate - Afr Amer 64 mL/min (>60); Estimated Creatinine Clearance 41.75 ml/min; Glucose 193 mg/dL (74-106); Potassium 3.6 mmol/L (3.5-5.1); Sodium Level 140 mmol/L (136-145)
[2019-05-22 07:50] LABS: Bedside Glucose 167 mg/dL (70-110)
[2019-05-22] MEDS: Gabapentin 300 MG Capsule PO ×2 (08:25→12:02)
[2019-05-22] MEDS: Insulin Lispro 100 UNIT/ML INSULN.PEN 14 UNIT SC ×2 (08:26→16:43)
[2019-05-22] MEDS: Insulin Lispro 100 UNIT/ML INSULN.PEN SC ×3 (08:26→16:44)
[2019-05-22] MEDS: Nystatin Ointment 1 APPLIC TOPICAL ×2 (09:59→21:51)
[2019-05-22] MEDS: Pantoprazole Sodium 40 MG Tablet PO (09:59)
[2019-05-22] MEDS: Metoprolol(XL)Succ 100 MG Tablet PO (09:59)
[2019-05-22] MEDS: Enoxaparin 30 MG/0.3 ML Syringe SC (10:00)
[2019-05-22] MEDS: Furosemide 40 MG/4 ML Vial IV (10:01)
[2019-05-22] MEDS: 0.9% Saline Lock 10 ML Syringe IV (10:04)
[2019-05-22] MEDS: Isosorbide Mononitrate 30 MG Tablet PO (10:04)
--- NOTE | 2019-05-22 10:58 | PN_ITS ---
Patient Problems: Active and Suspected Problems (Last Reviewed 05/11/19 @ 14:[address] Malik Bang, DO) Pneumonia (Acute) Reason for Visit: Right sided pneumonia with possible parapneumonic effusion Objective: Patient did not had fever or chills. Blood pressure 120s/53, pulse ox 93% on room air. Vitals/I&O's: Vital Signs Temp Pulse Resp BP Pulse Ox 98.3 F 61 18 128/53 H 94 05/22/19 08:30 05/22/19 09:59 05/22/19 08:30 05/22/19 09:56 05/22/19 08:30 Oxygen Delivery Method Room Air Weight: 229 lb 8.019 oz Body Mass Index (BMI) 38.2 Finger Stick Blood Glucose 61 Intake and Output for Last 24 Hours 05/20/19 05/21/19 05/22/19 23:59 23:59 23:59 Intake Total 2590 / 2890 2339 / 2339 340 / 340 Output Total 2500 / 2900 1974 / 1974 1000 / 1000 Balance 90 / -10 364 / 364 -660 / -660 General: Alert, Oriented x3, Cooperative HEENT: Atraumatic, PERRLA, EOMI, Normocephalic Neck: Supple, No JVD, Negative Carotid Bruits Lungs: No rhonchi, No wheeze, Diminished - Air entry diminished in the posterior half of right lung Cardiovascular: Regular rate, Regular Rhythm, Normal S1, Normal S2, Murmur Abdomen: Bowel Sounds Present, Soft, Non Tender, Non-Distended Extremities: Capillary Refill Less than 3 Seconds, Edema Skin: No rashes, No breakdown Musculoskeletal: Arthritic Changes, - - Bilateral ankle and knee surgeries Neurological: Cranial nerves II-XII grossly intact, Neuro grossly intact Psych/Mental Status: Normal Affect, Appropriate Microbiology Past 72 Hours 05/19/19 20:45 Blood Culture (Wb) - Right Wrist Blood Culture - Preliminary No growth in 48 hours. 05/19/19 20:00 Blood Culture (Wb) - Anticubital Right Blood Culture - Preliminary No growth in 48 hours. 05/19/19 21:31 Interface Orders Legionella Antigen - Final 05/19/19 21:31 Interface Orders Streptococcus pneumoniae Antigen (M - Final 05/19/19 20:20 Mucosa - Nasopharyngeal Respiratory Panel (PCR) - Final 05/19/19 20:20 Mucosa - Nasopharyngeal Influenza Types A,B Direct FA ([facility]) - Final Laboratory Results 05/21/19 09:14: Sodium 145, Potassium 3.5, Chloride 112 H, Carbon Dioxide 26.0, Anion Gap 7, BUN 25 H, Creatinine 1.42 H, Estim Creat Clear Calc 31.75, Est GFR (MDRD) Af Amer 47 L, Est GFR (MDRD) Non-Af 39 L, BUN/Creatinine Ratio 17.6, Glucose 100, Calcium 8.8, Magnesium 1.7 05/21/19 11:43: POC Glucose 148 H 05/21/19 16:32: POC Glucose 212 H 05/21/19 22:11: POC Glucose 180 H 05/22/19 02:29: POC Glucose 203 H 05/22/19 06:36: WBC 3.7 L, RBC 3.46 L, Hgb 11.1 L, Hct 34.8 L, MCV 100.6 H, MCH 32.1 H, MCHC 31.9 L, RDW Std Deviation 54.4 H, RDW Coeff of Henry 14.8 H, Plt Count 67 L, MPV 12.7 H, Immature Gran % (Auto) 0.300, Neut % (Auto) 46.6 L, Lymph % (Auto) 39.9, [place] % (Auto) 9.6, Eos % (Auto) 3.3, Baso % (Auto) 0.3, Absolute Neuts (auto) 1.7 L, Absolute Lymphs (auto) 1.46, Nucleated RBC % 0 05/22/19 06:36: Sodium 140, Potassium 3.6, Chloride 111 H, Carbon Dioxide 23.0, Anion Gap 6, BUN 16, Creatinine 1.08 H, Estim Creat Clear Calc 41.75, Est GFR (MDRD) Af Amer 64, Est GFR (MDRD) Non-Af 53 L, BUN/Creatinine Ratio 14.8, Glucose 193 H, Calcium 8.8 05/22/19 07:42: POC Glucose 167 H Current Medications Acetaminophen (Tylenol) 650 mg PO Q6H PRN PRN PRN Reason: Pain Score 1-10/Temp > 100.7 F Albuterol Sulfate (Ventolin Aerosols) 2.5 mg INHALATION Q2H PRN PRN PRN Reason: Dyspnea, wheezing Alprazolam (Xanax) 0.25 mg PO TID PRN PRN PRN Reason: anxiety Atorvastatin Calcium (Lipitor) 40 mg PO QHS [facility] Last Admin: 05/21/19 22:16 Dose: 40 mg Documented by: Dextrose (D50w Syringe) 0 gm IV X1 PRN; Protocol PRN Reason: Hypoglycemia Enoxaparin Sodium (Lovenox) 30 mg SC DAILY [facility] Last Admin: 05/22/19 10:00 Dose: 30 mg Documented by: Furosemide (Lasix) 40 mg IV DAILY [facility] Last Admin: 05/22/19 10:01 Dose: 40 mg Documented by: Gabapentin (Neurontin) 300 mg PO DAILY@0800,1200 [facility] Last Admin: 05/22/19 08:25 Dose: 300 mg Documented by: Gabapentin (Neurontin) 900 mg PO QHS [facility] Last Admin: 05/21/19 22:16 Dose: 900 mg Documented by: Glucagon () 1 mg IM .X1 PRN PRN Reason: Hypoglycemia Guaifenesin (Robitussin) 20 ml PO Q4H PRN PRN PRN Reason: COUGH Hydralazine HCl (Apresoline Iv) 10 mg IV Q4H PRN PRN PRN Reason: SBP > 180 Vancomycin IV Pharmacy to Dose (1 ea/ Sodium Chloride) 500 mls @ 250 mls/hr IV X1 PRN; Protocol PRN Reason: Rx to Dose Piperacillin Sod/Tazobactam (Sod 3.375 gm/ Sodium Chloride) 50 mls @ 12.5 mls/hr IV Q8 [facility] Last Infusion: 05/22/19 09:10 Dose: Infused Documented by: Sodium Chloride () 250 mls @ 15 mls/hr IV .[id number] PRN PRN Reason: Saline Flush Sodium Chloride () 250 mls @ 15 mls/hr IV .[id number] PRN PRN Reason: Additional IVPB Infusion Vancomycin HCl 1,250 mg/ (Sodium Chloride) 275 mls @ 167 mls/hr IV Q24H [facility] Last Admin: 05/22/19 10:04 Dose: 167 mls/hr Documented by: Insulin Glargine (Lantus (Bkc)) 75 units SC DAILY [facility] Last Admin: 05/22/19 10:01 Dose: 75 u Documented by: Insulin Human Lispro (Humalog Kwikpen ([facility])) 14 unit SC BIDCM [facility] Last Admin: 05/22/19 08:26 Dose: 14 u Documented by: Insulin Human Lispro (Humalog Kwikpen ([facility])) 0 unit SC ACHS [facility]; Protocol Last Admin: 05/22/19 08:26 Dose: 1 u Documented by: Isosorbide Mononitrate (Imdur) 30 mg PO DAILY [facility] Last Admin: 05/22/19 10:04 Dose: 30 mg Documented by: Lactobacillus Acidophilus (Acidophilus) 1 tablet PO TID [facility] Last Admin: 05/22/19 05:10 Dose: 1 tablet Documented by: Losartan Potassium (Cozaar) 50 mg PO DAILY [facility] Last Admin: 05/22/19 08:33 Dose: Not Given Documented by: Melatonin (Melatonin) 3 mg PO QHS PRN PRN PRN Reason: INSOMNIA Metoprolol Succinate (Toprol Xl (Beta Ngoc)) 100 mg PO DAILY [facility] Last Admin: 05/22/19 09:59 Dose: 100 mg Documented by: Morphine Sulfate () 2 mg IV Q3H PRN PRN PRN Reason: Pain Score 6-10/10 Nitroglycerin (Nitrostat) 0.4 mg SUBLINGUAL Q5M PRN PRN Reason: CARDIAC/CHEST PAIN Nystatin (Mycostatin) 1 applic TOPICAL BID [facility] Last Admin: 05/22/19 09:59 Dose: 1 applicatio Documented by: Ondansetron HCl (Zofran) 4 mg IV Q8H PRN PRN PRN Reason: NAUSEA/VOMITING Oxycodone HCl (Oxyir) 5 mg PO Q4H PRN PRN PRN Reason: Pain Score 4-5/10 Pantoprazole Sodium (Protonix) 40 mg PO DAILY [facility] Last Admin: 05/22/19 09:59 Dose: 40 mg Documented by: Potassium [facility] (K[facility]Dur[facility] Admin: 05/22/19 08:25 Dose: 40 meq Documented by: Prochlorperazine Edisylate (Compazine Iv) 5 mg IV Q4H PRN PRN PRN Reason: Breakthrough nausea/vomiting Psyllium Hydrophilic Mucilloid (Metamucil) 1 packet PO DAILY PRN PRN PRN Reason: Constipation Senna/Docusate Sodium (Senokot-S, Alicia-Colace) 2 tablet PO BID PRN PRN PRN Reason: Constipation Sodium Chloride () 10 - 40 ml IV UD PRN PRN Reason: SALINE FLUSH Last Admin: 05/22/19 10:04 Dose: 10 ml Documented by: Throat Lozenges (Cepacol Sore Throat Lozenge) 1 lozenge MUCOUS MEM Q2H PRN PRN PRN Reason: SORE THROAT Topiramate (Topamax) 50 mg PO QHS [facility] Last Admin: 05/21/19 22:18 Dose: 50 mg Documented by: Tramadol HCl (Ultram) 50 mg PO Q6 [facility] Last Admin: 05/22/19 05:11 Dose: Not Given Documented by: STROKE Vital Signs/Narrative: Vital Signs Temp Pulse Resp BP BP Pulse Ox 05/22/19 09:59 61 05/22/19 09:56 61 128/53 H 05/22/19 08:30 98.3 F 63 18 120/56 L 94 Medical Necessity - Tobacco Use Smoking Status: Former smoker Tobacco Use: Non-smoker Assessment/Plan All Active Problems (Last Reviewed 05/11/19 @ 14:[address] Malik Bang, DO) Severe sepsis (Acute) Urinary tract infection (Acute) Acute encephalopathy (Acute) Pneumonia (Acute) H/O section (Resolved) History of carpal tunnel surgery (Resolved) Anemia (Resolved) Chest pain (Resolved) Chest pressure (Resolved) The patient is a 74 y/o F with multiple comorbidities as listed above including coronary artery status post two-vessel CABG and PCI with recent admission for severe sepsis secondary to UTI from 04/26 to 04/28 in ICU is being admitted for progressive worsening of shortness of breath for about 10 days. Chest x-ray independently reviewed and shows moderately large right-sided pleural effusion with underlying atelectasis and infiltrate with significant elevation of right hemidiaphragm. 1. Right lower HCAP with moderate to large pleural effusion and underlying atelectasis most probably parapneumonic effusion: Patient is admitted in PCU on vancomycin and Zosyn. Mild leukopenia 3.9 thousand with chronic thrombocytopenia, platelet count 75,000. Pneumonia work-up until now shows urinary antigens, respiratory panel are negative. Blood cultures are pending. MRSA nasal screen negative. UA is negative. Discussed with consulting sme and we agreed for thoracocentesis. I talked to and he wants to be off for aspirin Plavix for at least 3 days therefore will not be until Thursday. BNP done is normal. 05/20: Maintain diuresis Lasix 40 mg daily. Supplemental potassium ordered. Blood pressure is currently systolic in 100s therefore adjust the timing of Lasix and is spread out antihypertensive medications including losartan and Toprol. Patient is on Imdur, losartan and Toprol-XL 05/21: Patient respiratory status is improved. It seems the level of right pleural effusion has mild decreased on diuretics. Blood cultures are negative for more than 48 hours. 2. CAD and stage I diastolic dysfunction/chronic HFpEF: Status post PCI and CABG x2: Patient is on statin, metoprolol, losartan regimen. Aspirin Plavix held as mentioned above. Echo in October 2015 shows EF 65% with stage I diastolic function, left atrium moderately enlarged. Stress echo in November 2017 reported EF 65%, negative for ischemia by EKG and echocardiographic criteria. Patient further had cardiac cath in May 2018 which showed patent grafts. 3. Hypertension: On antihypertensive medication as mentioned above. PRN IV hydralazine 4. Hyperlipidemia: Continue home statin regimen. 5. Chronic Kidney Disease Stage III: Admission BUN/Cr 24/1.37, only mildly increased from baseline, baseline renal function 0.9-1.2. Follow-up kidney function and urine output. 6. Chronic Thrombocytopenia etiology unclear possible secondary to antiplatelet agent: Admission platelets 103, baseline appears 60s to 90s, stable. 7. History of CVA: On statin. Aspirin and Plavix held. 8. Diabetes mellitus type II: Hold oral hypoglycemic agent, continue home insulin regimen, ADA diet, accu checks with Humalog sliding scale insulin. 9. Obesity: Weight loss and lifestyle changes encouraged. 10. Rheumatoid arthritis: From review of current list not on regimen, encourage continued outpatient follow-up, will continue PRN tramadol regimen for pain associated. 11. Anxiety and depression: continue patient home Xanax regimen, would benefit from consideration of SSRI versus SNRI. 12. DVT prophylaxis: On Lovenox and SCDs. Discontinue if platelet count drops less than 50,000 or hemoglobin less than 8 g% 13. CODE status: DNR CC arrest with no intubation patient healthcare power of associate attorney is her . Has living will. Total time of the visit including total time spent in counseling or coordination of care, (more than 50% of the total time, spent in obtaining medical information from nurses and other ancillary care providers), discussion with clinical science consultant and radiologist, review of labs and imaging is 30 minutes Inpatient E&M: [id number] Subs Hosp L2
[2019-05-22 11:35] LABS: Bedside Glucose 226 mg/dL (70-110)
[2019-05-22 16:41] LABS: Bedside Glucose 157 mg/dL (70-110)
--- NOTE | 2019-05-22 17:19 | NURSING ---
This RN is taking over care of this patient at this time; Report given by KRYSTA Mccarty.
[2019-05-22] MEDS: guaiFENesin 10 ML UDC (200MG/10ML) 20 ML PO (20:35)
[2019-05-22] MEDS: Gabapentin 300 MG Capsule 900 MG PO (21:49)
[2019-05-22] MEDS: Atorvastatin Calcium 40 MG Tablet PO (21:49)
[2019-05-22] MEDS: Topiramate 50 MG Tablet PO (21:50)
[2019-05-22 22:00] LABS: Bedside Glucose 133 mg/dL (70-110)
[2019-05-23] VITALS (7 sets, daily range): BP systolic 106–141; BP diastolic 44–64; PULSE 61–68; RESP 18–20; TEMP 36.7–37.1; O2SAT 93–95
--- NOTE | 2019-05-23 | IMM_PTH ---
PATIENT: BEN DE JESUS LOC: [facility] U#:[id number] AGE/SX: 74/F ROOM: [facility] RE05/19/[address]: Dr. Dennis Forte MD : 1945 BED: 1 DIS: 05/23/2019 SPEC #: [id number] RECD: 05/24/19 10:46 STATUS: SOUT REQ #: [id number] ALBERT: 05/23/19 00:[address]: Arnold Villalba DEPT: IMMUNOHISTOCHEMISTRY RECD BY: Shoshana Arriola ENTERED: 05/24/19 10:47 SP TYPE: IMMUNO OTHR DR: MD Dr. Malik Marcano, DO Dr. Supa Bang, DO Dr. Dennis Forte MD Tissues: THORACIC FLUID Procedures: Donovan Ret (add) CK20 (add) CK5-6 (add) CK7 (add) MACRO (add) Vimentin (add) Pankeratin (initial) Comments: @ Ordering doctor for CALRET. edited from to @ by BRUNA at 05/24/19 1057 @ Ordering doctor for CK20. edited from to @ by BRUNA at 05/24/19 1057 @ Ordering doctor for CK5-6. edited from to @ by BRUNA at 05/24/19 1057 @ Ordering doctor for CK7. edited from to @ by BRUNA at 05/24/19 1057 @ Ordering doctor for MACRO. edited from to DR.ACALAB Shetty by BRUNA at 05/24/19 1057 @ Ordering doctor for VIM. edited from to DR.ACALAB Shetty by BRUNA at 05/24/19 1057 @ Ordering doctor for PANK edited from to @ by RGOOD at 05/24/191056 @ Submitting doctor edited from to @ by RGOOD at 05/24/196 PHYSICIAN & INSTITUTION [place] [id number] SPECIMEN INFORMATION: Tissue Source: Thoracentesis fluid Clinical Info: Right pleural effusion Specimen Number: [id number] CPT code: 98263, 46623 x6 METHODOLOGY: Deparaffinized sections of prefer/formalin-fixed tissue or PAP/DQ stained slides are incubated with monoclonal/polyclonal antibodies/oligonucleotide probes. Localization is made via biotin free immunoperoxidase method. Appropriate controls are performed and reacted as expected. Results on target cell population are indicated in the following table: RESULTS: ANTIBODY / CLONE RESULT AE1-3 (AE1/AE3/PCK26) positive, focal CK7 (OV-TL12/30) positive, focal CK20 (KS20.8) negative Vimentin (V9) positive Macro (HAM-56) positive CALRET (polyclonal) positive, focal CK5-6 (D5 & 1684) positive, focal These tests were developed and their performance characteristics determined by [facility]. They may not have been cleared or approved by the U.S. Food and Drug Administration. The FDA has determined that such clearance or approval is not necessary. The above immunohistochemical/dualISH markers are ordered and reviewed by the Pathologist. INTERPRETATION: Thoracentesis fluid: Consistent with reactive mesothelial cells and macrophages. AM:shira 05/25/19
--- NOTE | 2019-05-23 | FLU_PTH ---
PATIENT: BEN DE JESUS LOC: [facility] U#:[id number] AGE/SX: 74/F ROOM: [facility] RE05/19/[address]: Dr. Dennis Forte MD : 1945 BED: 1 DIS: 05/23/2019 SPEC #: [id number] RECD: 05/23/19 09:57 STATUS: REE REKye #: [id number] ALBERT: 05/23/19 00:[address]: Dennis Forte DEPT: CYTOLOGY RECD BY: Riley Rodas ENTERED: 05/23/19 12:06 SP TYPE: Fluid OTHR DR: MD Dr. Malik Marcano DO Dr. Derek Brown DO Tissues: THORACIC FLUID Procedures: Special Stain Group II Surgery Specimen Level IV Cytospin Fluid HEADER OPERATION: Ultrasound-guided right thoracentesis PRE-OP DIAGNOSIS: Right pleural effusion TISSUE SUBMITTED: Thoracentesis fluid for cytology DIAGNOSIS CYTOLOGY Thoracentesis fluid for cytology (cytospin and cell block): Negative for malignant cells. AM:shira 05/24/19 COMMENT Immunohistochemistry ([id number]) supports the above diagnosis. Case has been reviewed in consultation with Dr. Vila who concurs with the above diagnosis. IDC:SJ CYTOLOGY STUDY Slides are reviewed. CYTOLOGY GROSS Received is 150 ml of dark yellow, cloudy fluid labeled with the patient's name and and designated per the requisition as thoracentesis. Submitted for cytology preparation including cell block. / shira 05/23/19 TC:5 CPT: 35930, 54383
[2019-05-23 02:41] LABS: Bedside Glucose 173 mg/dL (70-110)
[2019-05-23] MEDS: Albuterol 2.5 MG/3 ML VIAL.NEB. INHALATION (05:08)
--- NOTE | 2019-05-23 07:01 | US_ITS ---
PROCEDURE: ULTRASOUND GUIDED THORACENTESIS. DATE: May 23, 2019. INDICATION: Female, 74 years old. Right pleural effusion. PHYSICIAN: Dany Roblero M.D. PROCEDURE: The risks, benefits, and alternatives to the procedure were explained to the patient. The specific risks of bleeding, infection, and pneumothorax requiring chest tube insertion were discussed and accepted. Written informed consent was obtained. Ultrasonographic evaluation of the right lower pleural space was carried out. An adequate pocket was identified. The patient was placed in the sitting, upright position. The overlying skin was prepped and draped in sterile fashion. 1% lidocaine was administered subcutaneously for local anesthesia. Under ultrasound guidance, a 5 Albanian thoracentesis needle/catheter system was advanced into the right posterior lower pleural fluid collection. Approximately 230 mL of ty-colored fluid was drained. The catheter was removed, and a sterile dressing was applied. A specimen was collected and sent to the laboratory for analysis, as requested by the referring clinician. The patient tolerated the procedure well. A chest x-ray was ordered. US/Thoracentesis W US IMPRESSION: Ultrasound-guided right thoracentesis. Electronically Signed: Dany Roblero, at 10:32 EDT , Service support ,
[2019-05-23 07:12] LABS: Basophil# 0.01 X10^3/uL; Basophil% 0.3 % (0-1); Eosinophil# 0.08 X10^3/uL; Eosinophils% 2.3 % (0-5); Hematocrit 35.7 % (37-47); Hemoglobin 11.5 g/dL (12.0-15.0); Lymphocyte % 31.3 % (19-41); Mean Corp Hgb Conc 32.2 g/dL (32-36); Mean Corpuscular Hgb 32.6 pg (27.0-32.0); Mean Corpuscular Volume 101.1 fL (81-99); Mean Platelet Vol. 11.8 fl (6.2-12.0); Monocyte# 0.35 X10^3/uL; NRBC Flagged by Analyzer 0 % (0-5); Neutrophil # 1.96 X10^3/uL (2.7-7.7); Neutrophil % 55.8 % (47-70); POSITIVE COUNT YES; Platelet Count 61 K/mm3 (150-450); RBC Distribution Width CV 14.5 % (11.6-14.6); Red Blood Count 3.53 M/mm3 (4.2-5.4); White Blood Count 3.5 K/mm3 (4.4-11.0)
[2019-05-23 07:19] LABS: Differential Indicated SCAN CRITERIA MET
[2019-05-23 07:21] LABS: ALB/GLOB Ratio 0.6 RATIO (0.9-2.4); AST(SGOT) 52 U/L (15-37); Alanine Aminotransfer ALT/SGPT 20 U/L (13-56); Albumin, Serum 2.3 g/dL (3.2-5.0); Alkaline Phosphatase 186 U/L (45-117); Anion Gap 6 (5-15); BUN 13 mg/dL (7-18); BUN/Creat Ratio 13.3 RATIO (10-20); Calcium,Total 8.8 mg/dL (8.5-10.1); Chloride 112 mmol/L (98-107); Creatinine, Serum 0.97 mg/dL (0.55-1.02); EST Glomerular Filtration Rate 60 mL/min (>60); Est Glom Filt Rate - Afr Amer 72 mL/min (>60); Estimated Creatinine Clearance 46.48 ml/min; Globulin 3.7 g/dL (2.2-4.2); Glucose 183 mg/dL (74-106); LDH 213 U/L (84-246); Potassium 3.5 mmol/L (3.5-5.1); Sodium Level 141 mmol/L (136-145)
[2019-05-23 07:46] LABS: Bedside Glucose 155 mg/dL (70-110)
[2019-05-23 07:52] LABS: Platelet Estimate MKD DEC (ADEQ); Red Cell Morphology NORM C+C NORMAL (NORM C&C)
--- NOTE | 2019-05-23 09:13 | NURSING ---
report called to steam and power supervisor julia
--- NOTE | 2019-05-23 09:30 | RAD_ITS ---
STUDY: X-RAY CHEST REASON FOR EXAM: Female, 74 years old. POST THORA RIGHT SIDE TECHNIQUE: AP inspiration and expiration views. COMPARISON: Comparison is made with prior study dated May 20, 2019. FINDINGS: The patient is status post right thoracentesis. No evidence pneumothorax. Mild degree of increased markings at the right lung base suggestive of atelectasis. Stable sclerotic abnormality in the right humeral neck. RAD/Chest Insp/Exp 2 View IMPRESSION: Status post right thoracentesis. There is no evidence of pneumothorax. Electronically Signed: Dany Roblero, at 10:45 EDT , Service support ,
[2019-05-23 09:58] LABS: Cytology, Body Fluid / CSF SEE PATHOLOGY REPORT
--- NOTE | 2019-05-23 10:10 | DCINST_ITS ---
- Discharge Diagnoses Current Active Problems: Current Active and Chronic Problems (Last Reviewed 05/11/19 @ 14:[address] Malik Bang, DO) Pneumonia (Acute) You will use the following diet at home:: Calorie/Carbohydrate Controlled (specify 1200, 1400, etc) - 1800 ADA diet, Cardiac Your food should be the consistency of: Regular Your liquids should be the consistency of: Regular/Thin Discharge Activity: May Not Drive - for 1 week until she follow PCP Call your doctor if you observe: Fever of 101 or Higher, Numbness or Tingling, Inability to urinate, Inability to have a bowel movement, Shortness of breath, Dizziness, Swelling in the ankles, Chest pain, Prolonged hiccoughing, Increased palpitations (irregular heartbeat), Calf discomfort, Uncontrolled pain Instructions: Thoracentesis Additional Instructions: Lactobacillus tablets 1 tablet three times daily for 10 days (OTC) Allergies/Adverse Reactions: Allergies oxycodone Allergy (Verified 05/11/19 13:39) Other UNABLE TO TAKE, MAKES EXCITED AND UNABLE TO SLEEP environemental Allergy (Uncoded 05/11/19 13:39) dry cough Medications to take at Discharge Aspirin E.C. [Ecotrin] 81 mg PO DAILY 08/31/17 tramadol 50 mg tablet 50 mg PO Q6H #90 tab 04/13/18 omeprazole 40 mg capsule,delayed release 40 mg PO DAILY #90 cap 05/24/18 nitroglycerin 0.4 mg sublingual tablet 0.4 mg SUBLINGUAL Q5M PRN #25 tab 05/27/18 topiramate 50 mg tablet 50 mg PO QHS #90 tab 11/20/18 atorvastatin 40 mg tablet 40 mg PO DAILY #90 tab 12/20/18 clopidogrel 75 mg tablet 75 mg PO DAILY #90 tab 12/20/18 isosorbide mononitrate 60 mg tablet,extended release 24 hr 60 mg PO DAILY #90 tab 12/20/18 metoprolol succinate 100 mg tablet,extended release 24 hr 100 mg PO DAILY #90 tab 12/20/18 nystatin 100,000 unit/gram topical cream 1 applic TOPICAL BID #30 g 01/01/19 insulin glargine 100 unit/mL subcutaneous solution 75 unit SUBCUT DAILY ml 01/26/19 Alprazolam [Xanax] 0.25 mg PO TID PRN PRN 04/27/19 Insulin Aspart [Novolog Flexpen] 14 units SUBCUT BIDCM 04/28/19 gabapentin 300 mg capsule 300 mg PO .COMPLEX #450 cap 05/06/19 furosemide 40 mg tablet 40 mg PO DAILY #30 tab 05/11/19 Levofloxacin [Levaquin] 500 mg PO DAILY #3 tab 05/23/19 Losartan Potassium 50 mg PO DAILY #90 tab 05/23/19 Potassium Chloride [K-Dur] 40 meq PO DAILYCM #60 tab 05/23/19 Primary Care Physician: Malik Bang DO [Primary Care Provider] - Please follow up with your Primary Care Physician in: IN 2 WEEKS Test Results: Test results from this visit will be discussed in further detail at your follow- up appointment, if applicable. Please Follow Up With: Supa Bang DO When: With Allison Martinez NP in 2 week for pneumonia
[2019-05-23] MEDS: Pantoprazole Sodium 40 MG Tablet PO (10:22)
[2019-05-23] MEDS: Nystatin Ointment 1 APPLIC TOPICAL (10:22)
[2019-05-23] MEDS: Isosorbide Mononitrate 30 MG Tablet PO (10:22)
[2019-05-23] MEDS: Gabapentin 300 MG Capsule PO ×2 (10:22→12:01)
[2019-05-23] MEDS: Furosemide 40 MG/4 ML Vial IV (10:22)
[2019-05-23] MEDS: Metoprolol(XL)Succ 100 MG Tablet PO (10:22)
[2019-05-23] MEDS: Losartan Potassium 50 MG Tablet PO (10:23)
[2019-05-23] MEDS: 0.9% Saline Lock 10 ML Syringe IV (10:23)
--- NOTE | 2019-05-23 10:25 | DS.PCM_ITS ---
Discharge Date and Diagnosis - Problem List Patient Problems: Active and Suspected Problems (Last Reviewed 05/11/19 @ 14:[address] Malik Bang, DO) Pneumonia (Acute) Date of Admission: 05/19/19 Date of Discharge: 05/23/19 - Primary Discharge Diagnosis Active and Suspected Problems (Last Reviewed 05/11/19 @ 14:[address] Malik Bang, DO) Pneumonia (Acute) Right lower lobe pneumonia with parapneumonic effusion and atelectasis - Secondary Discharge Diagnosis Chronic Problems (Last Reviewed 05/11/19 @ 14:[address] Malik Bang, DO) Compression fracture of L1 vertebra (Chronic) I had a discussion on compression fractures and the fact that it takes 12 weeks to heal. Basically especially with her problem with her left foot she really cannot go through physical therapy as she is having too much trouble getting in and out of the house. I told her nonsteroidals for the pain rest as much as possible but continue to be active in the upper body. I told her that kyphoplasty is a rarely done procedure and I did not think she would benefit enough to assume the risk of that procedure. Non-union of fracture (Chronic) Left foot. 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 (DJN @ [facility]) Dupuytren's contracture of left hand (Chronic) Rotator cuff arthropathy of right shoulder (Chronic) History of coronary artery stent placement (Chronic 11/20/16) PCI-[place]-Mid RCA 2.25 x 38 mm Promus Synergy Atherosclerosis of coronary artery of [place] heart without angina pectoris (Chronic) PCI-[place]-Mid RCA 2.25 x 38 mm Promus Synergy 11/20/16 CABG x 2 KRISHNAMURTHY-LAD, SVG-Om1 11/30/15 @ [facility], PTCA to mid RCA 05/13/2017 Hyperlipemia (Chronic) Hypertension (Chronic) Type 2 diabetes mellitus (Chronic) Rheumatic fever (Chronic) CVA (cerebral vascular accident) (Chronic ~2010) Ischemic: residual is just occasional speech problems H/O coronary artery bypass surgery (Chronic 11/30/15) CABG x 2 KRISHNAMURTHY-LAD, SVG-Om1 11/30/15 @ [facility] Course and Treatment Imaging Results: 05/23/19 07:01 Thoracentesis W US [US] Routine 05/23/19 09:30 Chest Insp/Exp 2 View [RAD] Stat Operations: None Summary of Care Provided: The patient is a 74 y/o F with multiple comorbidities as listed above including coronary artery status post two-vessel CABG and PCI with recent admission for severe sepsis secondary to UTI from 04/26 to 04/28 in ICU is being admitted for progressive worsening of shortness of breath for about 10 days. Chest x-ray independently reviewed and shows moderately large right-sided pleural effusion with underlying atelectasis and infiltrate with significant elevation of right hemidiaphragm. 1. Right lower HCAP with moderate to large pleural effusion and underlying atelectasis most probably parapneumonic effusion: Patient is admitted in PCU on vancomycin and Zosyn. Mild leukopenia 3.9 thousand with chronic thrombocytopenia, platelet count 75,000. Pneumonia work-up until now shows urinary antigens, respiratory panel are negative. Blood cultures are pending. MRSA nasal screen negative. UA is negative. Discussed with curator of photography and prints and we agreed for thoracocentesis. BNP done is normal. Patient had 230 mL of ty-colored right ultrasound-guided thoracocentesis by IR. Preliminary chemistry reviewed. Consistent with exudate. Fluid glucose 177. Patient is discharged on antibiotic Levaquin for 3 more days to complete a total of 8 days. Follow-up in pulmonary clinic. 2. CAD and stage I diastolic dysfunction/chronic HFpEF: Status post PCI and CABG x2: Patient is on statin, metoprolol, losartan regimen. Aspirin Plavix held as mentioned above. On Lasix 40 mg daily. Potassium supplement added. Echo in October 2015 shows EF 65% with stage I diastolic function, left atrium moderately enlarged. Stress echo in November 2017 reported EF 65%, negative for ischemia by EKG and echocardiographic criteria. Patient further had cardiac cath in May 2018 which showed patent grafts. 3. Hypertension: On antihypertensive medication as mentioned above. PRN IV hydralazine 4. Hyperlipidemia: Continue home statin regimen. 5. Chronic Kidney Disease Stage III: Admission BUN/Cr 24/1.37, only mildly increased from baseline, baseline renal function 0.9-1.2. Follow-up kidney function and urine output. 6. Chronic Thrombocytopenia etiology unclear possible secondary to antiplatelet agent: Admission platelets 103, baseline appears 60s to 90s, stable. 7. History of CVA: On statin. Aspirin and Plavix held. 8. Diabetes mellitus type II: Hold oral hypoglycemic agent, continue home insulin regimen, ADA diet, accu checks with Humalog sliding scale insulin. 9. Obesity: Weight loss and lifestyle changes encouraged. 10. Rheumatoid arthritis: From review of current list not on regimen, encourage continued outpatient follow-up, will continue PRN tramadol regimen for pain associated. 11. Anxiety and depression: continue patient home Xanax regimen, would benefit from consideration of SSRI versus SNRI. 12. DVT prophylaxis: On Lovenox and SCDs. Discontinue if platelet count drops less than 50,000 or hemoglobin less than 8 g% 13. CODE status: DNR CC arrest with no intubation patient healthcare power of ip attorney is her . Has living will. Discharge medication reconciliation done. Discharge follow-up instructions completed. Discharge process discussed with the patient and all questions were answered to patient's satisfaction. Patient is being discharged home. Follow- up in pulmonary clinic in 2 weeks after chest x-ray. Prescription for antibiotic and potassium supplement sent to patient's pharmacy. Total time spent, exact 35 minutes on discharge meds reconciliation, examination, coordination of care with nurses and ancillary staff, review of imaging and blood test and discussion with the patient on follow-up instructions Patient Problems: Active and Suspected Problems (Last Reviewed 05/11/19 @ 14:[address] Malik Bang, DO) Pneumonia (Acute) Subjective: Patient had ultrasound-guided thoracocentesis about 230 mL of ty-colored fluid was drained by interventional radiologist. No chest pain or shortness of breath. Repeat chest x-ray does not show pneumothorax. Discussed with curator of photography and prints. Objective: General: Alert, Oriented x3, Cooperative HEENT: Atraumatic, PERRLA, EOMI, Normocephalic Neck: Supple, No JVD, Negative Carotid Bruits Lungs: No rhonchi, No wheeze,Air entry diminished in the right lung base but air entry has improved significantly after thoracocentesis. Cardiovascular: Regular rate, Regular Rhythm, Normal S1, Normal S2, Murmur Abdomen: Bowel Sounds Present, Soft, Non Tender, Non-Distended Extremities: Capillary Refill Less than 3 Seconds, Edema Skin: No rashes, No breakdown Musculoskeletal: Arthritic Changes, - - Bilateral ankle and knee surgeries Neurological: Cranial nerves II-XII grossly intact, Neuro grossly intact Psych/Mental Status: Normal Affect, Appropriate - Physical Exam Vitals/I&O's: Vital Signs Temp Pulse Resp BP Pulse Ox 98.0 F 63 18 138/51 H 95 05/23/19 10:11 05/23/19 10:22 05/23/19 10:11 05/23/19 10:11 05/23/19 10:11 Oxygen Delivery Method [] Room Air Oxygen Delivery Method [] Room Air Oxygen Delivery Method [] Room Air Oxygen Delivery Method [] Room Air Oxygen Delivery Method Room Air Weight: 229 lb 8.019 oz Body Mass Index (BMI) 38.2 Finger Stick Blood Glucose 61 Intake and Output for Last 24 Hours 05/21/19 05/22/19 05/23/19 23:59 23:59 23:59 Intake Total 2339 / 2339 1145 / 1145 50 / 50 Output Total 1974 / 1974 2200 / 0 1630 / 1630 Balance 364 / 364 -1055 / -1055 -1580 / -1580 Microbiology Past 72 Hours 05/19/19 20:45 Blood Culture (Wb) - Right Wrist Blood Culture - Preliminary No growth in 48 hours. 05/19/19 20:00 Blood Culture (Wb) - Anticubital Right Blood Culture - Preliminary No growth in 48 hours. Laboratory Results 05/22/19 11:26: POC Glucose 226 H 05/22/19 16:33: POC Glucose 157 H 05/22/19 21:54: POC Glucose 133 H 05/23/19 02:32: POC Glucose 173 H 05/23/19 05:52: WBC 3.5 L, RBC 3.53 L, Hgb 11.5 L, Hct 35.7 L, MCV 101.1 H, MCH 32.6 H, MCHC 32.2, RDW Std Deviation 54.0 H, RDW Coeff of Henry 14.5, Plt Count 61 L, MPV 11.8, Immature Gran % (Auto) 0.300, Neut % (Auto) 55.8, Lymph % (Auto) 31.3, [place] % (Auto) 10.0, Eos % (Auto) 2.3, Baso % (Auto) 0.3, Absolute Neuts (auto) 2.0, Absolute Lymphs (auto) 1.10, Nucleated RBC % 0, Platelet Estimate MKD DEC, RBC Morphology NORM C+C 05/23/19 05:52: Sodium 141, Potassium 3.5, Chloride 112 H, Carbon Dioxide 23.0, Anion Gap 6, BUN 13, Creatinine 0.97, Estim Creat Clear Calc 46.48, Est GFR (MDRD) Af Amer 72, Est GFR (MDRD) Non-Af 60, BUN/Creatinine Ratio 13.3, Glucose 183 H, Calcium 8.8, Total Bilirubin 3.20 H, AST 52 H, ALT 20, Alkaline Phosphatase 186 H, Lactate Dehydrogenase 213, Total Protein 6.0 L, Albumin 2.3 L , Globulin 3.7, Albumin/Globulin Ratio 0.6 L 05/23/19 07:41: POC Glucose 155 H 05/23/19 09:53: Fluid Glucose Pending, Fluid Total Protein Pending, Fluid LDH Pending 05/23/19 09:53: Fluid pH Pending 05/23/19 09:57: Miscellaneous Cytology Pending 05/23/19 09:57: Fluid Source Pending, Fluid Color Pending, Fluid Appearance Pending, Fluid WBC Pending, Fluid RBC Pending, Fluid Tot Cell Count Pending, Fl Pathologist Comment Pending, Fluid Comment 2 Pending Current Medications Acetaminophen (Tylenol) 650 mg PO Q6H PRN PRN PRN Reason: Pain Score 1-10/Temp > 100.7 F Albuterol Sulfate (Ventolin Aerosols) 2.5 mg INHALATION Q2H PRN PRN PRN Reason: Dyspnea, wheezing Last Admin: 05/23/19 05:08 Dose: 2.5 mg Documented by: Alprazolam (Xanax) 0.25 mg PO TID PRN PRN PRN Reason: anxiety Atorvastatin Calcium (Lipitor) 40 mg PO QHS [facility] Last Admin: 05/22/19 21:49 Dose: 40 mg Documented by: Dextrose (D50w Syringe) 0 gm IV X1 PRN; Protocol PRN Reason: Hypoglycemia Enoxaparin Sodium (Lovenox) 30 mg SC DAILY [facility] Last Admin: 05/22/19 10:00 Dose: 30 mg Documented by: Furosemide (Lasix) 40 mg IV DAILY [facility] Last Admin: 05/23/19 10:22 Dose: 40 mg Documented by: Gabapentin (Neurontin) 300 mg PO DAILY@0800,1200 [facility] Last Admin: 05/23/19 10:22 Dose: 300 mg Documented by: Gabapentin (Neurontin) 900 mg PO QHS [facility] Last Admin: 05/22/19 21:49 Dose: 900 mg Documented by: Glucagon () 1 mg IM .X1 PRN PRN Reason: Hypoglycemia Guaifenesin (Robitussin) 20 ml PO Q4H PRN PRN PRN Reason: COUGH Last Admin: 05/22/19 20:35 Dose: 20 ml Documented by: Hydralazine HCl (Apresoline Iv) 10 mg IV Q4H PRN PRN PRN Reason: SBP > 180 Vancomycin IV Pharmacy to Dose (1 ea/ Sodium Chloride) 500 mls @ 250 mls/hr IV X1 PRN; Protocol PRN Reason: Rx to Dose Piperacillin Sod/Tazobactam (Sod 3.375 gm/ Sodium Chloride) 50 mls @ 12.5 mls/hr IV Q8 [facility] Last Admin: 05/23/19 05:37 Dose: 12.5 mls/hr Documented by: Sodium Chloride () 250 mls @ 15 mls/hr IV .[id number] PRN PRN Reason: Saline Flush Sodium Chloride () 250 mls @ 15 mls/hr IV .[id number] PRN PRN Reason: Additional IVPB Infusion Vancomycin HCl 1,250 mg/ (Sodium Chloride) 275 mls @ 167 mls/hr IV Q24H [facility] Last Infusion: 05/22/19 11:43 Dose: Infused Documented by: Insulin Glargine (Lantus (Bkc)) 75 units SC DAILY [facility] Last Admin: 05/23/19 10:23 Dose: 75 u Documented by: Insulin Human Lispro (Humalog Kwikpen (Bk)) 14 unit SC BIDCM [facility] Last Admin: 05/23/19 09:12 Dose: Not Given Documented by: Insulin Human Lispro (Humalog Kwikpen (Bk)) 0 unit SC ACHS [facility]; Protocol Last Admin: 05/23/19 09:11 Dose: Not Given Documented by: Isosorbide Mononitrate (Imdur) 30 mg PO DAILY [facility] Last Admin: 05/23/19 10:22 Dose: 30 mg Documented by: Lactobacillus Acidophilus (Acidophilus) 1 tablet PO TID [facility] Last Admin: 05/23/19 05:38 Dose: 1 tablet Documented by: Losartan Potassium (Cozaar) 50 mg PO DAILY [facility] Last Admin: 05/23/19 10:23 Dose: 50 mg Documented by: Melatonin (Melatonin) 3 mg PO QHS PRN PRN PRN Reason: INSOMNIA Metoprolol Succinate (Toprol Xl (Beta Ngoc)) 100 mg PO DAILY [facility] Last Admin: 05/23/19 10:22 Dose: 100 mg Documented by: Morphine Sulfate () 2 mg IV Q3H PRN PRN PRN Reason: Pain Score 6-10/10 Nitroglycerin (Nitrostat) 0.4 mg SUBLINGUAL Q5M PRN PRN Reason: CARDIAC/CHEST PAIN Nystatin (Mycostatin) 1 applic TOPICAL BID [facility] Last Admin: 05/23/19 10:22 Dose: 1 applicatio Documented by: Ondansetron HCl (Zofran) 4 mg IV Q8H PRN PRN PRN Reason: NAUSEA/VOMITING Oxycodone HCl (Oxyir) 5 mg PO Q4H PRN PRN PRN Reason: Pain Score 4-5/10 Pantoprazole Sodium (Protonix) 40 mg PO DAILY [facility] Last Admin: 05/23/19 10:22 Dose: 40 mg Documented by: [facility] Last Admin: 05/23/19 10:21 Dose: 40 meq Documented by: Prochlorperazine Edisylate (Compazine Iv) 5 mg IV Q4H PRN PRN PRN Reason: Breakthrough nausea/vomiting Psyllium Hydrophilic Mucilloid (Metamucil) 1 packet PO DAILY PRN PRN PRN Reason: Constipation Senna/Docusate Sodium (Senokot-S, Alicia-Colace) 2 tablet PO BID PRN PRN PRN Reason: Constipation Sodium Chloride () 10 - 40 ml IV UD PRN PRN Reason: SALINE FLUSH Last Admin: 05/23/19 10:23 Dose: 10 ml Documented by: Throat Lozenges (Cepacol Sore Throat Lozenge) 1 lozenge MUCOUS MEM Q2H PRN PRN PRN Reason: SORE THROAT Topiramate (Topamax) 50 mg PO QHS [facility] Last Admin: 05/22/19 21:50 Dose: 50 mg Documented by: Tramadol HCl (Ultram) 50 mg PO Q6 [facility] Last Admin: 05/23/19 05:19 Dose: Not Given Documented by: Discharge Activity: May Not Drive - for 1 week until she follow PCP Call your doctor if you observe: Fever of 101 or Higher, Numbness or Tingling, Inability to urinate, Inability to have a bowel movement, Shortness of breath, Dizziness, Swelling in the ankles, Chest pain, Prolonged hiccoughing, Increased palpitations (irregular heartbeat), Calf discomfort, Uncontrolled pain Home Medications: Medications to take at Discharge Aspirin E.C. [Ecotrin] 81 mg PO DAILY 08/31/17 tramadol 50 mg tablet 50 mg PO Q6H #90 tab 04/13/18 omeprazole 40 mg capsule,delayed release 40 mg PO DAILY #90 cap 05/24/18 nitroglycerin 0.4 mg sublingual tablet 0.4 mg SUBLINGUAL Q5M PRN #25 tab 05/27/18 topiramate 50 mg tablet 50 mg PO QHS #90 tab 11/20/18 atorvastatin 40 mg tablet 40 mg PO DAILY #90 tab 12/20/18 clopidogrel 75 mg tablet 75 mg PO DAILY #90 tab 12/20/18 isosorbide mononitrate 60 mg tablet,extended release 24 hr 60 mg PO DAILY #90 tab 12/20/18 metoprolol succinate 100 mg tablet,extended release 24 hr 100 mg PO DAILY #90 tab 12/20/18 nystatin 100,000 unit/gram topical cream 1 applic TOPICAL BID #30 g 01/01/19 insulin glargine 100 unit/mL subcutaneous solution 75 unit SUBCUT DAILY ml 01/26/19 Alprazolam [Xanax] 0.25 mg PO TID PRN PRN 04/27/19 Insulin Aspart [Novolog Flexpen] 14 units SUBCUT BIDCM 04/28/19 gabapentin 300 mg capsule 300 mg PO .COMPLEX #450 cap 05/06/19 furosemide 40 mg tablet 40 mg PO DAILY #30 tab 05/11/19 Levofloxacin [Levaquin] 500 mg PO DAILY #3 tab 05/23/19 Losartan Potassium 50 mg PO DAILY #90 tab 05/23/19 Potassium Chloride [K-Dur] 40 meq PO DAILYCM #60 tab 05/23/19 Following Prescrptions Were Given to Patient: Potassium Chloride [K-Dur] 40 meq PO DAILYCM #60 tab Transmission Status: Received by [id number] Levofloxacin [Levaquin] 500 mg PO DAILY #3 tab Transmission Status: Received by [id number] Primary Care Physician: Malik Bang DO [Primary Care Provider] - Please follow up with your Primary Care Physician in: IN 2 WEEKS Please Follow Up With: Supa Bang DO When: With Allison Martinez NP in 2 week for pneumonia Patient Instructions: Thoracentesis Medical Necessity - Tobacco Use Smoking Status: Former smoker Tobacco Use: Non-smoker Meaningful Use Info Meaningful Use Diagnoses (Choose all that apply): None applicable Inpatient E&M: [id number] [facility]
[2019-05-23 10:40] LABS: Bedside Glucose 154 mg/dL (70-110)
[2019-05-23 11:31] LABS: Body Fluid Mononuclear WBC # 0.543 10^3/uL; Body Fluid Mononuclear WBC % 92.7 %; Body Fluid Polynuclear WBC # 0.043 10^3/uL; Body Fluid Polynuclear WBC % 7.3 %; Body Fluid Total Cells Counted 0.847 10^3/ul; Red Cell Count/Body Fluid 0.003 10^6/ul; White Blood Count/Body Fluid 0.586 10^3/uL
[2019-05-23 12:00] LABS: Glucose, Body Fluid 177 mg/dL (40-70); LDH,Body Fluid 183 Units/l (Not Establ.); Protein, Body Fluid 2.8 g/dL (Not Establ.)
[2019-05-23] MEDS: traMADol 50 MG Tablet PO (12:01)
[2019-05-23 12:05] LABS: Bedside Glucose 140 mg/dL (70-110)
--- NOTE | 2019-05-23 12:52 | PN_ITS ---
Patient Problems: Active and Suspected Problems (Last Reviewed 05/11/19 @ 14:[address] Malik Bang, DO) Pneumonia (Acute) Subjective: Patient did okay overnight. Patient is not reporting any respiratory complaints at this time. Patient feels that she is well enough to go home. Patient states she has limited mobility at baseline with standing and going to a wheelchair. - Physical Exam Vitals/I&O's: Vital Signs Temp Pulse Resp BP Pulse Ox 36.7 C 63 18 138/51 H 95 05/23/19 10:11 05/23/19 10:22 05/23/19 10:11 05/23/19 10:11 05/23/19 10:11 Oxygen Delivery Method [4] Room Air Oxygen Delivery Method [3] Room Air Oxygen Delivery Method [2] Room Air Oxygen Delivery Method [1 ( Room Air Initial Baseline)] Oxygen Delivery Method Room Air Weight: 104.1 kg Body Mass Index (BMI) 38.2 Finger Stick Blood Glucose 61 Intake and Output for Last 24 Hours 05/21/19 05/22/19 05/23/19 23:59 23:59 23:59 Intake Total 2339 / 2339 1145 / 1145 200 / 200 Output Total 1974 / 1974 2200 / 2200 2430 / 2430 Balance 364 / 364 -1055 / -1055 -2230 / -2230 General: Alert, Oriented x3, Cooperative, No apparent distress HEENT: Atraumatic, PERRLA, EOMI, Normocephalic, - - No scleral icterus or injection noted Oral: Moist Mucosa, No Gingival or Mucosal Lesions/ Ulcerations Neck: Supple, No JVD, No Nodes, Trachea Midline Lungs: No rhonchi, No wheeze, No rales, Diminished, - - Symmetric expansion. No dullness to percussion. Cardiovascular: Regular rate, Regular Rhythm, Normal S1, Normal S2, No murmurs, No rub noted, No Gallop Abdomen: Bowel Sounds Present, Soft, Non Tender, Non-Distended, Obese Extremities: No clubbing, No cyanosis, Edema - 1+ lower extremity Skin: No rashes, No breakdown Musculoskeletal: No Tenderness to Palpation of Joints or Extremities Lymphatic: No Cervical, Supraclavicular, or Inguinal Adenopathy Neurological: Cranial nerves II-XII grossly intact, Neuro grossly intact Psych/Mental Status: Alert and oriented to time, place, person, mood and affect Microbiology Past 72 Hours 05/19/19 20:45 Blood Culture (Wb) - Right Wrist Blood Culture - Preliminary No growth in 48 hours. 05/19/19 20:00 Blood Culture (Wb) - Anticubital Right Blood Culture - Preliminary No growth in 48 hours. Laboratory Results 05/22/19 16:33: POC Glucose 157 H 05/22/19 21:54: POC Glucose 133 H 05/23/19 02:32: POC Glucose 173 H 05/23/19 05:52: WBC 3.5 L, RBC 3.53 L, Hgb 11.5 L, Hct 35.7 L, MCV 101.1 H, MCH 32.6 H, MCHC 32.2, RDW Std Deviation 54.0 H, RDW Coeff of Henry 14.5, Plt Count 61 L, MPV 11.8, Immature Gran % (Auto) 0.300, Neut % (Auto) 55.8, Lymph % (Auto) 31.3, [place] % (Auto) 10.0, Eos % (Auto) 2.3, Baso % (Auto) 0.3, Absolute Neuts (auto) 2.0, Absolute Lymphs (auto) 1.10, Nucleated RBC % 0, Platelet Estimate MKD DEC, RBC Morphology NORM C+C 05/23/19 05:52: Sodium 141, Potassium 3.5, Chloride 112 H, Carbon Dioxide 23.0, Anion Gap 6, BUN 13, Creatinine 0.97, Estim Creat Clear Calc 46.48, Est GFR (MDRD) Af Amer 72, Est GFR (MDRD) Non-Af 60, BUN/Creatinine Ratio 13.3, Glucose 183 H, Calcium 8.8, Total Bilirubin 3.20 H, AST 52 H, ALT 20, Alkaline Phosphatase 186 H, Lactate Dehydrogenase 213, Total Protein 6.0 L, Albumin 2.3 L , Globulin 3.7, Albumin/Globulin Ratio 0.6 L 05/23/19 07:41: POC Glucose 155 H 05/23/19 09:53: Fluid Glucose 177 H, Fluid Total Protein 2.8, Fluid LDH 183 05/23/19 09:53: Fluid pH Pending 05/23/19 09:57: Miscellaneous Cytology Pending 05/23/19 09:57: Fluid Source Pending, Fluid Color Pending, Fluid Appearance Pending, Fluid WBC 0.586, Fluid RBC 0.003, Fluid Tot Cell Count 0.847 H, Fld Polynuclear WBCs # 0.043, Fld Polynuclear WBCs % 7.3, Fluid Mononuclear WBCs 0.543, Fld Mononuclear WBCs % 92.7, Fl Pathologist Comment Pending, Fluid Comment 2 Pending 05/23/19 10:17: POC Glucose 154 H 05/23/19 11:56: POC Glucose 140 H Current Medications Acetaminophen (Tylenol) 650 mg PO Q6H PRN PRN PRN Reason: Pain Score 1-10/Temp > 100.7 F Albuterol Sulfate (Ventolin Aerosols) 2.5 mg INHALATION Q2H PRN PRN PRN Reason: Dyspnea, wheezing Last Admin: 05/23/19 05:08 Dose: 2.5 mg Documented by: Alprazolam (Xanax) 0.25 mg PO TID PRN PRN PRN Reason: anxiety Atorvastatin Calcium (Lipitor) 40 mg PO QHS [facility] Last Admin: 05/22/19 21:49 Dose: 40 mg Documented by: Dextrose (D50w Syringe) 0 gm IV X1 PRN; Protocol PRN Reason: Hypoglycemia Enoxaparin Sodium (Lovenox) 30 mg SC DAILY [facility] Last Admin: 05/22/19 10:00 Dose: 30 mg Documented by: Furosemide (Lasix) 40 mg IV DAILY [facility] Last Admin: 05/23/19 10:22 Dose: 40 mg Documented by: Gabapentin (Neurontin) 300 mg PO DAILY@0800,1200 [facility] Last Admin: 05/23/19 12:01 Dose: 300 mg Documented by: Gabapentin (Neurontin) 900 mg PO QHS [facility] Last Admin: 05/22/19 21:49 Dose: 900 mg Documented by: Glucagon () 1 mg IM .X1 PRN PRN Reason: Hypoglycemia Guaifenesin (Robitussin) 20 ml PO Q4H PRN PRN PRN Reason: COUGH Last Admin: 05/22/19 20:35 Dose: 20 ml Documented by: Hydralazine HCl (Apresoline Iv) 10 mg IV Q4H PRN PRN PRN Reason: SBP > 180 Vancomycin IV Pharmacy to Dose (1 ea/ Sodium Chloride) 500 mls @ 250 mls/hr IV X1 PRN; Protocol PRN Reason: Rx to Dose Piperacillin Sod/Tazobactam (Sod 3.375 gm/ Sodium Chloride) 50 mls @ 12.5 mls/hr IV Q8 [facility] Last Infusion: 05/23/19 09:37 Dose: Infused Documented by: Sodium Chloride () 250 mls @ 15 mls/hr IV .[id number] PRN PRN Reason: Saline Flush Sodium Chloride () 250 mls @ 15 mls/hr IV .[id number] PRN PRN Reason: Additional IVPB Infusion Vancomycin HCl 1,250 mg/ (Sodium Chloride) 275 mls @ 167 mls/hr IV Q24H [facility] Last Admin: 05/23/19 10:31 Dose: 167 mls/hr Documented by: Insulin Glargine (Lantus (Bkc)) 75 units SC DAILY [facility] Last Admin: 05/23/19 10:23 Dose: 75 u Documented by: Insulin Human Lispro (Humalog Kwikpen (Bkc)) 14 unit SC BIDCM [facility] Last Admin: 05/23/19 09:12 Dose: Not Given Documented by: Insulin Human Lispro (Humalog Kwikpen (Bkc)) 0 unit SC ACHS [facility]; Protocol Last Admin: 05/23/19 11:59 Dose: Not Given Documented by: Isosorbide Mononitrate (Imdur) 30 mg PO DAILY [facility] Last Admin: 05/23/19 10:22 Dose: 30 mg Documented by: Lactobacillus Acidophilus (Acidophilus) 1 tablet PO TID [facility] Last Admin: 05/23/19 05:38 Dose: 1 tablet Documented by: Losartan Potassium (Cozaar) 50 mg PO DAILY [facility] Last Admin: 05/23/19 10:23 Dose: 50 mg Documented by: Melatonin (Melatonin) 3 mg PO QHS PRN PRN PRN Reason: INSOMNIA Metoprolol Succinate (Toprol Xl (Beta Ngoc)) 100 mg PO DAILY [facility] Last Admin: 05/23/19 10:22 Dose: 100 mg Documented by: Morphine Sulfate () 2 mg IV Q3H PRN PRN PRN Reason: Pain Score 6-10/10 Nitroglycerin (Nitrostat) 0.4 mg SUBLINGUAL Q5M PRN PRN Reason: CARDIAC/CHEST PAIN Nystatin (Mycostatin) 1 applic TOPICAL BID [facility] Last Admin: 05/23/19 10:22 Dose: 1 applicatio Documented by: Ondansetron HCl (Zofran) 4 mg IV Q8H PRN PRN PRN Reason: NAUSEA/VOMITING Oxycodone HCl (Oxyir) 5 mg PO Q4H PRN PRN PRN Reason: Pain Score 4-5/10 Pantoprazole Sodium (Protonix) 40 mg PO DAILY [facility] Last Admin: 05/23/19 10:22 Dose: 40 mg Documented by: Potassium Chloride (K-Dur) [facility]q [facility] Last Admin: 05/23/19 10:21 Dose: 40 meq Documented by: Prochlorperazine Edisylate (Compazine Iv) 5 mg IV Q4H PRN PRN PRN Reason: Breakthrough nausea/vomiting Psyllium Hydrophilic Mucilloid (Metamucil) 1 packet PO DAILY PRN PRN PRN Reason: Constipation Senna/Docusate Sodium (Senokot-S, Alicia-Colace) 2 tablet PO BID PRN PRN PRN Reason: Constipation Sodium Chloride () 10 - 40 ml IV UD PRN PRN Reason: SALINE FLUSH Last Admin: 05/23/19 10:23 Dose: 10 ml Documented by: Throat Lozenges (Cepacol Sore Throat Lozenge) 1 lozenge MUCOUS MEM Q2H PRN PRN PRN Reason: SORE THROAT Topiramate (Topamax) 50 mg PO QHS [facility] Last Admin: 05/22/19 21:50 Dose: 50 mg Documented by: Tramadol HCl (Ultram) 50 mg PO Q6 [facility] Last Admin: 05/23/19 12:01 Dose: 50 mg Documented by: Clinical Impression(s) from Imaging Studies Thoracentesis Ultrasound 05/23/19 07:01 IMPRESSION: Ultrasound-guided right thoracentesis. Electronically Signed: Dany Roblero, at 10:32 EDT , Service support , Chest X-Ray 05/23/19 09:30 IMPRESSION: Status post right thoracentesis. There is no evidence of pneumothorax. Electronically Signed: Dany Roblero, at 10:45 EDT , Service support , Medical Necessity - Tobacco Use Smoking Status: Former smoker Tobacco Use: Non-smoker Assessment/Plan All Active Problems (Last Reviewed 05/11/19 @ 14:[address] Malik Bang, DO) Severe sepsis (Acute) Urinary tract infection (Acute) Acute encephalopathy (Acute) Pneumonia (Acute) H/O section (Resolved) History of carpal tunnel surgery (Resolved) Anemia (Resolved) Chest pain (Resolved) Chest pressure (Resolved) RECOMMENDATIONS: 1. Complete antibiotics per hospitalist discharge. 2. Follow-up with nurse practitioner 2 weeks with virtual visit. Consider x-ray prior to visit 3. Monitor oxygen saturations with transfer to the chair prior to discharge IMPRESSIONS: 1. Pleural effusion Patient's effusion does appear to be exudate by strict criteria. However, LDH can be elevated secondary to diuresis. Would continue with broad-spectrum antimicrobials. Cultures can be sent, given technical exudate nature, would recommend a repeat chest x-ray in 2 weeks with virtual visit with nurse practitioner to evaluate. Hold on any CT scan or other intervention at this time. 2. History of coronary artery disease status post CABG/hypertension/hyperlipidemia/diabetes mellitus/obesity/rheumatoid arthritis Complicates care, management, recovery and prognosis. Continue home medications as indicated. Inpatient E&M: 89701 Subs Hosp L2
[2019-05-23 13:02] LABS: Appearance/Body Fluid SL CLDY; Auto B Fluid Analyzer BKGD Ct COUNTS W/IN LIMITS (W/IN LIMITS); Color/Body Fluid YELLOW; Source- Body Fluid THORACENTESIS
[2019-05-23 13:03] LABS: Body Fluid QC Type(s) BF1Q; Lymphocytes 44 %; Monocytes 11 %; Neutrophil (Segs) 2 %
[2019-05-23 13:04] LABS: Other Cell Type/BF 43 %
[2019-05-24 11:39] LABS: Pathologist Comment/Body Fluid Reviewed
--- NOTE | 2019-05-24 14:43 | CASEMGMT ---
KRYSTA HOFF Discharge F/U Phone Call LACE: 14 Strata: 4 Discharge date: 05/23/2019 Call date: 05/24/2019 Call time: [phone] Admission dx: Pneumonia Pt states has been doing 'Ok' since discharge yesterday. Pt states no questions regarding discharge instructions/medications at this time. Pt states has f/u scheduled and plans to keep. Pt states no suggestions for WC at this time. Pt voices no further questions/concerns/needs at this time. [place] KRYSTA HOFF
[2019-05-25 23:02] LABS: pH, Body Fluid 11254 7.4 (Not Estab.)
== END 2019-05-23 13:25 | disposition home or self-care (01) | DRG 194 ==
LOC: ED 22:58 → PCU 23:38
PROVIDERS: Admitting Provider Family Medicine; Emergency Provider Emergency Medicine; PCP Family Medicine; Visit Provider Internal Medicine
DX: J18.9 Pneumonia, unspecified organism (principal); J91.8 Pleural effusion in other conditions classified elsewhere; J98.11 Atelectasis; I13.0 Hypertensive heart and chronic kidney disease with heart failure and stage 1 through stage 4 chronic kidney disease, or unspecified chronic kidney disease; I09.81 Rheumatic heart failure; I50.32 Chronic diastolic (congestive) heart failure; M48.56XA Collapsed vertebra, not elsewhere classified, lumbar region, initial encounter for fracture; G89.29 Other chronic pain; Y95 Nosocomial condition; E11.22 Type 2 diabetes mellitus with diabetic chronic kidney disease; N18.3 Chronic kidney disease, stage 3 (moderate); I25.10 Atherosclerotic heart disease of native coronary artery without angina pectoris; I69.322 Dysarthria following cerebral infarction; E78.5 Hyperlipidemia, unspecified; D69.6 Thrombocytopenia, unspecified; E66.9 Obesity, unspecified; M06.9 Rheumatoid arthritis, unspecified; M72.0 Palmar fascial fibromatosis [Dupuytren]; F32.9 Major depressive disorder, single episode, unspecified; F41.9 Anxiety disorder, unspecified; Z66 Do not resuscitate; Z95.1 Presence of aortocoronary bypass graft; Z95.5 Presence of coronary angioplasty implant and graft; Z68.38 Body mass index [BMI] 38.0-38.9, adult; Z79.4 Long term (current) use of insulin; Z79.82 Long term (current) use of aspirin; Z79.02 Long term (current) use of antithrombotics/antiplatelets; Z79.899 Other long term (current) drug therapy; Z87.891 Personal history of nicotine dependence
CPT/HCPCS: 32555; 36415; 71045; 71046; 80048; 80053; 80076; 80202; 81001; 82728; 82945; 82962; 83605; 83615; 83735; 83880; 83986; 84145; 84156; 84157; 84484; 85025; 86140; 87040; 87070; 87075; 87086; 87088; 87205; 87449; 87633; 87641; 87804; 88108; 88305; 88313; 88341; 88342; 89050; 93005; 94640; 99285; J7040; J7050; A4216; J1940

== ENCOUNTER 2019-05-29 20:06 | Emergency (ER) | payer MEDICARE, SELFPAY ==
[2019-05-20 00:24] VITALS: BMI 38.2
[2019-05-29 20:06] VITALS: BP 163/91; PULSE 87; RESP 21; TEMP 38.8; O2SAT 94; BMI 40.8
[2019-05-29 20:17] VITALS: BP 163/91; PULSE 87; RESP 21; TEMP 38.8; O2SAT 94
--- NOTE | 2019-05-29 20:24 | RAD_ITS ---
STUDY: X-RAY CHEST REASON FOR EXAM: Female, 74 years old. FEVER TODAY, RECENT PNEUMONIA TECHNIQUE: Single AP portable view of the chest. COMPARISON: 05/23/2019. FINDINGS: The lungs are clear and expanded. There is no demonstrated pleural abnormality. Normal size heart. Previous median sternotomy. Normal mediastinum and fidelina. Normal visualized pulmonary arteries. Normal visualized aortic arch and descending thoracic aorta. There are diffuse degenerative changes of the visualized thoracic spine. There is degenerative osteoarthritis of the bilateral shoulders. There is stable enchondroma in the head of the right humerus. There is no demonstrated abnormality of the visualized soft tissue structures of the upper abdomen. RAD/Chest 1 View (Portable) IMPRESSION: No definite acute or significant abnormality seen. Electronically Signed: Reinaldo Oglesby MD at 21:22 EDT , Service support ,
--- NOTE | 2019-05-29 20:24 | CT_ITS ---
STUDY: CT BRAIN WITHOUT CONTRAST REASON FOR EXAM: Female, 74 years old. Altered mental status RADIATION DOSAGE (If Supplied By Facility): CTDIvol = ( 44.99 ) mGy, DLP = ( 745.49 ) mGycm TECHNIQUE: Transaxial CT imaging of the brain was performed without administration of intravenous contrast material. Individualized dose optimization techniques were used for this CT. COMPARISON: None. FINDINGS: There is no acute bleed or infarct. There are chronic ischemic and atrophic changes. The ventricles are normal in configuration. There is no hydrocephalus. The visualized paranasal sinuses are clear. The mastoid air cells are well aerated. There is no skull fracture. CT/Brain/Head without Contrast IMPRESSION: No acute intracranial abnormality. Chronic ischemic and atrophic changes. Electronically Signed: Guy Torres, at 21:32 EDT Tel , Service support ,
--- NOTE | 2019-05-29 20:24 | EKG12_ITS ---
Test Reason : FEVER Blood Pressure : / mmHG Vent. Rate : 086 BPM Atrial Rate : 086 BPM P-R Int : 156 ms QRS Dur : 078 ms QT Int : 328 ms P-R-T Axes : 015 -46 061 degrees QTc Int : 392 ms Sinus rhythm with Premature atrial complexes Left axis deviation Septal infarct , age undetermined Abnormal ECG Confirmed by JUANITA BURTON, JOE ([id number]), photographic editor AJAY SERRANO ([id number]) on 06/01/2019 9:31:22 AM Referred By: DEBRA Confirmed By:JOE GRANT MD
--- NOTE | 2019-05-29 20:26 | ED.VIS.GEN ---
History of Present Illness Chief Complaint: Fever Informant: Patient Onset: Yesterday Context: - - unk Timing: - - unk Quality: unk Current Severity: Moderate Maximum Severity: Moderate Worsened by: unk Relieved by: unk Associated Symptoms: mild headache that is gone now. confusion/disorientation. no other new sx. Narrative: Patient was recently admitted for pneumonia and parapneumonic effusion, that was drained, she was put on antibiotics, discharge, finished antibiotics, this was almost 1 week ago and she states she improved but still has a persistent mild nonproductive cough. She developed fevers yesterday she states. She cannot provide more details. She seems a little confused on some questions, and then admits to being confused although she did not offer that. History is somewhat limited due to this. - Past Medical History (1) Atherosclerosis of coronary artery of [place] heart without angina pectoris Status: Chronic Comment: PCI-HALEIGH-Mid RCA 2.25 x 38 mm Promus Synergy 11/20/16 CABG x 2 KRISHNAMURTHY-LAD, SVG-Om1 11/30/15 @ [facility], PTCA to mid RCA 05/13/2017 (2) CVA (cerebral vascular accident) Status: Chronic Comment: Ischemic: residual is just occasional speech problems (3) Compression fracture of L1 vertebra Status: Chronic Comment: I had a discussion on compression fractures and the fact that it takes 12 weeks to heal. Basically especially with her problem with her left foot she really cannot go through physical therapy as she is having too much trouble getting in and out of the house. I told her nonsteroidals for the pain rest as much as possible but continue to be active in the upper body. I told her that kyphoplasty is a rarely done procedure and I did not think she would benefit enough to assume the risk of that procedure. (4) Dupuytren's contracture of left hand Status: Chronic (5) Hyperlipemia Status: Chronic (6) Hypertension Status: Chronic (7) Type 2 diabetes mellitus Status: Chronic (8) Anemia Status: Resolved Past Medical History - Allergies and Home Meds Allergies/Adverse Reactions: Allergies oxycodone Allergy (Verified 05/11/19 13:39) Other UNABLE TO TAKE, MAKES EXCITED AND UNABLE TO SLEEP environemental Allergy (Uncoded 05/11/19 13:39) dry cough Primary Care Physician: Brown,Malik R, DO [Primary Care Provider] - Surgical History: angioplasty - Cardiac stent, arthroscopy, knee, coronary bypass surgery, total hip arthroplasty, - - Bilateral cataract surgery, tonsillectomy, hysterectomy, bladder suspension surgery, left elbow surgery, right foot complete reconstructive surgery, right total knee replacement x1, right partial knee replacement x1, right knee arthroscopic surgery, left knee total replacement, right total hip replacement, left ankle surgery x3. Smoking Status: Former smoker - Family History Maternal Family History: Family History (Last Reviewed 05/11/19 @ 14:[address] Malik Bang DO) Grandmother Myocardial infarction CVA (cerebral vascular accident) Mother Myocardial infarction Father Diabetes Arthritis Family History: Reports: Diabetes, High Cholesterol, Heart Disease, Hypertension Paternal Family History: Family History (Last Reviewed 05/11/19 @ 14:[address] Malik Bang DO) Grandmother Myocardial infarction CVA (cerebral vascular accident) Mother Myocardial infarction Father Diabetes Arthritis Family History: Reports: Diabetes, High Cholesterol, Heart Disease, Hypertension Review of Systems General: Reports: Fever, Malaise. Denies: Chills, Sweats Eyes: Denies: Visual changes - bilaterally, Diplopia ENT: Denies: Bilateral ear pain, Rhinorrhea, Sore throat Cardiovascular: Denies: Chest pain, Palpitations Respiratory: Reports: Cough. Denies: Dyspnea, Sputum, Dyspnea on exertion Gastrointestinal: Reports: - - anorexia / no appetite. Denies: Abdominal pain, Nausea, Vomiting, Diarrhea, Melena, Hematochezia Genitourinary: Denies: Dysuria, Hematuria, Frequency Musculoskeletal: Denies: Neck pain - Nor stiffness, Back pain, Extremity Pain Skin: Denies: Rash, Wounds Neurological: Reports: Headache - Currently gone. Denies: Weakness, Numbness Physical Exam Vital Signs/Narrative: Vital Signs Temp Pulse Resp BP Pulse Ox 05/29/19 20:17 101.9 F H 87 21 H 163/91 H 94 05/29/19 20:06 101.9 F H 87 21 H 163/91 H 94 Inital Vital Signs reviewed: Yes General: Well nourished, Well developed, No Acute Distress Head: Normocephalic, Atraumatic Eyes: Perrl, EOMI ENT: Moist mucous membranes, No rhinorrhea, TM's clear. Negative for: Nasal congestion, Sinus tenderness Neck: Supple - Full range of motion without any meningismus or difficulty/limitation, Nontender, No lymphadenopathy, No JVD Cardiovascular: Regular rate, Regular rhythm, No murmurs Respiratory: No distress, CTA bilaterally, Chest nontender Abdomen: Soft, Nontender, Nondistended, Normal bowel sounds Back: Nontender, Normal Inspection Extremities: Nontender, Edema - Bilateral lower extremities 1+ nonpitting Skin: Normal color, No rash, No Trauma Neurological: Alert, Cranial nerves II-XII grossly intact, Normal Strength, Normal Sensation, Disoriented - To time: Day, month, year but oriented to person and place Psychological: Normal affect, Normal Mood Diagnostic/Tx/Re-eval Impressions Brain CT 05/29/19 20:24 IMPRESSION: No acute intracranial abnormality. Chronic ischemic and atrophic changes. Electronically Signed: Guy Torres, at 21:32 EDT Tel , Service support , Chest X-Ray 05/29/19 20:24 IMPRESSION: No definite acute or significant abnormality seen. Electronically Signed: Reinaldo Oglesby MD at 21:22 EDT , Service support , 05/29/19 20:24 Brain/Head without Contrast [CT] Stat Chest 1 View (Portable) [RAD] Stat 05/29/19 20:40 Mucosa - Nasopharyngeal Influenza Types A,B Direct FA (DINA) - Final -- NEGATIVE Laboratory Results 05/29/19 05/29/19 05/29/19 20:18 20:18 20:18 WBC 4.3 L RBC 3.98 L Hgb 12.9 Hct 40.6 MCV 102.0 H MCH 32.4 H MCHC 31.8 L RDW Std Deviation 56.5 H RDW Coeff of Henry 15.0 H Plt Count 63 L MPV 13.2 H Immature Gran % (Auto) 0.500 Neut % (Auto) 63.7 Lymph % (Auto) 27.3 [place] % (Auto) 8.5 Eos % (Auto) 0.0 Baso % (Auto) 0.0 Absolute Neuts (auto) 2.7 Absolute Lymphs (auto) 1.16 Nucleated RBC % 0 Differential Comment SCANNED Atypical Lymphocytes RARE Reactive Lymphocytes RARE Platelet Estimate MOD DEC Anisocytosis 1+ Sodium 137 Potassium 5.0 Chloride 110 H Carbon Dioxide 21.0 Anion Gap 6 BUN 30 H Creatinine 1.62 H Estim Creat Clear Calc 26.71 Est GFR (MDRD) Af Amer 40 L Est GFR (MDRD) Non-Af 33 L BUN/Creatinine Ratio 18.5 Glucose 77 Lactic Acid 1.6 Calcium 8.8 Total Bilirubin 2.00 H AST 110 H ALT 25 Alkaline Phosphatase 231 H Troponin I 0.017 Total Protein 6.6 Albumin 2.4 L Globulin 4.2 Albumin/Globulin Ratio 0.6 L TSH Urine Color Urine Clarity Urine pH Ur Specific [place] Urine Protein Urine Glucose (UA) Urine Ketones Urine Occult Blood Urine Nitrite Urine Bilirubin Urine Urobilinogen Ur Leukocyte Esterase Urine RBC Urine WBC Ur Squamous Epith Cells Urine Bacteria Urine Mucus 05/29/19 05/29/19 20:18 20:40 WBC RBC Hgb Hct MCV MCH MCHC RDW Std Deviation RDW Coeff of Henry Plt Count MPV Immature Gran % (Auto) Neut % (Auto) Lymph % (Auto) [place] % (Auto) Eos % (Auto) Baso % (Auto) Absolute Neuts (auto) Absolute Lymphs (auto) Nucleated RBC % Differential Comment Atypical Lymphocytes Reactive Lymphocytes Platelet Estimate Anisocytosis Sodium Potassium Chloride Carbon Dioxide Anion Gap BUN Creatinine Estim Creat Clear Calc Est GFR (MDRD) Af Amer Est GFR (MDRD) Non-Af BUN/Creatinine Ratio Glucose Lactic Acid Calcium Total Bilirubin AST ALT Alkaline Phosphatase Troponin I Total Protein Albumin Globulin Albumin/Globulin Ratio TSH 2.39 Urine Color Yellow Urine Clarity Clear Urine pH 5.0 Ur Specific [place] 1.015 Urine Protein 30 H Urine Glucose (UA) Normal Urine Ketones Negative Urine Occult Blood 10 H Urine Nitrite Negative Urine Bilirubin Negative Urine Urobilinogen Normal Ur Leukocyte Esterase Negative Urine RBC 0 SEEN Urine WBC 0-5 SEEN Ur Squamous Epith Cells 0-5 SEEN Urine Bacteria 0 SEEN Urine Mucus 0 SEEN - Rhythm Strip Rhythm Strip: Sinus Rhythm Rate: 86 Ectopy: None - EKG Initial EKG Interpretation: Sinus Rhythm, No Acute Injury Pattern, - - LAD Prior: Unchanged - Medical Decision Making After Tylenol brought her temperature down, the patient states she feels much better and she appears much better. She is oriented x3. I suspect this disorientation was a symptom of her fever itself. 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 She has had no abd pain, nausea, vomiting, or diarrhea, and her abdominal exam here is very benign. Her work-up otherwise, other than chronic thrombocytopenia and chronically elevated bilirubin which is actually lower than usual, is really unremarkable. She is on no immunosuppressant medications. She has negative chest x-ray and urine. No significant leukocytosis. Lactate within normal limits. Blood cultures were sent, I also did a CT of the head that returned unremarkable, given her disorientation. Obviously, that was transient and she is doing much better. She does prefer to go home. I think that is reasonable, since I see no clear threat to life or limb here, or necessary reason to admit her. I think the PADMA can be followed up with as an outpatient and she was encouraged to drink plenty of fluids. If she is having a hard time eating due to lack of appetite, I advise doing boost or Ensure shakes. Her neck/head exam is very benign and she does not examine like meningitis at all. She is able to take her chin to her chest without any difficulty. She is reassured and happy to follow-up with her doctor, she already has an appointment for about 1 week from now. We discussed reasons to return, she is comfortable with that plan. Also of note, I did discuss with the patient them unable to rule out the possibility of an early coronavirus infection, given its prevalence in the community right now. It does not appear that she was tested for that while in the hospital since she had a lobar pneumonia with a parapneumonic effusion that was drained. She understands and is advised to stay indoors and less going to her doctor and advised to wear a mask whenever she leaves the house. ED Disposition - Plan for ED Patient: Disposition: Home or Assisted Living Diagnosis: Fever, Transient confusion, Acute kidney injury Instructions: ED FUO Adult, ED Insufficiency Renal Referrals: Malik Bang DO [Primary Care Provider] - Keep Vivek appointment
[2019-05-29 20:36] LABS: Absolute Lymphocyte Count 1.16 X10^3/uL (0.83-4.51); Absolute Neutrophil Count 2.7 X10^3/uL (2.0-7.7); Hematocrit 40.6 % (37-47); Hemoglobin 12.9 g/dL (12.0-15.0); Lymphocyte # 1.16 X10^3/ul (4.0); Lymphocyte % 27.3 % (19-41); Mean Corp Hgb Conc 31.8 g/dL (32-36); Mean Corpuscular Hgb 32.4 pg (27.0-32.0); Mean Platelet Vol. 13.2 fl (6.2-12.0); Monocyte# 0.36 X10^3/uL; Monocyte% 8.5 % (0-10); NRBC Flagged by Analyzer 0 % (0-5); Neutrophil # 2.71 X10^3/uL (2.7-7.7); Neutrophil % 63.7 % (47-70); POSITIVE COUNT YES; POSITIVE MORPHOLOGY YES; Platelet Count 63 K/mm3 (150-450); RBC Distribution Width SD 56.5 fl (35.1-43.9); Red Blood Count 3.98 M/mm3 (4.2-5.4); White Blood Count 4.3 K/mm3 (4.4-11.0)
[2019-05-29 20:41] LABS: Differential Indicated SCAN CRITERIA MET
[2019-05-29] MEDS: Acetaminophen 500 MG Tablet 1000 MG PO (20:41)
[2019-05-29 20:45] LABS: Bacteria 0 SEEN /hpf (None Seen); Mucous, Urine 0 SEEN /hpf (<or=2+); Red Blood Cells-Urine 0 SEEN /hpf (0-5)
[2019-05-29 20:48] LABS: Color, Urine Yellow (Yellow); Glucose, Dipstick Normal (Normal); Ketone-Dipstick Negative (Negative); Leukocyte Esterase-Dipstick Negative /ul (Negative); Nitrite-Dipstick Negative (Negative); Occult Blood-Urine 10 /ul (Negative); Protein-Dipstick 30 mg/dl (Negative); Specific Gravity, Urine 1.015 (1.002-1.030); Urine Bilirubin Dipstick Negative (Negative); Urine Clarity Clear (Clear); Urine Urobilinogen Normal (Normal)
[2019-05-29 20:52] LABS: ALB/GLOB Ratio 0.6 RATIO (0.9-2.4); AST(SGOT) 110 U/L (15-37); Alanine Aminotransfer ALT/SGPT 25 U/L (13-56); Albumin, Serum 2.4 g/dL (3.2-5.0); Alkaline Phosphatase 231 U/L (45-117); Anion Gap 6 (5-15); BUN 30 mg/dL (7-18); BUN/Creat Ratio 18.5 RATIO (10-20); Calcium,Total 8.8 mg/dL (8.5-10.1); Chloride 110 mmol/L (98-107); Creatinine, Serum 1.62 mg/dL (0.55-1.02); EST Glomerular Filtration Rate 33 mL/min (>60); Est Glom Filt Rate - Afr Amer 40 mL/min (>60); Estimated Creatinine Clearance 26.71 ml/min; Globulin 4.2 g/dL (2.2-4.2); Glucose 77 mg/dL (74-106); Lactic Acid 1.6 mmol/L (0.4-1.9); Protein, Total 6.6 g/dL (6.4-8.2); Sodium Level 137 mmol/L (136-145)
[2019-05-29 20:54] LABS: Squamous Epithelial Cells - UA 0-5 SEEN /hpf (5-10); White Blood Cells 0-5 SEEN /hpf (0-5)
[2019-05-29 21:05] VITALS: BP 135/67; PULSE 77; RESP 16; TEMP 38.6; O2SAT 93
[2019-05-29 21:14] LABS: Atypical Lymphocyte RARE %; Differential Comment SCANNED; Reactive Lymphocyte RARE
[2019-05-29 21:15] LABS: Anisocytosis 1+; Platelet Estimate MOD DEC (ADEQ)
[2019-05-29 21:19] LABS: Thyroid Stim Hormone (TSH) 2.39 uIU/mL (0.358-3.74)
[2019-05-29 22:33] VITALS: BP 122/54; PULSE 69; RESP 14; TEMP 37.1; O2SAT 93
--- NOTE | 2019-05-29 22:41 | ED.RN ---
UPDATED , REQUESTED BY PATIENT, ALL QUESTIONS ANSWERED, NO FURTHER CONCERNS. HE WILL COME PICK PT UP.
[2019-06-01 10:46] VITALS: BMI 40.8
== END 2019-05-29 23:09 | disposition home or self-care (01) ==
PROVIDERS: Emergency Provider Emergency Medicine; PCP Family Medicine
DX: R50.9 Fever, unspecified (principal); N17.9 Acute kidney failure, unspecified; R41.0 Disorientation, unspecified; I25.10 Atherosclerotic heart disease of native coronary artery without angina pectoris; E78.5 Hyperlipidemia, unspecified; I10 Essential (primary) hypertension; E11.9 Type 2 diabetes mellitus without complications; Z86.73 Personal history of transient ischemic attack (TIA), and cerebral infarction without residual deficits; Z95.5 Presence of coronary angioplasty implant and graft; Z87.01 Personal history of pneumonia (recurrent)
CPT/HCPCS: 70450; 71045; 80053; 81001; 83605; 84443; 84484; 85025; 87040; 87804; 93005; 99285; J7040; P9612; A4216

== ENCOUNTER → 2019-05-30 08:30 | Outpatient (CLI) | payer MEDICARE, SELFPAY ==
[2019-05-29 20:06] VITALS: BMI 40.8
--- NOTE | 2019-05-30 08:32 | RAD_ITS ---
STUDY: X-RAY CHEST REASON FOR EXAM: Female, 74 years old. COUGH S/P RECENT THORACENTESIS TECHNIQUE: PA and lateral views of the chest. COMPARISON: Comparison is made with prior study dated May 29, 2019. FINDINGS: Stable elevation of the right hemidiaphragm. Mild increased markings at the lung bases slightly more prominent on the left side. This may represent bibasilar atelectasis. Sternal cerclage wires and vascular clips are present from a prior sternotomy and coronary artery bypass graft procedure (CABG). Normal mediastinum and fidelina. Normal visualized pulmonary arteries. There is atherosclerotic calcification of the aortic arch with tortuosity. There are diffuse degenerative changes of the visualized thoracic spine. Stable focal sclerotic abnormality in the proximal right humerus. There is no demonstrated abnormality of the visualized soft tissue structures of the upper abdomen. RAD/Chest PA and Lateral IMPRESSION: Mild degree of increased markings at the lung bases slightly worse on the left side suggestive of atelectasis. Electronically Signed: Dany Roblero, at 8:54 EDT , Service support ,
== END ==
PROVIDERS: PCP Family Medicine; Referring Provider Internal Medicine; Visit Provider Internal Medicine
DX: R05 Cough (principal)
CPT/HCPCS: 71046

== ENCOUNTER 2019-06-01 10:38 | Inpatient (IN) | payer MEDICARE, SELFPAY ==
[2019-06-01] VITALS (25 sets, daily range): BP systolic 96–132; BP diastolic 46–111; PULSE 65–82; RESP 15–34; TEMP 35.9–36.9; O2SAT 76–96; BMI 40.8; BMI 40.2
--- NOTE | 2019-06-01 10:40 | EKG12_ITS ---
Test Reason : HYPOXIC Blood Pressure : / mmHG Vent. Rate : 068 BPM Atrial Rate : 068 BPM P-R Int : 160 ms QRS Dur : 076 ms QT Int : 410 ms P-R-T Axes : 018 -43 066 degrees QTc Int : 435 ms Normal sinus rhythm Left axis deviation Low voltage QRS Abnormal ECG Confirmed by LUIS A BURTON, MARY ([id number]), mapping editor AJAY SERRANO ([id number] on 06/06/2019 10:53:00 AM Referred By: ANTONIO Confirmed By:DEION GUNN MD
--- NOTE | 2019-06-01 10:53 | ED.DCSUM_ITS ---
History of Present Illness Chief Complaint: Shortness of Breath Informant: Patient Onset: - May 28 Context: Sudden Onset Timing: Continuous Quality: Dyspnea, productive cough, dyspnea on exertion Location: Respiratory Current Severity: Severe Maximum Severity: Severe Worsened by: Any type of activity Relieved by: Nothing Associated Symptoms: Upper respiratory symptoms Narrative: Patient is an elderly woman with multiple core morbidities who presents with increased shortness of breath. She states she has a cough which is productive of white to clear sputum. She does have history of COPD and recent admission earlier this month for pneumonia. She was hospitalized for 5 days. She was seen on Thursday and had negative viral swabs. Patient's history is limited to the fact that she is ill and has conversational dyspnea. She is only able to say 1 word at a time. She does acknowledge to nasal congestion, she denies documented fever. She denies chest pain. She does have a walking boot secondary to injury left ankle/foot. She denies hemoptysis or pleuritic chest pain. Patient does complain of headache. She denies ocular, visual auditory symptoms. Patient denies change in taste. Patient denies vomiting or diarrhea. She denies dysuria, frequency, urgency or hematuria. She has not been on prednisone the last 3 to 6 months secondary to diabetes. She states if she is placed on prednisone her blood sugars become markedly elevated. She denies any calf pain or swelling. She denies any discoloration of her lower extremities. Prior similar symptoms: Yes Recent Illness/Hospitalization: Yes - Past Medical History (1) Pneumonia Status: Acute (2) CVA (cerebral vascular accident) Status: Chronic Comment: Ischemic: residual is just occasional speech problems (3) History of coronary artery stent placement Status: Chronic Comment: PCI-[place]-Mid RCA 2.25 x 38 mm Promus Synergy (4) Hyperlipemia Status: Chronic (5) Hypertension Status: Chronic (6) Rheumatic fever Status: Chronic (7) Type 2 diabetes mellitus Status: Chronic (8) Anemia Status: Resolved Past Medical History - Allergies and Home Meds Allergies/Adverse Reactions: Allergies oxycodone Allergy (Verified 06/01/19 10:43) Other UNABLE TO TAKE, MAKES EXCITED AND UNABLE TO SLEEP environemental Allergy (Uncoded 06/01/19 10:43) dry cough Primary Care Physician: Malik Bang DO [Primary Care Provider] - Prior records reviewed: Yes Surgical History: angioplasty - Cardiac stent, arthroscopy, knee, coronary bypass surgery, total hip arthroplasty, - - Bilateral cataract surgery, tonsillectomy, hysterectomy, bladder suspension surgery, left elbow surgery, right foot complete reconstructive surgery, right total knee replacement x1, right partial knee replacement x1, right knee arthroscopic surgery, left knee total replacement, right total hip replacement, left ankle surgery x3. Lives: Alone Smoking Status: Former smoker Alcohol: None Drugs: None - Family History Maternal Family History: Family History (Last Reviewed 05/11/19 @ 14:[address] Malik Bang DO) Grandmother Myocardial infarction CVA (cerebral vascular accident) Mother Myocardial infarction Father Diabetes Arthritis Family History: Reports: Diabetes, High Cholesterol, Heart Disease, Hypertension Paternal Family History: Family History (Last Reviewed 05/11/19 @ 14:[address] Malik Bang DO) Grandmother Myocardial infarction CVA (cerebral vascular accident) Mother Myocardial infarction Father Diabetes Arthritis Family History: Reports: Diabetes, High Cholesterol, Heart Disease, Hypertension Review of Systems General: Reports: Chills, Fever, Malaise, Subjective. Denies: Sweats, Weight loss Eyes: Denies: Visual changes - bilaterally, Blurred Vision - bilaterally ENT: Reports: Rhinorrhea. Denies: Sore throat Cardiovascular: Reports: Palpitations, Heart racing. Denies: Chest pain Respiratory: Reports: Dyspnea, Cough, Sputum, Dyspnea on exertion. Denies: Orthopnea, Paroxysmal nocturnal dyspnea Gastrointestinal: Denies: Abdominal pain, Vomiting, Diarrhea, Constipation, Melena, Hematochezia Genitourinary: Denies: Dysuria, Hematuria, Frequency Musculoskeletal: Reports: Extremity Pain - Secondary to walking boot. Denies: Myalgias, Arthralgias, Neck pain, Back pain, Swelling, -, - Skin: Denies: Rash, Wounds Neurological: Reports: Headache, Weakness. Denies: Parasthesia, Numbness Endocrine: Denies: Polyuria, Polydipsia Hematologic: Denies: Easy bruising, Easy bleeding Allergy: Denies: Uticaria, Swelling of the mouth Physical Exam Vital Signs/Narrative: Vital Signs Temp Pulse Resp BP Pulse Ox 06/01/19 10:46 97.8 F 67 22 H 115/91 H 92 06/01/19 10:39 97.8 F 67 24 H 115/91 H 76 Inital Vital Signs reviewed: Yes General: Well nourished, Well developed, Obese, Acute Distress Head: Normocephalic, Atraumatic Eyes: Perrl, EOMI. Negative for: Pale conjunctiva, Scleral icterus ENT: No rhinorrhea, TM's clear, Nasal congestion Neck: Supple, Nontender, No lymphadenopathy, No JVD Cardiovascular: Regular rate, Regular rhythm, No murmurs, Normal S1, Normal S2 Respiratory: Chest nontender, Rales, Decreased Air Movement Abdomen: Soft, Nontender, Nondistended, Normal bowel sounds, No masses Rectal: Deferred Back: Nontender, Normal Inspection. Negative for: CVA tenderness, Spinal tenderness Extremities: Nontender, No edema. Negative for: Tenderness, Calf Tenderness Skin: Normal color, No rash, Cyanosis, No Trauma, Rash - Has a fine lenticular rash with delayed capillary refill. Negative for: Diaphoresis, Jaundice Neurological: Alert, Oriented x3, Cranial nerves II-XII grossly intact, Normal Strength, Normal Sensation. Negative for: Normal Gait Psychological: Normal affect Diagnostic/Tx/Re-eval Chest X-Ray - ED: 1 View, Read by ED Physician, - - Single view portable chest x-ray is obtained. There is increased bilateral station markings. Right subclavian line noted with no evidence of pneumothorax. This was compared to x- ray obtained May 29. 3 view x-ray of the right shoulder was obtained. There is no evidence of fracture, dislocation or subluxation. The clavicle AC joint appears normal. The chest portion that was visualized reveals interstitial infiltrate 3 view x-ray of the right wrist reveals degenerative changes with no evidence of fracture, subluxation dislocation. There is no volar fat pad noted. These films were interpreted by me at 02/10/2005. 06/01/19 11:04 Shoulder min 2 Views [RAD] Stat Wrist min 3 Views [RAD] Stat 06/01/19 11:47 Chest 1 View (Portable) [RAD] Stat Laboratory Results 06/01/19 06/01/19 06/01/19 11:00 11:20 11:20 WBC 3.0 L RBC 3.66 L Hgb 11.9 L Hct 36.6 L MCV 100.0 H MCH 32.5 H MCHC 32.5 RDW Std Deviation 54.7 H RDW Coeff of Henry 14.8 H Plt Count 51 L MPV 13.6 H Immature Gran % (Auto) 0.700 Neut % (Auto) 76.7 H Lymph % (Auto) 17.9 L Boyle % (Auto) 4.4 Eos % (Auto) 0.3 Baso % (Auto) 0.0 Absolute Neuts (auto) 2.3 Absolute Lymphs (auto) 0.53 L Nucleated RBC % 0 Diff Path Review May foll Platelet Estimate MKD DEC Hypochromasia RARE Macrocytosis RARE PT 16.2 H INR 1.4 APTT 43.9 H Specimen Type Sample Site VBG pH VBG pO2 VBG O2 Sat (Calc) VBG O2 Content VBG Base Excess POC Mix VBG pCO2 Pt Tmp O2 Delivery Device Liter Flow Blood Gas Notified Whom Blood Gas Notified Time Sodium Potassium Chloride Carbon Dioxide Anion Gap BUN Creatinine Estim Creat Clear Calc Est GFR (MDRD) Af Amer Est GFR (MDRD) Non-Af BUN/Creatinine Ratio Glucose Calcium Total Bilirubin AST ALT Alkaline Phosphatase Total Protein Albumin Globulin Albumin/Globulin Ratio Urine Color Yellow Urine Clarity Sl. Cloudy Urine pH 5.0 Ur Specific [place] 1.020 Urine Protein 30 H Urine Glucose (UA) Normal Urine Ketones 5 H Urine Occult Blood 10 H Urine Nitrite Negative Urine Bilirubin 1 H Urine Urobilinogen Normal Ur Leukocyte Esterase 25 H Urine RBC 0-5 SEEN Urine WBC 0-5 SEEN Ur Squamous Epith Cells 0 SEEN Urine Bacteria RARE Hyaline Casts 5-10 SEEN Urine Mucus 0 SEEN 06/01/19 06/01/19 11:20 11:35 WBC RBC Hgb Hct MCV MCH MCHC RDW Std Deviation RDW Coeff of Henry Plt Count MPV Immature Gran % (Auto) Neut % (Auto) Lymph % (Auto) Boyle % (Auto) Eos % (Auto) Baso % (Auto) Absolute Neuts (auto) Absolute Lymphs (auto) Nucleated RBC % Diff Path Review Platelet Estimate Hypochromasia Macrocytosis PT INR APTT Specimen Type RJ Sample Site OTHER VBG pH 7.32 VBG pO2 50 H VBG O2 Sat (Calc) 83 H VBG O2 Content 18 L VBG Base Excess -9 L POC Mix VBG pCO2 Pt Tmp 33.2 L O2 Delivery Device Nasal Can Liter Flow 4.0 Blood Gas Notified Whom ED Blood Gas Notified Time 1135 Sodium 135 L Potassium 4.3 Chloride 109 H Carbon Dioxide 19.0 L Anion Gap 7 BUN 42 H Creatinine 2.05 H Estim Creat Clear Calc 21.11 Est GFR (MDRD) Af Amer 31 L Est GFR (MDRD) Non-Af 25 L BUN/Creatinine Ratio 20.5 H Glucose 129 H Calcium 8.0 L Total Bilirubin 2.50 H AST 114 H ALT 22 Alkaline Phosphatase 246 H Total Protein 5.8 L Albumin 2.0 L Globulin 3.8 Albumin/Globulin Ratio 0.5 L Urine Color Urine Clarity Urine pH Ur Specific [place] Urine Protein Urine Glucose (UA) Urine Ketones Urine Occult Blood Urine Nitrite Urine Bilirubin Urine Urobilinogen Ur Leukocyte Esterase Urine RBC Urine WBC Ur Squamous Epith Cells Urine Bacteria Hyaline Casts Urine Mucus - Rhythm Strip Rhythm Strip: Sinus Rhythm Rate: 78 Ectopy: None - EKG Initial EKG Interpretation: Sinus Rhythm - Sinus rhythm with a ventricular rate of 68. ID interval is 160 ms. QRS duration 76 ms. QT duration 110 ms with a QTC of 435 ms. [place] to the left. There is artifact secondary to respiratory distress. - Medical Decision Making Presents with respiratory symptoms and hypoxia. Differential diagnosis include viral upper respiratory infection, COVID 19, bacterial pneumonia, healthcare acquired, pulmonary embolus and congestive heart failure. Patient was approved by personnel at [facility] for COVID testing. Proper paperwork is filled out. Sepsis work-up was initiated. Clinically she has pneumonia with egophony and increased vocal fremitus as well as rales bilaterally. She did receive IV antibiotics. She is saturating between 89 and 90% on 4 L. Since she has history of COPD this is acceptable. An ABG was obtained to assess acid- base status since she has poor perfusion as well as CO2. Mixed venous gas was obtained. pH is 7.32, PCO2 33.2, PaO2 50 with a base excess of -9 and bicarb of 17.2. Saturation was 83.0%. This indicates a metabolic acidosis. There is no evidence of CO2 retention. Patient's repeat blood pressure was less than 100 but above 90. She received 1000 L bolus. Was discussed with Dr. Supa Bang who sent patient in. He agrees to admit to ICU. Hospitalist has been paged. - Critical Care Time Critical care time (excluding procedures): 30-74 minutes - Critical care time 33 minutes, Discussing w/Patient &/or Family/Corporate Statistical Financial Analyst, Discussing w/Consultants, Arranging Admission or Transfer Procedures Procedure(s): Nursing staff was unable to establish a peripheral IV or obtain blood work. Since patient is critically ill she was consented for central line. She was consented specifically for a subclavian line. She was explained risk benefits and reason that a line had to be placed. She was given opportunity ask questions. None were asked. All personnel were as appropriately count, mast and use of head cover during procedure. Patient was prepped draped sterile manner. The right subclavian line was cannulated successfully on first attempt on the way in. Using Seldinger technique a 7.5 [place] triple-lumen was placed. Blood was aspirated from all ports. 80 cc was drawn from the distal port. 20 cc from the proximal port and blood was successfully aspirated from the middle port. All lines were flushed. The subclavian line was sutured in place. Dressing applied per nursing staff. Chest x-ray has been obtained to assess positioning and to rule out pneumothorax. The insertion of the guidewire patient did have nonsustained V. tach. This was treated with pulling the wire out 1 to 2 cm. ED Disposition - Plan for ED Patient: Diagnosis: Respiratory failure with hypoxia, Severe sepsis with acute organ dysfunction, Bilateral pulmonary infiltrates on chest x-ray, Suspected 2019 novel coronavirus infection, Pancytopenia, PADMA (acute kidney injury), Jaundice, Hypotension, Lactic acid acidosis Referrals: Malik Bang DO [Primary Care Provider] -
--- NOTE | 2019-06-01 11:04 | RAD_ITS ---
STUDY: X-RAY - RIGHT SHOULDER REASON FOR EXAM: Female, 74 years old. Pain, pt. States no known injury TECHNIQUE: 2 view(s) of the shoulder. COMPARISON: None. FINDINGS: There is moderate degenerative arthrosis of the glenohumeral articulation. There is degenerative arthrosis of the acromioclavicular joint without inferior osseous spur formation. Normal acromion. Stable 1.3 cm sclerotic focus in the humeral neck suggestive of a healed bone infarct or calcification of cartilaginous abnormality. The soft tissue structures are unremarkable. Right pulmonary infiltrates. RAD/Shoulder min 2 Views IMPRESSION: Degenerative changes of the shoulder. Right pulmonary infiltrates. Electronically Signed: Dany Roblero, at 12:41 EDT , Service support ,
--- NOTE | 2019-06-01 11:04 | RAD_ITS ---
STUDY: X-RAY - RIGHT WRIST REASON FOR EXAM: Female, 74 years old. Pain, pt. States no known injury TECHNIQUE: 3 view(s) of the wrist were obtained. COMPARISON: None. FINDINGS: Normal visualized distal radius and ulna. There is degenerative arthrosis of the radiocarpal articulation. Normal distal radioulnar articulation. Normal carpal bones. Findings suggestive of a nonhealed fracture through the waist of the scaphoid. There is degenerative arthrosis of the carpometacarpal articulation of the thumb. Normal second through fifth carpometacarpal articulations. Normal visualized metacarpal bones. Calcification of the triangular fibrocartilage. RAD/Wrist min 3 Views IMPRESSION: Degenerative changes. Findings suggestive of a nonhealed fracture through the waist of the scaphoid bone Electronically Signed: Dany Roblero, at 12:41 EDT , Service support ,
[2019-06-01 11:08] LABS: Mucous, Urine 0 SEEN /hpf (<or=2+); Squamous Epithelial Cells - UA 0 SEEN /hpf (5-10)
[2019-06-01 11:13] LABS: Color, Urine Yellow (Yellow); Glucose, Dipstick Normal (Normal); Ketone-Dipstick 5 mg/dl (Negative); Leukocyte Esterase-Dipstick 25 /ul (Negative); Nitrite-Dipstick Negative (Negative); Occult Blood-Urine 10 /ul (Negative); Protein-Dipstick 30 mg/dl (Negative); Urine Clarity Sl. Cloudy (Clear); Urine Urobilinogen Normal (Normal)
[2019-06-01 11:15] LABS: Urine Bilirubin Dipstick 1 mg/dL (Negative)
[2019-06-01 11:24] LABS: Bacteria RARE /hpf (None Seen); Hyaline Cast 5-10 SEEN /lpf (0-5); Red Blood Cells-Urine 0-5 SEEN /hpf (0-5); White Blood Cells 0-5 SEEN /hpf (0-5)
[2019-06-01] MEDS: 0.9% Normal Saline 1,000 ML 999 ML IV (11:31)
[2019-06-01 11:45] LABS: Absolute Lymphocyte Count 0.53 X10^3/uL (0.83-4.51); Absolute Neutrophil Count 2.3 X10^3/uL (2.0-7.7); Eosinophil# 0.01 X10^3/uL; Eosinophils% 0.3 % (0-5); Hematocrit 36.6 % (37-47); Hemoglobin 11.9 g/dL (12.0-15.0); Lymphocyte # 0.53 X10^3/ul (4.0); Lymphocyte % 17.9 % (19-41); Mean Corp Hgb Conc 32.5 g/dL (32-36); Mean Corpuscular Hgb 32.5 pg (27.0-32.0); Mean Platelet Vol. 13.6 fl (6.2-12.0); Monocyte# 0.13 X10^3/uL; Monocyte% 4.4 % (0-10); NRBC Flagged by Analyzer 0 % (0-5); Neutrophil # 2.27 X10^3/uL (2.7-7.7); Neutrophil % 76.7 % (47-70); POSITIVE COUNT YES; POSITIVE DIFFERENTIAL YES; Platelet Count 51 K/mm3 (150-450); RBC Distribution Width CV 14.8 % (11.6-14.6); RBC Distribution Width SD 54.7 fl (35.1-43.9); Red Blood Count 3.66 M/mm3 (4.2-5.4)
--- NOTE | 2019-06-01 11:47 | RAD_ITS ---
STUDY: X-RAY CHEST REASON FOR EXAM: Female, 74 years old. Cough, sob TECHNIQUE: Single AP portable view of the chest. COMPARISON: Comparison is made with prior study dated May 30, 2019. FINDINGS: A right-sided venous catheter is seen with the tip in the midportion of the superior vena cava. EKG electrodes are seen. At this time, there is evidence of patchy areas of airspace disease in both lungs. There is no demonstrated pleural abnormality. Sternal cerclage wires and vascular clips are present from a prior sternotomy and coronary artery bypass graft procedure (CABG). Normal mediastinum and fidelina. Normal visualized pulmonary arteries. There is atherosclerotic calcification of the aortic arch with tortuosity. Normal visualized thoracic spine. There is degenerative osteoarthritis of the bilateral shoulders. Stable focal sclerotic lesion seen in the proximal right humerus. There is no demonstrated abnormality of the visualized soft tissue structures of the upper abdomen. RAD/Chest 1 View (Portable) IMPRESSION: New bilateral patchy infiltrates. Follow-up is recommended. Electronically Signed: Dany Roblero, at 12:38 EDT , Service support ,
[2019-06-01 11:55] LABS: VBG BASE EXCESS -9 mmol/L (-1.0-3.5); VBG Bicarbonate 17 mmol/L (22-26); VBG Oxygen Content 18 mmol/L (23-33); VBG PO2 50 mmHg (25-40); VBG SO2 83 % (50-70); VBG pCO2 33.2 mmHg (41-51); VBG pH 7.32 (7.32-7.42)
[2019-06-01 12:00] LABS: International Normalized Ratio 1.4; Partial Thromboplast Time 43.9 Seconds (24.1-36.2); Prothrombin Time (Protime)PT. 16.2 SECONDS (11.7-14.9)
[2019-06-01 12:04] LABS: ALB/GLOB Ratio 0.5 RATIO (0.9-2.4); AST(SGOT) 114 U/L (15-37); Alanine Aminotransfer ALT/SGPT 22 U/L (13-56); Alkaline Phosphatase 246 U/L (45-117); Anion Gap 7 (5-15); BUN 42 mg/dL (7-18); BUN/Creat Ratio 20.5 RATIO (10-20); Chloride 109 mmol/L (98-107); Creatinine, Serum 2.05 mg/dL (0.55-1.02); EST Glomerular Filtration Rate 25 mL/min (>60); Est Glom Filt Rate - Afr Amer 31 mL/min (>60); Estimated Creatinine Clearance 21.11 ml/min; Globulin 3.8 g/dL (2.2-4.2); Glucose 129 mg/dL (74-106); Potassium 4.3 mmol/L (3.5-5.1); Protein, Total 5.8 g/dL (6.4-8.2); Sodium Level 135 mmol/L (136-145)
[2019-06-01 12:06] LABS: Blood Gas Specimen Type VEN; SITE OTHER
[2019-06-01 12:07] LABS: O2 Delivery Device Nasal Can; Time Given 1135
[2019-06-01 12:08] LABS: Differential Indicated SCAN CRITERIA MET; Hypochromasia RARE; Macrocytosis RARE; Platelet Estimate MKD DEC (ADEQ)
[2019-06-01 12:17] LABS: Lactic Acid 2.1 mmol/L (0.4-1.9)
--- NOTE | 2019-06-01 12:22 | HP.PCM_ITS ---
Problem List (1) Severe sepsis Status: Acute (2) Pneumonia Status: Acute Qualifiers: Pneumonia type: due to unspecified organism Laterality: bilateral Lung location: unspecified part of lung Qualified Code(s): J18.9 - Pneumonia, unspecified organism (3) Respiratory failure with hypoxia Status: Acute Qualifiers: Chronicity: acute Qualified Code(s): J96.01 - Acute respiratory failure with hypoxia (4) Suspected 2019 novel coronavirus infection Status: Acute (5) PADMA (acute kidney injury) Status: Acute (6) Pancytopenia Status: Chronic (7) History of coronary artery stent placement Status: Chronic Comment: PCI-HALEIGH-Mid RCA 2.25 x 38 mm Promus Synergy (8) Atherosclerosis of coronary artery of [place] heart without angina pectoris Status: Chronic Qualifiers: Coronary Disease-Associated Artery/Lesion type: [place] artery Qualified Code(s): I25.10 - Atherosclerotic heart disease of [place] coronary artery without angina pectoris Comment: PCI-HALEIGH-Mid RCA 2.25 x 38 mm Promus Synergy 11/20/16 CABG x 2 KRISHNAMURTHY-LAD, SVG-Om1 11/30/15 @ [facility], PTCA to mid RCA 05/13/2017 (9) Anemia Status: Resolved Qualifiers: Anemia type: iron deficiency (10) Hyperlipemia Status: Chronic Qualifiers: Hyperlipidemia type: pure hypercholesterolemia Qualified Code(s): E78.00 - Pure hypercholesterolemia, unspecified; E78.0 - Pure hypercholesterolemia (11) Hypertension Status: Chronic Qualifiers: Hypertension type: essential hypertension Qualified Code(s): I10 - Essential (primary) hypertension (12) Type 2 diabetes mellitus Status: Chronic Qualifiers: Diabetes mellitus custodial insulin use: with custodial use Diabetes mellitus complication status: with other specified complication Qualified Code(s): E11.69 - Type 2 diabetes mellitus with other specified complication; Z 79.4 - terminologist (current) use of insulin (13) Rheumatic fever Status: Chronic (14) CVA (cerebral vascular accident) Status: Chronic Qualifiers: CVA mechanism: unspecified Qualified Code(s): I63.9 - Cerebral infarction, unspecified Comment: Ischemic: residual is just occasional speech problems (15) H/O coronary artery bypass surgery Status: Chronic Comment: CABG x 2 KRISHNAMURTHY-LAD, SVG-Om1 11/30/15 @ [facility] History of Present Illness Date of Admission: 06/01/19 Chief Complaint: Dyspnea, worsening. The patient is a 74 y/o F w/ PMHx: Hx CVA with residual speech deficits, HTN, HLD, Rheumatoid arthritis, Diabetes mellitus type II, Morbid Obesity, CAD s/p PCI, Chronic anemia, Chronic COPD who presents to the [facility] ED on 06/01/19 with history of recent discharge on 05/23/19 following treatment for suspected pneumonia (? Right lower lobe pneumonia with effusion) with R sided thoracentesis also, discharged to home with re-assessment per PCP on 05/29/19 secondary to history of onset recurrent cough with white sputum production, worsening dyspnea especially with any activity, increasing fatigue and malaise, nasal congestion not improving, generalized abdominal dull aching rated 3 out of 10 in severity with associated nausea without specific emesis, bilateral frontal throbbing headaches in addition to fevers and chills and myalgias prompting referral to the ED for re-evaluation. She also notes metallic taste in her mouth. She notes she has had the symptoms over the last several days and has been worsening and notes that her has just started to show his symptoms. Work-up in the ED included T 97.9, heart rate 70, BP 105/63, respiratory rate 24, initially 88% on 4 L nasal cannula, CBC with WBC 3.0, hemoglobin 11.9, platelet 51 with no significant left shift with noted lymphopenia, coags with PT 16.2, INR 1.4, PTT 43.9, VBG with pH 7.32, PO2 50, obtained on 4 L nasal cannula, CMP with sodium 135, chloride 109, carbon dioxide 19, BUN/creatinine 42/2.05, glucose 129, lactic acid 2.1, total bilirubin 2.50, AST/ALT 114/22, alk phos 246, urinalysis with specific gravity 1.020, protein 30, ketones 5, occult blood 10, negative nitrite, 25 leukocyte Estrace, 0 urine WBCs, rare urine bacteria, blood culture x2 and urine culture pending per ED, EKG was sinus rhythm with no acute evidence of ischemia, CXR w/ new bilateral patchy infiltrates, R Shoulder plain film w/ no acute findings, R Wrist plain film w/ no acute findings. The ED patient administered normal saline as well as vancomycin and Zosyn given prior hospitalization prolonged earlier in the month. ED physician noted that he discussed case with the success coach, Dr. Bang with planned ICU admission. ID Dr. Rivas also consulted and requested addition of d-dimer now and daily and prognostic marker. Past Medical History Past Medical History (Chronic Problems): Chronic Problems (Last Reviewed 05/11/19 @ 14:[address] Malik Bang, DO) Pancytopenia (Chronic) Compression fracture of L1 vertebra (Chronic) I had a discussion on compression fractures and the fact that it takes 12 weeks to heal. Basically especially with her problem with her left foot she really cannot go through physical therapy as she is having too much trouble getting in and out of the house. I told her nonsteroidals for the pain rest as much as possible but continue to be active in the upper body. I told her that kyphoplasty is a rarely done procedure and I did not think she would benefit enough to assume the risk of that procedure. Non-union of fracture (Chronic) Left foot. 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 (DJN @ [facility]) Dupuytren's contracture of left hand (Chronic) Rotator cuff arthropathy of right shoulder (Chronic) History of coronary artery stent placement (Chronic 11/20/16) PCI-HALEIGH-Mid RCA 2.25 x 38 mm Promus Synergy Atherosclerosis of coronary artery of [place] heart without angina pectoris (Chronic) PCI-HALEIGH-Mid RCA 2.25 x 38 mm Promus Synergy 11/20/16 CABG x 2 KRISHNAMURTHY-LAD, SVG-Om1 11/30/15 @ [facility], PTCA to mid RCA 05/13/2017 Hyperlipemia (Chronic) Hypertension (Chronic) Type 2 diabetes mellitus (Chronic) Rheumatic fever (Chronic) CVA (cerebral vascular accident) (Chronic ~2010) Ischemic: residual is just occasional speech problems H/O coronary artery bypass surgery (Chronic 11/30/15) CABG x 2 KRISHNAMURTHY-LAD, SVG-Om1 11/30/15 @ [facility] Medical History: Medical History (Last Reviewed 05/11/19 @ 14:[address] Malik Bang, DO) Chest pain (Inactive) R07.9 Atherosclerosis of coronary artery of [place] heart without angina pectoris (Chronic) I25.10 PCI-HALEIGH-Mid RCA 2.25 x 38 mm Promus Synergy 11/20/16 CABG x 2 KRISHNAMURTHY-LAD, SVG-Om1 11/30/15 @ [facility], PTCA to mid RCA 05/13/2017 Anemia (Resolved) D64.9 Hyperlipemia (Chronic) E78.5 Hypertension (Chronic) I10 Type 2 diabetes mellitus (Chronic) E11.9 Rheumatic fever (Chronic) I00 CVA (cerebral vascular accident) (Chronic) Onset Date: ~2010 I63.9 Ischemic: residual is just occasional speech problems Rheumatoid arthritis M06.9 Allergies oxycodone Allergy (Verified 06/01/19 10:43) Other UNABLE TO TAKE, MAKES EXCITED AND UNABLE TO SLEEP environemental Allergy (Uncoded 06/01/19 10:43) dry cough Home Medications: Ambulatory Orders Medication Instructions Recorded Aspirin E.C. [Ecotrin] 81 mg PO DAILY 08/31/17 tramadol 50 mg tablet 50 mg PO Q6H #90 tab 04/13/18 omeprazole 40 mg capsule,delayed 40 mg PO DAILY #90 cap 05/24/18 release nitroglycerin 0.4 mg sublingual 0.4 mg SUBLINGUAL Q5M PRN #25 tab 05/27/18 tablet topiramate 50 mg tablet 50 mg PO QHS #90 tab 11/20/18 atorvastatin 40 mg tablet 40 mg PO DAILY #90 tab 12/20/18 clopidogrel 75 mg tablet 75 mg PO DAILY #90 tab 12/20/18 isosorbide mononitrate 60 mg 60 mg PO DAILY #90 tab 12/20/18 tablet,extended release 24 hr metoprolol succinate 100 mg 100 mg PO DAILY #90 tab 12/20/18 tablet,extended release 24 hr nystatin 100,000 unit/gram topical 1 applic TOPICAL BID #30 g 01/01/19 cream insulin glargine 100 unit/mL 75 unit SUBCUT DAILY ml 01/26/19 subcutaneous solution Alprazolam [Xanax] 0.25 mg PO TID PRN PRN 04/27/19 Insulin Aspart [Novolog Flexpen] 14 units SUBCUT BIDCM 04/28/19 gabapentin 300 mg capsule 300 mg PO .COMPLEX #450 cap 05/06/19 furosemide 40 mg tablet 40 mg PO DAILY #30 tab 05/11/19 Losartan Potassium 50 mg PO DAILY #90 tab 05/23/19 Potassium Chloride [K-Dur] 40 meq PO DAILYCM #60 tab 05/23/19 Surgical History: Surgical History (Last Reviewed 05/11/19 @ 14:[address] Malik Bang, DO) History of left heart catheterization (Chronic) Onset Date: 06/04/18 Z98.890 Perserved Left Ventricular systolic function with normal EDP; Double vessel CAD of the LAD and OM Widely patent SVG to OM; Widely patent KRISHNAMURTHY to LAD; Widely patent RCA stent.; RECOMMENDATIONS Risk factor modification,Will medically manage chest wall pain. (DJN @ [facility]) H/O section (Resolved) Z98.891 History of carpal tunnel surgery (Resolved) Z92.89 bilateral History of coronary artery stent placement (Chronic) Onset Date: 11/20/16 Z95.5 PCI-HALEIGH-Mid RCA 2.25 x 38 mm Promus Synergy H/O coronary artery bypass surgery (Chronic) Onset Date: 11/30/15 CABG x 2 KRISHNAMURTHY-LAD, SVG-Om1 11/30/15 @ [facility] Status post left foot surgery Z98.890 07/2018 History of arthroscopy Z98.890 right knee History of heart artery stent Z95.5 11/2016 History of left knee replacement Z96.652 History of open reduction and internal fixation (ORIF) procedure Onset Date: ~08/2017 Z98.890 Insertion of nicolás into left lower leg after fracture History of partial hysterectomy Z90.711 History of right hip replacement Z96.641 History of tonsillectomy Z90.89 history of partial right knee replacement followed by a full replacement the following year history of total foot reconstruction Surgical History: angioplasty - Cardiac stent, arthroscopy, knee, coronary bypass surgery, total hip arthroplasty, - - Bilateral cataract surgery, tonsillectomy, hysterectomy, bladder suspension surgery, left elbow surgery, right foot complete reconstructive surgery, right total knee replacement x1, right partial knee replacement x1, right knee arthroscopic surgery, left knee total replacement, right total hip replacement, left ankle surgery x3. 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 Malik Bang DO) Grandmother Myocardial infarction CVA (cerebral vascular accident) Mother Myocardial infarction Father Diabetes Arthritis History Items: Diabetes, High Cholesterol, Heart Disease, Hypertension Paternal Family History: Family History (Last Reviewed 05/11/19 @ 14:[address] Malik Bang DO) Grandmother Myocardial infarction CVA (cerebral vascular accident) Mother Myocardial infarction Father Diabetes Arthritis History Items: Diabetes, High Cholesterol, Heart Disease, Hypertension Review of Systems Constitutional: Reports: Anorexia, Chills, Fever, Malaise, Weakness, Fatigue. Denies: Weight Change HEENT: Reports: Head Aches, Nasal Congestion, Post Nasal Drip, Sinus Congestion, Sinus Drainage, Sore Throat Cardiovascular: Reports: Light Headedness. Denies: Chest Pain, Chest Pressure, Chest Tightness, Orthopnea, Palpitations, Syncope Respiratory: Reports: Cough, Shortness of Breath, Shortness of breath at rest, Shortness of breath upon exertion, Sputum production. Denies: Wheezing Gastrointestinal: Reports: Abdominal Pain, Diarrhea, Nausea. Denies: Vomiting Genitourinary: Denies: Dysuria Musculoskeletal: Reports: Back Pain, Joint Pain, Muscle pain. Denies: Joint Tenderness Skin: Denies: Rash, Wounds Neurological: Denies: Numbness, Tingling, Focal weakness Psychiatric: Reports: Anxiety, Depression. Denies: Homicidal Ideations, Suicidal Ideations Hematologic/ Lymphatic: Reports: Anemia, Easy Bruising, Easy Bleeding VTE Information - Inpt Only VTE Present on Admission: No VTE Mechan Device Prophylaxis: SCD's VTE Pharm Prophylaxis ordered?: Yes Patient Problems: Active and Suspected Problems (Last Reviewed 05/11/19 @ 14:[address] Malik Bang DO) Respiratory failure with hypoxia (Acute) Severe sepsis with acute organ dysfunction (Acute) Bilateral pulmonary infiltrates on chest x-ray (Acute) Suspected 2019 novel coronavirus infection (Acute) PADMA (acute kidney injury) (Acute) Jaundice (Acute) Hypotension (Acute) Lactic acid acidosis (Acute) Subjective: Seated upright in the ICU bed, ill-appearing, increased work of breathing with accessory muscle usage and conversational dyspnea, evident distress. Objective: Physical Examination: General: awake, alert, oriented x 3 and cooperative, seated upright in the ICU bed, ill appearing, increased work of breathing with accessory muscle usage and conversational dyspnea, evident distress. Skin: normal color, turgor, no icterus, cyanosis stopped occasional various staged ecchymoses to extremities. HEENT: AT/NC, EOMI, PERRLA, dry MM, no carotid bruits or JVD noted. Lungs: Severely diffusely diminished, greater bases, increased work of breathing with accessory muscle usage and conversational dyspnea, evident distress, rales BL bases, no ronchi or wheezing. Heart: Regular rate and rhythm; no gallop, rub audible. Abdomen: soft, morbidly obese, generalized mild discomfort w/ palpation, no rebound or guarding, no obvious distention, normal BS, no HSM. Extremities: no cyanosis, clubbing, or edema. Neurological: patient awake, alert, oriented as noted; cognitive function appears baseline intact; pupils equally reactive to light and accomodation; cranial nerves II-XII grossly normal, moving all 4 extremities, no focal deficits, strength severely global decrease secondary to acute presentation. Psychiatric: affect appears ill, distressed as noted, no acute evidence of depressive or anxiety feelings. - Physical Exam Vitals/I&O's: Vital Signs Temp Pulse Resp BP Pulse Ox 98.2 F 67 24 H 120/50 L 93 06/01/19 12:20 06/01/19 12:20 06/01/19 12:20 06/01/19 12:20 06/01/19 12:20 Oxygen Flow Rate (L/min) 4 Oxygen Delivery Method Nasal Cannula Weight: 237 lb 10.533 oz Body Mass Index (BMI) 40.8 Finger Stick Blood Glucose 61 Laboratory Results 06/01/19 10:41: COVID-19 (SERJIO) Pending 06/01/19 11:00: Urine Color Yellow, Urine Clarity Sl. Cloudy, Urine pH 5.0, Ur Specific Dalton 1.020, Urine Protein 30 H, Urine Glucose (UA) Normal, Urine Ketones 5 H, Urine Occult Blood 10 H, Urine Nitrite Negative, Urine Bilirubin 1 H, Urine Urobilinogen Normal, Ur Leukocyte Esterase 25 H, Urine RBC 0-5 SEEN, Urine WBC 0-5 SEEN, Ur Squamous Epith Cells 0 SEEN, Urine Bacteria RARE, Hyaline Casts 5-10 SEEN, Urine Mucus 0 SEEN 06/01/19 11:20: WBC 3.0 L, RBC 3.66 L, Hgb 11.9 L, Hct 36.6 L, MCV 100.0 H, MCH 32.5 H, MCHC 32.5, RDW Std Deviation 54.7 H, RDW Coeff of Henry 14.8 H, Plt Count 51 L, MPV 13.6 H, Immature Gran % (Auto) 0.700, Neut % (Auto) 76.7 H, Lymph % (Auto) 17.9 L, [place] % (Auto) 4.4, Eos % (Auto) 0.3, Baso % (Auto) 0.0, Absolute Neuts (auto) 2.3, Absolute Lymphs (auto) 0.53 L, Nucleated RBC % 0, Diff Path Review June erik, Platelet Estimate MKD DEC, Hypochromasia RARE, Macrocytosis RARE 06/01/19 11:20: PT 16.2 H, INR 1.4, APTT 43.9 H 06/01/19 11:20: Sodium 135 L, Potassium 4.3, Chloride 109 H, Carbon Dioxide 19.0 L, Anion Gap 7, BUN 42 H, Creatinine 2.05 H, Estim Creat Clear Calc 21.11, Est GFR (MDRD) Af Amer 31 L, Est GFR (MDRD) Non-Af 25 L, BUN/Creatinine Ratio 20.5 H , Glucose 129 H, Calcium 8.0 L, Total Bilirubin 2.50 H, AST 114 H, ALT 22, Alkaline Phosphatase 246 H, Total Protein 5.8 L, Albumin 2.0 L, Globulin 3.8, Albumin/Globulin Ratio 0.5 L 06/01/19 11:20: Lactic Acid 2.1 H* 06/01/19 11:35: Specimen Type RJ, Sample Site OTHER, VBG pH 7.32, VBG pO2 50 H, VBG O2 Sat (Calc) 83 H, VBG O2 Content 18 L, VBG Base Excess -9 L, POC Mix VBG pCO2 Pt Tmp 33.2 L, O2 Delivery Device Nasal Can, Liter Flow 4.0, Blood Gas Notified Whom ED , Blood Gas Notified Time 1135 Current Medications Vancomycin HCl 2,000 mg/ (Sodium Chloride) 540 mls @ 250 mls/hr IV X1 ONE Stop: 06/01/19 13:09 Last Admin: 06/01/19 11:41 Dose: 250 mls/hr Documented by: Assessment/Plan All Active Problems (Last Reviewed 05/11/19 @ 14:[address] Malik Bang, DO) Severe sepsis (Acute) Urinary tract infection (Acute) Acute encephalopathy (Acute) Pneumonia (Acute) Respiratory failure with hypoxia (Acute) Severe sepsis with acute organ dysfunction (Acute) Bilateral pulmonary infiltrates on chest x-ray (Acute) Suspected 2019 novel coronavirus infection (Acute) PADMA (acute kidney injury) (Acute) Jaundice (Acute) Hypotension (Acute) Lactic acid acidosis (Acute) H/O section (Resolved) History of carpal tunnel surgery (Resolved) Anemia (Resolved) Chest pain (Resolved) Chest pressure (Resolved) The patient is a 74 y/o F w/ PMHx: Hx CVA with residual speech deficits, HTN, HLD, Rheumatoid arthritis, Diabetes mellitus type II, Morbid Obesity, CAD s/p PCI, Chronic anemia, Chronic COPD who presents to the [facility] ED on 06/01/19 with history of recent discharge on 05/23/19 following treatment for suspected pneumonia with R sided thoracentesis also, discharged to home with re-assessment per PCP on 05/29/19 secondary to history of onset recurrent cough with white sputum production, worsening dyspnea especially with any activity, increasing fatigue and malaise, nasal congestion not improving, prompting referral to the ED for re-evaluation. 1. Acute Severe Sepsis with Acute Hypoxic Respiratory Failure secondary to Bilateral Pneumonia secondary to Possible GN/GP Organism and Possible Acute Viral Syndrome, COVID-19: Patient with leukopenia, lymphopenia, CXR with new bilateral patchy infiltrates, COVID panel pending per ED with OSH request placed, will admit to the COVID unit as ICU status, will maintain on oxygen with wean as tolerated to room air, continue MDI inhaler PRN albuterol, maintain on IV Zosyn and Vancomycin w/ pending MRSA screen, HOB, IS parameters w/ pending sputum cultures and urine antigens, requested respiratory viral panel, will obtain procalcitonin, CRP, D-dimer, CKP, Ferritin, LDH, ED already initiated COVID labs/request, will continue supportive care including q 2 hour turning including prone given no prone bed availability and judicious hydration, closely monitor for worsening status for ARDS and multiorgan failure, consider initiation of hydroxychloroquine with close EKG monitoring for QT prolongation with trending of the liver functions. Given patient presentation treatment course consistent with intubation need; however, patient remains DNR-CCA, no intubation status as noted. ICU physician and ID physician consulted, pending. Bld cx x 2 obtained in the ED. 2. PADMA on Chronic Kidney Disease Stage III: Admission BUN/Cr 42/2.05, baseline renal function 0.9-1.2, will continue judicious hydration given acute presentation as noted #1, trend CMP and if no improvement would consider renal ultrasound as well as FeNa assessment. 3. CAD: Status post PCI and CABG x2, continue home aspirin, Plavix, metoprolol, holding losartan and statin regimen. 4. Hypertension: Continue home regimen including metoprolol, isosorbide, holding Lasix and losartan given acute kidney injury with specific hold parameters as hypotensive upon presentation but improved with 1 L normal saline, PRN hydralazine. 5. Hyperlipidemia: Hold home statin therapy given mild hyperbilirubinemia and elevated AST likely secondary to #1. 6. Chronic Thrombocytopenia: Admission platelets 51, baseline appears 60s to 90s, given possibility of #1 will judiciously initiate heparin regimen but hold if further worsen thrombocytopenia. 7. History of CVA: We will continue patient on home aspirin, Plavix, hypertensive regimen with specific hold parameters as noted, diabetic regimen with hold on oral regimen, holding statin given acute presentation #1 as likely etiology with elevated liver function studies and bilirubin level. 8. Diabetes mellitus type II: Hold oral home regimen, continue home insulin regimen, ADA diet, accu checks w/ ISS. 9. Obesity: Weight loss and lifestyle changes encouraged. 10. Rheumatoid arthritis: Continue PRN tramadol regimen for pain associated. 11. Anxiety and depression: We will continue patient home Xanax regimen. 12. DVT prophylaxis: SCDs, heparin. 13. CODE status: Confirmed again with patient that her HCPOA is her and living will is currently in place. Discussed CODE status at length including difference between FULL code, DNR-CCA and DNR-CC status. Following discussions about the differences in these status, requested DNR CCA, no intubation status. Discussed high suspicion COVID and management including avoidance of BIPAP and usage of intubation if >6L needed and patient remains DNR-CCA, no intubation status. Advanced Care Planning Face to Face Time: 16 minutes. Inpatient E&M: 50979 Init Hosp L3 Procedures: 81696 Advncd Care Plan 30 Min
--- NOTE | 2019-06-01 12:53 | PCM.CON.CC ---
Reason for Consult Date of Consultation: 06/01/19 Reason for Consultation: Acute hypoxemic respiratory failure History of Present Illness: The patient is a 74-year-old female, with a history as outlined below, who presented to the emergency department at the urging of her primary care provider with complaints of progressive shortness of breath, cough, generalized malaise and fatigue, subjective fevers and ageusia. The patient was just recently admitted to the hospital May 18 after she was admitted with shortness of breath and cough. The patient did undergo an ultrasound-guided thoracentesis during her hospitalization due to the presence of a right lower lobe pneumonia with associated pleural effusion. However, the pleural fluid did not appear to be infectious in nature. Her entire infectious work-up during that hospitalization was unremarkable. The patient was initially treated with IV antibiotics while admitted and then discharged home on Levaquin to complete a 7-day treatment course. The patient was also admitted to the hospital April 26 with severe sepsis secondary to UTI with pyelonephritis. The patient has a known history of coronary artery disease status post CABG. She is followed by Dr. Liu in the cardiology clinic. On presentation to the emergency department, the patient was noted to be afebrile but was tachypneic and hypoxemic. Laboratory evaluation revealed evidence of pancytopenia. Chemistry profile was notable for a bicarbonate of 19 and elevated creatinine of 2.05. Lactate was elevated 2.1. Plain film chest x-ray revealed nonconfluent bilateral infiltrates. COVID testing was undertaken and the patient was placed in appropriate precautions. The patient was subsequently admitted to the medical intensive care unit for further management. On arrival to the ICU, the patient was not in significant respiratory distress. However, she was only saturating in the high 80s on 6 L/min via nasal cannula. I did discuss CODE STATUS with the patient and she once again confirmed that she wished to remain a DNR CCA without intubation. Past Medical History Past Medical History (Chronic Problems): Chronic Problems (Last Reviewed 05/11/19 @ 14:[address] Malik Bang, DO) Pancytopenia (Chronic) Compression fracture of L1 vertebra (Chronic) I had a discussion on compression fractures and the fact that it takes 12 weeks to heal. Basically especially with her problem with her left foot she really cannot go through physical therapy as she is having too much trouble getting in and out of the house. I told her nonsteroidals for the pain rest as much as possible but continue to be active in the upper body. I told her that kyphoplasty is a rarely done procedure and I did not think she would benefit enough to assume the risk of that procedure. Non-union of fracture (Chronic) Left foot. 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 (JOSEPH @ [facility]) Dupuytren's contracture of left hand (Chronic) Rotator cuff arthropathy of right shoulder (Chronic) History of coronary artery stent placement (Chronic 11/20/16) PCI-HALEIGH-Mid RCA 2.25 x 38 mm Promus Synergy Atherosclerosis of coronary artery of [place] heart without angina pectoris (Chronic) PCI-HALEIGH-Mid RCA 2.25 x 38 mm Promus Synergy 11/20/16 CABG x 2 KRISHNAMURTHY-LAD, SVG-Om1 11/30/15 @ [facility], PTCA to mid RCA 05/13/2017 Hyperlipemia (Chronic) Hypertension (Chronic) Type 2 diabetes mellitus (Chronic) Rheumatic fever (Chronic) CVA (cerebral vascular accident) (Chronic ~2010) Ischemic: residual is just occasional speech problems H/O coronary artery bypass surgery (Chronic 11/30/15) CABG x 2 KRISHNAMURTHY-LAD, SVG-Om1 11/30/15 @ [facility] Medical History: Medical History (Last Reviewed 05/11/19 @ 14:[address] Malik Bang, DO) Chest pain (Inactive) R07.9 Atherosclerosis of coronary artery of [place] heart without angina pectoris (Chronic) I25.10 PCI-HALEIGH-Mid RCA 2.25 x 38 mm Promus Synergy 11/20/16 CABG x 2 KRISHNAMURTHY-LAD, SVG-Om1 11/30/15 @ [facility], PTCA to mid RCA 05/13/2017 Anemia (Resolved) D64.9 Hyperlipemia (Chronic) E78.5 Hypertension (Chronic) I10 Type 2 diabetes mellitus (Chronic) E11.9 Rheumatic fever (Chronic) I00 CVA (cerebral vascular accident) (Chronic) Onset Date: ~2010 I63.9 Ischemic: residual is just occasional speech problems Rheumatoid arthritis M06.9 Allergies oxycodone Allergy (Verified 06/01/19 10:43) Other UNABLE TO TAKE, MAKES EXCITED AND UNABLE TO SLEEP environemental Allergy (Uncoded 06/01/19 10:43) dry cough Home Medications: Ambulatory Orders Medication Instructions Recorded Aspirin E.C. [Ecotrin] 81 mg PO DAILY 08/31/17 tramadol 50 mg tablet 50 mg PO Q6H #90 tab 04/13/18 omeprazole 40 mg capsule,delayed 40 mg PO DAILY #90 cap 05/24/18 release nitroglycerin 0.4 mg sublingual 0.4 mg SUBLINGUAL Q5M PRN #25 tab 05/27/18 tablet topiramate 50 mg tablet 50 mg PO QHS #90 tab 11/20/18 atorvastatin 40 mg tablet 40 mg PO DAILY #90 tab 12/20/18 clopidogrel 75 mg tablet 75 mg PO DAILY #90 tab 12/20/18 isosorbide mononitrate 60 mg 60 mg PO DAILY #90 tab 12/20/18 tablet,extended release 24 hr metoprolol succinate 100 mg 100 mg PO DAILY #90 tab 12/20/18 tablet,extended release 24 hr nystatin 100,000 unit/gram topical 1 applic TOPICAL BID #30 g 01/01/19 cream insulin glargine 100 unit/mL 75 unit SUBCUT DAILY ml 01/26/19 subcutaneous solution Alprazolam [Xanax] 0.25 mg PO TID PRN PRN 04/27/19 Insulin Aspart [Novolog Flexpen] 14 units SUBCUT BIDCM 04/28/19 gabapentin 300 mg capsule 300 mg PO .COMPLEX #450 cap 05/06/19 furosemide 40 mg tablet 40 mg PO DAILY #30 tab 05/11/19 Losartan Potassium 50 mg PO DAILY #90 tab 05/23/19 Potassium Chloride [K-Dur] 40 meq PO DAILYCM #60 tab 05/23/19 Surgical History: Surgical History (Last Reviewed 05/11/19 @ 14:[address] Malik Bang, DO) History of left heart catheterization (Chronic) Onset Date: 06/04/18 Z98.890 Perserved Left Ventricular systolic function with normal EDP; Double vessel CAD of the LAD and OM Widely patent SVG to OM; Widely patent KRISHNAMURTHY to LAD; Widely patent RCA stent.; RECOMMENDATIONS Risk factor modification,Will medically manage chest wall pain. (DJN @ [facility]) H/O section (Resolved) Z98.891 History of carpal tunnel surgery (Resolved) Z92.89 bilateral History of coronary artery stent placement (Chronic) Onset Date: 11/20/16 Z95.5 PCI-HALEIGH-Mid RCA 2.25 x 38 mm Promus Synergy H/O coronary artery bypass surgery (Chronic) Onset Date: 11/30/15 CABG x 2 KRISHNAMURTHY-LAD, SVG-Om1 11/30/15 @ [facility] Status post left foot surgery Z98.890 07/2018 History of arthroscopy Z98.890 right knee History of heart artery stent Z95.5 11/2016 History of left knee replacement Z96.652 History of open reduction and internal fixation (ORIF) procedure Onset Date: ~08/2017 Z98.890 Insertion of nicolás into left lower leg after fracture History of partial hysterectomy Z90.711 History of right hip replacement Z96.641 History of tonsillectomy Z90.89 history of partial right knee replacement followed by a full replacement the following year history of total foot reconstruction Surgical History: angioplasty - Cardiac stent, arthroscopy, knee, coronary bypass surgery, total hip arthroplasty, - - Bilateral cataract surgery, tonsillectomy, hysterectomy, bladder suspension surgery, left elbow surgery, right foot complete reconstructive surgery, right total knee replacement x1, right partial knee replacement x1, right knee arthroscopic surgery, left knee total replacement, right total hip replacement, left ankle surgery x3. Psychiatric History: Anxiety, Depression WE[employer]ING [employer] History: No pertinent WE[employer]ING [employer] history Lives: Alone Smoking Status: Former smoker Tobacco Use: Non-smoker Alcohol: None Drugs: None - *Family History Maternal Family History: Family History (Last Reviewed 05/11/19 @ 14:[address] Malik Bang DO) Grandmother Myocardial infarction CVA (cerebral vascular accident) Mother Myocardial infarction Father Diabetes Arthritis History Items: Diabetes, High Cholesterol, Heart Disease, Hypertension Paternal Family History: Family History (Last Reviewed 05/11/19 @ 14:[address] Malik Bang DO) Grandmother Myocardial infarction CVA (cerebral vascular accident) Mother Myocardial infarction Father Diabetes Arthritis History Items: Diabetes, High Cholesterol, Heart Disease, Hypertension Review of Systems Constitutional: Reports: Chills, Fever, Malaise, Fatigue Eyes: Denies: Blurred vision, Double vision HEENT: Denies: Head Aches, Sinus Congestion, Sinus Drainage Cardiovascular: Denies: Chest Pain, Palpitations Respiratory: Reports: Cough, Shortness of Breath, Sputum production Gastrointestinal: Denies: Abdominal Pain, Nausea, Vomiting Genitourinary: Denies: Dysuria Musculoskeletal: Reports: Muscle pain. Denies: Joint Pain, Joint Tenderness Skin: Denies: Rash, Wounds Neurological: Denies: Numbness, Tingling, Focal weakness Psychiatric: Denies: Anxiety, Depression, Homicidal Ideations, Suicidal Ideations Hematologic/ Lymphatic: Denies: Easy Bruising, Easy Bleeding Patient Problems: Active and Suspected Problems (Last Reviewed 05/11/19 @ 14:[address] Malik Bang, DO) Respiratory failure with hypoxia (Acute) Severe sepsis with acute organ dysfunction (Acute) Bilateral pulmonary infiltrates on chest x-ray (Acute) Suspected 2019 novel coronavirus infection (Acute) PADMA (acute kidney injury) (Acute) Jaundice (Acute) Hypotension (Acute) Lactic acid acidosis (Acute) Objective: The patient's most recent lab work, culture data and imaging studies have all been personally reviewed. - Physical Exam Vitals/I&O's: Vital Signs Temp Pulse Resp BP Pulse Ox 98.2 F 65 21 H 110/46 L 92 06/01/19 12:31 06/01/19 12:31 06/01/19 12:31 06/01/19 12:31 06/01/19 12:31 Oxygen Flow Rate (L/min) 4 Oxygen Delivery Method Nasal Cannula Weight: 237 lb 10.533 oz Body Mass Index (BMI) 40.8 Finger Stick Blood Glucose 61 Intake and Output for Last 24 Hours 05/30/19 05/31/19 06/01/19 23:59 23:59 23:59 Intake Total 1100 / 1100 Balance 1100 / 1100 General: Alert, Cooperative, - - Ill and fatigued in appearance HEENT: Atraumatic, PERRLA, Normocephalic Oral: Dry Mucosa Neck: Supple, No Nodes, Trachea Midline, - - Right subclavian central venous catheter in place Lungs: Diminished, Rales, Tachypneic Cardiovascular: Regular rate, Regular Rhythm, Normal S1, Normal S2 Abdomen: Bowel Sounds Present, Soft, Non Tender, Obese Extremities: No clubbing, No cyanosis, No edema Skin: No breakdown Musculoskeletal: No Muscle Wasting Lymphatic: No Cervical, Supraclavicular, or Inguinal Adenopathy Neurological: Cranial nerves II-XII grossly intact, Neuro grossly intact Psych/Mental Status: Normal Affect, Appropriate Labs (Last 48 Hours) 06/01/19 06/01/19 06/01/19 10:41 11:00 11:20 WBC 3.0 L RBC 3.66 L Hgb 11.9 L Hct 36.6 L MCV 100.0 H MCH 32.5 H MCHC 32.5 RDW Std Deviation 54.7 H RDW Coeff of [place] 14.8 H Plt Count 51 L MPV 13.6 H Immature Gran % (Auto) 0.700 Neut % (Auto) 76.7 H Lymph % (Auto) 17.9 L [place] % (Auto) 4.4 Eos % (Auto) 0.3 Baso % (Auto) 0.0 Absolute Neuts (auto) 2.3 Absolute Lymphs (auto) 0.53 L Nucleated RBC % 0 Diff Path Review May foll Platelet Estimate MKD DEC Hypochromasia RARE Macrocytosis RARE PT INR APTT Specimen Type Sample Site VBG pH VBG pO2 VBG O2 Sat (Calc) VBG O2 Content VBG Base Excess POC Mix VBG pCO2 Pt Tmp O2 Delivery Device Liter Flow Blood Gas Notified Whom Blood Gas Notified Time Sodium Potassium Chloride Carbon Dioxide Anion Gap BUN Creatinine Estim Creat Clear Calc Est GFR (MDRD) Af Amer Est GFR (MDRD) Non-Af BUN/Creatinine Ratio Glucose Lactic Acid Calcium Total Bilirubin AST ALT Alkaline Phosphatase Total Protein Albumin Globulin Albumin/Globulin Ratio Urine Color Yellow Urine Clarity Sl. Cloudy Urine pH 5.0 Ur Specific [place] 1.020 Urine Protein 30 H Urine Glucose (UA) Normal Urine Ketones 5 H Urine Occult Blood 10 H Urine Nitrite Negative Urine Bilirubin 1 H Urine Urobilinogen Normal Ur Leukocyte Esterase 25 H Urine RBC 0-5 SEEN Urine WBC 0-5 SEEN Ur Squamous Epith Cells 0 SEEN Urine Bacteria RARE Hyaline Casts 5-10 SEEN Urine Mucus 0 SEEN COVID-19 (SERJIO) Pending 06/01/19 06/01/19 06/01/19 11:20 11:20 11:20 WBC RBC Hgb Hct MCV MCH MCHC RDW Std Deviation RDW Coeff of [place] Plt Count MPV Immature Gran % (Auto) Neut % (Auto) Lymph % (Auto) [place] % (Auto) Eos % (Auto) Baso % (Auto) Absolute Neuts (auto) Absolute Lymphs (auto) Nucleated RBC % Diff Path Review Platelet Estimate Hypochromasia Macrocytosis PT 16.2 H INR 1.4 APTT 43.9 H Specimen Type Sample Site VBG pH VBG pO2 VBG O2 Sat (Calc) VBG O2 Content VBG Base Excess POC Mix VBG pCO2 Pt Tmp O2 Delivery Device Liter Flow Blood Gas Notified Whom Blood Gas Notified Time Sodium 135 L Potassium 4.3 Chloride 109 H Carbon Dioxide 19.0 L Anion Gap 7 BUN 42 H Creatinine 2.05 H Estim Creat Clear Calc 21.11 Est GFR (MDRD) Af Amer 31 L Est GFR (MDRD) Non-Af 25 L BUN/Creatinine Ratio 20.5 H Glucose 129 H Lactic Acid 2.1 H* Calcium 8.0 L Total Bilirubin 2.50 H AST 114 H ALT 22 Alkaline Phosphatase 246 H Total Protein 5.8 L Albumin 2.0 L Globulin 3.8 Albumin/Globulin Ratio 0.5 L Urine Color Urine Clarity Urine pH Ur Specific [place] Urine Protein Urine Glucose (UA) Urine Ketones Urine Occult Blood Urine Nitrite Urine Bilirubin Urine Urobilinogen Ur Leukocyte Esterase Urine RBC Urine WBC Ur Squamous Epith Cells Urine Bacteria Hyaline Casts Urine Mucus COVID-19 (SERJIO) 06/01/19 11:35 WBC RBC Hgb Hct MCV MCH MCHC RDW Std Deviation RDW Coeff of [place] Plt Count MPV Immature Gran % (Auto) Neut % (Auto) Lymph % (Auto) [place] % (Auto) Eos % (Auto) Baso % (Auto) Absolute Neuts (auto) Absolute Lymphs (auto) Nucleated RBC % Diff Path Review Platelet Estimate Hypochromasia Macrocytosis PT INR APTT Specimen Type RJ Sample Site OTHER VBG pH 7.32 VBG pO2 50 H VBG O2 Sat (Calc) 83 H VBG O2 Content 18 L VBG Base Excess -9 L POC Mix VBG pCO2 Pt Tmp 33.2 L O2 Delivery Device Nasal Can Liter Flow 4.0 Blood Gas Notified Whom ED Blood Gas Notified Time 1135 Sodium Potassium Chloride Carbon Dioxide Anion Gap BUN Creatinine Estim Creat Clear Calc Est GFR (MDRD) Af Amer Est GFR (MDRD) Non-Af BUN/Creatinine Ratio Glucose Lactic Acid Calcium Total Bilirubin AST ALT Alkaline Phosphatase Total Protein Albumin Globulin Albumin/Globulin Ratio Urine Color Urine Clarity Urine pH Ur Specific [place] Urine Protein Urine Glucose (UA) Urine Ketones Urine Occult Blood Urine Nitrite Urine Bilirubin Urine Urobilinogen Ur Leukocyte Esterase Urine RBC Urine WBC Ur Squamous Epith Cells Urine Bacteria Hyaline Casts Urine Mucus COVID-19 (SERJIO) Clinical Impression(s) from Imaging Studies Shoulder X-Ray 06/01/19 11:04 IMPRESSION: Degenerative changes of the shoulder. Right pulmonary infiltrates. Electronically Signed: Dany Roblero, at 12:41 EDT , Service support , Wrist X-Ray 06/01/19 11:04 IMPRESSION: Degenerative changes. Findings suggestive of a nonhealed fracture through the waist of the scaphoid bone Electronically Signed: Dany Roblero, at 12:41 EDT , Service support , Chest X-Ray 06/01/19 11:47 IMPRESSION: New bilateral patchy infiltrates. Follow-up is recommended. Electronically Signed: Dany Roblero, at 12:38 EDT , Service support , Current Medications Vancomycin HCl 2,000 mg/ (Sodium Chloride) 540 mls @ 250 mls/hr IV X1 ONE Stop: 06/01/19 13:09 Last Admin: 06/01/19 11:41 Dose: 250 mls/hr Documented by: Assessment/Plan Active and Suspected Problems (Last Reviewed 05/11/19 @ 14:[address] Malik Bang, DO) Respiratory failure with hypoxia (Acute) Severe sepsis with acute organ dysfunction (Acute) Bilateral pulmonary infiltrates on chest x-ray (Acute) Suspected 2019 novel coronavirus infection (Acute) PADMA (acute kidney injury) (Acute) Jaundice (Acute) Hypotension (Acute) Lactic acid acidosis (Acute) RECOMMENDATIONS: 1. Agree with continuing broad-spectrum antimicrobials for now. 2. Check strep and urine Legionella antigens along with respiratory viral panel. 3. Continue current supportive measures with supplemental oxygen with a goal to maintain a saturation at or above 90%. 4. COVID testing is pending. 5. Repeat lactate per protocol. 6. Bronchodilators as needed. 7. Check d-dimer level and consider empiric anticoagulation if elevated. 8. Given the patient's no intubation status, she may require escalation to heated high flow in order to attempt to maintain appropriate saturations. IMPRESSIONS: 1. Severe sepsis secondary to bilateral healthcare associated pneumonia versus COVID-19 infection The patient has been recently admitted to the hospital and does have evidence of bilateral airspace disease on chest x-ray concerning for healthcare associated pneumonia versus COVID infection. Her respiratory status is quite tenuous and she does not wish to be intubated. Therefore, we will plan to continue current supportive measures with supplemental oxygen and possible heated high flow to maintain saturations at or above 90%. Empiric antimicrobials will be continued. Infectious diseases consultation is pending. Over concerns for possible viral mediated thrombotic phenomena, recommend checking d-dimer level and considering initiation of empiric systemic anticoagulation, if elevated. 2. Acute hypoxemic respiratory failure Concern for infectious etiologies as noted above. Continue current supportive measures. 3. Acute on chronic kidney disease Likely prerenal in etiology and related to ischemic ATN in the setting of #1. Conservative fluid management will be employed. Continue to monitor urine output for now. No current indication for renal replacement therapy. 4. Pancytopenia Chronic in nature. At the current time there are no overt signs of blood loss. There is no indication for transfusion of blood products. 5. Hypertension/hyperlipidemia/coronary artery disease status post CABG/diabetes mellitus/anxiety/depression Complicates care, management, recovery and prognosis. Recommend holding nephrotoxic medications including Lasix. CODE STATUS was once again confirmed to be DNR CCA without intubation. TIME: 40 minutes of critical care time, independent of procedures, was spent addressing the patient's severe sepsis, possible healthcare associated pneumonia versus COVID-19 infection, acute hypoxemic respiratory failure, acute on chronic kidney disease, pancytopenia, review of all data and collaboration with the care team. [id number]) [phone] [id number] Critical care first hour
--- NOTE | 2019-06-01 13:46 | PHA.PHARE_ITS ---
Consult Pharmacy has been consulted to manage selected antiobiotic: Vancomycin Type of Consult: New start Suspected Infection: Sepsis Prior Doses of Antibiotics Received/Current Regimen: Vancomycin 2000mg IV x1 in the ER on 06/01/19 at 1141 Labs: Sodium 135 mmol/L (136-145) L 06/01/19 11:20 Potassium 4.3 mmol/L (3.5-5.1) 06/01/19 11:20 Chloride 109 mmol/L (98-107) H 06/01/19 11:20 Carbon Dioxide 19.0 mmol/L (21.0-32.0) L 06/01/19 11:20 Anion Gap 7 (5-15) 06/01/19 11:20 BUN 42 mg/dL (7-18) H 06/01/19 11:20 Creatinine 2.05 mg/dL (0.55-1.02) H 06/01/19 11:20 Est GFR (MDRD) Af Amer 31 mL/min (>60) L 06/01/19 11:20 Est GFR (MDRD) Non-Af 25 mL/min (>60) L 06/01/19 11:20 BUN/Creatinine Ratio 20.5 RATIO (10-20) H 06/01/19 11:20 Glucose 129 mg/dL (74-106) H 06/01/19 11:20 Weight used for dosin.8 kg Estimated Creatinine Clearance: 29.3ml/min Goal Trough: 15-20 mcg/mL Pharmacy Plan for Drug Dosing: Pt readmitted for sepsis. Calculated CrCl is 29.30ml/min (with an adjusted body weight of 75.94kg). Pt received a one time dose of Vancomycin 2000mg in the ER on 06/01/19 at 1141. Initial recommendation based on weight and renal function is for pt to receive Vancomycin 1000mg IV q24h. Trough to be drawn before the 3 rd total dose on 06/03/19 at 1130. Pharmacy Service will continue to monitor and adjust dosing as required. Follow-Up Labs: Trough Vancomycin - 06/03/19 at 1130
[2019-06-01] MEDS: 0.9% Normal Saline 1,000 ML 100 ML IV (14:04)
[2019-06-01 14:12] LABS: D-Dimer Quantitative (DVT/PE) 1.87 FEU/ug/m (0.27-0.49)
[2019-06-01 14:15] LABS: Ferritin 624 ng/mL (8-252); LDH 568 U/L (84-246); Magnesium 1.6 mg/dL (1.6-2.6)
[2019-06-01 14:24] LABS: CPK Total, Creatine Kinase 113 U/L (26-192)
[2019-06-01 15:09] LABS: Procalcitonin 1.36 ng/mL (0.00-0.09)
[2019-06-01] MEDS: Acetaminophen 325 MG Tablet 650 MG PO ×2 (15:32→21:32)
[2019-06-01 15:37] LABS: Reflex Lactate? Y
--- NOTE | 2019-06-01 15:59 | CASEMGMT ---
Social Work Note Physician asked SW to provide support to pt's family. SW placed a call to pt's Matheus and introduced self and role at [facility] and just educated Matheus on role of SW and that SW/RN CM would be following along for any discharge planning/needs that arise. Matheus states understanding. Susie Pollack CHIEF CREW SCHEDULER, DISHWASHING MACHINE OPERATOR
[2019-06-01 16:20] LABS: M R Staph aureus DNA By PCR Negative (Negative); Probe Check PASS; Specimen Processing Control PASS
[2019-06-01] MEDS: HEPARIN/D5w 25,000 UNITS 25,000 UNITS/250 ML IV.SOLN. 15 UNITS IV (17:34)
[2019-06-01] MEDS: Heparin Injection (Vial) 5,000 UNIT/ML VIAL 8000 UNIT IV (17:35)
[2019-06-01] MEDS: traMADol 50 MG Tablet PO (17:58)
[2019-06-01 18:06] LABS: Bedside Glucose 108 mg/dL (70-110)
[2019-06-01 18:31] LABS: Lactic Acid 2.3 mmol/L (0.4-1.9)
--- NOTE | 2019-06-01 19:07 | PCM.HP.ID ---
Problem List (1) Suspected 2019 novel coronavirus infection Status: Acute Reason for Consult: covsrikanth Consulted by: Dr. Morris History of Present Illness: The patient is a 74 year old F presented to the ED today with several weeks of not feeling well. Admitted here with uti, then again earlier this month with pneumonia requiring tap of parapneumonic effusion, discharged home on levaquin. Still did not feel better, had progressive fever, chills, whole body aches, headache, nausea, weight loss, congestion, loss of taste/smell. started to have similar symptoms a week ago and is in the ED today. With worsening dyspnea, came to ED. Admitted to icu on nasal cannula, vanc/zosyn, not feeling much better. COVID sent. C/o some L sided chest pressure/pain. Full ROS performed and neg except as noted above. - Medical History Past Medical History (Chronic Problems): Chronic Problems (Last Reviewed 05/11/19 @ 14:[address] Malik Bang, DO) Pancytopenia (Chronic) Compression fracture of L1 vertebra (Chronic) I had a discussion on compression fractures and the fact that it takes 12 weeks to heal. Basically especially with her problem with her left foot she really cannot go through physical therapy as she is having too much trouble getting in and out of the house. I told her nonsteroidals for the pain rest as much as possible but continue to be active in the upper body. I told her that kyphoplasty is a rarely done procedure and I did not think she would benefit enough to assume the risk of that procedure. Non-union of fracture (Chronic) Left foot. 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 (JOSEPH @ [facility]) Dupuytren's contracture of left hand (Chronic) Rotator cuff arthropathy of right shoulder (Chronic) History of coronary artery stent placement (Chronic 11/20/16) PCI-[place]-Mid RCA 2.25 x 38 mm Promus Synergy Atherosclerosis of coronary artery of [place] heart without angina pectoris (Chronic) PCI-[place]-Mid RCA 2.25 x 38 mm Promus Synergy 11/20/16 CABG x 2 KRISHNAMURTHY-LAD, SVG-Om1 [facility], PTCA to mid RCA 05/13/2017 Hyperlipemia (Chronic) Hypertension (Chronic) Type 2 diabetes mellitus (Chronic) Rheumatic fever (Chronic) CVA (cerebral vascular accident) (Chronic ~2010) Ischemic: residual is just occasional speech problems H/O coronary artery bypass surgery (Chronic 11/30/15) CABG x 2 KRISHNAMURTHY-LAD, SVG-Om1 11/30/15 @ [facility] Allergies/Adverse Reactions: Allergies oxycodone Allergy (Verified 06/01/19 10:43) Other UNABLE TO TAKE, MAKES EXCITED AND UNABLE TO SLEEP environemental Allergy (Uncoded 06/01/19 10:43) dry cough Home Medications: Ambulatory Orders Medication Instructions Recorded Aspirin E.C. [Ecotrin] 81 mg PO DAILY 08/31/17 tramadol 50 mg tablet 50 mg PO Q6H #90 tab 04/13/18 omeprazole 40 mg capsule,delayed 40 mg PO DAILY #90 cap 05/24/18 release nitroglycerin 0.4 mg sublingual 0.4 mg SUBLINGUAL Q5M PRN #25 tab 05/27/18 tablet topiramate 50 mg tablet 50 mg PO QHS #90 tab 11/20/18 atorvastatin 40 mg tablet 40 mg PO DAILY #90 tab 12/20/18 clopidogrel 75 mg tablet 75 mg PO DAILY #90 tab 12/20/18 isosorbide mononitrate 60 mg 60 mg PO DAILY #90 tab 12/20/18 tablet,extended release 24 hr metoprolol succinate 100 mg 100 mg PO DAILY #90 tab 12/20/18 tablet,extended release 24 hr nystatin 100,000 unit/gram topical 1 applic TOPICAL BID #30 g 01/01/19 cream insulin glargine 100 unit/mL 75 unit SUBCUT DAILY ml 01/26/19 subcutaneous solution Alprazolam [Xanax] 0.25 mg PO TID PRN PRN 04/27/19 Insulin Aspart [Novolog Flexpen] 14 units SUBCUT BIDCM 04/28/19 gabapentin 300 mg capsule 300 mg PO .COMPLEX #450 cap 05/06/19 furosemide 40 mg tablet 40 mg PO DAILY #30 tab 05/11/19 Losartan Potassium 50 mg PO DAILY #90 tab 05/23/19 Potassium Chloride [K-Dur] 40 meq PO DAILYCM #60 tab 05/23/19 - Social History SMOKING STATUS:: Former smoker Vital Signs Temp Pulse Resp BP Pulse Ox 96.7 F L 73 25 H 116/51 L 90 06/01/19 13:21 06/01/19 19:00 06/01/19 19:00 06/01/19 19:00 06/01/19 19:00 Oxygen Flow Rate (L/min) 6 Oxygen Delivery Method Nasal Cannula Weight: 106.3 kg Body Mass Index (BMI) 40.2 Finger Stick Blood Glucose 61 Microbiology Past 72 Hours 06/01/19 11:00 Streptococcus pneumoniae Antigen (M - Final Urine Catheter - Catheter 06/01/19 11:00 Legionella Antigen - Final Urine Catheter - Catheter Laboratory Tests Past 24 Hrs 06/01/19 06/01/19 06/01/19 10:41 11:00 11:20 WBC 3.0 L RBC 3.66 L Hgb 11.9 L Hct 36.6 L MCV 100.0 H MCH 32.5 H MCHC 32.5 RDW Std Deviation 54.7 H RDW Coeff of Henry 14.8 H Plt Count 51 L MPV 13.6 H Immature Gran % (Auto) 0.700 Neut % (Auto) 76.7 H Lymph % (Auto) 17.9 L [place] % (Auto) 4.4 Eos % (Auto) 0.3 Baso % (Auto) 0.0 Absolute Neuts (auto) 2.3 Absolute Lymphs (auto) 0.53 L Nucleated RBC % 0 Diff Path Review May foll Platelet Estimate MKD DEC Hypochromasia RARE Macrocytosis RARE PT INR APTT D-Dimer Quant (PE/DVT) Specimen Type Sample Site VBG pH VBG pO2 VBG O2 Sat (Calc) VBG O2 Content VBG Base Excess POC Mix VBG pCO2 Pt Tmp O2 Delivery Device Liter Flow Blood Gas Notified Whom Blood Gas Notified Time Sodium Potassium Chloride Carbon Dioxide Anion Gap BUN Creatinine Estim Creat Clear Calc Est GFR (MDRD) Af Amer Est GFR (MDRD) Non-Af BUN/Creatinine Ratio Glucose Lactic Acid Calcium Magnesium Ferritin Total Bilirubin AST ALT Alkaline Phosphatase Lactate Dehydrogenase Total Creatine Kinase C-React Prot Ext Range Total Protein Albumin Globulin Albumin/Globulin Ratio Procalcitonin Urine Color Yellow Urine Clarity Sl. Cloudy Urine pH 5.0 Ur Specific [place] 1.020 Urine Protein 30 H Urine Glucose (UA) Normal Urine Ketones 5 H Urine Occult Blood 10 H Urine Nitrite Negative Urine Bilirubin 1 H Urine Urobilinogen Normal Ur Leukocyte Esterase 25 H Urine RBC 0-5 SEEN Urine WBC 0-5 SEEN Ur Squamous Epith Cells 0 SEEN Urine Bacteria RARE Hyaline Casts 5-10 SEEN Urine Mucus 0 SEEN COVID-19 (SERJIO) Pending MRSA (PCR) 06/01/19 06/01/19 06/01/19 11:20 11:20 11:20 WBC RBC Hgb Hct MCV MCH MCHC RDW Std Deviation RDW Coeff of Henry Plt Count MPV Immature Gran % (Auto) Neut % (Auto) Lymph % (Auto) [place] % (Auto) Eos % (Auto) Baso % (Auto) Absolute Neuts (auto) Absolute Lymphs (auto) Nucleated RBC % Diff Path Review Platelet Estimate Hypochromasia Macrocytosis PT 16.2 H INR 1.4 APTT 43.9 H D-Dimer Quant (PE/DVT) Specimen Type Sample Site VBG pH VBG pO2 VBG O2 Sat (Calc) VBG O2 Content VBG Base Excess POC Mix VBG pCO2 Pt Tmp O2 Delivery Device Liter Flow Blood Gas Notified Whom Blood Gas Notified Time Sodium 135 L Potassium 4.3 Chloride 109 H Carbon Dioxide 19.0 L Anion Gap 7 BUN 42 H Creatinine 2.05 H Estim Creat Clear Calc 21.11 Est GFR (MDRD) Af Amer 31 L Est GFR (MDRD) Non-Af 25 L BUN/Creatinine Ratio 20.5 H Glucose 129 H Lactic Acid 2.1 H* Calcium 8.0 L Magnesium Ferritin Total Bilirubin 2.50 H AST 114 H ALT 22 Alkaline Phosphatase 246 H Lactate Dehydrogenase Total Creatine Kinase C-React Prot Ext Range Total Protein 5.8 L Albumin 2.0 L Globulin 3.8 Albumin/Globulin Ratio 0.5 L Procalcitonin Urine Color Urine Clarity Urine pH Ur Specific [place] Urine Protein Urine Glucose (UA) Urine Ketones Urine Occult Blood Urine Nitrite Urine Bilirubin Urine Urobilinogen Ur Leukocyte Esterase Urine RBC Urine WBC Ur Squamous Epith Cells Urine Bacteria Hyaline Casts Urine Mucus COVID-19 (SERJIO) MRSA (PCR) 06/01/19 06/01/19 06/01/19 11:20 11:20 11:20 WBC RBC Hgb Hct MCV MCH MCHC RDW Std Deviation RDW Coeff of Henry Plt Count MPV Immature Gran % (Auto) Neut % (Auto) Lymph % (Auto) [place] % (Auto) Eos % (Auto) Baso % (Auto) Absolute Neuts (auto) Absolute Lymphs (auto) Nucleated RBC % Diff Path Review Platelet Estimate Hypochromasia Macrocytosis PT INR APTT D-Dimer Quant (PE/DVT) 1.87 H* Specimen Type Sample Site VBG pH VBG pO2 VBG O2 Sat (Calc) VBG O2 Content VBG Base Excess POC Mix VBG pCO2 Pt Tmp O2 Delivery Device Liter Flow Blood Gas Notified Whom Blood Gas Notified Time Sodium Potassium Chloride Carbon Dioxide Anion Gap BUN Creatinine Estim Creat Clear Calc Est GFR (MDRD) Af Amer Est GFR (MDRD) Non-Af BUN/Creatinine Ratio Glucose Lactic Acid Calcium Magnesium 1.6 Ferritin 624 H Total Bilirubin AST ALT Alkaline Phosphatase Lactate Dehydrogenase 568 H Total Creatine Kinase 113 C-React Prot Ext Range 107.00 H Total Protein Albumin Globulin Albumin/Globulin Ratio Procalcitonin Urine Color Urine Clarity Urine pH Ur Specific [place] Urine Protein Urine Glucose (UA) Urine Ketones Urine Occult Blood Urine Nitrite Urine Bilirubin Urine Urobilinogen Ur Leukocyte Esterase Urine RBC Urine WBC Ur Squamous Epith Cells Urine Bacteria Hyaline Casts Urine Mucus COVID-19 (SERJIO) MRSA (PCR) 06/01/19 06/01/19 06/01/19 11:35 14:10 14:15 WBC RBC Hgb Hct MCV MCH MCHC RDW Std Deviation RDW Coeff of Henry Plt Count MPV Immature Gran % (Auto) Neut % (Auto) Lymph % (Auto) [place] % (Auto) Eos % (Auto) Baso % (Auto) Absolute Neuts (auto) Absolute Lymphs (auto) Nucleated RBC % Diff Path Review Platelet Estimate Hypochromasia Macrocytosis PT INR APTT D-Dimer Quant (PE/DVT) Specimen Type RJ Sample Site OTHER VBG pH 7.32 VBG pO2 50 H VBG O2 Sat (Calc) 83 H VBG O2 Content 18 L VBG Base Excess -9 L POC Mix VBG pCO2 Pt Tmp 33.2 L O2 Delivery Device Nasal Can Liter Flow 4.0 Blood Gas Notified Whom ED Blood Gas Notified Time 1135 Sodium Potassium Chloride Carbon Dioxide Anion Gap BUN Creatinine Estim Creat Clear Calc Est GFR (MDRD) Af Amer Est GFR (MDRD) Non-Af BUN/Creatinine Ratio Glucose Lactic Acid Calcium Magnesium Ferritin Total Bilirubin AST ALT Alkaline Phosphatase Lactate Dehydrogenase Total Creatine Kinase C-React Prot Ext Range Total Protein Albumin Globulin Albumin/Globulin Ratio Procalcitonin 1.36 H Urine Color Urine Clarity Urine pH Ur Specific [place] Urine Protein Urine Glucose (UA) Urine Ketones Urine Occult Blood Urine Nitrite Urine Bilirubin Urine Urobilinogen Ur Leukocyte Esterase Urine RBC Urine WBC Ur Squamous Epith Cells Urine Bacteria Hyaline Casts Urine Mucus COVID-19 (SERJIO) MRSA (PCR) Negative 06/01/19 15:37 WBC RBC Hgb Hct MCV MCH MCHC RDW Std Deviation RDW Coeff of Henry Plt Count MPV Immature Gran % (Auto) Neut % (Auto) Lymph % (Auto) [place] % (Auto) Eos % (Auto) Baso % (Auto) Absolute Neuts (auto) Absolute Lymphs (auto) Nucleated RBC % Diff Path Review Platelet Estimate Hypochromasia Macrocytosis PT INR APTT D-Dimer Quant (PE/DVT) Specimen Type Sample Site VBG pH VBG pO2 VBG O2 Sat (Calc) VBG O2 Content VBG Base Excess POC Mix VBG pCO2 Pt Tmp O2 Delivery Device Liter Flow Blood Gas Notified Whom Blood Gas Notified Time Sodium Potassium Chloride Carbon Dioxide Anion Gap BUN Creatinine Estim Creat Clear Calc Est GFR (MDRD) Af Amer Est GFR (MDRD) Non-Af BUN/Creatinine Ratio Glucose Lactic Acid 2.3 H* Calcium Magnesium Ferritin Total Bilirubin AST ALT Alkaline Phosphatase Lactate Dehydrogenase Total Creatine Kinase C-React Prot Ext Range Total Protein Albumin Globulin Albumin/Globulin Ratio Procalcitonin Urine Color Urine Clarity Urine pH Ur Specific [place] Urine Protein Urine Glucose (UA) Urine Ketones Urine Occult Blood Urine Nitrite Urine Bilirubin Urine Urobilinogen Ur Leukocyte Esterase Urine RBC Urine WBC Ur Squamous Epith Cells Urine Bacteria Hyaline Casts Urine Mucus COVID-19 (SERJIO) MRSA (PCR) - Other Studies Radiology: [] reviewed Other Studies: [] Route of nutrition/ use of supplements: [] Nutritional Intake: [] IV Site: [] Donato Catheter: [] - Physical Exam General: Alert, Oriented x3, Cooperative, - - ill appearing HEENT: Atraumatic, PERRLA, EOMI Neck: Supple, No Nodes Lungs: Diminished Cardiovascular: Tachycardic Abdomen: Soft, Non Tender, Non-Distended Extremities: No edema Skin: No rashes IV Site: Central Line, without redness Musculoskeletal: No Tenderness to Palpation of Joints or Extremities Neurological: Cranial nerves II-XII grossly intact - Assessment/Plan Antibiotics: [] Assessment/Plan: [] Active and Suspected Problems (Last Reviewed 05/11/19 @ 14:[address] Malik Bang, DO) Respiratory failure with hypoxia (Acute) Severe sepsis with acute organ dysfunction (Acute) Bilateral pulmonary infiltrates on chest x-ray (Acute) Suspected 2019 novel coronavirus infection (Acute) PADMA (acute kidney injury) (Acute) Jaundice (Acute) Hypotension (Acute) Lactic acid acidosis (Acute) severe sepsis with hypoxic resp failure, PADMA, lactic acidosis, thrombocytopenia - concern for covid. sick as well. Cxs pending. On empiric vanc/zosyn. Elevated LDH, PCT, bilirubin, and ferritin. Ordered d-dimer, came back as 1.5. Since it's over 3x normal limit, recommend therapeutic anticoagulation with suspected covid infection. Avoiding CT-PE at the moment due to PADMA. With low platelets and presumed need for anticoagulation at this time, could transfuse to keep platelets over 50. Will follow, thank you.
[2019-06-01] MEDS: Nystatin Ointment 1 APPLIC TOPICAL (21:05)
[2019-06-01] MEDS: Gabapentin 300 MG Capsule 900 MG PO (21:06)
[2019-06-01] MEDS: Topiramate 50 MG Tablet PO (21:06)
[2019-06-01] MEDS: Atorvastatin Calcium 40 MG Tablet PO (21:07)
[2019-06-01] MEDS: Ondansetron 4 MG/2 ML Vial IV (21:11)
[2019-06-01] MEDS: 0.9% Saline Lock 10 ML Syringe IV (21:19)
[2019-06-02] VITALS (32 sets, daily range): BP systolic 98–131; BP diastolic 43–63; PULSE 65–92; RESP 12–27; TEMP 36.9–37.4; O2SAT 85–100
[2019-06-02] MEDS: traMADol 50 MG Tablet PO ×2 (00:05→09:54)
[2019-06-02] MEDS: 0.9% Normal Saline 1,000 ML 100 ML IV ×3 (00:06→20:15)
[2019-06-02 00:45] LABS: Bedside Glucose 101 mg/dL (70-110)
[2019-06-02 00:46] LABS: Partial Thromboplast Time > 250.0 Seconds (24.1-36.2)
[2019-06-02] MEDS: 0.9% Saline Lock 10 ML Syringe IV ×3 (03:29→22:39)
[2019-06-02 03:39] LABS: Absolute Lymphocyte Count 0.55 X10^3/uL (0.83-4.51); Absolute Neutrophil Count 2.6 X10^3/uL (2.0-7.7); Basophil# 0.01 X10^3/uL; Basophil% 0.3 % (0-1); Eosinophil# 0.01 X10^3/uL; Eosinophils% 0.3 % (0-5); Hematocrit 35.1 % (37-47); Hemoglobin 11.3 g/dL (12.0-15.0); Lymphocyte # 0.55 X10^3/ul (4.0); Lymphocyte % 16.3 % (19-41); Mean Corp Hgb Conc 32.2 g/dL (32-36); Mean Corpuscular Hgb 32.7 pg (27.0-32.0); Mean Corpuscular Volume 101.4 fL (81-99); Mean Platelet Vol. 13.1 fl (6.2-12.0); Monocyte# 0.18 X10^3/uL; Monocyte% 5.3 % (0-10); NRBC Flagged by Analyzer 0 % (0-5); Neutrophil # 2.59 X10^3/uL (2.7-7.7); Neutrophil % 76.9 % (47-70); POSITIVE COUNT YES; POSITIVE DIFFERENTIAL YES; POSITIVE MORPHOLOGY YES; Platelet Count 59 K/mm3 (150-450); RBC Distribution Width CV 14.9 % (11.6-14.6); RBC Distribution Width SD 55.8 fl (35.1-43.9); Red Blood Count 3.46 M/mm3 (4.2-5.4); White Blood Count 3.4 K/mm3 (4.4-11.0)
[2019-06-02 03:41] LABS: Differential Indicated SCAN CRITERIA MET
[2019-06-02 03:53] LABS: ALB/GLOB Ratio 0.5 RATIO (0.9-2.4); AST(SGOT) 113 U/L (15-37); Alanine Aminotransfer ALT/SGPT 20 U/L (13-56); Albumin, Serum 1.8 g/dL (3.2-5.0); Alkaline Phosphatase 243 U/L (45-117); Anion Gap 7 (5-15); BUN 36 mg/dL (7-18); BUN/Creat Ratio 22.6 RATIO (10-20); Calcium,Total 7.5 mg/dL (8.5-10.1); Chloride 113 mmol/L (98-107); Creatinine, Serum 1.59 mg/dL (0.55-1.02); EST Glomerular Filtration Rate 34 mL/min (>60); Est Glom Filt Rate - Afr Amer 41 mL/min (>60); Estimated Creatinine Clearance 27.21 ml/min; Globulin 3.5 g/dL (2.2-4.2); Glucose 142 mg/dL (74-106); Potassium 4.3 mmol/L (3.5-5.1); Protein, Total 5.3 g/dL (6.4-8.2); Sodium Level 139 mmol/L (136-145)
[2019-06-02 04:15] LABS: Anisocytosis 1+; Macrocytosis 1+; Platelet Estimate MOD DEC (ADEQ); Reactive Lymphocyte RARE
--- NOTE | 2019-06-02 05:41 | PCM.PN.INT ---
Subjective: The patient was seen and examined at the bedside this morning. Events from the last 24 hours have been reviewed. The patient remains afebrile and hemodynamically stable. Unfortunately, the patient has continued to decompensate from a respiratory perspective over the last 12 hours. She is currently on heated high flow supplemental oxygen with an FiO2 of 90%. Repeat chest x-ray from this morning revealed progressive bilateral airspace disease, left greater than right. D-dimer was elevated yesterday to 1.87. Due to the patient's thrombocytopenia, she was preferentially placed on an empiric heparin infusion. She remains thrombocytopenic this morning, with a stable platelet count of 59,000. There has been some improvement in her creatinine to 1.59. Objective: The patient's most recent lab work, culture data and imaging studies have all been personally reviewed. Strep and urine Legionella antigens were negative. Respiratory viral panel was negative. MRSA screen was negative. COVID-19 testing is pending. General: Alert, Cooperative, - - Heated high flow cannula in place. HEENT: Atraumatic, Normocephalic Oral: Dry Mucosa Neck: Supple, No Nodes, Trachea Midline, - - Subclavian TLC in place Lungs: Diminished, Short of Breath, Tachypneic, - - + Conversational dyspnea Cardiovascular: Regular rate, Regular Rhythm, Normal S1, Normal S2 Abdomen: Bowel Sounds Present, Soft, Non Tender, Obese Extremities: No clubbing, No cyanosis, No edema Skin: No breakdown Musculoskeletal: No Muscle Wasting Lymphatic: No Cervical, Supraclavicular, or Inguinal Adenopathy Neurological: Neuro grossly intact Psych/Mental Status: Normal Affect, Appropriate Vital Signs Temp Pulse Resp BP Pulse Ox 98.4 F 76 18 110/52 L 92 06/02/19 00:00 06/02/19 05:05 06/02/19 01:00 06/02/19 01:00 06/02/19 05:05 Oxygen Flow Rate (L/min) 12 Oxygen Delivery Method Nasal Cannula Weight: 235 lb 3.732 oz Body Mass Index (BMI) 40.2 Finger Stick Blood Glucose 61 Intake and Output for Last 24 Hours 05/31/19 06/01/19 06/02/19 23:59 23:59 23:59 Intake Total 2472.33 / 2625.66 336.08 / 336.08 Output Total 250 / 400 150 / 150 Balance 2222.33 / 2225.66 186.08 / 186.08 Labs (Last 48 Hours) 06/01/19 06/01/19 06/01/19 10:41 11:00 11:20 WBC 3.0 L RBC 3.66 L Hgb 11.9 L Hct 36.6 L MCV 100.0 H MCH 32.5 H MCHC 32.5 RDW Std Deviation 54.7 H RDW Coeff of Henry 14.8 H Plt Count 51 L MPV 13.6 H Immature Gran % (Auto) 0.700 Neut % (Auto) 76.7 H Lymph % (Auto) 17.9 L [place] % (Auto) 4.4 Eos % (Auto) 0.3 Baso % (Auto) 0.0 Absolute Neuts (auto) 2.3 Absolute Lymphs (auto) 0.53 L Nucleated RBC % 0 Differential Comment Diff Path Review May foll Reactive Lymphocytes Platelet Estimate MKD DEC Hypochromasia RARE Anisocytosis Macrocytosis RARE PT INR APTT D-Dimer Quant (PE/DVT) Specimen Type Sample Site VBG pH VBG pO2 VBG O2 Sat (Calc) VBG O2 Content VBG Base Excess POC Mix VBG pCO2 Pt Tmp O2 Delivery Device Liter Flow Blood Gas Notified Whom Blood Gas Notified Time Sodium Potassium Chloride Carbon Dioxide Anion Gap BUN Creatinine Estim Creat Clear Calc Est GFR (MDRD) Af Amer Est GFR (MDRD) Non-Af BUN/Creatinine Ratio Glucose Lactic Acid Calcium Magnesium Ferritin Total Bilirubin AST ALT Alkaline Phosphatase Lactate Dehydrogenase Total Creatine Kinase C-React Prot Ext Range Total Protein Albumin Globulin Albumin/Globulin Ratio Procalcitonin Urine Color Yellow Urine Clarity Sl. Cloudy Urine pH 5.0 Ur Specific [place] 1.020 Urine Protein 30 H Urine Glucose (UA) Normal Urine Ketones 5 H Urine Occult Blood 10 H Urine Nitrite Negative Urine Bilirubin 1 H Urine Urobilinogen Normal Ur Leukocyte Esterase 25 H Urine RBC 0-5 SEEN Urine WBC 0-5 SEEN Ur Squamous Epith Cells 0 SEEN Urine Bacteria RARE Hyaline Casts 5-10 SEEN Urine Mucus 0 SEEN COVID-19 ([facility]ER[facility]IO) Pending MRSA (PCR) POC Glucose 06/01/19 06/01/19 06/01/19 11:20 11:20 11:20 WBC RBC Hgb Hct MCV MCH MCHC RDW Std Deviation RDW Coeff of Henry Plt Count MPV Immature Gran % (Auto) Neut % (Auto) Lymph % (Auto) [place] % (Auto) Eos % (Auto) Baso % (Auto) Absolute Neuts (auto) Absolute Lymphs (auto) Nucleated RBC % Differential Comment Diff Path Review Reactive Lymphocytes Platelet Estimate Hypochromasia Anisocytosis Macrocytosis PT 16.2 H INR 1.4 APTT 43.9 H D-Dimer Quant (PE/DVT) Specimen Type Sample Site VBG pH VBG pO2 VBG O2 Sat (Calc) VBG O2 Content VBG Base Excess POC Mix VBG pCO2 Pt Tmp O2 Delivery Device Liter Flow Blood Gas Notified Whom Blood Gas Notified Time Sodium 135 L Potassium 4.3 Chloride 109 H Carbon Dioxide 19.0 L Anion Gap 7 BUN 42 H Creatinine 2.05 H Estim Creat Clear Calc 21.11 Est GFR (MDRD) Af Amer 31 L Est GFR (MDRD) Non-Af 25 L BUN/Creatinine Ratio 20.5 H Glucose 129 H Lactic Acid 2.1 H* Calcium 8.0 L Magnesium Ferritin Total Bilirubin 2.50 H AST 114 H ALT 22 Alkaline Phosphatase 246 H Lactate Dehydrogenase Total Creatine Kinase C-React Prot Ext Range Total Protein 5.8 L Albumin 2.0 L Globulin 3.8 Albumin/Globulin Ratio 0.5 L Procalcitonin Urine Color Urine Clarity Urine pH Ur Specific [place] Urine Protein Urine Glucose (UA) Urine Ketones Urine Occult Blood Urine Nitrite Urine Bilirubin Urine Urobilinogen Ur Leukocyte Esterase Urine RBC Urine WBC Ur Squamous Epith Cells Urine Bacteria Hyaline Casts Urine Mucus COVID-19 ([facility]ERJIO) MRSA (PCR) POC Glucose 06/01/19 06/01/19 06/01/19 11:20 11:20 11:20 WBC RBC Hgb Hct MCV MCH MCHC RDW Std Deviation RDW Coeff of Henry Plt Count MPV Immature Gran % (Auto) Neut % (Auto) Lymph % (Auto) [place] % (Auto) Eos % (Auto) Baso % (Auto) Absolute Neuts (auto) Absolute Lymphs (auto) Nucleated RBC % Differential Comment Diff Path Review Reactive Lymphocytes Platelet Estimate Hypochromasia Anisocytosis Macrocytosis PT INR APTT D-Dimer Quant (PE/DVT) 1.87 H* Specimen Type Sample Site VBG pH VBG pO2 VBG O2 Sat (Calc) VBG O2 Content VBG Base Excess POC Mix VBG pCO2 Pt Tmp O2 Delivery Device Liter Flow Blood Gas Notified Whom Blood Gas Notified Time Sodium Potassium Chloride Carbon Dioxide Anion Gap BUN Creatinine Estim Creat Clear Calc Est GFR (MDRD) Af Amer Est GFR (MDRD) Non-Af BUN/Creatinine Ratio Glucose Lactic Acid Calcium Magnesium 1.6 Ferritin 624 H Total Bilirubin AST ALT Alkaline Phosphatase Lactate Dehydrogenase 568 H Total Creatine Kinase 113 C-React Prot Ext Range 107.00 H Total Protein Albumin Globulin Albumin/Globulin Ratio Procalcitonin Urine Color Urine Clarity Urine pH Ur Specific [place] Urine Protein Urine Glucose (UA) Urine Ketones Urine Occult Blood Urine Nitrite Urine Bilirubin Urine Urobilinogen Ur Leukocyte Esterase Urine RBC Urine WBC Ur Squamous Epith Cells Urine Bacteria Hyaline Casts Urine Mucus COVID-19 (SERJIO) MRSA (PCR) POC Glucose 06/01/19 06/01/19 06/01/19 11:35 14:10 14:15 WBC RBC Hgb Hct MCV MCH MCHC RDW Std Deviation RDW Coeff of Henry Plt Count MPV Immature Gran % (Auto) Neut % (Auto) Lymph % (Auto) [place] % (Auto) Eos % (Auto) Baso % (Auto) Absolute Neuts (auto) Absolute Lymphs (auto) Nucleated RBC % Differential Comment Diff Path Review Reactive Lymphocytes Platelet Estimate Hypochromasia Anisocytosis Macrocytosis PT INR APTT D-Dimer Quant (PE/DVT) Specimen Type RJ Sample Site OTHER VBG pH 7.32 VBG pO2 50 H VBG O2 Sat (Calc) 83 H VBG O2 Content 18 L VBG Base Excess -9 L POC Mix VBG pCO2 Pt Tmp 33.2 L O2 Delivery Device Nasal Can Liter Flow 4.0 Blood Gas Notified Whom ED Blood Gas Notified Time 1135 Sodium Potassium Chloride Carbon Dioxide Anion Gap BUN Creatinine Estim Creat Clear Calc Est GFR (MDRD) Af Amer Est GFR (MDRD) Non-Af BUN/Creatinine Ratio Glucose Lactic Acid Calcium Magnesium Ferritin Total Bilirubin AST ALT Alkaline Phosphatase Lactate Dehydrogenase Total Creatine Kinase C-React Prot Ext Range Total Protein Albumin Globulin Albumin/Globulin Ratio Procalcitonin 1.36 H Urine Color Urine Clarity Urine pH Ur Specific [place] Urine Protein Urine Glucose (UA) Urine Ketones Urine Occult Blood Urine Nitrite Urine Bilirubin Urine Urobilinogen Ur Leukocyte Esterase Urine RBC Urine WBC Ur Squamous Epith Cells Urine Bacteria Hyaline Casts Urine Mucus COVID-19 ([facility]IO) MRSA (PCR) Negative POC Glucose 06/01/19 06/01/19 06/01/19 15:37 17:25 21:01 WBC RBC Hgb Hct MCV MCH MCHC RDW Std Deviation RDW Coeff of Henry Plt Count MPV Immature Gran % (Auto) Neut % (Auto) Lymph % (Auto) [place] % (Auto) Eos % (Auto) Baso % (Auto) Absolute Neuts (auto) Absolute Lymphs (auto) Nucleated RBC % Differential Comment Diff Path Review Reactive Lymphocytes Platelet Estimate Hypochromasia Anisocytosis Macrocytosis PT INR APTT D-Dimer Quant (PE/DVT) Specimen Type Sample Site VBG pH VBG pO2 VBG O2 Sat (Calc) VBG O2 Content VBG Base Excess POC Mix VBG pCO2 Pt Tmp O2 Delivery Device Liter Flow Blood Gas Notified Whom Blood Gas Notified Time Sodium Potassium Chloride Carbon Dioxide Anion Gap BUN Creatinine Estim Creat Clear Calc Est GFR (MDRD) Af Amer Est GFR (MDRD) Non-Af BUN/Creatinine Ratio Glucose Lactic Acid 2.3 H* Calcium Magnesium Ferritin Total Bilirubin AST ALT Alkaline Phosphatase Lactate Dehydrogenase Total Creatine Kinase C-React Prot Ext Range Total Protein Albumin Globulin Albumin/Globulin Ratio Procalcitonin Urine Color Urine Clarity Urine pH Ur Specific [place] Urine Protein Urine Glucose (UA) Urine Ketones Urine Occult Blood Urine Nitrite Urine Bilirubin Urine Urobilinogen Ur Leukocyte Esterase Urine RBC Urine WBC Ur Squamous Epith Cells Urine Bacteria Hyaline Casts Urine Mucus COVID-19 ([facility]IO) MRSA (PCR) POC Glucose 108 101 06/02/19 06/02/19 06/02/19 00:03 03:20 03:20 WBC 3.4 L RBC 3.46 L Hgb 11.3 L Hct 35.1 L MCV 101.4 H MCH 32.7 H MCHC 32.2 RDW Std Deviation 55.8 H RDW Coeff of Henry 14.9 H Plt Count 59 L MPV 13.1 H Immature Gran % (Auto) 0.900 Neut % (Auto) 76.9 H Lymph % (Auto) 16.3 L [place] % (Auto) 5.3 Eos % (Auto) 0.3 Baso % (Auto) 0.3 Absolute Neuts (auto) 2.6 Absolute Lymphs (auto) 0.55 L Nucleated RBC % 0 Differential Comment Diff Path Review Reactive Lymphocytes RARE Platelet Estimate MOD DEC Hypochromasia Anisocytosis 1+ Macrocytosis 1+ PT INR APTT > 250.0 H* D-Dimer Quant (PE/DVT) Specimen Type Sample Site VBG pH VBG pO2 VBG O2 Sat (Calc) VBG O2 Content VBG Base Excess POC Mix VBG pCO2 Pt Tmp O2 Delivery Device Liter Flow Blood Gas Notified Whom Blood Gas Notified Time Sodium 139 Potassium 4.3 Chloride 113 H Carbon Dioxide 19.0 L Anion Gap 7 BUN 36 H Creatinine 1.59 H Estim Creat Clear Calc 27.21 Est GFR (MDRD) Af Amer 41 L Est GFR (MDRD) Non-Af 34 L BUN/Creatinine Ratio 22.6 H Glucose 142 H Lactic Acid Calcium 7.5 L Magnesium Ferritin Total Bilirubin 2.50 H AST 113 H ALT 20 Alkaline Phosphatase 243 H Lactate Dehydrogenase Total Creatine Kinase C-React Prot Ext Range Total Protein 5.3 L Albumin 1.8 L Globulin 3.5 Albumin/Globulin Ratio 0.5 L Procalcitonin Urine Color Urine Clarity Urine pH Ur Specific [place] Urine Protein Urine Glucose (UA) Urine Ketones Urine Occult Blood Urine Nitrite Urine Bilirubin Urine Urobilinogen Ur Leukocyte Esterase Urine RBC Urine WBC Ur Squamous Epith Cells Urine Bacteria Hyaline Casts Urine Mucus COVID-19 ([facility]IO) MRSA (PCR) POC Glucose Microbiology 06/01/19 11:00 Urine Catheter - Catheter Streptococcus pneumoniae Antigen (M - Final 06/01/19 11:00 Urine Catheter - Catheter Legionella Antigen - Final Clinical Impression(s) from Imaging Studies Shoulder X-Ray 06/01/19 11:04 IMPRESSION: Degenerative changes of the shoulder. Right pulmonary infiltrates. Electronically Signed: Dany Roblero at 12:41 EDT , Service support , Wrist X-Ray 06/01/19 11:04 IMPRESSION: Degenerative changes. Findings suggestive of a nonhealed fracture through the waist of the scaphoid bone Electronically Signed: Dany Roblero at 12:41 EDT , Service support , Chest X-Ray 06/01/19 11:47 IMPRESSION: New bilateral patchy infiltrates. Follow-up is recommended. Electronically Signed: Dany Roblero at 12:38 EDT , Service support , Chest X-Ray 06/02/19 05:55 IMPRESSION: Bilateral airspace disease, left greater than right. The appearance has changed particularly on the right with what appears to be increasing airspace consolidation. Electronically Signed: Anuja Cárdenas MD at 2:43 EDT , Service support , Medical Necessity - Tobacco Use Smoking Status: Former smoker Tobacco Use: Non-smoker Assessment/Plan All Active Problems (Last Reviewed 05/11/19 @ 14:[address] Malik Bang, DO) Severe sepsis (Acute) Urinary tract infection (Acute) Acute encephalopathy (Acute) Pneumonia (Acute) Respiratory failure with hypoxia (Acute) Severe sepsis with acute organ dysfunction (Acute) Bilateral pulmonary infiltrates on chest x-ray (Acute) Suspected 2019 novel coronavirus infection (Acute) PADMA (acute kidney injury) (Acute) Jaundice (Acute) Hypotension (Acute) Lactic acid acidosis (Acute) H/O section (Resolved) History of carpal tunnel surgery (Resolved) Anemia (Resolved) Chest pain (Resolved) Chest pressure (Resolved) RECOMMENDATIONS: 1. Continue broad-spectrum antimicrobial coverage per ID recommendations. 2. Continue empiric heparin infusion. 3. Check BNP and consider initiation of diuretic therapy, if elevated. 4. Continue heated high flow supplemental oxygen in an attempt to maintain saturations at or above 90%. 5. Attempt prone positioning of patient today. 6. Continue appropriate ICU prophylaxis. IMPRESSIONS: 1. Severe sepsis secondary to bilateral healthcare associated pneumonia versus COVID-19 infection The patient has been recently admitted to the hospital and does have evidence of bilateral airspace disease on chest x-ray concerning for healthcare associated pneumonia versus COVID infection. Her respiratory status is quite tenuous and she does not wish to be intubated. Therefore, we will plan to continue current supportive measures with supplemental oxygen and possible heated high flow to maintain saturations at or above 90%. Empiric antimicrobials will be continued. Infectious diseases is currently following. Over concerns for possible viral mediated thrombotic phenomena, empiric heparin infusion will be continued. COVID testing is pending. 2. Acute hypoxemic respiratory failure Concern for infectious etiologies as noted above. Continue current supportive measures. 3. Acute on chronic kidney disease Likely prerenal in etiology and related to ischemic ATN in the setting of #1. Conservative fluid management will be employed. Continue to monitor urine output for now. No current indication for renal replacement therapy. 4. Pancytopenia Chronic in nature. At the current time there are no overt signs of blood loss. There is no indication for transfusion of blood products. 5. Hypertension/hyperlipidemia/coronary artery disease status post CABG/diabetes mellitus/anxiety/depression Complicates care, management, recovery and prognosis. Recommend holding nephrotoxic medications including Lasix. CODE STATUS confirmed to be DNR CCA without intubation. TIME: 35 minutes of critical care time, independent of procedures, was spent addressing the patient's severe sepsis, possible healthcare associated pneumonia versus COVID-19 infection, acute hypoxemic respiratory failure, acute on chronic kidney disease, pancytopenia, review of all data and collaboration with the care team. ([id number]) [id number] Critical care first hour
--- NOTE | 2019-06-02 05:55 | RAD_ITS ---
STUDY: X-RAY CHEST REASON FOR EXAM: Female, 74 years old patient with shortness of breath and cough. TECHNIQUE: Single AP portable view of the chest. COMPARISON: June 01, 2019. FINDINGS: Cardiac monitoring leads are present. Patient has had a sternotomy. The lungs are expanded. There is left-sided groundglass attenuation and air space consolidation which appears to opacify almost the entirety of the left lung. There is multifocal airspace consolidation in the right lung with the densest airspace disease at the right lung apex and right lung base. The appearance has changed since the previous radiograph. Bronchovascular markings are prominent in both lungs. There is no demonstrated pleural abnormality. There is borderline cardiomegaly. Normal mediastinum and fidelina. There is prominence of the pulmonary hilar arteries without peripheral pulmonary vascular congestion. There is atherosclerotic calcification of the aortic arch with tortuosity. There is demineralization of the osseous structures. There are degenerative changes of the visualized spine and shoulders. There is no demonstrated abnormality of the visualized soft tissue structures of the upper abdomen. RAD/Chest 1 View (Portable) IMPRESSION: Bilateral airspace disease, left greater than right. The appearance has changed particularly on the right with what appears to be increasing airspace consolidation. Electronically Signed: Anuja Cárdenas MD at 2:43 EDT , Service support ,
--- NOTE | 2019-06-02 06:47 | PN_ITS ---
Patient Problems: Active and Suspected Problems (Last Reviewed 05/11/19 @ 14:[address] Malik Bang, DO) Respiratory failure with hypoxia (Acute) Severe sepsis with acute organ dysfunction (Acute) Bilateral pulmonary infiltrates on chest x-ray (Acute) Suspected 2019 novel coronavirus infection (Acute) PADMA (acute kidney injury) (Acute) Jaundice (Acute) Hypotension (Acute) Lactic acid acidosis (Acute) Subjective: Patient overnight with continued respiratory compromise, worsening over the last 12 hours with transition from high flow oxygen to airvo with an FiO2 of 90% with repeat chest x-ray with worsening progressive bilateral disease. Patient continues to have bilateral frontal headaches, nausea without emesis, ongoing diarrhea and abdominal cramping as well as dyspnea with any activity and coughing. Patient continues on heparin drip given elevated dimer yesterday and is now admitting that she has significant left lower calf pain and is also noted to be tender to palpation on exam as well as edematous compared to right lower extremity. Patient remains thrombocytopenic although stable on heparin drip. Encourage patient to consider pronating however she is very resistant. Patient denies fevers, chills, emesis, chest pain. Objective: Physical Examination: General: awake, alert, oriented x 3 although fatigued, remains cooperative, seated upright in the ICU bed, remains ill appearing, ongoing increased work of breathing, airvo in place with FiO2 90%. Skin: normal color, turgor, no icterus, cyanosis stopped occasional various staged ecchymoses to extremities. HEENT: AT/NC, EOMI, PERRLA, dry MM, airvo in place. Lungs: Severely diffusely diminished, greater bases, increased work of breathing with accessory muscle usage and conversational dyspnea, evident distress, rales BL bases, no ronchi or wheezing. Heart: Regular rate and rhythm; no gallop, rub audible. Abdomen: soft, morbidly obese, generalized mild discomfort w/ palpation, no rebound or guarding, no obvious distention, hyperactive BS. Extremities: no cyanosis, clubbing, notable LLE edema, discomfort with palpation , suspect DVT. Neurological: patient awake, alert, oriented as noted; cognitive function appears baseline intact although fatigued; pupils equally reactive to light and accomodation; cranial nerves II-XII grossly normal, moving all 4 extremities, no focal deficits, strength severely global decrease secondary to acute presentation. Psychiatric: affect appears fatigued and remains ill appearing, no acute evidence of depressive or anxiety feelings. Vitals/I&O's: Vital Signs Temp Pulse Resp BP Pulse Ox 98.4 F 82 19 H 131/53 H 95 06/02/19 04:00 06/02/19 06:16 06/02/19 06:00 06/02/19 06:00 06/02/19 06:16 Oxygen Flow Rate (L/min) 12 Oxygen Delivery Method Bi-pap Weight: 235 lb 3.732 oz Body Mass Index (BMI) 40.2 Finger Stick Blood Glucose 61 Intake and Output for Last 24 Hours 05/31/19 06/01/19 06/02/19 23:59 23:59 23:59 Intake Total 2472.33 / 2625.66 336.08 / 336.08 Output Total 250 / 400 150 / 150 Balance 2222.33 / 2225.66 186.08 / 186.08 Microbiology Past 72 Hours 06/01/19 14:55 Mucosa - Nose Respiratory Panel (PCR) - Final 06/01/19 11:00 Urine Catheter - Catheter Streptococcus pneumoniae Antigen (M - Final 06/01/19 11:00 Urine Catheter - Catheter Legionella Antigen - Final Laboratory Results 06/01/19 10:41: COVID-19 (SERJIO) Pending 06/01/19 11:00: Urine Color Yellow, Urine Clarity Sl. Cloudy, Urine pH 5.0, Ur Specific [place] 1.020, Urine Protein 30 H, Urine Glucose (UA) Normal, Urine Ketones 5 H, Urine Occult Blood 10 H, Urine Nitrite Negative, Urine Bilirubin 1 H, Urine Urobilinogen Normal, Ur Leukocyte Esterase 25 H, Urine RBC 0-5 SEEN, Urine WBC 0-5 SEEN, Ur Squamous Epith Cells 0 SEEN, Urine Bacteria RARE, Hyaline Casts 5-10 SEEN, Urine Mucus 0 SEEN 06/01/19 11:20: WBC 3.0 L, RBC 3.66 L, Hgb 11.9 L, Hct 36.6 L, MCV 100.0 H, MCH 32.5 H, MCHC 32.5, RDW Std Deviation 54.7 H, RDW Coeff of Henry 14.8 H, Plt Count 51 L, MPV 13.6 H, Immature Gran % (Auto) 0.700, Neut % (Auto) 76.7 H, Lymph % (Auto) 17.9 L, [place] % (Auto) 4.4, Eos % (Auto) 0.3, Baso % (Auto) 0.0, Absolute Neuts (auto) 2.3, Absolute Lymphs (auto) 0.53 L, Nucleated RBC % 0, Diff Path Review June, Platelet Estimate MKD DEC, Hypochromasia RARE, Macrocytosis RARE 06/01/19 11:20: PT 16.2 H, INR 1.4, APTT 43.9 H 06/01/19 11:20: Sodium 135 L, Potassium 4.3, Chloride 109 H, Carbon Dioxide 19.0 L, Anion Gap 7, BUN 42 H, Creatinine 2.05 H, Estim Creat Clear Calc 21.11, Est GFR (MDRD) Af Amer 31 L, Est GFR (MDRD) Non-Af 25 L, BUN/Creatinine Ratio 20.5 H , Glucose 129 H, Calcium 8.0 L, Total Bilirubin 2.50 H, AST 114 H, ALT 22, Alkaline Phosphatase 246 H, Total Protein 5.8 L, Albumin 2.0 L, Globulin 3.8, Albumin/Globulin Ratio 0.5 L 06/01/19 11:20: Lactic Acid 2.1 H* 06/01/19 11:20: Magnesium 1.6, Ferritin 624 H, Lactate Dehydrogenase 568 H, C- React Prot Ext Range 107.00 H 06/01/19 11:20: D-Dimer Quant (PE/DVT) 1.87 H* 06/01/19 11:20: Total Creatine Kinase 113 06/01/19 11:35: Specimen Type RJ, Sample Site OTHER, VBG pH 7.32, VBG pO2 50 H, VBG O2 Sat (Calc) 83 H, VBG O2 Content 18 L, VBG Base Excess -9 L, POC Mix VBG pCO2 Pt Tmp 33.2 L, O2 Delivery Device Nasal Can, Liter Flow 4.0, Blood Gas Notified Whom ED , Blood Gas Notified Time 1135 06/01/19 14:10: MRSA (PCR) Negative 06/01/19 14:15: Procalcitonin 1.36 H 06/01/19 15:37: Lactic Acid 2.3 H* 06/01/19 17:25: POC Glucose 108 06/01/19 21:01: POC Glucose 101 06/02/19 00:03: APTT > 250.0 H* 06/02/19 03:20: WBC 3.4 L, RBC 3.46 L, Hgb 11.3 L, Hct 35.1 L, MCV 101.4 H, MCH 32.7 H, MCHC 32.2, RDW Std Deviation 55.8 H, RDW Coeff of [place] 14.9 H, Plt Count 59 L, MPV 13.1 H, Immature Gran % (Auto) 0.900, Neut % (Auto) 76.9 H, Lymph % (Auto) 16.3 L, [place] % (Auto) 5.3, Eos % (Auto) 0.3, Baso % (Auto) 0.3, Absolute Neuts (auto) 2.6, Absolute Lymphs (auto) 0.55 L, Nucleated RBC % 0, Differential Comment , Reactive Lymphocytes RARE, Platelet Estimate MOD DEC, Anisocytosis 1+, Macrocytosis 1+ 06/02/19 03:20: Sodium 139, Potassium 4.3, Chloride 113 H, Carbon Dioxide 19.0 L , Anion Gap 7, BUN 36 H, Creatinine 1.59 H, Estim Creat Clear Calc 27.21, Est GFR (MDRD) Af Amer 41 L, Est GFR (MDRD) Non-Af 34 L, BUN/Creatinine Ratio 22.6 H , Glucose 142 H, Calcium 7.5 L, Total Bilirubin 2.50 H, AST 113 H, ALT 20, Alkaline Phosphatase 243 H, Total Protein 5.3 L, Albumin 1.8 L, Globulin 3.5, Albumin/Globulin Ratio 0.5 L Current Medications Acetaminophen (Tylenol) 650 mg PO Q6H PRN PRN PRN Reason: Pain Score 1-10/Temp > 100.7 F Last Admin: 06/01/19 21:32 Dose: 650 mg Documented by: Al Hydroxide/Mg Hydroxide (Mylanta Ii) 30 ml PO Q6H PRN PRN PRN Reason: Gastric Burning Albuterol Sulfate (Ventolin Aerosols) 2.5 mg INHALATION Q2H PRN PRN PRN Reason: Dyspnea, wheezing Alprazolam (Xanax) 0.25 mg PO TID PRN PRN PRN Reason: anxiety Aspirin (Ecotrin) 81 mg PO DAILY@0800 KAYCE Atorvastatin Calcium (Lipitor) 40 mg PO QHS KAYCE Last Admin: 06/01/19 21:07 Dose: 40 mg Documented by: Clopidogrel Bisulfate (Plavix) 75 mg PO DAILY [facility] Dextrose (D50w Syringe) 0 gm IV X1 PRN; Protocol PRN Reason: Hypoglycemia Gabapentin (Neurontin) 300 mg PO 0800,1200 KAYCE Gabapentin (Neurontin) 900 mg PO QHS [facility] Last Admin: 06/01/19 21:06 Dose: 900 mg Documented by: Glucagon () 1 mg IM .X1 PRN PRN Reason: Hypoglycemia Guaifenesin (Robitussin) 10 ml PO Q4H PRN PRN PRN Reason: COUGH Heparin Sodium (Porcine) (Heparin Na) 0 unit IV UD PRN; Protocol Hydralazine HCl (Apresoline Iv) 10 mg IV Q4H PRN PRN PRN Reason: SBP > 160 Sodium Chloride () 1,000 mls @ 100 mls/hr IV .Q10H [facility] Last Admin: 06/02/19 00:06 Dose: 100 mls/hr Documented by: Piperacillin Sod/Tazobactam (Sod 3.375 gm/ Sodium Chloride) 50 mls @ 12.5 mls/hr IV Q8 [facility] Last Infusion: 06/02/19 00:00 Dose: 0 mls/hr Documented by: Vancomycin IV Pharmacy to Dose (1 ea/ Sodium Chloride) 500 mls @ 250 mls/hr IV X1 PRN; Protocol PRN Reason: Rx to Dose Vancomycin HCl (Vancomycin) 1,000 mg in 200 mls @ 200 mls/hr IV Q24H [facility] Heparin Sodium/Dextrose () 25,000 units in 250 mls @ 15 mls/hr IV .[id number] [facility]; Protocol Last Titration: 06/02/19 00:45 Dose: 0 units/hr, 0 mls/hr Documented by: Sodium Chloride () 250 mls @ 15 mls/hr IV .[id number] PRN PRN Reason: Saline Flush Sodium Chloride () 250 mls @ 15 mls/hr IV .[id number] PRN PRN Reason: Additional IVPB Infusion Insulin Glargine (Lantus (Bkc)) 75 units SC DAILY [facility] Insulin Human Lispro (Humalog Kwikpen (Bk)) 14 unit SC BIDCM [facility] Last Admin: 06/01/19 17:37 Dose: Not Given Documented by: Insulin Human Lispro (Humalog Kwikpen (Bkc)) 0 unit SC ACHS [facility]; Protocol Last Admin: 06/01/19 21:03 Dose: Not Given Documented by: Isosorbide Mononitrate (Imdur) 60 mg PO DAILY [facility] Melatonin (Melatonin) 3 mg PO QHS PRN PRN PRN Reason: INSOMNIA Metoprolol Succinate (Toprol Xl (Beta Ngoc)) 100 mg PO DAILY [facility] Nitroglycerin (Nitrostat) 0.4 mg SUBLINGUAL Q5M PRN PRN Reason: chest pain Nystatin (Mycostatin) 1 applic TOPICAL BID [facility] Last Admin: 06/01/19 21:05 Dose: 1 applicatio Documented by: Ondansetron HCl (Zofran) 4 mg IV Q8H PRN PRN PRN Reason: NAUSEA/VOMITING Last Admin: 06/01/19 21:11 Dose: 4 mg Documented by: Pantoprazole Sodium (Protonix) 40 mg PO DAILY [facility] Potassium [facility]Dur[facility] Prochlorperazine Edisylate (Compazine Iv) 5 mg IV Q4H PRN PRN PRN Reason: Breakthrough Nausea/Vomiting Sodium Chloride () 10 - 40 ml IV UD PRN PRN Reason: Multilumen/Paredes Flush Last Admin: 06/02/19 03:29 Dose: 40 ml Documented by: Sodium Chloride (0.9% Nacl (Sterile) Posiflush) 10 - 40 ml IV UD PRN PRN Reason: Port access or dressing change Throat Lozenges (Cepacol Sore Throat Lozenge) 1 lozenge MUCOUS MEM Q2H PRN PRN PRN Reason: SORE THROAT Topiramate (Topamax) 50 mg PO QHS [facility] Last Admin: 06/01/19 21:06 Dose: 50 mg Documented by: Tramadol HCl (Ultram) 50 mg PO Q6 PRN PRN Reason: Pain Score 1-10/10 Last Admin: 06/02/19 00:05 Dose: 50 mg Documented by: Zinc Sulfate (Zinc Sulfate) 220 mg PO TID [facility] Last Admin: 06/01/19 21:06 Dose: 220 mg Documented by: STROKE Vital Signs/Narrative: Vital Signs Temp Pulse Resp BP Pulse Ox 04/23/20 06:16 82 95 06/02/19 06:00 90 19 H 131/53 H 92 06/02/19 05:05 76 92 06/02/19 05:00 82 20 H 111/50 L 85 06/02/19 04:00 98.4 F 77 23 H 108/47 L 86 06/02/19 03:00 75 26 H 107/54 L 90 Medical Necessity - Tobacco Use Smoking Status: Former smoker Tobacco Use: Non-smoker Assessment/Plan All Active Problems (Last Reviewed 05/11/19 @ 14:[address] Malik Bang, DO) Severe sepsis (Acute) Urinary tract infection (Acute) Acute encephalopathy (Acute) Pneumonia (Acute) Respiratory failure with hypoxia (Acute) Severe sepsis with acute organ dysfunction (Acute) Bilateral pulmonary infiltrates on chest x-ray (Acute) Suspected 2019 novel coronavirus infection (Acute) PADMA (acute kidney injury) (Acute) Jaundice (Acute) Hypotension (Acute) Lactic acid acidosis (Acute) H/O section (Resolved) History of carpal tunnel surgery (Resolved) Anemia (Resolved) Chest pain (Resolved) Chest pressure (Resolved) The patient is a 74 y/o F w/ PMHx: Hx CVA with residual speech deficits, HTN, HLD, Rheumatoid arthritis, Diabetes mellitus type II, Morbid Obesity, CAD s/p PCI, Chronic anemia, Chronic COPD who presents to the [facility] ED on 06/01/19 with history of recent discharge on 05/23/19 following treatment for suspected pneumonia with R sided thoracentesis also, discharged to home with re-assessment per PCP on 05/29/19 secondary to history of onset recurrent cough with white sputum production, worsening dyspnea especially with any activity, increasing fatigue and malaise, nasal congestion not improving, prompting referral to the ED for re-evaluation. 1. Acute Severe Sepsis with Acute Hypoxic Respiratory Failure secondary to Bilateral Pneumonia secondary to Possible GN/GP Organism and Possible Acute Viral Syndrome, COVID-19 with Suspected associated LLE DVT, Possible concurrent Pulmonary Emboli: Patient upon presentation with leukopenia, lymphopenia, initial CXR new bilateral patchy infiltrates concerning for COVID. ED initiated COVID testing, still pending. Admitted to the ICU COVID unit, worsening respiratory status, 6L NC-->airvo currently, remains DNR-CCA, no intubation status, unable to prone, significantly elevated D-dimer requested per ID with notable LLE pain, edema with suspected DVT, possible PE, continued on heparin drip started on 06/01/19, continue MDI inhaler PRN albuterol, maintain on IV Zosyn and Vancomycin w/ negative MRSA screen therefore will d/c vanc, HOB, IS parameters, unable to obtain sputum cultures, negative urine antigens, negative respiratory viral panel, Bld Cx x 2 pending, negative urine antigens, UCx pending, initial D-dimer 1.87 with 06/02/19 repeat 1.41, pro calcitonin 1.36, CRP 107, LDH 568, ferritin 624, closely monitor for worsening status for ARDS and multiorgan failure although given DNR-CCA, DNI status significant concerns ongoing and maintained on airvo, defer consideration of initiation of hydroxychloroquine to ICU and ID. Poor prognosis. 2. PADMA on Chronic Kidney Disease Stage III: Admission BUN/Cr 42/2.05, baseline renal function 0.9-1.2, 06/02/19 BUN/Cr 36/1.59, improving, will continue judicious hydration given acute presentation as noted #1, trend CMP. Given acute presentation concerns possible ATN/AIN. 3. CAD: Status post PCI and CABG x2, continue home aspirin, Plavix, metoprolol, holding losartan and statin regimen. 4. Hypertension: Continue home regimen including metoprolol, isosorbide, holding Lasix and losartan given acute kidney injury with specific hold parameters, PRN hydralazine. 5. Hyperlipidemia: Hold home statin therapy given mild hyperbilirubinemia and elevated AST likely secondary to #1. 6. Chronic Thrombocytopenia: Admission platelets 51, baseline appears 60s to 90s, given possibility of #1 with suspected LLE DVT and possible DVT, judiciously initiated heparin drip 06/01/19, continue to monitor, 06/02/19 Plt 59. 7. History of CVA: We will continue patient on home aspirin, Plavix, hypertensive regimen with specific hold parameters as noted, diabetic regimen with hold on oral regimen, holding statin given acute presentation #1 as likely etiology with elevated liver function studies and bilirubin level. 8. Diabetes mellitus type II: Hold oral home regimen, continue home insulin regimen, ADA diet, accu checks w/ ISS. 9. Obesity: Weight loss and lifestyle changes encouraged. 10. Rheumatoid arthritis: Continue PRN tramadol regimen for pain associated. 11. Anxiety and depression: We will continue patient home Xanax regimen. 12. DVT prophylaxis: SCDs, heparin drip. 13. CODE status: HCPOA is her and living will is currently in place. DNR-CCA, no intubation status. Inpatient E&M: [id number] Subs Hosp L3
--- NOTE | 2019-06-02 07:12 | PCM.RX.CS ---
Consult Pharmacy has been consulted to manage selected antiobiotic: Vancomycin Type of Consult: Follow-up Suspected Infection: Sepsis Labs: Sodium 139 mmol/L (136-145) 06/02/19 03:20 Potassium 4.3 mmol/L (3.5-5.1) 06/02/19 03:20 Chloride 113 mmol/L (98-107) H 06/02/19 03:20 Carbon Dioxide 19.0 mmol/L (21.0-32.0) L 06/02/19 03:20 Anion Gap 7 (5-15) 06/02/19 03:20 BUN 36 mg/dL (7-18) H 06/02/19 03:20 Creatinine 1.59 mg/dL (0.55-1.02) H 06/02/19 03:20 Est GFR (MDRD) Af Amer 41 mL/min (>60) L 06/02/19 03:20 Est GFR (MDRD) Non-Af 34 mL/min (>60) L 06/02/19 03:20 BUN/Creatinine Ratio 22.6 RATIO (10-20) H 06/02/19 03:20 Glucose 142 mg/dL (74-106) H 06/02/19 03:20 Microbiology: Microbiology 06/01/19 14:55 Mucosa - Nose Respiratory Panel (PCR) - Final 06/01/19 11:00 Urine Catheter - Catheter Streptococcus pneumoniae Antigen (M - Final 06/01/19 11:00 Urine Catheter - Catheter Legionella Antigen - Final Weight used for dosin kg Estimated Creatinine Clearance: 38 ML/MIN Goal Trough: 15-20 mcg/mL Pharmacy Plan for Drug Dosing: Pharmacy daily vancomycin assessment completed. The patient has had a significant improvement in renal function, which qualified her for a change in vancomycin dose per protocol. Will discontinue the current order for 1000mg IV Q24hr, will start a new dose at the same time the previous dose was to start. The trough will remain the same. PLAN/RECOMMENDATIONS 1. STOP Vancomycin 1000mg IV Q24hr (no doses administered yet) 2. START Vancomycin 1500mg IV Q24hr 06/02/19 @1200 3. Trough remains the same for 06/03/19 @1130 4. Pharmacy Service will continue to monitor and adjust dosing as required.
[2019-06-02 07:31] LABS: Bedside Glucose 118 mg/dL (70-110)
[2019-06-02] MEDS: Aspirin E.C. 81 MG Tablet PO (08:06)
[2019-06-02] MEDS: Gabapentin 300 MG Capsule PO ×2 (08:06→12:33)
[2019-06-02] MEDS: Ondansetron 4 MG/2 ML Vial IV (08:19)
[2019-06-02 09:08] LABS: D-Dimer Quantitative (DVT/PE) 1.41 FEU/ug/m (0.27-0.49); Partial Thromboplast Time > 250.0 Seconds (24.1-36.2)
[2019-06-02] MEDS: Isosorbide Mononitrate 60 MG Tablet PO (09:53)
[2019-06-02] MEDS: Pantoprazole Sodium 40 MG Tablet PO (09:54)
[2019-06-02] MEDS: Clopidogrel Bisulfate 75 MG Tablet PO (09:54)
[2019-06-02 10:16] LABS: Bedside Glucose 125 mg/dL (70-110)
--- NOTE | 2019-06-02 10:18 | PCM.PN.ID ---
Patient Problems: Active and Suspected Problems (Last Reviewed 05/11/19 @ 14:[address] Malik Bang, DO) Respiratory failure with hypoxia (Acute) Severe sepsis with acute organ dysfunction (Acute) Bilateral pulmonary infiltrates on chest x-ray (Acute) Suspected 2019 novel coronavirus infection (Acute) PADMA (acute kidney injury) (Acute) Jaundice (Acute) Hypotension (Acute) Lactic acid acidosis (Acute) Subjective: C/o increased dyspnea, ongoing aches, fever, not feeling well - Physical Exam Vitals/I&O's: Vital Signs Temp Pulse Resp BP Pulse Ox 98.4 F 82 19 H 131/53 H 95 06/02/19 04:00 06/02/19 06:16 06/02/19 06:00 06/02/19 06:00 06/02/19 06:16 Oxygen Flow Rate (L/min) 12 Oxygen Delivery Method Bi-pap Weight: 106.7 kg Body Mass Index (BMI) 40.2 Finger Stick Blood Glucose 61 Intake and Output for Last 24 Hours 05/31/19 06/01/19 06/02/19 23:59 23:59 23:59 Intake Total 2472.33 / 2625.66 1672.42 / 1672.42 Output Total 250 / 400 450 / 450 Balance 2222.33 / 2225.66 1222.42 / 1222.42 General: Alert, Cooperative, - - ill appearing Lungs: Diminished, Rhonchi Cardiovascular: Tachycardic Abdomen: Soft, Non Tender, Non-Distended Skin: No rashes Microbiology Past 72 Hours 06/01/19 14:55 Mucosa - Nose Respiratory Panel (PCR) - Final 06/01/19 11:00 Urine Catheter - Catheter Streptococcus pneumoniae Antigen (M - Final 06/01/19 11:00 Urine Catheter - Catheter Legionella Antigen - Final Laboratory Results 06/01/19 10:41: COVID-19 (SERJIO) Pending 06/01/19 11:00: Urine Color Yellow, Urine Clarity Sl. Cloudy, Urine pH 5.0, Ur Specific Gary 1.020, Urine Protein 30 H, Urine Glucose (UA) Normal, Urine Ketones 5 H, Urine Occult Blood 10 H, Urine Nitrite Negative, Urine Bilirubin 1 H, Urine Urobilinogen Normal, Ur Leukocyte Esterase 25 H, Urine RBC 0-5 SEEN, Urine WBC 0-5 SEEN, Ur Squamous Epith Cells 0 SEEN, Urine Bacteria RARE, Hyaline Casts 5-10 SEEN, Urine Mucus 0 SEEN 06/01/19 11:20: WBC 3.0 L, RBC 3.66 L, Hgb 11.9 L, Hct 36.6 L, MCV 100.0 H, MCH 32.5 H, MCHC 32.5, RDW Std Deviation 54.7 H, RDW Coeff of Henry 14.8 H, Plt Count 51 L, MPV 13.6 H, Immature Gran % (Auto) 0.700, Neut % (Auto) 76.7 H, Lymph % (Auto) 17.9 L, Sterling % (Auto) 4.4, Eos % (Auto) 0.3, Baso % (Auto) 0.0, Absolute Neuts (auto) 2.3, Absolute Lymphs (auto) 0.53 L, Nucleated RBC % 0, Diff Path Review June, Platelet Estimate MKD DEC, Hypochromasia RARE, Macrocytosis RARE 06/01/19 11:20: PT 16.2 H, INR 1.4, APTT 43.9 H 06/01/19 11:20: Sodium 135 L, Potassium 4.3, Chloride 109 H, Carbon Dioxide 19.0 L, Anion Gap 7, BUN 42 H, Creatinine 2.05 H, Estim Creat Clear Calc 21.11, Est GFR (MDRD) Af Amer 31 L, Est GFR (MDRD) Non-Af 25 L, BUN/Creatinine Ratio 20.5 H, Glucose 129 H, Calcium 8.0 L, Total Bilirubin 2.50 H, AST 114 H, ALT 22, Alkaline Phosphatase 246 H, Total Protein 5.8 L, Albumin 2.0 L, Globulin 3.8, Albumin/Globulin Ratio 0.5 L 06/01/19 11:20: Lactic Acid 2.1 H* 06/01/19 11:20: Magnesium 1.6, Ferritin 624 H, Lactate Dehydrogenase 568 H, C-React Prot Ext Range 107.00 H 06/01/19 11:20: D-Dimer Quant (PE/DVT) 1.87 H* 06/01/19 11:20: Total Creatine Kinase 113 06/01/19 11:35: Specimen Type RJ, Sample Site OTHER, VBG pH 7.32, VBG pO2 50 H, VBG O2 Sat (Calc) 83 H, VBG O2 Content 18 L, VBG Base Excess -9 L, POC Mix VBG pCO2 Pt Tmp 33.2 L, O2 Delivery Device Nasal Can, Liter Flow 4.0, Blood Gas Notified Whom ED , Blood Gas Notified Time 1135 06/01/19 14:10: MRSA (PCR) Negative 06/01/19 14:15: Procalcitonin 1.36 H 06/01/19 15:37: Lactic Acid 2.3 H* 06/01/19 17:25: POC Glucose 108 06/01/19 21:01: POC Glucose 101 06/02/19 00:03: APTT > 250.0 H* 06/02/19 00:45: POC Glucose 118 H 06/02/19 03:20: WBC 3.4 L, RBC 3.46 L, Hgb 11.3 L, Hct 35.1 L, MCV 101.4 H, MCH 32.7 H, MCHC 32.2, RDW Std Deviation 55.8 H, RDW Coeff of Henry 14.9 H, Plt Count 59 L, MPV 13.1 H, Immature Gran % (Auto) 0.900, Neut % (Auto) 76.9 H, Lymph % (Auto) 16.3 L, Sterling % (Auto) 5.3, Eos % (Auto) 0.3, Baso % (Auto) 0.3, Absolute Neuts (auto) 2.6, Absolute Lymphs (auto) 0.55 L, Nucleated RBC % 0, Differential Comment , Reactive Lymphocytes RARE, Platelet Estimate MOD DEC, Anisocytosis 1+, Macrocytosis 1+ 06/02/19 03:20: Sodium 139, Potassium 4.3, Chloride 113 H, Carbon Dioxide 19.0 L, Anion Gap 7, BUN 36 H, Creatinine 1.59 H, Estim Creat Clear Calc 27.21, Est GFR (MDRD) Af Amer 41 L, Est GFR (MDRD) Non-Af 34 L, BUN/Creatinine Ratio 22.6 H, Glucose 142 H, Calcium 7.5 L, Total Bilirubin 2.50 H, AST 113 H, ALT 20, Alkaline Phosphatase 243 H, Total Protein 5.3 L, Albumin 1.8 L, Globulin 3.5, Albumin/Globulin Ratio 0.5 L 06/02/19 03:20: B-Natriuretic Peptide 180.0 H 06/02/19 07:07: D-Dimer Quant (PE/DVT) Cancelled 06/02/19 07:07: APTT > 250.0 H*, D-Dimer Quant (PE/DVT) 1.41 H* 06/02/19 08:09: POC Glucose 125 H Current Medications Acetaminophen (Tylenol) 650 mg PO Q6H PRN PRN PRN Reason: Pain Score 1-10/Temp > 100.7 F Last Admin: 06/01/19 21:32 Dose: 650 mg Documented by: Al Hydroxide/Mg Hydroxide (Mylanta Ii) 30 ml PO Q6H PRN PRN PRN Reason: Gastric Burning Albuterol Sulfate (Ventolin Aerosols) 2.5 mg INHALATION Q2H PRN PRN PRN Reason: Dyspnea, wheezing Alprazolam (Xanax) 0.25 mg PO TID PRN PRN PRN Reason: anxiety Aspirin (Ecotrin) 81 mg PO DAILY@0800 [facility] Last Admin: 06/02/19 08:06 Dose: 81 mg Documented by: Atorvastatin Calcium (Lipitor) 40 mg PO QHS [facility] Last Admin: 06/01/19 21:07 Dose: 40 mg Documented by: Clopidogrel Bisulfate (Plavix) 75 mg PO DAILY [facility] Last Admin: 06/02/19 09:54 Dose: 75 mg Documented by: Dextrose (D50w Syringe) 0 gm IV X1 PRN; Protocol PRN Reason: Hypoglycemia Gabapentin (Neurontin) 300 mg PO 0800,1200 [facility] Last Admin: 06/02/19 08:06 Dose: 300 mg Documented by: Gabapentin (Neurontin) 900 mg PO QHS [facility] Last Admin: 06/01/19 21:06 Dose: 900 mg Documented by: Glucagon () 1 mg IM .X1 PRN PRN Reason: Hypoglycemia Guaifenesin (Robitussin) 10 ml PO Q4H PRN PRN PRN Reason: COUGH Heparin Sodium (Porcine) (Heparin Na) 0 unit IV UD PRN; Protocol Hydralazine HCl (Apresoline Iv) 10 mg IV Q4H PRN PRN PRN Reason: SBP > 160 Sodium Chloride () 1,000 mls @ 100 mls/hr IV .Q10H [facility] Last Infusion: 06/02/19 09:55 Dose: 0 mls/hr Documented by: Piperacillin Sod/Tazobactam (Sod 3.375 gm/ Sodium Chloride) 50 mls @ 12.5 mls/hr IV Q8 [facility] Last Infusion: 06/02/19 09:58 Dose: 0 mls/hr Documented by: Vancomycin IV Pharmacy to Dose (1 ea/ Sodium Chloride) 500 mls @ 250 mls/hr IV X1 PRN; Protocol PRN Reason: Rx to Dose Heparin Sodium/Dextrose () 25,000 units in 250 mls @ 15 mls/hr IV .[id number] [facility]; Protocol Last Titration: 06/02/19 09:50 Dose: 0 units/hr, 0 mls/hr Documented by: Sodium Chloride () 250 mls @ 15 mls/hr IV .[id number] PRN PRN Reason: Saline Flush Sodium Chloride () 250 mls @ 15 mls/hr IV .[id number] PRN PRN Reason: Additional IVPB Infusion Vancomycin HCl 1,500 mg/ (Sodium Chloride) 530 mls @ 250 mls/hr IV Q24H [facility] Insulin Glargine (Lantus (Bkc)) 75 units SC DAILY [facility] Last Admin: 06/02/19 09:57 Dose: Not Given Documented by: Insulin Human Lispro (Humalog Kwikpen (Bkc)) 14 unit SC BIDCM [facility] Last Admin: 06/02/19 08:15 Dose: Not Given Documented by: Insulin Human Lispro (Humalog Kwikpen (Bkc)) 0 unit SC ACHS [facility]; Protocol Last Admin: 06/02/19 08:09 Dose: Not Given Documented by: Isosorbide Mononitrate (Imdur) 60 mg PO DAILY [facility] Last Admin: 06/02/19 09:53 Dose: 60 mg Documented by: Melatonin (Melatonin) 3 mg PO QHS PRN PRN PRN Reason: INSOMNIA Metoprolol Succinate (Toprol Xl (Beta Ngoc)) 100 mg PO DAILY [facility] Nitroglycerin (Nitrostat) 0.4 mg SUBLINGUAL Q5M PRN PRN Reason: chest pain Nystatin (Mycostatin) 1 applic TOPICAL BID [facility] Last Admin: 06/02/19 09:56 Dose: Not Given Documented by: Ondansetron HCl (Zofran) 4 mg IV Q8H PRN PRN PRN Reason: NAUSEA/VOMITING Last Admin: 06/02/19 08:19 Dose: 4 mg Documented by: Pantoprazole Sodium (Protonix) 40 mg PO DAILY [facility] Last Admin: 06/02/19 09:54 Dose: 40 mg Documented by: Potassium Chloride (K-Dur) 40 meq PO DAILYCM [facility] Last Admin: 06/02/19 08:06 Dose: 40 meq Documented by: Prochlorperazine Edisylate (Compazine Iv) 5 mg IV Q4H PRN PRN PRN Reason: Breakthrough Nausea/Vomiting Sodium Chloride () 10 - 40 ml IV UD PRN PRN Reason: Multilumen/Paredes Flush Last Admin: 06/02/19 03:29 Dose: 40 ml Documented by: Sodium Chloride (0.9% Nacl (Sterile) Posiflush) 10 - 40 ml IV UD PRN PRN Reason: Port access or dressing change Throat Lozenges (Cepacol Sore Throat Lozenge) 1 lozenge MUCOUS MEM Q2H PRN PRN PRN Reason: SORE THROAT Topiramate (Topamax) 50 mg PO QHS [facility] Last Admin: 06/01/19 21:06 Dose: 50 mg Documented by: Tramadol HCl (Ultram) 50 mg PO Q6 PRN PRN Reason: Pain Score 1-10/10 Last Admin: 06/02/19 09:54 Dose: 50 mg Documented by: Zinc Sulfate (Zinc Sulfate) 220 mg PO TID [facility] Last Admin: 06/02/19 07:02 Dose: 220 mg Documented by: Medical Necessity - Tobacco Use Smoking Status: Former smoker Tobacco Use: Non-smoker Route of nutrition/ use of supplements: [] Nutritional Intake: [] IV Site: [] Donato Catheter: [] - Assessment/Plan Antibiotics: [] Assessment/Plan: [] Active and Suspected Problems (Last Reviewed 05/11/19 @ 14:[address] Malik Bang, DO) Respiratory failure with hypoxia (Acute) Severe sepsis with acute organ dysfunction (Acute) Bilateral pulmonary infiltrates on chest x-ray (Acute) Suspected 2019 novel coronavirus infection (Acute) PADMA (acute kidney injury) (Acute) Jaundice (Acute) Hypotension (Acute) Lactic acid acidosis (Acute) severe sepsis with hypoxic resp failure, PADMA, lactic acidosis, thrombocytopenia - concern for covid, test pending. sick as well. Cxs neg so far On empiric vanc/zosyn. Elevated LDH, PCT, bilirubin, and ferritin. Initial d-dimer, came back as 1.5. Since it's over 3x normal limit, started therapeutic anticoagulation with suspected covid infection. Avoiding CT-PE at the moment due to PADMA. With low platelets and presumed need for anticoagulation at this time, could transfuse to keep platelets over 50. Worsened hypoxia, could try proning awake. Platelets slightly improved today. Will follow, d/w Dr. Bang
[2019-06-02] MEDS: HEPARIN/D5w 25,000 UNITS 25,000 UNITS/250 ML IV.SOLN. 9 UNITS IV (12:00)
[2019-06-02] MEDS: Diphenoxylate/Atrop 1 Tablet 2 TABLET PO (12:33)
[2019-06-02] MEDS: Metoprolol(XL)Succ 100 MG Tablet PO (12:33)
--- NOTE | 2019-06-02 12:45 | CASEMGMT ---
[facility] CM Readmission Note Previous Admission: 05.19.19-05.23.19 Diagnosis: pneumonia DC Disposition: Home ER Visit: 05.29.2019 for continued cough, fever Current Admission Date: 06.01.19 Presentation: Severe sepsis, pneumonia. COVID-19 test pending. To ICU. Worsening shortness of breath and cough. NC 6L and Bipap. Poor prognosis per physician note, and SW spoke with to provide support. Gauri SILVEIRA RN ACM.
[2019-06-02 12:46] LABS: Bedside Glucose 138 mg/dL (70-110)
--- NOTE | 2019-06-02 12:57 | CASEMGMT ---
Social Work SW placed phone call to pt spouse to provide emotional support. No answer and no VM. SANIYA remains available. GILLIAN Khoury
[2019-06-02 15:55] LABS: Partial Thromboplast Time > 250.0 Seconds (24.1-36.2)
[2019-06-02 18:41] LABS: Bedside Glucose 137 mg/dL (70-110)
[2019-06-02] MEDS: Furosemide 40 MG/4 ML Vial IV (22:37)
[2019-06-02] MEDS: Atorvastatin Calcium 40 MG Tablet PO (22:43)
[2019-06-02] MEDS: Gabapentin 300 MG Capsule 900 MG PO (22:44)
[2019-06-02] MEDS: Topiramate 50 MG Tablet PO (22:44)
[2019-06-02 23:02] LABS: Partial Thromboplast Time 203.1 Seconds (24.1-36.2)
[2019-06-03] VITALS (23 sets, daily range): BP systolic 95–132; BP diastolic 44–64; PULSE 67–78; RESP 11–25; TEMP 36.7–37.1; O2SAT 78–98
[2019-06-03 00:05] LABS: Bedside Glucose 118 mg/dL (70-110)
[2019-06-03] MEDS: 0.9% Saline Lock 10 ML Syringe IV ×4 (05:08→10:56)
[2019-06-03 05:25] LABS: Absolute Lymphocyte Count 0.63 X10^3/uL (0.83-4.51); Absolute Neutrophil Count 4.7 X10^3/uL (2.0-7.7); Basophil# 0.01 X10^3/uL; Basophil% 0.2 % (0-1); Hematocrit 34.2 % (37-47); Hemoglobin 10.8 g/dL (12.0-15.0); Lymphocyte # 0.63 X10^3/ul (4.0); Lymphocyte % 11.1 % (19-41); Mean Corp Hgb Conc 31.6 g/dL (32-36); Mean Corpuscular Hgb 32.5 pg (27.0-32.0); Mean Platelet Vol. 11.8 fl (6.2-12.0); Monocyte# 0.27 X10^3/uL; Monocyte% 4.8 % (0-10); NRBC Flagged by Analyzer 0 % (0-5); Neutrophil # 4.71 X10^3/uL (2.7-7.7); POSITIVE COUNT YES; POSITIVE MORPHOLOGY YES; Platelet Count 83 K/mm3 (150-450); RBC Distribution Width CV 15.3 % (11.6-14.6); RBC Distribution Width SD 58.1 fl (35.1-43.9); Red Blood Count 3.32 M/mm3 (4.2-5.4); White Blood Count 5.7 K/mm3 (4.4-11.0)
[2019-06-03 05:34] LABS: Differential Indicated SCAN CRITERIA MET
[2019-06-03 05:39] LABS: ALB/GLOB Ratio 0.5 RATIO (0.9-2.4); AST(SGOT) 126 U/L (15-37); Alanine Aminotransfer ALT/SGPT 21 U/L (13-56); Albumin, Serum 1.8 g/dL (3.2-5.0); Alkaline Phosphatase 258 U/L (45-117); Anion Gap 6 (5-15); BUN 38 mg/dL (7-18); BUN/Creat Ratio 23.5 RATIO (10-20); Calcium,Total 7.5 mg/dL (8.5-10.1); Chloride 117 mmol/L (98-107); Creatinine, Serum 1.62 mg/dL (0.55-1.02); EST Glomerular Filtration Rate 33 mL/min (>60); Est Glom Filt Rate - Afr Amer 40 mL/min (>60); Estimated Creatinine Clearance 26.71 ml/min; Globulin 3.4 g/dL (2.2-4.2); Glucose 98 mg/dL (74-106); Potassium 5.1 mmol/L (3.5-5.1); Protein, Total 5.2 g/dL (6.4-8.2); Sodium Level 142 mmol/L (136-145)
[2019-06-03 05:45] LABS: D-Dimer Quantitative (DVT/PE) 1.64 FEU/ug/m (0.27-0.49); Partial Thromboplast Time 104.1 Seconds (24.1-36.2)
[2019-06-03] MEDS: 0.9% Normal Saline 1,000 ML 100 ML IV (05:53)
[2019-06-03 05:54] LABS: Atypical Lymphocyte 1+ %; Differential Comment SCANNED; Platelet Estimate MOD DEC (ADEQ)
--- NOTE | 2019-06-03 06:25 | PN_ITS ---
Subjective: The patient was seen and examined at the bedside this morning. Events from the last 24 hours have been reviewed. The patient is currently afebrile, hemodynamically stable and maintaining appropriate oxygen saturations on BiPAP with an FiO2 requirement of 70%. The patient remained on heated high flow oxygen overnight but was then transition back to BiPAP early this morning due to periodic desaturations. The patient is currently documented to be overall net +5.2 L for the hospital admission. The patient's COVID test came back positive last evening. Patient is confused with pain complaints this morning. Objective: The patient's most recent lab work, culture data and imaging studies have all been personally reviewed. COVID + General: Alert, Confused, - - Appears uncomfortable HEENT: Atraumatic, Normocephalic Oral: Dry Mucosa Neck: Supple, No Nodes, Trachea Midline, - - Stable TLC in place Lungs: No rhonchi, No wheeze, No rales, Diminished, Short of Breath, Tachypneic Cardiovascular: Regular rate, Regular Rhythm, Normal S1, Normal S2 Abdomen: Bowel Sounds Present, Soft, Non Tender, Obese Extremities: No clubbing, No cyanosis, No edema Skin: No breakdown Musculoskeletal: No Tenderness to Palpation of Joints or Extremities Lymphatic: No Cervical, Supraclavicular, or Inguinal Adenopathy Neurological: Neuro grossly intact Psych/Mental Status: Anxious, Restless Vital Signs Temp Pulse Resp BP Pulse Ox 98.5 F 78 17 129/64 H 92 06/03/19 04:00 06/03/19 06:00 06/03/19 06:00 06/03/19 06:00 06/03/19 06:00 Oxygen Flow Rate (L/min) 70 Oxygen Delivery Method Bi-pap Weight: 231 lb 4.238 oz Body Mass Index (BMI) 40.2 Finger Stick Blood Glucose 61 Intake and Output for Last 24 Hours 06/01/19 06/02/19 06/03/19 23:59 23:59 23:59 Intake Total 2472.33 / 2625.66 2691.77 / 3202.40 1267.58 / 1267.58 Output Total 250 / 400 500 / 600 450 / 450 Balance 2222.33 / 2225.66 2191.77 / 2602.40 817.58 / 817.58 Labs (Last 48 Hours) 0406/01/19 06/01/19 10:41 11:00 11:20 WBC 3.0 L RBC 3.66 L Hgb 11.9 L Hct 36.6 L MCV 100.0 H MCH 32.5 H MCHC 32.5 RDW Std Deviation 54.7 H RDW Coeff of Henry 14.8 H Plt Count 51 L MPV 13.6 H Immature Gran % (Auto) 0.700 Neut % (Auto) 76.7 H Lymph % (Auto) 17.9 L [place] % (Auto) 4.4 Eos % (Auto) 0.3 Baso % (Auto) 0.0 Absolute Neuts (auto) 2.3 Absolute Lymphs (auto) 0.53 L Nucleated RBC % 0 Differential Comment Diff Path Review May foll Atypical Lymphocytes Reactive Lymphocytes Platelet Estimate MKD DEC Hypochromasia RARE Anisocytosis Macrocytosis RARE PT INR APTT D-Dimer Quant (PE/DVT) Specimen Type Sample Site VBG pH VBG pO2 VBG O2 Sat (Calc) VBG O2 Content VBG Base Excess POC Mix VBG pCO2 Pt Tmp O2 Delivery Device Liter Flow Blood Gas Notified Whom Blood Gas Notified Time Sodium Potassium Chloride Carbon Dioxide Anion Gap BUN Creatinine Estim Creat Clear Calc Est GFR (MDRD) Af Amer Est GFR (MDRD) Non-Af BUN/Creatinine Ratio Glucose Lactic Acid Calcium Magnesium Ferritin Total Bilirubin AST ALT Alkaline Phosphatase Lactate Dehydrogenase Total Creatine Kinase C-React Prot Ext Range B-Natriuretic Peptide Total Protein Albumin Globulin Albumin/Globulin Ratio Procalcitonin Urine Color Yellow Urine Clarity Sl. Cloudy Urine pH 5.0 Ur Specific [place] 1.020 Urine Protein 30 H Urine Glucose (UA) Normal Urine Ketones 5 H Urine Occult Blood 10 H Urine Nitrite Negative Urine Bilirubin 1 H Urine Urobilinogen Normal Ur Leukocyte Esterase 25 H Urine RBC 0-5 SEEN Urine WBC 0-5 SEEN Ur Squamous Epith Cells 0 SEEN Urine Bacteria RARE Hyaline Casts 5-10 SEEN Urine Mucus 0 SEEN COVID-19 (SERJIO) Detected MRSA (PCR) POC Glucose 06/01/19 06/01/19 06/01/19 11:20 11:20 11:20 WBC RBC Hgb Hct MCV MCH MCHC RDW Std Deviation RDW Coeff of Henry Plt Count MPV Immature Gran % (Auto) Neut % (Auto) Lymph % (Auto) [place] % (Auto) Eos % (Auto) Baso % (Auto) Absolute Neuts (auto) Absolute Lymphs (auto) Nucleated RBC % Differential Comment Diff Path Review Atypical Lymphocytes Reactive Lymphocytes Platelet Estimate Hypochromasia Anisocytosis Macrocytosis PT 16.2 H INR 1.4 APTT 43.9 H D-Dimer Quant (PE/DVT) Specimen Type Sample Site VBG pH VBG pO2 VBG O2 Sat (Calc) VBG O2 Content VBG Base Excess POC Mix VBG pCO2 Pt Tmp O2 Delivery Device Liter Flow Blood Gas Notified Whom Blood Gas Notified Time Sodium 135 L Potassium 4.3 Chloride 109 H Carbon Dioxide 19.0 L Anion Gap 7 BUN 42 H Creatinine 2.05 H Estim Creat Clear Calc 21.11 Est GFR (MDRD) Af Amer 31 L Est GFR (MDRD) Non-Af 25 L BUN/Creatinine Ratio 20.5 H Glucose 129 H Lactic Acid 2.1 H* Calcium 8.0 L Magnesium Ferritin Total Bilirubin 2.50 H AST 114 H ALT 22 Alkaline Phosphatase 246 H Lactate Dehydrogenase Total Creatine Kinase C-React Prot Ext Range B-Natriuretic Peptide Total Protein 5.8 L Albumin 2.0 L Globulin 3.8 Albumin/Globulin Ratio 0.5 L Procalcitonin Urine Color Urine Clarity Urine pH Ur Specific [place] Urine Protein Urine Glucose (UA) Urine Ketones Urine Occult Blood Urine Nitrite Urine Bilirubin Urine Urobilinogen Ur Leukocyte Esterase Urine RBC Urine WBC Ur Squamous Epith Cells Urine Bacteria Hyaline Casts Urine Mucus COVID-19 (SERJIO) MRSA (PCR) POC Glucose 06/01/19 06/01/19 06/01/19 11:20 11:20 11:20 WBC RBC Hgb Hct MCV MCH MCHC RDW Std Deviation RDW Coeff of Henry Plt Count MPV Immature Gran % (Auto) Neut % (Auto) Lymph % (Auto) [place] % (Auto) Eos % (Auto) Baso % (Auto) Absolute Neuts (auto) Absolute Lymphs (auto) Nucleated RBC % Differential Comment Diff Path Review Atypical Lymphocytes Reactive Lymphocytes Platelet Estimate Hypochromasia Anisocytosis Macrocytosis PT INR APTT D-Dimer Quant (PE/DVT) 1.87 H* Specimen Type Sample Site VBG pH VBG pO2 VBG O2 Sat (Calc) VBG O2 Content VBG Base Excess POC Mix VBG pCO2 Pt Tmp O2 Delivery Device Liter Flow Blood Gas Notified Whom Blood Gas Notified Time Sodium Potassium Chloride Carbon Dioxide Anion Gap BUN Creatinine Estim Creat Clear Calc Est GFR (MDRD) Af Amer Est GFR (MDRD) Non-Af BUN/Creatinine Ratio Glucose Lactic Acid Calcium Magnesium 1.6 Ferritin 624 H Total Bilirubin AST ALT Alkaline Phosphatase Lactate Dehydrogenase 568 H Total Creatine Kinase 113 C-React Prot Ext Range 107.00 H B-Natriuretic Peptide Total Protein Albumin Globulin Albumin/Globulin Ratio Procalcitonin Urine Color Urine Clarity Urine pH Ur Specific [place] Urine Protein Urine Glucose (UA) Urine Ketones Urine Occult Blood Urine Nitrite Urine Bilirubin Urine Urobilinogen Ur Leukocyte Esterase Urine RBC Urine WBC Ur Squamous Epith Cells Urine Bacteria Hyaline Casts Urine Mucus COVID-19 (SERJIO) MRSA (PCR) POC Glucose 06/01/19 06/01/19 06/01/19 11:35 14:10 14:15 WBC RBC Hgb Hct MCV MCH MCHC RDW Std Deviation RDW Coeff of Henry Plt Count MPV Immature Gran % (Auto) Neut % (Auto) Lymph % (Auto) [place] % (Auto) Eos % (Auto) Baso % (Auto) Absolute Neuts (auto) Absolute Lymphs (auto) Nucleated RBC % Differential Comment Diff Path Review Atypical Lymphocytes Reactive Lymphocytes Platelet Estimate Hypochromasia Anisocytosis Macrocytosis PT INR APTT D-Dimer Quant (PE/DVT) Specimen Type RJ Sample Site OTHER VBG pH 7.32 VBG pO2 50 H VBG O2 Sat (Calc) 83 H VBG O2 Content 18 L VBG Base Excess -9 L POC Mix VBG pCO2 Pt Tmp 33.2 L O2 Delivery Device Nasal Can Liter Flow 4.0 Blood Gas Notified Whom ED Blood Gas Notified Time 1135 Sodium Potassium Chloride Carbon Dioxide Anion Gap BUN Creatinine Estim Creat Clear Calc Est GFR (MDRD) Af Amer Est GFR (MDRD) Non-Af BUN/Creatinine Ratio Glucose Lactic Acid Calcium Magnesium Ferritin Total Bilirubin AST ALT Alkaline Phosphatase Lactate Dehydrogenase Total Creatine Kinase C-React Prot Ext Range B-Natriuretic Peptide Total Protein Albumin Globulin Albumin/Globulin Ratio Procalcitonin 1.36 H Urine Color Urine Clarity Urine pH Ur Specific [place] Urine Protein Urine Glucose (UA) Urine Ketones Urine Occult Blood Urine Nitrite Urine Bilirubin Urine Urobilinogen Ur Leukocyte Esterase Urine RBC Urine WBC Ur Squamous Epith Cells Urine Bacteria Hyaline Casts Urine Mucus COVID-19 (SERJIO) MRSA (PCR) Negative POC Glucose 04/22/20 04/22/20 04/22/20 15:37 17:25 21:01 WBC RBC Hgb Hct MCV MCH MCHC RDW Std Deviation RDW Coeff of Henry Plt Count MPV Immature Gran % (Auto) Neut % (Auto) Lymph % (Auto) [place] % (Auto) Eos % (Auto) Baso % (Auto) Absolute Neuts (auto) Absolute Lymphs (auto) Nucleated RBC % Differential Comment Diff Path Review Atypical Lymphocytes Reactive Lymphocytes Platelet Estimate Hypochromasia Anisocytosis Macrocytosis PT INR APTT D-Dimer Quant (PE/DVT) Specimen Type Sample Site VBG pH VBG pO2 VBG O2 Sat (Calc) VBG O2 Content VBG Base Excess POC Mix VBG pCO2 Pt Tmp O2 Delivery Device Liter Flow Blood Gas Notified Whom Blood Gas Notified Time Sodium Potassium Chloride Carbon Dioxide Anion Gap BUN Creatinine Estim Creat Clear Calc Est GFR (MDRD) Af Amer Est GFR (MDRD) Non-Af BUN/Creatinine Ratio Glucose Lactic Acid 2.3 H* Calcium Magnesium Ferritin Total Bilirubin AST ALT Alkaline Phosphatase Lactate Dehydrogenase Total Creatine Kinase C-React Prot Ext Range B-Natriuretic Peptide Total Protein Albumin Globulin Albumin/Globulin Ratio Procalcitonin Urine Color Urine Clarity Urine pH Ur Specific [place] Urine Protein Urine Glucose (UA) Urine Ketones Urine Occult Blood Urine Nitrite Urine Bilirubin Urine Urobilinogen Ur Leukocyte Esterase Urine RBC Urine WBC Ur Squamous Epith Cells Urine Bacteria Hyaline Casts Urine Mucus COVID-19 (SERJIO) MRSA (PCR) POC Glucose 108 101 06/02/19 06/02/19 06/02/19 00:03 00:45 03:20 WBC 3.4 L RBC 3.46 L Hgb 11.3 L Hct 35.1 L MCV 101.4 H MCH 32.7 H MCHC 32.2 RDW Std Deviation 55.8 H RDW Coeff of Henry 14.9 H Plt Count 59 L MPV 13.1 H Immature Gran % (Auto) 0.900 Neut % (Auto) 76.9 H Lymph % (Auto) 16.3 L [place] % (Auto) 5.3 Eos % (Auto) 0.3 Baso % (Auto) 0.3 Absolute Neuts (auto) 2.6 Absolute Lymphs (auto) 0.55 L Nucleated RBC % 0 Differential Comment Diff Path Review May foll Atypical Lymphocytes Reactive Lymphocytes RARE Platelet Estimate MOD DEC Hypochromasia Anisocytosis 1+ Macrocytosis 1+ PT INR APTT > 250.0 H* D-Dimer Quant (PE/DVT) Specimen Type Sample Site VBG pH VBG pO2 VBG O2 Sat (Calc) VBG O2 Content VBG Base Excess POC Mix VBG pCO2 Pt Tmp O2 Delivery Device Liter Flow Blood Gas Notified Whom Blood Gas Notified Time Sodium Potassium Chloride Carbon Dioxide Anion Gap BUN Creatinine Estim Creat Clear Calc Est GFR (MDRD) Af Amer Est GFR (MDRD) Non-Af BUN/Creatinine Ratio Glucose Lactic Acid Calcium Magnesium Ferritin Total Bilirubin AST ALT Alkaline Phosphatase Lactate Dehydrogenase Total Creatine Kinase C-React Prot Ext Range B-Natriuretic Peptide Total Protein Albumin Globulin Albumin/Globulin Ratio Procalcitonin Urine Color Urine Clarity Urine pH Ur Specific [place] Urine Protein Urine Glucose (UA) Urine Ketones Urine Occult Blood Urine Nitrite Urine Bilirubin Urine Urobilinogen Ur Leukocyte Esterase Urine RBC Urine WBC Ur Squamous Epith Cells Urine Bacteria Hyaline Casts Urine Mucus COVID-19 (SERJIO) MRSA (PCR) POC Glucose 118 H 06/02/19 06/02/19 06/02/19 03:20 03:20 07:07 WBC RBC Hgb Hct MCV MCH MCHC RDW Std Deviation RDW Coeff of Henry Plt Count MPV Immature Gran % (Auto) Neut % (Auto) Lymph % (Auto) [place] % (Auto) Eos % (Auto) Baso % (Auto) Absolute Neuts (auto) Absolute Lymphs (auto) Nucleated RBC % Differential Comment Diff Path Review Atypical Lymphocytes Reactive Lymphocytes Platelet Estimate Hypochromasia Anisocytosis Macrocytosis PT INR APTT D-Dimer Quant (PE/DVT) Cancelled Specimen Type Sample Site VBG pH VBG pO2 VBG O2 Sat (Calc) VBG O2 Content VBG Base Excess POC Mix VBG pCO2 Pt Tmp O2 Delivery Device Liter Flow Blood Gas Notified Whom Blood Gas Notified Time Sodium 139 Potassium 4.3 Chloride 113 H Carbon Dioxide 19.0 L Anion Gap 7 BUN 36 H Creatinine 1.59 H Estim Creat Clear Calc 27.21 Est GFR (MDRD) Af Amer 41 L Est GFR (MDRD) Non-Af 34 L BUN/Creatinine Ratio 22.6 H Glucose 142 H Lactic Acid Calcium 7.5 L Magnesium Ferritin Total Bilirubin 2.50 H AST 113 H ALT 20 Alkaline Phosphatase 243 H Lactate Dehydrogenase Total Creatine Kinase C-React Prot Ext Range B-Natriuretic Peptide 180.0 H Total Protein 5.3 L Albumin 1.8 L Globulin 3.5 Albumin/Globulin Ratio 0.5 L Procalcitonin Urine Color Urine Clarity Urine pH Ur Specific [place] Urine Protein Urine Glucose (UA) Urine Ketones Urine Occult Blood Urine Nitrite Urine Bilirubin Urine Urobilinogen Ur Leukocyte Esterase Urine RBC Urine WBC Ur Squamous Epith Cells Urine Bacteria Hyaline Casts Urine Mucus COVID-19 (SERJIO) MRSA (PCR) POC Glucose 06/02/19 06/02/19 06/02/19 07:07 08:09 12:25 WBC RBC Hgb Hct MCV MCH MCHC RDW Std Deviation RDW Coeff of Henry Plt Count MPV Immature Gran % (Auto) Neut % (Auto) Lymph % (Auto) [place] % (Auto) Eos % (Auto) Baso % (Auto) Absolute Neuts (auto) Absolute Lymphs (auto) Nucleated RBC % Differential Comment Diff Path Review Atypical Lymphocytes Reactive Lymphocytes Platelet Estimate Hypochromasia Anisocytosis Macrocytosis PT INR APTT > 250.0 H* D-Dimer Quant (PE/DVT) 1.41 H* Specimen Type Sample Site VBG pH VBG pO2 VBG O2 Sat (Calc) VBG O2 Content VBG Base Excess POC Mix VBG pCO2 Pt Tmp O2 Delivery Device Liter Flow Blood Gas Notified Whom Blood Gas Notified Time Sodium Potassium Chloride Carbon Dioxide Anion Gap BUN Creatinine Estim Creat Clear Calc Est GFR (MDRD) Af Amer Est GFR (MDRD) Non-Af BUN/Creatinine Ratio Glucose Lactic Acid Calcium Magnesium Ferritin Total Bilirubin AST ALT Alkaline Phosphatase Lactate Dehydrogenase Total Creatine Kinase C-React Prot Ext Range B-Natriuretic Peptide Total Protein Albumin Globulin Albumin/Globulin Ratio Procalcitonin Urine Color Urine Clarity Urine pH Ur Specific [place] Urine Protein Urine Glucose (UA) Urine Ketones Urine Occult Blood Urine Nitrite Urine Bilirubin Urine Urobilinogen Ur Leukocyte Esterase Urine RBC Urine WBC Ur Squamous Epith Cells Urine Bacteria Hyaline Casts Urine Mucus COVID-19 (SERJIO) MRSA (PCR) POC Glucose 125 H 138 H 06/02/19 06/02/19 06/02/19 15:10 16:46 22:28 WBC RBC Hgb Hct MCV MCH MCHC RDW Std Deviation RDW Coeff of Henry Plt Count MPV Immature Gran % (Auto) Neut % (Auto) Lymph % (Auto) [place] % (Auto) Eos % (Auto) Baso % (Auto) Absolute Neuts (auto) Absolute Lymphs (auto) Nucleated RBC % Differential Comment Diff Path Review Atypical Lymphocytes Reactive Lymphocytes Platelet Estimate Hypochromasia Anisocytosis Macrocytosis PT INR APTT > 250.0 H* D-Dimer Quant (PE/DVT) Specimen Type Sample Site VBG pH VBG pO2 VBG O2 Sat (Calc) VBG O2 Content VBG Base Excess POC Mix VBG pCO2 Pt Tmp O2 Delivery Device Liter Flow Blood Gas Notified Whom Blood Gas Notified Time Sodium Potassium Chloride Carbon Dioxide Anion Gap BUN Creatinine Estim Creat Clear Calc Est GFR (MDRD) Af Amer Est GFR (MDRD) Non-Af BUN/Creatinine Ratio Glucose Lactic Acid Calcium Magnesium Ferritin Total Bilirubin AST ALT Alkaline Phosphatase Lactate Dehydrogenase Total Creatine Kinase C-React Prot Ext Range B-Natriuretic Peptide Total Protein Albumin Globulin Albumin/Globulin Ratio Procalcitonin Urine Color Urine Clarity Urine pH Ur Specific [place] Urine Protein Urine Glucose (UA) Urine Ketones Urine Occult Blood Urine Nitrite Urine Bilirubin Urine Urobilinogen Ur Leukocyte Esterase Urine RBC Urine WBC Ur Squamous Epith Cells Urine Bacteria Hyaline Casts Urine Mucus COVID-19 (SERJIO) MRSA (PCR) POC Glucose 137 H 118 H 06/02/19 06/03/19 06/03/19 22:35 05:10 05:10 WBC 5.7 RBC 3.32 L Hgb 10.8 L Hct 34.2 L MCV 103.0 H MCH 32.5 H MCHC 31.6 L RDW Std Deviation 58.1 H RDW Coeff of Henry 15.3 H Plt Count 83 L MPV 11.8 Immature Gran % (Auto) 0.900 Neut % (Auto) 83.0 H Lymph % (Auto) 11.1 L [place] % (Auto) 4.8 Eos % (Auto) 0.0 Baso % (Auto) 0.2 Absolute Neuts (auto) 4.7 Absolute Lymphs (auto) 0.63 L Nucleated RBC % 0 Differential Comment SCANNED Diff Path Review Atypical Lymphocytes 1+ Reactive Lymphocytes Platelet Estimate MOD DEC Hypochromasia Anisocytosis Macrocytosis PT INR APTT 203.1 H* D-Dimer Quant (PE/DVT) Specimen Type Sample Site VBG pH VBG pO2 VBG O2 Sat (Calc) VBG O2 Content VBG Base Excess POC Mix VBG pCO2 Pt Tmp O2 Delivery Device Liter Flow Blood Gas Notified Whom Blood Gas Notified Time Sodium 142 Potassium 5.1 Chloride 117 H Carbon Dioxide 19.0 L Anion Gap 6 BUN 38 H Creatinine 1.62 H Estim Creat Clear Calc 26.71 Est GFR (MDRD) Af Amer 40 L Est GFR (MDRD) Non-Af 33 L BUN/Creatinine Ratio 23.5 H Glucose 98 Lactic Acid Calcium 7.5 L Magnesium Ferritin Total Bilirubin 2.50 H AST 126 H ALT 21 Alkaline Phosphatase 258 H Lactate Dehydrogenase Total Creatine Kinase C-React Prot Ext Range B-Natriuretic Peptide Total Protein 5.2 L Albumin 1.8 L Globulin 3.4 Albumin/Globulin Ratio 0.5 L Procalcitonin Urine Color Urine Clarity Urine pH Ur Specific [place] Urine Protein Urine Glucose (UA) Urine Ketones Urine Occult Blood Urine Nitrite Urine Bilirubin Urine Urobilinogen Ur Leukocyte Esterase Urine RBC Urine WBC Ur Squamous Epith Cells Urine Bacteria Hyaline Casts Urine Mucus COVID-19 (SERJIO) MRSA (PCR) POC Glucose 06/03/19 05:10 WBC RBC Hgb Hct MCV MCH MCHC RDW Std Deviation RDW Coeff of [place] Plt Count MPV Immature Gran % (Auto) Neut % (Auto) Lymph % (Auto) [place] % (Auto) Eos % (Auto) Baso % (Auto) Absolute Neuts (auto) Absolute Lymphs (auto) Nucleated RBC % Differential Comment Diff Path Review Atypical Lymphocytes Reactive Lymphocytes Platelet Estimate Hypochromasia Anisocytosis Macrocytosis PT INR APTT 104.1 H* D-Dimer Quant (PE/DVT) 1.64 H* Specimen Type Sample Site VBG pH VBG pO2 VBG O2 Sat (Calc) VBG O2 Content VBG Base Excess POC Mix VBG pCO2 Pt Tmp O2 Delivery Device Liter Flow Blood Gas Notified Whom Blood Gas Notified Time Sodium Potassium Chloride Carbon Dioxide Anion Gap BUN Creatinine Estim Creat Clear Calc Est GFR (MDRD) Af Amer Est GFR (MDRD) Non-Af BUN/Creatinine Ratio Glucose Lactic Acid Calcium Magnesium Ferritin Total Bilirubin AST ALT Alkaline Phosphatase Lactate Dehydrogenase Total Creatine Kinase C-React Prot Ext Range B-Natriuretic Peptide Total Protein Albumin Globulin Albumin/Globulin Ratio Procalcitonin Urine Color Urine Clarity Urine pH Ur Specific [place] Urine Protein Urine Glucose (UA) Urine Ketones Urine Occult Blood Urine Nitrite Urine Bilirubin Urine Urobilinogen Ur Leukocyte Esterase Urine RBC Urine WBC Ur Squamous Epith Cells Urine Bacteria Hyaline Casts Urine Mucus COVID-19 (SERJIO) MRSA (PCR) POC Glucose Microbiology 06/01/19 14:55 Mucosa - Nose Respiratory Panel (PCR) - Final 06/01/19 11:00 Urine Catheter - Catheter Streptococcus pneumoniae Antigen (M - Final 06/01/19 11:00 Urine Catheter - Catheter Legionella Antigen - Final Clinical Impression(s) from Imaging Studies Shoulder X-Ray 06/01/19 11:04 IMPRESSION: Degenerative changes of the shoulder. Right pulmonary infiltrates. Electronically Signed: Dany Roblero, at 12:41 EDT , Service support , Wrist X-Ray 06/01/19 11:04 IMPRESSION: Degenerative changes. Findings suggestive of a nonhealed fracture through the waist of the scaphoid bone Electronically Signed: Dany Roblero, at 12:41 EDT , Service support , Chest X-Ray 06/01/19 11:47 IMPRESSION: New bilateral patchy infiltrates. Follow-up is recommended. Electronically Signed: Dany Roblero, at 12:38 EDT , Service support , Chest X-Ray 06/02/19 05:55 IMPRESSION: Bilateral airspace disease, left greater than right. The appearance has changed particularly on the right with what appears to be increasing airspace consolidation. Electronically Signed: Anuja Cárdenas MD at 2:43 EDT , Service support , Medical Necessity - Tobacco Use Smoking Status: Former smoker Tobacco Use: Non-smoker Assessment/Plan All Active Problems (Last Reviewed 05/11/19 @ 14:[address] Malik Bang, DO) Severe sepsis (Acute) Urinary tract infection (Acute) Acute encephalopathy (Acute) Pneumonia (Acute) Respiratory failure with hypoxia (Acute) Severe sepsis with acute organ dysfunction (Acute) Bilateral pulmonary infiltrates on chest x-ray (Acute) Suspected 2019 novel coronavirus infection (Acute) PADMA (acute kidney injury) (Acute) Jaundice (Acute) Hypotension (Acute) Lactic acid acidosis (Acute) H/O section (Resolved) History of carpal tunnel surgery (Resolved) Anemia (Resolved) Chest pain (Resolved) Chest pressure (Resolved) RECOMMENDATIONS: 1. Continue broad-spectrum antimicrobial coverage per ID recommendations. 2. Continue empiric heparin infusion. 3. Continue heated high flow supplemental oxygen and or BiPAP in order to maintain saturations at or above 90%. 4. Continue appropriate ICU prophylaxis. 5. Goals of care discussion with family. IMPRESSIONS: 1. Severe sepsis secondary to bilateral healthcare associated pneumonia and positive COVID-19 infection The patient has been recently admitted to the hospital and does have evidence of bilateral airspace disease on chest x-ray concerning for healthcare associated pneumonia versus COVID infection. Her respiratory status is quite tenuous and she does not wish to be intubated. Therefore, we will plan to continue current supportive measures with supplemental oxygen and possible heated high flow and/or BIPAP to maintain saturations at or above 90%. Empiric antimicrobials will be continued, per ID recommendations. Over concerns for possible viral mediated thrombotic phenomena, empiric heparin infusion will be continued. The patient has refused any attempts at pronating. 2. Acute hypoxemic respiratory failure Concern for infectious etiologies as noted above. Continue current supportive measures. 3. Acute on chronic kidney disease Likely prerenal in etiology and related to ischemic ATN in the setting of #1. Conservative fluid management will be employed. Continue to monitor urine output for now. No current indication for renal replacement therapy. 4. Pancytopenia Chronic in nature. At the current time there are no overt signs of blood loss. There is no indication for transfusion of blood products. 5. Hypertension/hyperlipidemia/coronary artery disease status post CA BG/diabetes mellitus/anxiety/depression Complicates care, management, recovery and prognosis. Recommend holding nephrotoxic medications including Lasix. CODE STATUS confirmed to be DNR CCA without intubation. UPDATE: I was notified by nursing staff that at approximately 10:30 AM the patient's respiratory status once again declined. The patient developed nausea and there was concern for possible emesis. Therefore, BiPAP was discontinued. Patient was placed back on Airvo with a high FiO2 requirement. Patient appears to be uncomfortable and in pain. She remains short of breath and confused. I did call and speak with the patient's , Matheus, and updated her on her status along with her positive COVID test results. I explained to him that her condition continues to worsen with time. Given the patient's level of discomfort, the patient's elected to transition her to DNR comfort care. TIME: 38 minutes of critical care time, independent of procedures, was spent addressing the patient's severe sepsis, possible healthcare associated pneumonia versus COVID-19 infection, acute hypoxemic respiratory failure, acute on chronic kidney disease, pancytopenia, review of all data and collaboration with the care team. ([id number], [id number])
[2019-06-03 08:45] LABS: Bedside Glucose 91 mg/dL (70-110)
--- NOTE | 2019-06-03 10:13 | PN_ITS ---
Patient Problems: Active and Suspected Problems (Last Reviewed 05/11/19 @ 14:[address] Malik Bang, DO) Respiratory failure with hypoxia (Acute) Severe sepsis with acute organ dysfunction (Acute) Bilateral pulmonary infiltrates on chest x-ray (Acute) Suspected 2019 novel coronavirus infection (Acute) PADMA (acute kidney injury) (Acute) Jaundice (Acute) Hypotension (Acute) Lactic acid acidosis (Acute) Subjective: Patient with worsening respiratory status vacillating between BiPAP and Airvo through the evening and worsening mental status. Given patient decline with difficulty maintaining appropriate oxygenation ICU physician did discuss CODE STATUS with and he requested transition to comfort measures. Patient le thargic but awakens and able to answer questions noting ongoing mild abdominal cramping and nausea but no emesis and improvement of diarrhea. She notes she still has a sore throat with occasional coughing and ongoing dyspnea. Patient denies fevers, chills, emesis, chest pain. Objective: Physical Examination: General: Awakens to stimuli, intermittently alert, fatigued and lethargic, able to answer some orientation questions but confused compared to prior, able to follow some commands, seated upright in the ICU bed, worsening appearance, increased work of breathing, accessory muscle usage. Skin: normal color, turgor, no icterus, cyanosis stopped occasional various staged ecchymoses to extremities. HEENT: AT/NC, EOMI, PERRLA, dry MM, airvo in place. Lungs: Severely diffusely diminished, greater bases, worsened appearing than prior, increased work of breathing, accessory muscle usage, no marked rales, ronchi or wheezing. Heart: Regular rate and rhythm; no gallop, rub audible. Abdomen: soft, morbidly obese, ongoing mild diffuse abdominal discomfort, no obvious distention, normalized BS. Extremities: no cyanosis, clubbing, improved LLE edema, wrap in place, still mild TTP. Neurological: Awakens to stimuli, intermittently alert, fatigued and lethargic, able to answer some orientation questions but confused compared to prior, able to follow some commands, seated upright in the ICU bed, worsening appearance, increased work of breathing, accessory muscle usage; cognitive function appears not baseline intact, worsening; pupils equally reactive to light and accomodation; cranial nerves II-XII grossly normal, moving all 4 extremities, no focal deficits but difficult assessment given lethargy and mental status decline, strength worsening, severely global decreased. Psychiatric: affect appears fatigued, ill, confused, no acute evidence of depressive or anxiety feelings. Vitals/I&O's: Vital Signs Temp Pulse Resp BP Pulse Ox 98.0 F 74 17 128/64 H 98 06/03/19 08:00 06/03/19 09:00 06/03/19 09:00 06/03/19 09:00 06/03/19 09:00 Oxygen Flow Rate (L/min) 75 Oxygen Delivery Method Bi-pap Weight: 231 lb 4.238 oz Body Mass Index (BMI) 40.2 Finger Stick Blood Glucose 61 Intake and Output for Last 24 Hours 06/01/19 06/02/19 06/03/19 23:59 23:59 23:59 Intake Total 2472.33 / 2625.66 2691.77 / 3202.40 1540.06 / 1540.06 Output Total 250 / 400 500 / 600 450 / 450 Balance 2222.33 / 2225.66 2191.77 / 2602.40 1090.06 / 1090.06 Microbiology Past 72 Hours 06/01/19 11:00 Urine, Catheterized Urine Culture - Final Presumptive C albicans 06/01/19 11:20 Blood Culture (Wb) - Port Blood Culture - Preliminary No growth in 48 hours. 06/01/19 11:20 Blood Culture (Wb) - Port Blood Culture - Preliminary No growth in 48 hours. 06/01/19 14:55 Mucosa - Nose Respiratory Panel (PCR) - Final 06/01/19 11:00 Urine Catheter - Catheter Streptococcus pneumoniae Antigen (M - Final 06/01/19 11:00 Urine Catheter - Catheter Legionella Antigen - Final Laboratory Results 06/01/19 10:41: COVID-19 (SERJIO) Detected 06/02/19 03:20: Diff Path Review June06/02/19 08:09: POC Glucose 125 H 06/02/19 12:25: POC Glucose 138 H 06/02/19 15:10: APTT > 250.0 H* 06/02/19 16:46: POC Glucose 137 H 06/02/19 22:28: POC Glucose 118 H 06/02/19 22:35: APTT 203.1 H* 06/03/19 05:10: WBC 5.7, RBC 3.32 L, Hgb 10.8 L, Hct 34.2 L, MCV 103.0 H, MCH 32.5 H, MCHC 31.6 L, RDW Std Deviation 58.1 H, RDW Coeff of Henry 15.3 H, Plt Count 83 L, MPV 11.8, Immature Gran % (Auto) 0.900, Neut % (Auto) 83.0 H, Lymph % (Auto) 11.1 L, [facility] % (Auto) 4.8, Eos % (Auto) 0.0, Baso % (Auto) 0.2, Absolute Neuts (auto) 4.7, Absolute Lymphs (auto) 0.63 L, Nucleated RBC % 0, Differential Comment SCANNED, Atypical Lymphocytes 1+, Platelet Estimate MOD 06/03/19 05:10: Sodium 142, Potassium 5.1, Chloride 117 H, Carbon Dioxide 19.0 L , Anion Gap 6, BUN 38 H, Creatinine 1.62 H, Estim Creat Clear Calc 26.71, Est GFR (MDRD) Af Amer 40 L, Est GFR (MDRD) Non-Af 33 L, BUN/Creatinine Ratio 23.5 H , Glucose 98, Calcium 7.5 L, Total Bilirubin 2.50 H, AST 126 H, ALT 21, Alkaline Phosphatase 258 H, Total Protein 5.2 L, Albumin 1.8 L, Globulin 3.4, Albumin/Globulin Ratio 0.5 L 06/03/19 05:10: APTT 104.1 H*, D-Dimer Quant (PE/DVT) 1.64 H* 06/03/19 08:13: POC Glucose 91 Current Medications Acetaminophen (Tylenol) 650 mg PO Q6H PRN PRN PRN Reason: Pain Score 1-10/Temp > 100.7 F Last Admin: 06/01/19 21:32 Dose: 650 mg Documented by: Al Hydroxide/Mg Hydroxide (Mylanta Ii) 30 ml PO Q6H PRN PRN PRN Reason: Gastric Burning Albuterol Sulfate (Ventolin Aerosols) 2.5 mg INHALATION Q2H PRN PRN PRN Reason: Dyspnea, wheezing Alprazolam (Xanax) 0.25 mg PO TID PRN PRN PRN Reason: anxiety Aspirin (Ecotrin) 81 mg PO DAILY@0800 KAYCE Last Admin: 06/02/19 08:06 Dose: 81 mg Documented by: Atorvastatin Calcium (Lipitor) 40 mg PO QHS [facility] Last Admin: 06/02/19 22:43 Dose: 40 mg Documented by: Clopidogrel Bisulfate (Plavix) 75 mg PO DAILY [facility] Last Admin: 06/02/19 09:54 Dose: 75 mg Documented by: Dextrose (D50w Syringe) 0 gm IV X1 PRN; Protocol PRN Reason: Hypoglycemia Diphenoxylate HCl/Atropine (Lomotil) 1 tablet PO 4X/DAY PRN PRN Reason: Diarrhea Gabapentin (Neurontin) 300 mg PO 0800,1200 [facility] Last Admin: 06/02/19 12:33 Dose: 300 mg Documented by: Gabapentin (Neurontin) 900 mg PO QHS [facility] Last Admin: 06/02/19 22:44 Dose: 900 mg Documented by: Glucagon () 1 mg IM .X1 PRN PRN Reason: Hypoglycemia Guaifenesin (Robitussin) 10 ml PO Q4H PRN PRN PRN Reason: COUGH Heparin Sodium (Porcine) (Heparin Na) 0 unit IV UD PRN; Protocol Hydralazine HCl (Apresoline Iv) 10 mg IV Q4H PRN PRN PRN Reason: SBP > 160 Piperacillin Sod/Tazobactam (Sod 3.375 gm/ Sodium Chloride) 50 mls @ 12.5 mls/hr IV Q8 [facility] Last Admin: 06/03/19 05:08 Dose: 12.5 mls/hr Documented by: Heparin Sodium/Dextrose () 25,000 units in 250 mls @ 15 mls/hr IV .[id number] [facility]; Protocol Last Titration: 06/03/19 08:00 Dose: 150 units/hr, 1.5 mls/hr Documented by: Sodium Chloride () 250 mls @ 15 mls/hr IV .[id number] PRN PRN Reason: Saline Flush Sodium Chloride () 250 mls @ 15 mls/hr IV .[id number] PRN PRN Reason: Additional IVPB Infusion Insulin Glargine (Lantus (Bk)) 75 units SC DAILY [facility] Last Admin: 06/03/19 08:33 Dose: Not Given Documented by: Insulin Human Lispro (Humalog Kwikpen (Bk)) 14 unit SC BIDCM [facility] Last Admin: 06/03/19 08:33 Dose: Not Given Documented by: Insulin Human Lispro (Humalog Kwikpen (Bkc)) 0 unit SC ACHS [facility]; Protocol Last Admin: 06/03/19 08:33 Dose: Not Given Documented by: Isosorbide Mononitrate (Imdur) 60 mg PO DAILY [facility] Last Admin: 06/02/19 09:53 Dose: 60 mg Documented by: Melatonin (Melatonin) 3 mg PO QHS PRN PRN PRN Reason: INSOMNIA Metoprolol Succinate (Toprol Xl (Beta Ngoc)) 100 mg PO DAILY [facility] Last Admin: 06/02/19 12:33 Dose: 100 mg Documented by: Nitroglycerin (Nitrostat) 0.4 mg SUBLINGUAL Q5M PRN PRN Reason: chest pain Nystatin (Mycostatin) 1 applic TOPICAL BID [facility] Last Admin: 06/02/19 22:44 Dose: Not Given Documented by: Ondansetron HCl (Zofran) 4 mg IV Q8H PRN PRN PRN Reason: NAUSEA/VOMITING Last Admin: 06/02/19 08:19 Dose: 4 mg Documented by: Pantoprazole Sodium (Protonix) 40 mg PO DAILY [facility] Last Admin: 06/02/19 09:54 Dose: 40 mg Documented by: [facility] Last Admin: 06/02/19 08:06 Dose: 40 meq Documented by: Prochlorperazine Edisylate (Compazine Iv) 5 mg IV Q4H PRN PRN PRN Reason: Breakthrough Nausea/Vomiting Sodium Chloride () 10 - 40 ml IV UD PRN PRN Reason: Multilumen/Paredes Flush Last Admin: 06/03/19 08:32 Dose: 20 ml Documented by: Sodium Chloride (0.9% Nacl (Sterile) Posiflush) 10 - 40 ml IV UD PRN PRN Reason: Port access or dressing change Throat Lozenges (Cepacol Sore Throat Lozenge) 1 lozenge MUCOUS MEM Q2H PRN PRN PRN Reason: SORE THROAT Topiramate (Topamax) 50 mg PO QHS [facility] Last Admin: 06/02/19 22:44 Dose: 50 mg Documented by: Tramadol HCl (Ultram) 50 mg PO Q6 PRN PRN Reason: Pain Score 1-10/10 Last Admin: 06/02/19 09:54 Dose: 50 mg Documented by: Zinc Sulfate (Zinc Sulfate) 220 mg PO TID [facility] Last Admin: 06/03/19 05:06 Dose: 220 mg Documented by: STROKE Vital Signs/Narrative: Vital Signs Temp Pulse Resp BP Pulse Ox 06/03/19 09:00 74 17 128/64 H 98 06/03/19 08:57 73 25 H 94 06/03/19 08:00 98.0 F 78 17 119/53 L 78 06/03/19 07:00 73 15 116/53 L 93 06/03/19 06:25 74 15 92 Medical Necessity - Tobacco Use Smoking Status: Former smoker Tobacco Use: Non-smoker Assessment/Plan All Active Problems (Last Reviewed 05/11/19 @ 14:[address] Malik Bang, DO) Severe sepsis (Acute) Urinary tract infection (Acute) Acute encephalopathy (Acute) Pneumonia (Acute) Respiratory failure with hypoxia (Acute) Severe sepsis with acute organ dysfunction (Acute) Bilateral pulmonary infiltrates on chest x-ray (Acute) Suspected 2019 novel coronavirus infection (Acute) PADMA (acute kidney injury) (Acute) Jaundice (Acute) Hypotension (Acute) Lactic acid acidosis (Acute) H/O section (Resolved) History of carpal tunnel surgery (Resolved) Anemia (Resolved) Chest pain (Resolved) Chest pressure (Resolved) The patient is a 74 y/o F w/ PMHx: Hx CVA with residual speech deficits, HTN, HLD, Rheumatoid arthritis, Diabetes mellitus type II, Morbid Obesity, CAD s/p PCI, Chronic anemia, Chronic COPD who presents to the [facility] ED on 06/01/19 with history of recent discharge on 05/23/19 following treatment for suspected pneumonia with R sided thoracentesis also, discharged to home with re-assessment per PCP on 05/29/19 secondary to history of onset recurrent cough with white sputum production, worsening dyspnea especially with any activity, increasing fatigue and malaise, nasal congestion not improving, prompting referral to the ED for re-evaluation. 1. Acute Severe Sepsis with Acute Hypoxic Respiratory Failure secondary to Bilateral Pneumonia secondary to Possible GN/GP Organism and CONFIRMED Acute Viral Syndrome, COVID-19 with Suspected associated LLE DVT, Possible concurrent Pulmonary Emboli: Patient upon presentation with leukopenia, lymphopenia, initial CXR new bilateral patchy infiltrates concerning for COVID. ED initiated COVID testing, still pending. Admitted to the ICU COVID unit, worsening respiratory status, 6L NC-->airvo currently, remains DNR-CCA, no intubation status, unable to prone, significantly elevated D-dimer requested per ID with notable LLE pain, edema with suspected DVT, possible PE, continued on heparin drip started on 06/01/19, continue MDI inhaler PRN albuterol, maintain on IV Zosyn and Vancomycin w/ negative MRSA screen therefore de-escalate off vancomycin, HOB, IS parameters, unable to obtain sputum cultures, negative urine antigens, negative respiratory viral panel, Bld Cx x 2 pending, negative urine antigens, UCx pending, initial D-dimer 1.87-->06/02/19 repeat 1.41--> d- dimer 1.64, procalcitonin 1.36, CRP 107, LDH 568, ferritin 624, closely monitor for worsening status for ARDS and multiorgan failure although given DNR-CCA, DNI status significant concerns ongoing and maintained on airvo, defer consideration of initiation of hydroxychloroquine to ICU and ID. Patient vacillating between airvo and BIPAP can Germain to periodic desaturations. Patient attempted diuresis 06/02/2019. Poor prognosis and given ongoing decline per discussion with patient will start transition to DNR CC status. Will allow family very structured visitation and once appropriate will following de-escalate therapies. 2. PADMA on Chronic Kidney Disease Stage III: Admission BUN/Cr 42/2.05, baseline renal function 0.9-1.2, 06/03/19 BUN/Cr 38/1.62, mildly increased from day prior, IV fluids have been held, IV Lasix 40 mg x 1 06/02/2019, continue to monitor urine output and trend CMP. Given acute presentation concerns possible ATN/AIN. 3. CAD: Status post PCI and CABG x2, continue home aspirin, Plavix, metoprolol, holding losartan and statin regimen. 4. Hypertension: Continue home regimen including metoprolol, isosorbide, holding Lasix and losartan given acute kidney injury with Lasix 40 mg IV x1 administered 06/02/2019 only with specific hold parameters, PRN hydralazine. 5. Hyperlipidemia: Hold home statin therapy given mild hyperbilirubinemia and elevated AST likely secondary to #1. 6. Chronic Thrombocytopenia: Admission platelets 51, baseline appears 60s to 90s, given possibility of #1 with suspected LLE DVT and possible DVT, judiciously initiated heparin drip 06/01/19, continue to monitor, 06/03/19 Plt 83. 7. History of CVA: We will continue patient on home aspirin, Plavix, hypertensive regimen with specific hold parameters as noted, diabetic regimen with hold on oral regimen, holding statin given acute presentation #1 as likely etiology with elevated liver function studies and bilirubin level. 8. Diabetes mellitus type II: Hold oral home regimen, continue home insulin regimen, ADA diet, accu checks w/ ISS. 9. Obesity: Weight loss and lifestyle changes encouraged. 10. Rheumatoid arthritis: Continue PRN tramadol regimen for pain associated. 11. Anxiety and depression: We will continue patient home Xanax regimen. 12. DVT prophylaxis: SCDs, heparin drip. 13. CODE status: RAFA is her and living will is currently in place. DNR-CCA, no intubation status previously, now transitioning to DNR-CC status. Inpatient E&M: [id number] [facility] L3
[2019-06-03] MEDS: Ondansetron 4 MG/2 ML Vial IV (10:20)
[2019-06-03 10:50] LABS: Pathologist Review Reviewed
--- NOTE | 2019-06-03 10:50 | NURSING ---
pt yelling, c/o nausea/vomiting, pulling at bipap mask. to Airvo. SpO2 to 44%. zofran given. then bipap 100% held in place by RN. RT to room to assist w/AirVo. Dr. Bang present. update given. Dr. Bang to speak w/pt's . pt returned to Airvo 90% 60l. SpO2 gradually to 91%. pt remains CAM pos but more situationally aware.
[2019-06-03 10:54] LABS: Pathologist Review Reviewed
[2019-06-03] MEDS: LORazepam 2 MG/ML Syringe 1 MG IV ×3 (10:56→16:54)
[2019-06-03 11:13] LABS: Partial Thromboplast Time 62.9 Seconds (24.1-36.2)
--- NOTE | 2019-06-03 15:30 | NURSING ---
lengthy disc w/ re pt condition. also notified she intermittantly takes off the AirVo. He states, the next time she takes it off to leave it off. He states both his sons agree.
--- NOTE | 2019-06-03 15:34 | CASEMGMT ---
Social Work Note Pt's code states has changed to DNRCC, comfort measures only. SW attempted to call pt's Matheus on both cell phone and home phone listed but there was no answer. Voicemail not available on cell phone, but SW did leave message on home phone letting Matheus know this worker is available for support if needed. Susie Pollack [employer], [employer]
[2019-06-03 16:15] LABS: International Normalized Ratio 1.4; Prothrombin Time (Protime)PT. 16.6 SECONDS (11.7-14.9)
--- NOTE | 2019-06-03 16:30 | NURSING ---
pt removed AirVo. ativan and morphine given for end of life care. notified. questions answered, reassurance given. This RN at bedside
[2019-06-03] MEDS: Morphine 2 MG/ML Syringe IV (16:54)
--- NOTE | 2019-06-03 17:51 | NURSING ---
apneic/asystolic. Dr. Morris present.
--- NOTE | 2019-06-03 17:53 | PCM.DEATH ---
Preliminary Cause of Acute Severe Sepsis,Acute Hypoxic Respiratory Failure, COVID-19, BL PNA Date of Admission: 06/01/19 Date of : 06/03/19 - 17:51 - Principle Diagnosis 1. Acute Severe Sepsis with Acute Hypoxic Respiratory Failure secondary to Bilateral Pneumonia secondary to Possible GN/GP Organism and CONFIRMED Acute Viral Syndrome, COVID-19 with Suspected associated LLE DVT, Possible concurrent Pulmonary Emboli 2. PADMA on Chronic Kidney Disease Stage III secondary to #1, likely ATN 3. CAD status post PCI and CABG x2 4. Hypertension 5. Hyperlipidemia 6. Chronic Thrombocytopenia 7. History of CVA 8. Diabetes mellitus type II 9. Obesity 10. Rheumatoid arthritis 11. Anxiety and depression Problem List: Active and Suspected Problems (Last Reviewed 05/11/19 @ 14:[address] Malik Bang, DO) Respiratory failure with hypoxia (Acute) Severe sepsis with acute organ dysfunction (Acute) Bilateral pulmonary infiltrates on chest x-ray (Acute) Suspected 2019 novel coronavirus infection (Acute) PADMA (acute kidney injury) (Acute) Jaundice (Acute) Hypotension (Acute) Lactic acid acidosis (Acute) Hospital Course The patient is a 74 y/o F w/ PMHx: Hx CVA with residual speech deficits, HTN, HLD, Rheumatoid arthritis, Diabetes mellitus type II, Morbid Obesity, CAD s/p PCI, Chronic anemia, Chronic COPD who presented to the [facility] ED on 06/01/19 with history of recent discharge on 05/23/19 following treatment for suspected pneumonia with R sided thoracentesis also, discharged to home with re-assessment per PCP on 05/29/19 secondary to history of onset recurrent cough with white sputum production, worsening dyspnea especially with any activity, increasing fatigue and malaise, nasal congestion not improving, prompting referral to the ED for re-evaluation. Patient upon presentation with leukopenia, lymphopenia, initial CXR new bilateral patchy infiltrates concerning for COVID. ED initiated COVID testing, still pending. Admitted to the ICU COVID unit, worsening respiratory status, 6L NC-->airvo currently, remains DNR-CCA, no intubation status, unable to prone, significantly elevated D-dimer requested per ID with notable LLE pain, edema with suspected DVT, possible PE, continued on heparin drip started on 06/01/19, continue MDI inhaler PRN albuterol, maintain on IV Zosyn and Vancomycin w/ negative MRSA screen therefore de-escalate off vancomycin, HOB, IS parameters, unable to obtain sputum cultures, negative urine antigens, negative respiratory viral panel, Bld Cx x 2 NG, negative urine antigens, UCx presumptive C albicans, initial D-dimer 1.87-->06/02/19 repeat 1.41--> d-dimer 1.64, procalcitonin 1.36, CRP 107, LDH 568, ferritin 624, continued close ICU monitoring with unfortunately worsening ARDS and multiorgan failure. Patient upon admission and through stay remained DNR-CCA, DNI status. Patient on 06/03/19 with worsening respiratory status vacillating between BiPAP and airvo with periodic desaturations. Patient attempted diuresis 06/02/2019 without improvement and decreasing UOP. Admission BUN/Cr 42/2.05, baseline renal function 0.9-1.2, 06/03/19 BUN/Cr 38/1.62, mildly increased from day prior, likely ATN/AIN. Admission platelets 51, baseline appears 60s to 90s, given possibility of #1 with suspected LLE DVT and possible DVT, judiciously initiated heparin drip 06/01/19, continue to monitor, 06/03/19 Plt 83. Patient continued to deteriorate therefore family contacted and requested continue DNR CCA, no intubation status be transition to DNR CC and avoidance of any further usage of BiPAP. Family members in a very controlled fashion per ICU nursing discretion visited with patient and she was also able to talk on the phone with her sister. Over the course of hours patient declined and passed on 06/03/19 at 17:51.
== END 2019-06-03 17:51 | DRG 871 ==
LOC: ED 12:18 → ICU 12:48
PROVIDERS: Internal Medicine Critical Care Medicine; Admitting Provider Family Medicine; Emergency Provider Emergency Medicine; PCP Family Medicine; Visit Provider Family Medicine
DX: A41.9 Sepsis, unspecified organism (principal); J18.9 Pneumonia, unspecified organism; U07.1 COVID-19; J96.01 Acute respiratory failure with hypoxia; N17.0 Acute kidney failure with tubular necrosis; I26.99 Other pulmonary embolism without acute cor pulmonale; J44.0 Chronic obstructive pulmonary disease with (acute) lower respiratory infection; D61.818 Other pancytopenia; R17 Unspecified jaundice; Z68.41 Body mass index [BMI] 40.0-44.9, adult; I82.4Z2 Acute embolism and thrombosis of unspecified deep veins of left distal lower extremity; E87.2 Acidosis; R65.20 Severe sepsis without septic shock; I25.10 Atherosclerotic heart disease of native coronary artery without angina pectoris; Z95.5 Presence of coronary angioplasty implant and graft; D50.9 Iron deficiency anemia, unspecified; E78.5 Hyperlipidemia, unspecified; E11.69 Type 2 diabetes mellitus with other specified complication; Z79.4 Long term (current) use of insulin; Z95.1 Presence of aortocoronary bypass graft; Z86.73 Personal history of transient ischemic attack (TIA), and cerebral infarction without residual deficits; M06.9 Rheumatoid arthritis, unspecified; E66.01 Morbid (severe) obesity due to excess calories; Z66 Do not resuscitate; N18.3 Chronic kidney disease, stage 3 (moderate); I12.9 Hypertensive chronic kidney disease with stage 1 through stage 4 chronic kidney disease, or unspecified chronic kidney disease; E11.22 Type 2 diabetes mellitus with diabetic chronic kidney disease; F32.9 Major depressive disorder, single episode, unspecified; F41.9 Anxiety disorder, unspecified; Z79.02 Long term (current) use of antithrombotics/antiplatelets; Z79.82 Long term (current) use of aspirin; Z82.3 Family history of stroke; Z82.49 Family history of ischemic heart disease and other diseases of the circulatory system; Z83.3 Family history of diabetes mellitus; Z51.5 Encounter for palliative care; Z87.891 Personal history of nicotine dependence; Z90.711 Acquired absence of uterus with remaining cervical stump; Z96.641 Presence of right artificial hip joint; Z96.653 Presence of artificial knee joint, bilateral; Y95 Nosocomial condition
CPT/HCPCS: 70450; 71045; 71046; 73030; 73110; 80053; 81001; 82550; 82728; 82803; 82962; 83605; 83615; 83735; 83880; 84145; 84443; 84484; 85025; 85379; 85610; 85730; 86140; 87040; 87086; 87088; 87449; 87633; 87635; 87641; 87804; 93005; 94002; 94003; 94660; 96365; 99251; 99284; 99285; J7030; J7040; J7050; P9612; A4216; C1751; G0463; J1940; J2405; U0004